=== PATIENT | female | born 1980 | race Caucasian/White ===

== ENCOUNTER 2019-01-31 13:25 | Emergency (ER) | payer OTHER ==
[~2019-01-31] VITALS: Ht 172.7 cm; Wt 108.4 kg
--- OUTSIDE RECORDS SUMMARY | ~2019-01-31 | XMS | Encounter Summary ---
Demographics + + + | Address | [address] | | | [place] [address] | + + + | Home Phone | | + + + | Preferred Language | Unknown | + + + | Marital Status | | + + + | Denominational Affiliation | 1001 | + + + | Race | Unknown | + + + | Ethnic Group | Unknown | + + + Author + + + | Author | [facility] | | | and [place] | + + + | Organization | [facility] | | | and [place] | + + + | Address | Unknown | + + + | Phone | Unavailable | + + + Support + + + + + | Name | Relationship | Address | Phone | + + + + + | Alexia Black | ECON | [address] | | | | | [place] [address] | | + + + + + | Kathi Segura | ECON | Unknown | | + + + + + Care Team Providers + +------+ + | Care Production Ski Repairer Name | Role | Phone | + +------+ + | Ricardo Nicholson MD | PCP | | + +------+ + Reason for Visit + + + | Reason | Comments | + + + | Abdominal Pain | | + + + | Constipation | | + + + | Bloated | | + + + | Back Pain | upper back | + + + | Neck Pain | b/l | + + + Encounter Details +--------+---------+ + + + | Date | Type | Department | Care Team | Description | +--------+---------+ + + + | 07/02/ | Office | [facility] | Ricardo Nicholson, | Left upper quadrant | | 2015 | Visit | [facility] | [address] | pain (Primary Dx); | | | | [address] | [place] | Constipation, | | | | [place], [place] | [address] | unspecified | | | | [address] | | constipation type; | | | | [phone] | | Bloated abdomen | +--------+---------+ + + + Social History + +-------+ +--------+ + | Tobacco Use | Types | Packs/Day | Years | Date | | | | | Used | | + +-------+ +--------+ + | Former Smoker | | | | Quit: 12/04/2010 | + +-------+ +--------+ + + +---+---+---+ | Smokeless Tobacco: | | | | | Former User | | | | + +---+---+---+ + + +---------+ + | Alcohol Use | Drinks/Week | oz/Week | Comments | + + +---------+ + | Yes | 1 Standard drinks | 0.8 | social | | | or equivalent | | | + + +---------+ + + + + | Sex Assigned at | Date Recorded | | | | + + + | Not on file | | + + + + + + + | Job Start Date | Occupation | Industry | + + + + | Not on file | Not on file | Not on file | + + + + + + + + | Travel History | Travel Start | Travel End | + + + + + + | No recent travel history available. | + + documented as of this encounter Last Filed Vital Signs + + + + + | Vital Sign | Reading | Time Taken | Comments | + + + + + | Blood Pressure | 92/70 | 07/03/2015 9:24 AM | | | | | PDT | | + + + + + | Pulse | 74 | 07/03/2015 9:24 AM | | | | | PDT | | + + + + + | Temperature | 36.6 C (97.8 F) | 07/03/2015 9:24 AM | | | | | PDT | | + + + + + | Respiratory Rate | 16 | 07/03/2015 9:24 AM | | | | | PDT | | + + + + + | Oxygen Saturation | 99% | 07/03/2015 9:24 AM | | | | | PDT | | + + + + + | Inhaled Oxygen | - | - | | | Concentration | | | | + + + + + | Weight | 111.6 kg (246 lb) | 07/03/2015 9:24 AM | | | | | PDT | | + + + + + | Height | - | - | | + + + + + | Body Mass Index | 37.4 | 12/18/2014 8:47 AM | | | | | PDT | | + + + + + documented in this encounter Progress Notes Ricardo Nicholson MD - 07/03/2015 9:34 AM PDTFormatting of this note might be different f rom the original. Subjective: Patient ID: Selena Black is a 34 y.o. female. Abdominal Pain This is a new problem. The current episode started 1 to 4 weeks ago. The problem occurs con stantly. The problem has been unchanged. The pain is at a severity of 5/10. The pain is mode rate. The quality of the pain is aching. Nothing aggravates the pain. The pain is relieved b y nothing. Past Medical History Diagnosis Date Sinusitis Pharyngitis Vaginitis Unspecified otitis media S/P endoscopy 05/07/12 normal Hyperplastic colon polyp 05/07/12 hyperplastic polyp,otherwise normal study Patient Active Problem List Diagnosis Date Noted POA Depression Unknown Abdominal pain, other specified site 03/30/2012 Unknown Preventative health care 03/04/2012 Unknown OTHandUNSPEC NONINFECTIOUS GASTROENTERITISandCOLITIS Unknown OTITIS MEDIA, ACUTE 10/30/2011 Unknown ABRASION 11/20/2010 Unknown Past Surgical History Procedure Laterality Date Tonsillectomy Ear surgery Bilateral as a child Colonoscopy 05/07/2012 one 5mm polyp in the proxinal decending colon/Resected abd retrieved/Internal Hemorrhroid s/The examination was otherwise normal/The examined portion of the ileum was normal. Upper gastrointestinal endoscopy 05/07/2012 Normal examined duodenum. This was biopsied/ Normal Stomach . Biopsy was performed. Ivette l Esophagus. This was biopsied. Duodenal biopsy Benign small bowel mucosa fragments-No Robert's glands included in these bipsies/Negariv e for pathologic inflamation-Negarive for architectural atypia-No parasites identified. Gastric biopsy Benign gastric mucosal fragments- Negative for pathologic inflammation-_Immunohisstochemi nicki stain negative for H pylory- Approated positive control reactions are noted-Negative for atypia Esophageal biopsy Benign squamous mucosa-Mild chronic inflammation-Negative for significant eosinophilic in filtration-Mild atypia-Favor reactive Ascending colon biopsy Benign colonic mucosa-Negative for pathologic inflammation-Normal apperring lymphoid foll icle-Negative for atypia Tissue from descending colon(polyp) Benign hyperplastic polyp Family History Problem Relation Age of Onset Heart disease Maternal Grandmother Diabetes Maternal Grandmother Liver disease Maternal Grandfather History Social History Marital Status: Significant Other Spouse Name: N/A Number of Children: N/A Years of Education: N/A Social History Main Topics Smoking status: Former Smoker Quit date: 12/04/2010 Smokeless tobacco: Former User Alcohol Use: 0.5 oz/week 1 drink(s) per week Comment: social Drug Use: No Sexual Activity: Yes Other Topics Concern None Social History Narrative Current Outpatient Prescriptions on File Prior to Visit Medication Sig Dispense Refill buPROPion (WELLBUTRIN SR) 150 mg 12 hr tablet take 1 tablet by mouth twice a day 180 ta blet 3 Cetirizine HCl (ZYRTEC ALLERGY PO) drospirenone-ethinyl estradiol (ANGELLA) 3-0.03 mg per tablet take 1 tablet by mouth once daily 84 tablet 1 Ibuprofen (ADVIL PO) TABS levothyroxine (SYNTHROID, LEVOTHROID) 75 MCG tablet take 1 tablet by mouth daily 30 tab let 0 Multiple Vitamins-Minerals (MULTIVITAMIN & MINERAL PO) Take by mouth. ondansetron (ZOFRAN ODT) 4 mg disintegrating tablet Take one tablet every 4-6 hours as needed for nausea. 6 tablet 0 Pseudoephedrine-Guaifenesin (MUCINEX D PO) Take by mouth as needed. No current facility-administered medications on file prior to visit. No Known Allergies Review of Systems Constitutional: Negative. HENT: Negative. Eyes: Negative. Respiratory: Negative. Cardiovascular: Negative. Gastrointestinal: Positive for abdominal pain. Genitourinary: Negative. Musculoskeletal: Negative. Skin: Negative. Neurological: Negative. Psychiatric/Behavioral: Negative. Objective: Physical Exam Constitutional: She is oriented to person, place, and time. She appears well-developed and well-nourished. No distress. HENT: Head: Normocephalic and atraumatic. Eyes: Conjunctivae are normal. Cardiovascular: Regular rhythm. Pulmonary/Chest: Effort normal. Musculoskeletal: She exhibits no edema. Neurological: She is alert and oriented to person, place, and time. Skin: Skin is warm and dry. Psychiatric: She has a normal mood and affect. Assessment: 1. Left upper quadrant pain XR Abdomen AP TSH 2. Constipation, unspecified constipation type XR Abdomen AP TSH 3. Bloated abdomen XR Abdomen AP TSH Plan: Orders Placed This Encounter Procedures XR Abdomen AP Standing Status: Future Number of Occurrences: 1 Standing Expiration Date: 07/02/2016 Order Specific Question: Reason for exam: Answer: constipation Order Specific Question: What is the preferred imaging location? Answer: [facility] TSH Standing Status: Future Number of Occurrences: 1 Standing Expiration Date: 07/02/2016 Current Outpatient Prescriptions Medication Sig Dispense Refill buPROPion (WELLBUTRIN SR) 150 mg 12 hr tablet take 1 tablet by mouth twice a day 180 ta blet 3 Cetirizine HCl (ZYRTEC ALLERGY PO) drospirenone-ethinyl estradiol (ANGELLA) 3-0.03 mg per tablet take 1 tablet by mouth once daily 84 tablet 1 Ibuprofen (ADVIL PO) TABS Multiple Vitamins-Minerals (MULTIVITAMIN & MINERAL PO) Take by mouth. omeprazole (PRILOSEC) 20 mg capsule Take 1 capsule by mouth every morning (before break fast). 60 capsule 0 ondansetron (ZOFRAN ODT) 4 mg disintegrating tablet Take one tablet every 4-6 hours as needed for nausea. 6 tablet 0 Pseudoephedrine-Guaifenesin (MUCINEX D PO) Take by mouth as needed. No current facility-administered medications for this visit. documented in this encounter Plan of Treatment Not on filedocumented as of this encounter Results TSH (07/03/2015 10:13 AM PDT) + + + + + + | Component | Value | Ref Range | Performed | Pathologist | | | | | At | Signature | + + + + + + | TSH | 1.80Comment: All TSH | 0.34 - 5.60 | [facility] | | | | samples are screened | uIU/mL | [facility] | | | | using a 2nd Generation | | MEDICAL | | | | test, and are reflexed | | CENTER - | | | | to a 3rd Generation test | | LABORATORY | | | | if indicated. | | | | + + + + + + + + | Specimen | + + | Blood | + + + + + + + | Performing | Address | City/State/Zipcode | Phone Number | | Organization | | | | + + + + + | [facility] | [address] | [place] | [phone] | | [facility] | | [address] | | | - LABORATORY | | | | + + + + + XR Abdomen AP (07/03/2015 10:05 AM PDT) + + | Specimen | + + | | + + + + + | Narrative | Performed At | + + + | SUPINE ABDOMEN: 07/03/2015 10:04 AM CLINICAL HISTORY: | [facility] | | constipation COMPARISON: 04/15/2012 FINDINGS: AP supine views | [facility] | | of the abdomen. Intestinal gas and stool pattern is within normal | MEDICAL CENTER | | limits. No signs of obstruction. No free air suggested. No abnormal | - IMAGING | | calcifications. Psoas shadows are well demarcated. No bony | | | abnormality. IMPRESSION - Radiographic appearance of the abdomen | | | within normal limits. Dictated and Signed by: Eriberto Coffey MD | | | Electronically signed: 07/03/2015 11:47 AM | | + + + + + | Procedure Note | + + | [place], Rad Results In - 07/03/2015 11:50 AM PDT SUPINE ABDOMEN: 07/03/2015 10:04 AM | | | | CLINICAL HISTORY: constipation | | | | COMPARISON: 04/15/2012 | | | | FINDINGS: AP supine views of the abdomen. Intestinal gas and stool pattern is | | within normal limits. No signs of obstruction. No free air suggested. No | | abnormal calcifications. Psoas shadows are well demarcated. No bony abnormality. | | | | IMPRESSION - Radiographic appearance of the abdomen within normal limits. | | | | Dictated and Signed by: Eriberto Coffey MD | | Electronically signed: 07/03/2015 11:47 AM | + + + + + + + | Performing | Address | City/State/Zipcode | Phone Number | | Organization | | | | + + + + + | [facility] | [address] | [place] | [phone] | | [facility] | | [address] | | | - IMAGING | | | | + + + + + documented in this encounter Visit Diagnoses + + | Diagnosis | + + | Left upper quadrant pain - Primary Abdominal pain, left upper quadrant | + + | Constipation, unspecified constipation type | + + | Bloated abdomen Flatulence, eructation, and gas pain | + + documented in this encounter"
--- OUTSIDE RECORDS SUMMARY | ~2019-01-31 | XMS | Encounter Summary ---
Demographics + + + | Address | [address] | | | [place] [address] | + + + | Home Phone | | + + + | Preferred Language | Unknown | + + + | Marital Status | | + + + | Sikh Affiliation | 1001 | + + + | Race | Unknown | + + + | Ethnic Group | Unknown | + + + Author + + + | Author | [facility] | | | and [place] | + + + | Organization | [facility] | | | and [place] | + + + | Address | Unknown | + + + | Phone | Unavailable | + + + Support + + + + + | Name | Relationship | Address | Phone | + + + + + | Alexia Black | ECON | [address] | | | | | [place] [address] | | + + + + + | Kathi Segura | ECON | Unknown | | + + + + + Care Team Providers + +------+ + | Care Team Guide Name | Role | Phone | + +------+ + | Ricardo Nicholson MD | PCP | | + +------+ + Reason for Visit + + + | Reason | Comments | + + + | Medication Refill | | + + + Encounter Details +--------+--------+ + + + | Date | Type | Department | Care Team | Description | +--------+--------+ + + + | 10/13/ | Refill | [facility] | Ricardo Nicholson, | Medication Refill | | 2016 | | [facility] [place] | [address] | | | | | [address] | [place] | | | | | [place] | [address] | | | | | [address] | | | | | | [phone] | | | +--------+--------+ + + + Social History + +-------+ [...] + + +---------+ + | Yes | 1-3 Cans of beer | 0.8 | social | + + +---------+ + + + [...] + + documented as of this encounter Plan of Treatment Not on filedocumented as of this encounter Visit Diagnoses Not on filedocumented in this encounter"
--- OUTSIDE RECORDS SUMMARY | ~2019-01-31 | XMS | Encounter Summary ---
Demographics + + + | Address | [address] | | | [place] [address] | + + + | Home Phone | | + + + | Preferred Language | Unknown | + + + | Marital Status | | + + + | Mandaeism Affiliation | 1001 | + + + | Race | Unknown | + + + | Ethnic Group | Unknown | + + + Author + + + | Author | [facility] | | | and [place] | + + + | Organization | [facility] | | | and [place] | + + + | Address | Unknown | + + + | Phone | Unavailable | + + + Support + + + + + | Name | Relationship | Address | Phone | + + + + + | Alexia Ascencio | ECON | [address] | | | | | [place] [address] | | + + + + + | Kathi Segura | ECON | Unknown | | + + + + + Care Team Providers + +------+ + | Care Dolphin Trainer Name | Role | Phone | + +------+ + | Hu Nicholson MD | PCP | | + +------+ + Reason for Visit + + + | Reason | Comments | + + + | Annual Exam | Annual physcial exam/ ER hospital follow up | + + + Encounter Details +--------+---------+ + + + | Date | Type | Department | Care Team | Description | +--------+---------+ + + + | 12/04/ | Office | [facility] | Hu Nicholson, | Routine general | | 2011 | Visit | [facility] | [address] | medical examination | | | | [address] | [place], [place] | at a health care | | | | [place], [place] | [address] | facility (Primary | | | | [phone] | | Dx); Abdominal | | | | [phone] | | pain, other | | | | | | specified site | +--------+---------+ + + + Social History + +-------+ +--------+ + | Tobacco Use | Types | Packs/Day | Years | Date | | | | | Used | | + +-------+ +--------+ + | Former Smoker | | | | Quit: 12/04/2010 | + +-------+ +--------+ + + + +---------+ + | Alcohol Use [...] + + + | Blood Pressure | 118/80 | 12/05/2011 10:17 AM | | | | | PDT | | + + + + + | Pulse | 86 | 12/05/2011 10:17 AM | | | | | PDT | | + + + + + | Temperature | 37 C (98.6 F) | 12/05/2011 10:17 AM | | | | | PDT | | + + + + + | Respiratory Rate | 18 | 12/05/2011 10:17 AM | | | | | PDT | | + + + + + | Oxygen Saturation | 98% | 12/05/2011 10:17 AM | | | | | PDT | | + + + + + | Inhaled Oxygen | - | - | | | Concentration | | | | + + + + + | Weight | 117.9 kg (260 lb) | 12/05/2011 10:17 AM | | | | | PDT | | + + + + + | Height | 172.7 cm (5' 8") | 12/05/2011 10:17 AM | | | | | PDT | | + + + + + | Body Mass Index | 39.53 | 12/05/2011 10:17 AM | | | | | PDT | | + + + + + documented in this encounter Progress Notes Hu Nicholson MD - 12/05/2011 11:06 AM PDT Addended by: HU NICHOLSON on: 12/05/19 12 11:06 Modules accepted: Orders u Nicholson MD - 12/05/2011 10:31 AM PDT Subjective: Patient ID: Lyle Ascencio is a 31 y.o. female. Abdominal Pain This is a new problem. The current episode started 1 to 4 weeks ago. The onset quality is s udden. The pain is located in the LUQ. The pain is at a severity of 4/10. Quality: pressure. Patient's medications, allergies, past medical, surgical, social and family histories were reviewed and updated as appropriate. Review of Systems Gastrointestinal: Positive for abdominal pain. All other systems reviewed and are negative. Objective: Physical Exam Constitutional: She appears well-developed. Assessment: abd pain Weight gain Plan: U/s aand labs Plan to get counseling. On weight. documented in this encounter Plan of Treatment Not on filedocumented as of this encounter Results US Abdomen Complete (12/15/2011 10:20 AM PDT) + + | Specimen | + + | | + + + + + | Narrative | Performed At | + + + | [facility] | [place] | | Department [address] | [facility] | | [ [address]] [ rep [address] [facility] | [facility] | | zip] Signed | - IMAGING | | | | | Patient Name: LYLE ASCENCIO Physician: | | | : 1980 Age: 31 Sex: F Unit #: [id number] | | | Exam Date: 12/15/11 Location: [facility] | | | Report #: [id number] Page: | | | %(RAD)RES..mtdd.print.filter("pg") of %(RAD) | | | RES..mtdd.print.filter("tpg") | | | | | | Accession Number: [id number] | | | ULTRASOUND ABDOMEN COMPLETE CLINICAL HISTORY: ABDOMINAL | | | PAIN. COMPARISON: None. TECHNIQUE: | | | Thompson scale and color Doppler ultrasound images of the abdomen were | | | obtained by a manager supplier. FINDINGS: The liver is | | | smooth in contour and homogeneous in echo texture, measuring 18.4 cm | | | in maximal dimension. The gallbladder is normal in appearance, | | | without evidence of wall thickening or pericholecystic fluid. The | | | sonographic Fernandez sign is negative. The common bile duct measures 3.6 | | | mm in diameter. The common hepatic duct was not visualized. | | | The pancreas was well-visualized and is homogeneously slightly | | | increased in echo texture, as can be seen with mild, normal fatty | | | infiltration. The aorta is normal and appearance, | | | measuring 2.0 cm proximally, 1.9 cm distally, and 1.9 cm in the mid | | | aorta and 1.6 cm distally. The spleen is mildly prominent, measuring | | | 13.5 cm in maximal dimension, and is otherwise unremarkable. | | | The right kidney is smooth in contour and normal in echo | | | texture, measuring 10.4 cm x 4.5 x 4.6 cm. There is no evidence of | | | stone or hydronephrosis. The left kidney is smooth in | | | contour and normal in echo texture, measuring 11.0 x 4.7 x 4.7 cm. | | | There is no evidence of stone or hydronephrosis. | | | Normal blood flow is seen in the inferior vena cava, portal vein, | | | hepatic veins and splenic veins. IMPRESSION: NO | | | ACUTE INTRAABDOMINAL ABNORMALITY. NO EVIDENCE OF ACUTE CHOLECYSTITIS. | | | Dictated Date/Time: 12/15/2011 10:20 Transcribed | | | Date/Time: 12/15/2011 10:56 Tile Conduit Layer: | | | <<Signature on File>> | | | Vinod | | | [place] MD12/15/11 8705 <Electronically signed by Vinod Wolff | | | Pancho VELARDE> Vinod Deleon MD 12/15/11 1020 | | | Tile Conduit Layer: [employer] Pacnzceitndgx67/22/12 1056 | | | Hu Nicholson MD | | + + + + + + + + | Performing | Address | City/State/Zipcode | Phone Number | | Organization | | | | + + + + + | [facility] | [address] | [place] | [phone] | | [facility] | | [address] | | | - IMAGING | | | | + + + + + TSH (12/15/2011 8:51 AM PDT) + + + + + + | Component | Value | Ref Range | Performed | Pathologist | | | | | At | Signature | + + + + + + | TSH | 3.58Comment: Testing | 0.34 - 5.60 | [facility] | | | | performed on the [facility] | uIU/mL | [facility] | | | | [place] [facility] | | MEDICAL | | | | Analyzer. | | CENTER - | | | | | | LABORATORY | | + + + + + + + + | Specimen | + + | Blood specimen | | (specimen) | + + + + + + + | Performing | Address | City/State/Zipcode | Phone Number | | Organization | | | | + + + + + | [facility] | [address] | [place] | [phone] | | [facility] | | [address] | | | - LABORATORY | | | | + + + + + | [facility] | [address] | [place] | | | [facility] | | [address] | | | - LABORATORY | | | | + + + + + Lipase (12/15/2011 8:44 AM PDT) + +-------+ + + + | Component | Value | Ref Range | Performed | Pathologist | | | | | At | Signature | + +-------+ + + + | Lipase | 32 | 0 - 60 U/L | [facility] | | | | | | [facility] | | | | | | MEDICAL | | | | | | CENTER - | | | | | | LABORATORY | | + +-------+ + + + + + | Specimen | + + | Blood specimen | | (specimen) | + + + + + + + | Performing | Address | City/State/Zipcode | Phone Number | | Organization | | | | + + + + + | [facility] | [address] | [place], [place] | [phone] | | [facility] | | [address] | | | - LABORATORY | | | | + + + + + | [facility] | [address] | [place], [place] | | | [facility] | | [address] | | | - LABORATORY | | | | + + + + + Lipid Profile (12/15/2011 8:44 AM PDT) + + + + + + | Component | Value | Ref Range | Performed | Pathologist | | | | | At | Signature | + + + + + + | Triglycerid | 191 (H) | 35 - 160 mg/dL | [facility] | | | es | | | [facility] | | | | | | MEDICAL | | | | | | CENTER - | | | | | | LABORATORY | | + + + + + + | Cholesterol | 165 | 140 - 200 mg/dL | [facility] | | | | | | [facility] | | | | | | MEDICAL | | | | | | CENTER - | | | | | | LABORATORY | | + + + + + + | HDL | 45 | 29 - 89 mg/dL | [facility] | | | | | | [facility] | | | | | | MEDICAL | | | | | | CENTER - | | | | | | LABORATORY | | + + + + + + | LDL, | 82 | <130 mg/dL | [facility] | | | Calculated | | | [facility] | | | | | | MEDICAL | | | | | | CENTER - | | | | | | LABORATORY | | + + + + + + | Chol/HDL | 3.7Comment: | | [facility] | | | Ratio | | | [facility] | | | | | | MEDICAL | | | | -------RISK CATEGORY: | | CENTER - | | | | CHOL/HDL * T.CHOL * LDL | | LABORATORY | | | | CHOL * HDL CHOL | | | | | | | | | | | | RATIODESIRABLE: (M) | | | | | | 4.0-6.7 <200 | | | | | | <130 >50 | | | | | | (F) | | | | | | 3.7-4.2BORDERLINE:(M) | | | | | | 6.7-7.4 200-240 | | | | | | 130-160 <45 | | | | | | (F) | | | | | | 4.2-5.5HIGH RISK: (M) | | | | | | >7.4 >240 | | | | | | >160 <35 | | | | | | (F) | | | | | | >5.5 | | | | | | | | | | | | | | | | + + + + + + + + | Specimen | + + | Blood specimen | | (specimen) | + + + + + + + | Performing | Address | City/State/Zipcode | Phone Number | | Organization | | | | + + + + + | [facility] | [address] | [place] | [phone] | | [facility] | | [address] | | | - LABORATORY | | | | + + + + + | [facility] | [address] | [place] | | | [facility] | | [address] | | | - LABORATORY | | | | + + + + + Comprehensive metabolic panel (12/15/2011 8:44 AM PDT) + + + + + + | Component | Value | Ref Range | Performed | Pathologist | | | | | At | Signature | + + + + + + | Glucose | 100 | 70 - 109 mg/dL | [facility] | | | | | | [facility] | | | | | | MEDICAL | | | | | | CENTER - | | | | | | LABORATORY | | + + + + + + | Calcium | 8.8 | 8.3 - 10.5 | [facility] | | | | | mg/dL | [facility] | | | | | | MEDICAL | | | | | | CENTER - | | | | | | LABORATORY | | + + + + + + | Alkaline | 84 | 40 - 110 IU/L | [facility] | | | Phosphatase | | | [facility] | | | | | | MEDICAL | | | | | | CENTER - | | | | | | LABORATORY | | + + + + + + | AST | 19 | 10 - 42 IU/L | [facility] | | | | | | [facility] | | | | | | MEDICAL | | | | | | CENTER - | | | | | | LABORATORY | | + + + + + + | ALT | 16 | 6 - 45 IU/L | [facility] | | | | | | [facility] | | | | | | MEDICAL | | | | | | CENTER - | | | | | | LABORATORY | | + + + + + + | Bilirubin | 0.5 | 0.2 - 1.0 mg/dL | [facility] | | | Total | | | [facility] | | | | | | MEDICAL | | | | | | CENTER - | | | | | | LABORATORY | | + + + + + + | Total | 7.0 | 6.0 - 7.8 gm/dL | [facility] | | | Protein | | | [facility] | | | | | | MEDICAL | | | | | | CENTER - | | | | | | LABORATORY | | + + + + + + | Albumin | 3.5 | 3.2 - 5.0 gm/dL | [facility] | | | | | | [facility] | | | | | | MEDICAL | | | | | | CENTER - | | | | | | LABORATORY | | + + + + + + | BUN | 11 | 7 - 18 mg/dL | [facility] | | | | | | [facility] | | | | | | MEDICAL | | | | | | CENTER - | | | | | | LABORATORY | | + + + + + + | Creatinine | 0.92 | 0.60 - 1.30 | [facility] | | | | | mg/dL | [facility] | | | | | | MEDICAL | | | | | | CENTER - | | | | | | LABORATORY | | + + + + + + | Estimated | >60Comment: For | >60 mL/min/A | [facility] | | | GFR | -Americans, | | [facility] | | | | please multiply the | | MEDICAL | | | | result by 1.210 | | CENTER - | | | | This is an estimated GFR | | LABORATORY | | | | and is based on a | | | | | | standard adult | | | | | | body mass (A=1.73m2) and | | | | | | serum creatinine | | | | + + + + + + | BUN/Creatin | 12.0 | 12 - 20 | [facility] | | | ine Ratio | | | [facility] | | | | | | MEDICAL | | | | | | CENTER - | | | | | | LABORATORY | | + + + + + + | Na | 133 (L) | 136 - 149 mEq/L | [facility] | | | | | | [facility] | | | | | | MEDICAL | | | | | | CENTER - | | | | | | LABORATORY | | + + + + + + | K | 3.4 (L) | 3.5 - 5.1 mEq/l | [facility] | | | | | | [facility] | | | | | | MEDICAL | | | | | | CENTER - | | | | | | LABORATORY | | + + + + + + | Cl | 103 | 98 - 109 mEq/l | [facility] | | | | | | [facility] | | | | | | MEDICAL | | | | | | CENTER - | | | | | | LABORATORY | | + + + + + + | CO2 | 21 (L) | 24 - 31 mEq/L | [facility] | | | | | | [facility] | | | | | | MEDICAL | | | | | | CENTER - | | | | | | LABORATORY | | + + + + + + | Anion Gap | 12.4 | 6.0 - 17.0 | [facility] | | | | | | [facility] | | | | | | MEDICAL | | | | | | CENTER - | | | | | | LABORATORY | | + + + + + + + + | Specimen | + + | Blood specimen | | (specimen) | + + + + + + + | Performing | Address | City/State/Zipcode | Phone Number | | Organization | | | | + + + + + | [facility] | [address] | [place] | [phone] | | [facility] | | [address] | | | - LABORATORY | | | | + + + + + | [facility] | [address] | [place], [place] | | | [facility] | | [address] | | | - LABORATORY | | | | + + + + + CBC w/ Differential (12/15/2011 8:44 AM PDT) + +---------+ + + + | Component | Value | Ref Range | Performed | Pathologist | | | | | At | Signature | + +---------+ + + + | WBC | 10.4 | 4.0 - 11.0 K/uL | [facility] | | | | | | [facility] | | | | | | MEDICAL | | | | | | CENTER - | | | | | | LABORATORY | | + +---------+ + + + | RBC | 4.52 | 3.70 - 5.20 | [facility] | | | | | M/uL | [facility] | | | | | | MEDICAL | | | | | | CENTER - | | | | | | LABORATORY | | + +---------+ + + + | Hemoglobin | 14.9 | 11.5 - 16.0 | [facility] | | | | | gm/dL | [facility] | | | | | | MEDICAL | | | | | | CENTER - | | | | | | LABORATORY | | + +---------+ + + + | Hematocrit | 42.6 | 34.0 - 47.0 % | [facility] | | | | | | [facility] | | | | | | MEDICAL | | | | | | CENTER - | | | | | | LABORATORY | | + +---------+ + + + | MCV | 94.4 | 83.0 - 101.0 fL | [facility] | | | | | | [facility] | | | | | | MEDICAL | | | | | | CENTER - | | | | | | LABORATORY | | + +---------+ + + + | MCH | 32.9 | 28.0 - 35.0 pg | [facility] | | | | | | [facility] | | | | | | MEDICAL | | | | | | CENTER - | | | | | | LABORATORY | | + +---------+ + + + | MCHC | 34.9 | 32.0 - 36.0 | [facility] | | | | | g/dL | [facility] | | | | | | MEDICAL | | | | | | CENTER - | | | | | | LABORATORY | | + +---------+ + + + | RDW-CV | 12.9 | <15.0 % | [facility] | | | | | | [facility] | | | | | | MEDICAL | | | | | | CENTER - | | | | | | LABORATORY | | + +---------+ + + + | Platelet | 273 | 140 - 440 K/uL | [facility] | | | Count | | | [facility] | | | | | | MEDICAL | | | | | | CENTER - | | | | | | LABORATORY | | + +---------+ + + + | % | 70.1 | 45 - 75 % | [facility] | | | Neutrophils | | | [facility] | | | | | | MEDICAL | | | | | | CENTER - | | | | | | LABORATORY | | + +---------+ + + + | % | 23.6 | 20 - 45 % | [facility] | | | Lymphocytes | | | [facility] | | | | | | MEDICAL | | | | | | CENTER - | | | | | | LABORATORY | | + +---------+ + + + | % Monocytes | 4.3 | 4 - 12 % | [facility] | | | | | | [facility] | | | | | | MEDICAL | | | | | | CENTER - | | | | | | LABORATORY | | + +---------+ + + + | % | 1.5 | 0 - 5 % | [facility] | | | Eosinophils | | | [facility] | | | | | | MEDICAL | | | | | | CENTER - | | | | | | LABORATORY | | + +---------+ + + + | % Basophils | 0.5 | 0 - 1 % | [facility] | | | | | | [facility] | | | | | | MEDICAL | | | | | | CENTER - | | | | | | LABORATORY | | + +---------+ + + + | Absolute | 7.3 (H) | 1.5 - 6.6 K/uL | [facility] | | | Neutrophils | | | [facility] | | | | | | MEDICAL | | | | | | CENTER - | | | | | | LABORATORY | | + +---------+ + + + | Absolute | 2.4 | 0.6 - 3.2 K/uL | [facility] | | | Lymphocytes | | | [facility] | | | | | | MEDICAL | | | | | | CENTER - | | | | | | LABORATORY | | + +---------+ + + + | Absolute | 0.4 | 0.0 - 1.0 K/uL | [facility] | | | Monocytes | | | [facility] | | | | | | MEDICAL | | | | | | CENTER - | | | | | | LABORATORY | | + +---------+ + + + | Absolute | 0.2 | 0.0 - 0.4 K/uL | [facility] | | | Eosinophils | | | [facility] | | | | | | MEDICAL | | | | | | CENTER - | | | | | | LABORATORY | | + +---------+ + + + | Absolute | 0.1 | 0.0 - 0.1 K/uL | [facility] | | | Basophils | | | [facility] | | | | | | MEDICAL | | | | | | CENTER - | | | | | | LABORATORY | | + +---------+ + + + + + | Specimen | + + | Blood specimen | | (specimen) | + + + + + + + | Performing | Address | City/State/Zipcode | Phone Number | | Organization | | | | + + + + + | [facility] | [address] | [place], [place] | [phone] | | [facility] | | [address] | | | - LABORATORY | | | | + + + + + | [facility] | [address] | [place], [place] | | | [facility] | | [address] | | | - LABORATORY | | | | + + + + + documented in this encounter Visit Diagnoses + + | Diagnosis | + + | Routine general medical examination at a health care facility - Primary | + + | Abdominal pain, other specified site | + + documented in this encounter
--- OUTSIDE RECORDS SUMMARY | ~2019-01-31 | XMS | Encounter Summary ---
Demographics + + + | Address | [address] | | | [place] [address] | + + + | Home Phone | | + + + | Preferred Language | Unknown | + + + | Marital Status | | + + + | Jew Affiliation | 1001 | + + + | Race | Unknown | + + + | Ethnic Group | Unknown | + + + Author + + + | Author | [facility] | | | and [place] | + + + | Organization | [facility] | | | and [place] | + + + | Address | Unknown | + + + | Phone | Unavailable | + + + Support + + + + + | Name | Relationship | Address | Phone | + + + + + | Alexia Ascencio | ECON | [address] | | | | | [place] [address] | | + + + + + | Kathi Segura | ECON | Unknown | | + + + + + Care Team Providers + +------+ + | Care Transaction Manager Name | Role | Phone | + +------+ + | Ricardo Nicholson MD | PCP | | + +------+ + Reason for Referral Evaluate & Treat (Routine) +--------+ + + + + + | Status | Reason | Specialty | Diagnoses / | Referred By | Referred To | | | | | Procedures | Contact | Contact | +--------+ + + + + + | Closed | Specialty | Podiatry | Diagnoses | Bharat, | | | | Services | | Foot pain | Ricardo Gamble, | | | | Required | | | MD [address] | | | | | | | [place], | | | | | | | [place] [address] | | | | | | | Phone: | | | | | | | [phone] | | | | | | | Fax: | | | | | | | [phone] | | +--------+ + + + + + Consultation (Routine) +--------+ + + + + + | Status | Reason | Specialty | Diagnoses / | Referred By | Referred To | | | | | Procedures | Contact | Contact | +--------+ + + + + + | Closed | Specialty | Gastroenterol | Diagnoses | Bharat, | [facility] | | | Services | ogy | Abdominal | Ricardo D, | Gastroenterol | | | Required | | pain | MD [address] | [address] | [address] | | | | | | [place], | [address] [place] | | | | | | [place] [address] | [place], [place] | | | | | | Phone: | [address] | | | | | | [phone] | Phone: | | | | | | Fax: | [phone] | | | | | | [phone] | Fax: | | | | | | | [phone] | +--------+ + + + + + Diagnostic/Screening (Routine) +--------+--------+ + + + + | Status | Reason | Specialty | Diagnoses / | Referred By | Referred To | | | | | Procedures | Contact | Contact | +--------+--------+ + + + + | Closed | | Radiology | Diagnoses | Bharat, | [facility] | | | | | Abdominal | Ricardo D, | Imaging [address] | | | | | pain | MD [address] | | | | | Procedures | [address] | [address] [place] | | | | | [place] | [place], | [place], [place] | | | | | Hepatobiliar | [place] [address] | [address] | | | | | y laina KUHN | Phone: | Phone: | | | | | | [phone] | | | | | | | Fax: | Fax: | | | | | | [phone] | [phone] | +--------+--------+ + + + + Reason for Visit + + + | Reason | Comments | + + + | Follow-up | 3 months follow up on abdominal pain not getting better | + + + Encounter Details +--------+---------+ + + + | Date | Type | Department | Care Team | Description | +--------+---------+ + + + | 03/26/ | Office | [facility] | Ricardo Nicholson, | Abdominal pain | | 2012 | Visit | [facility] [place] | [address] | (Primary Dx); Foot | | | | [address] | [place], [place] | pain; Abdominal | | | | [place], [place] | [address] | pain, other | | | | [address] | | specified site | | | | [phone] | | | +--------+---------+ + + + Social History [...] + + + | Blood Pressure | 110/80 | 03/26/2012 8:41 AM | | | | | PST | | + + + + + | Pulse | 78 | 03/26/2012 8:41 AM | | | | | PST | | + + + + + | Temperature | 36.7 C (98 F) | 03/26/2012 8:41 AM | | | | | PST | | + + + + + | Respiratory Rate | 16 | 03/26/2012 8:41 AM | | | | | PST | | + + + + + | Oxygen Saturation | 99% | 03/26/2012 8:41 AM | | | | | PST | | + + + + + | Inhaled Oxygen | - | - | | | Concentration | | | | + + + + + | Weight | 106.6 kg (235 lb) | 03/26/2012 8:41 AM | | | | | PST | | + + + + + | Height | 172.7 cm (5' 8") | 03/26/2012 8:41 AM | | | | | PST | | + + + + + | Body Mass Index | 35.73 | 03/26/2012 8:41 AM | | | | | PST | | + + + + + documented in this encounter Progress Notes Ricardo Nicholson MD - 03/30/2012 11:20 AM PSTFormatting of this note might be different f rom the original. Subjective: Patient ID: Lyle Ascencio is a 31 y.o. female. Abdominal Pain This is a recurrent problem. The current episode started more than 1 month ago. The onset q uality is gradual. The problem occurs 2 to 4 times per day. The problem has been gradually w orsening. The pain is located in the LLQ, LUQ, RLQ and RUQ. The pain is at a severity of 3/1 0. The pain is mild. The quality of the pain is colicky, aching and burning. The abdominal p ain does not radiate. Pertinent negatives include no anorexia, arthralgias, belching, consti pation, diarrhea, dysuria, fever, flatus, frequency, headaches, hematochezia, hematuria, belia bhavana, myalgias, nausea, vomiting or weight loss. Nothing aggravates the pain. The pain is rel ieved by nothing. She has tried proton pump inhibitors for the symptoms. There is no history of colon cancer, Crohn's disease or irritable bowel syndrome. Toe Pain The incident occurred more than 1 week ago. Incident location: no incident. There was no in jury mechanism. The pain is at a severity of 4/10. The pain is mild. The pain has been fluct uating since onset. Pertinent negatives include no inability to bear weight, loss of motion, loss of sensation, muscle weakness, numbness or tingling. Patient's medications, allergies, past medical, surgical, social and family histories were reviewed and updated as appropriate. Review of Systems Constitutional: Negative. Negative for fever and weight loss. HENT: Negative. Eyes: Negative. Respiratory: Negative. Cardiovascular: Negative. Gastrointestinal: Positive for abdominal pain. Negative for nausea, vomiting, diarrhea, con stipation, melena, hematochezia, anorexia and flatus. Genitourinary: Negative. Negative for dysuria, frequency and hematuria. Musculoskeletal: Negative. Negative for myalgias and arthralgias. Skin: Negative. Neurological: Negative. Negative for tingling, numbness and headaches. Hematological: Negative. Psychiatric/Behavioral: Negative. Objective: Physical Exam Constitutional: [...] a normal mood and affect. Assessment: 1. Abdominal pain NM Hepatobiliary w CCK, Ambulatory referral to Gastroenterology 2. Foot pain Ambulatory referral to Podiatry 3. Abdominal pain, other specified site Plan: Orders Placed This Encounter Procedures NM Hepatobiliary w CCK Standing Status: Future Number of Occurrences: Standing Expiration Date: 03/26/2013 Order Specific Question: Reason for exam: Answer: abd pain Ambulatory referral to Gastroenterology Referral Priority: Routine Referral Type: Consultation Referral Reason: Specialty Services Required Requested Specialty: Gastroenterology Number of Visits Requested: 1 Ambulatory referral to Podiatry Referral Priority: Routine Referral Type: Evaluate & Treat Referral Reason: Specialty Services Required Requested Specialty: Podiatry Number of Visits Requested: 1 Current Outpatient Prescriptions Medication Sig Dispense Refill omeprazole (PRILOSEC) 20 mg capsule Take 20 mg by mouth every morning (before breakfast ). renal multivitamin (DIALYVITE) TABS Take 1 tablet by mouth every evening. buPROPion (WELLBUTRIN SR) 150 mg 12 hr tablet 1 tablet by mouth daily for 3 days; incre ase to 1 tablet twice daily 60 tablet 3 Cetirizine HCl (ZYRTEC ALLERGY PO) Drospirenone-Ethinyl Estradiol (ANGELLA PO) Ibuprofen (ADVIL PO) TABS famotidine (PEPCID AC) 10 MG chewable tablet Take 1 tablet by mouth 2 times daily. 60 tablet 0 documented in this encounter Plan of Treatment + + +--------+ + + | Name | Type | Priori | Associated Diagnoses | Order Schedule | | | | ty | | | + + +--------+ + + | Ambulatory referral | Outpatient | Routin | Abdominal pain | Ordered: 03/26/2012 | | to Gastroenterology | Referral | e | | | + + +--------+ + + | Ambulatory referral | Outpatient | Routin | Foot pain | Ordered: 03/26/2012 | | to Podiatry | Referral | e | | | + + +--------+ + + documented as of this encounter Results NM Hepatobiliary w CCK (03/31/2012 10:49 AM PST) + + | Specimen | + + | | + + + + + | Narrative | Performed At | + + + | [facility] Diagnostic Imaging | [place] | | Department [facility] | [facility] | | [ rep [address]] [ rep [facility] | | st zip] Signed | - IMAGING | | | | | Patient Name: LYLE ASCENCIO Physician: | | | SAM : 1980 Age: 31 Sex: F Unit #: [id number] | | | Exam Date: 03/31/12 Location: [facility] | | | Report #: [id number] Page: | | | %(RAD)RES..mtdd.print.filter("pg") of %(RAD) | | | RES..mtdd.print.filter("tpg") | | | | | | Accession Number: [id number] | | | NUCLEAR HEPATOBILIARY SCAN, 03/31/2012 CLINICAL HISTORY: | | | ABDOMINAL PAIN COMPARISON: Abdominal ultrasound | | | 12/15/2011. TECHNIQUE: Immediately following the | | | uneventful intravenous administration of 8.4 mCi technetium-99m | | | Choletec, dynamic planar scintigraphy is performed through the upper | | | abdomen. Additional dynamic scintigraphy is performed following | | | intravenous administration of 2.1 mcg Cholecystokinin. Region of | | | interest analysis and a time-activity curve are utilized to calculate | | | a gallbladder ejection fraction. FINDINGS: There is | | | prompt, homogeneous uptake of radiotracer by the liver, without | | | evident focal hepatic abnormality. Activity passes into the | | | gallbladder and common duct within 15 minutes of Choletec injection. | | | There is passage of tracer through the duct and into bowel, without | | | evident ductal retention. The gallbladder ejection fraction is | | | abnormally low at 22% (normally greater than 35 %). Enterogastric | | | bile reflux is visible both before and after cholecystokinin | | | administration. IMPRESSION: 1. ABNORMALLY | | | DECREASED GALLBLADDER EJECTION FRACTION OF 22%, SUGGESTING BILIARY | | | DYSKINESIA. THERE IS NO EVIDENCE OF CYSTIC DUCT OR COMMON DUCT | | | OBSTRUCTION. 2. ENTEROGASTRIC BILE REFLUX. | | | Dictated Date/Time: 03/31/2012 10:49 Transcribed Date/Time: | | | 03/31/2012 11:08 Junior Systems Engineer: | | | <<Signature on File>> | | | Erasmo Welch | | | MD Willie03/31/12 1233 <Electronically signed by Erasmo Tapia MD> | | | Erasmo Tapia MD 03/31/12 1049 Junior Systems Engineer: | | | Kontagent [email or web address]/06/13 1108 Ricardo Nicholson MD | | | | | + + + + + + + + | Performing | Address | City/State/Zipcode | Phone Number | | Organization | | | | + + + + + | [facility] | [address] | [place] | [phone] | | [facility] | | [address] | | | - IMAGING | | | | + + + + + documented in this encounter Visit Diagnoses + + | Diagnosis | + + | Abdominal pain - Primary Abdominal pain, unspecified site | + + | Foot pain Pain in limb | + + | Abdominal pain, other specified site | + + documented in this encounter
--- OUTSIDE RECORDS SUMMARY | ~2019-01-31 | XMS | Encounter Summary ---
Demographics + + + | Address | [address] | | | [place] [address] | + + + | Home Phone | | + + + | Preferred Language | Unknown | + + + | Marital Status | | + + + | Taoism Affiliation | 1001 | + + + | Race | Unknown | + + + | Ethnic Group | Unknown | + + + Author + + + | Author | [facility] | | | and [place] | + + + | Organization | [facility] | | | and [place] | + + + | Address | Unknown | + + + | Phone | Unavailable | + + + Support + + + + + | Name | Relationship | Address | Phone | + + + + + | Alexia Black | ECON | [address] | | | | | [place] [address] | | + + + + + | Kathi Segura | ECON | Unknown | | + + + + + Care Team Providers + +------+ + | Care Stave Inspector Name | Role | Phone | + [...] Description | +--------+--------+ + + + | 01/19/ | Refill | [facility] | Ricardo Nicholson, | Medication Refill | | 2017 | | [facility] [place] | [address] | | | | | [address] | [place] | | | | | [place] | [address] | | | | | [address] | | | | | | [phone] | | | +--------+--------+ + + + [...]
--- OUTSIDE RECORDS SUMMARY | ~2019-01-31 | XMS | Encounter Summary ---
Demographics + + + | Address | [address] | | | [place] [address] | + + + | Home Phone | | + + + | Preferred Language | Unknown | + + + | Marital Status | | + + + | Church Affiliation | 1001 | + + + | Race | Unknown | + + + | Ethnic Group | Unknown | + + + Author + + + | Author | [facility] | | | and [place] | + + + | Organization | [facility] | [...] | | | | | [place] [address] | | + + + + + | Kathi Segura | ECON | Unknown | | + + + + + Care Team Providers + +------+ + | Care Tsa Screener Name | Role | Phone | + [...] Description | +--------+--------+ + + + | 01/27/ | Refill | [facility] | Ricardo Nicholson, | Medication Refill | | 2015 | | [facility] [place] | [address] | | | | | [address] | [place] | | | | | [place] | [address] | | | | | [address] | | | | | | [phone] | | | +--------+--------+ + + + [...]
--- OUTSIDE RECORDS SUMMARY | ~2019-01-31 | XMS | Encounter Summary ---
Demographics + + + | Address | [address] | | | [place] [address] | + + + | Home Phone | | + + + | Preferred Language | Unknown | + + + | Marital Status | | + + + | Hindu Affiliation | 1001 | + + + | Race | Unknown | + + + | Ethnic Group | Unknown | + + + Author + + + | Author | [facility] | | | and [place] | + + + | Organization | [facility] | | | and [place] | + + + | Address | Unknown | + + + | Phone | Unavailable | + + + Support + + + + + | Name | Relationship | Address | Phone | + + + + + | Alexia Black | ECON | [address] | | | | | [place] [address] | | + + + + + | Kathi Segura | ECON | Unknown | | + + + + + Care Team Providers + +------+ + | Care Senior Linux Unix Engineer Name | Role | Phone | + +------+ + | Ricardo Nicholson MD | PCP | | + +------+ + Reason for Visit + + + | Reason | Comments | + + + | Results | | + + + | Medication | | | Management | | + + + Encounter Details +--------+ + + + + | Date | Type | Department | Care Team | Description | +--------+ + + + + | 12/18/ | Telephone | [facility] | Ricardo Nicholson, | Results; Medication | | 2014 | | [facility] [place] | [address] | Management | | | | [address] | [place] | | | | | [place] | [address] | | | | | [address] | | | | | | [phone] | | | +--------+ + + + + Social History + +-------+ [...]
--- OUTSIDE RECORDS SUMMARY | ~2019-01-31 | XMS | Encounter Summary ---
Demographics + + + | Address | [address] | | | [place] [address] | + + + | Home Phone | | + + + | Preferred Language | Unknown | + + + | Marital Status | | + + + | Anabaptism Affiliation | 1001 | + + + | Race | Unknown | + + + | Ethnic Group | Unknown | + + + Author + + + | Author | [facility] | | | and [place] | + + + | Organization | [facility] | | | and [place] | + + + | Address | Unknown | + + + | Phone | Unavailable | + + + Support + + + + + | Name | Relationship | Address | Phone | + + + + + | Alexia Black | ECON | [address] | | | | | [place] [address] | | + + + + + | Kathi Segura | ECON | Unknown | | + + + + + Care Team Providers + +------+ + | Care Office Support Specialist Name | Role | Phone | + [...] Description | +--------+--------+ + + + | 07/17/ | Refill | [facility] | Ricardo Nicholson, | Medication Refill | | 2016 | | [facility] [place] | [address] | | | | | [address] | [place] | | | | | [place] | [address] | | | | | [address] | | | | | | [phone] | | | +--------+--------+ + + + [...]
--- OUTSIDE RECORDS SUMMARY | ~2019-01-31 | XMS | Encounter Summary ---
Demographics + + + | Address | [address] | | | [place] [address] | + + + | Home Phone | | + + + | Preferred Language | Unknown | + + + | Marital Status | | + + + | Sabianism Affiliation | 1001 | + + + | Race | Unknown | + + + | Ethnic Group | Unknown | + + + Author + + + | Author | [facility] | | | and [place] | + + + | Organization | [facility] | | | and [place] | + + + | Address | Unknown | + + + | Phone | Unavailable | + + + Support + + + + + | Name | Relationship | Address | Phone | + + + + + | Alexia Ascencio | ECON | [address] | | | | | [place] [address] | | + + + + + | Kathi Segura | ECON | Unknown | | + + + + + Care Team Providers + +------+ + | Care Hammer Runner Name | Role | Phone | + +------+ + | Ricardo Nicholson MD | PCP | | + +------+ + Encounter Details +--------+ + + + + | Date | Type | Department | Care Team | Description | +--------+ + + + + | 11/18/ | Hospital | [facility] | Babs Riley | | | 2011 - | Encounter | [facility] EM[facility] | MD Robert [address] | | | | | [place] [address] | [address] [place] | | | 11/19/ | | [place], [place] | [place] [address] | | | 2011 | | [address] | [phone] | | | | | [phone] | | | +--------+ + + + + Social History + +-------+ +--------+------+ | Tobacco Use | Types | Packs/Day | Years | Date | | | | | Used | | + +-------+ +--------+------+ | Never Assessed | | | | | + +-------+ +--------+------+ + + + | Sex Assigned at [...] + + documented as of this encounter Medications at Time of Discharge + +------+ +---------+ + + | Medication | Sig | Dispensed | Refills | Start | End Date | | | | | | Date | | + +------+ +---------+ + + | Cetirizine HCl | | | 0 | 10/30/19 | | | (ZYRTEC ALLERGY PO) | | | | 12 | | + +------+ +---------+ + + | Ibuprofen (ADVIL | TABS | | 0 | 11/06/19 | | | PO) | | | | 12 | | + +------+ +---------+ + + | | | | 0 | 10/30/19 | | | Drospirenone-Ethinyl | | | | 12 | 3 | | Estradiol (ANGELLA | | | | | | | PO) | | | | | | + +------+ +---------+ + + documented as of this encounter Plan of Treatment Not on filedocumented as of this encounter Procedures + +--------+ + + + | Procedure Name | Priori | Date/Time | Associated Diagnosis | Comments | | | ty | | | | + +--------+ + + + | XR CHEST AP PORTABLE | Routin | 11/20/2011 | | Results for this | | | e | 11:33 AM | | procedure are in the | | | | PDT | | results section. | + +--------+ + + + | D-DIMER | Routin | 11/20/2011 | | Results for this | | | e | 12:16 AM | | procedure are in the | | | | PDT | | results section. | + +--------+ + + + documented in this encounter Results XR Chest AP Portable (11/20/2011 11:33 AM PDT) + + | Specimen | + + | | + + + + + | Narrative | Performed At | + + + | [facility] | [place] | | Department [address] [place] [address] | [facility] | | [ rep [address]] [ rep [facility] | | st zip] Signed | - IMAGING | | | | | Patient Name: LYLE ASCENCIO Physician: | | | KHUSHI.Cb : 1980 Age: 31 Sex: F Unit #: [id number] | | | Exam Date: 11/20/11 Location: ER | | | Report #: [id number] Page: | | | %(RAD)RES..mtdd.print.filter("pg") of %(RAD) | | | RES..mtdd.print.filter("tpg") | | | | | | Accession Number: [id number] | | | PORTABLE CHEST X-RAY CLINICAL HISTORY: CHEST PAIN. | | | FINDINGS: Heart size and mediastinal contours are | | | within normal limits. There is no focal consolidation, pleural | | | effusion, or pneumothorax. There is mild degenerative disk disease. | | | The soft tissues and osseous structures are otherwise | | | unremarkable. IMPRESSION: NO ACUTE THORACIC | | | ABNORMALITY. Dictated Date/Time: 11/20/2011 11:33 | | | Transcribed Date/Time: 11/20/2011 11:38 Subacute Nurse: | | | <<Signature on File>> | | | Vinod | | | [place] MD11/20/112147 <Electronically signed by Vinod Wolff | | | Pancho VELARDE> Vinod Deleon MD 11/20/111132 | | | Subacute Nurse: Yumber [id number] | | | Riley Brice MD | | + + + + + + + + | Performing | Address | City/State/Zipcode | Phone Number | | Organization | | | | + + + + + | [facility] | [address] | [place] | [phone] | | [facility] | | [address] | | | - IMAGING | | | | + + + + + D-Dimer (11/20/2011 12:16 AM PDT) + + + + + + | Component | Value | Ref Range | Performed | Pathologist | | | | | At | Signature | + + + + + + | D-DIMER, | 0.23Comment: This | <0.50 ug/mlFEU | [facility] | | | QUANTITATIV | quantitative D-Dimer | | [facility] | | | E | assay has been evaluated | | MEDICAL | | | | for screening for | | CENTER - | | | | venous thrombotic | | LABORATORY | | | | disease, and may be | | | | | | useful in ruling out, | | | | | | but not ruling in | | | | | | disease. Values less | | | | | | than 0.50 ug/mL FEU | | | | | | (Fibrinogen Equivalent | | | | | | Units) have a negative | | | | | | predictive value of | | | | | | approximately 95% for | | | | | | ruling out large | | | | | | pulmonary emboli or | | | | | | proximal deep vein | | | | | | thrombosis. Distal DVT | | | | | | are not excluded. An | | | | | | elevated D-dimer can be | | | | | | present in patients | | | | | | with liver disease, | | | | | | , eclampsia, | | | | | | heart disease and some | | | | | | cancers among other | | | | | | conditions. The | | | | | | presence of rheumatoid | | | | | | factor at a level >50 | | | | | | IU/mL may falsely | | | | | | elevate the determined | | | | | | D-dimer levels. | | | | + + + + + + + + | Specimen | + + | | + + + + + + + | Performing | Address | City/State/Zipcode | Phone Number | | Organization | | | | + + + + + | [facility] | [address] | [place] | [phone] | | [facility] | | [address] | | | - LABORATORY | | | | + + + + + | [facility] | [address] | [place] | | | [facility] | | [address] | | | - LABORATORY | | | | + + + + + documented in this encounter Visit Diagnoses Not on filedocumented in this encounter
--- OUTSIDE RECORDS SUMMARY | ~2019-01-31 | XMS | Encounter Summary ---
Demographics + + + | Address | [address] | | | [place] [address] | + + + | Home Phone | | + + + | Preferred Language | Unknown | + + + | Marital Status | | + + + | Anabaptism Affiliation | 1001 | + + + | Race | Unknown | + + + | Ethnic Group | Unknown | + + + Author + + + | Author | [facility] | | | and [place] | + + + | Organization | [facility] | | | and [place] | + + + | Address | Unknown | + + + | Phone | Unavailable | + + + Support + + + + + | Name | Relationship | Address | Phone | + + + + + | Alexia Black | ECON | [address] | | | | | [place] [address] | | + + + + + | Kathi Col[place] | ECON | Unknown | | + + + + + Care Team Providers + +------+ + | Care Gas Pumper Name | Role | Phone | + +------+ + PCP | Unavailable | + +------+ + Encounter Details +--------+ + + + + | Date | Type | Department | Care Team | Description | +--------+ + + + + | 06/25/ | Hospital | [facility] | | | | 2000 | Encounter | MED CTR EMERGENCY | | | | | | CENTER [address] | | | | | | [place] | | | | | | [address] | | | | | | [phone] | | | +--------+ + + + [...]
--- OUTSIDE RECORDS SUMMARY | ~2019-01-31 | XMS | Encounter Summary ---
Demographics + + + | Address | [address] | | | [place] [address] | + + + | Home Phone | | + + + | Preferred Language | Unknown | + + + | Marital Status | | + + + | Jehovah'S Witness Affiliation | 1001 | + + + | Race | Unknown | + + + | Ethnic Group | Unknown | + + + Author + + + | Author | [facility] | | | and [place] | + + + | Organization | [facility] | | | and [place] | + + + | Address | Unknown | + + + | Phone | Unavailable | + + + Support + + + + + | Name | Relationship | Address | Phone | + + + + + | Alexia Black | ECON | [address] | | | | | [place] [address] | | + + + + + | Kathi Colton | ECON | Unknown | | + + + + + Care Team Providers + +------+ + | Care Embedded Linux Engineer Name | Role | Phone | + +------+ + | Ricardo Nicholson MD | PCP | | + +------+ + Encounter Details +--------+ + + + + | Date | Type | Department | Care Team | Description | +--------+ + + + + | 07/02/ | Hospital | [facility] | Bharat Ricardo Mavis, | Left upper quadrant | | 2016 | Encounter | [facility] | [address] | pain; Constipation, | | | | [address] [place] | [place], [place] | unspecified | | | | [place], [place] | [address] | constipation type; | | | | [address] | | Bloated abdomen | | | | [phone] | | | +--------+ + + + [...] encounter Medications at Time of Discharge + + + +---------+ + + | Medication | Sig | Dispensed | Refills | Start | End Date | | | | | | Date | | + + + +---------+ + + | Cetirizine HCl | | | 0 | 10/30/19 | | | (ZYRTEC ALLERGY PO) | | | | 12 | | + + + +---------+ + + | Ibuprofen (ADVIL | TABS | | 0 | 11/06/19 | | | PO) | | | | 12 | | + + + +---------+ + + | Multiple | Take by mouth. | | 0 | | | | Vitamins-Minerals | | | | | | | (MULTIVITAMIN & | | | | | | | MINERAL PO) | | | | | | + + + +---------+ + + | ondansetron | Take one tablet | 6 | 0 | 08/25/19 | | | (ZOFRAN ODT) 4 mg | every 4-6 hours as | tablet | | 14 | | | disintegrating | needed for nausea. | | | | | | tablet | | | | | | + + + +---------+ + + | | Take by mouth as | | 0 | | | | Pseudoephedrine-Guai | needed. | | | | | | fenesin (MUCINEX D | | | | | | | PO) | | | | | | + + + +---------+ + + | buPROPion | take 1 tablet by | 180 | 3 | 07/27/19 | | | (WELLBUTRIN SR) 150 | mouth twice a day | tablet | | 14 | 7 | | mg 12 hr tablet | | | | | | + + + +---------+ + + | | take 1 tablet by | 84 | 1 | 05/16/19 | | | drospirenone-ethinyl | mouth once daily | tablet | | 16 | 6 | | estradiol (ANGELLA) | | | | | | | 3-0.03 mg per tablet | | | | | | + + + +---------+ + + | omeprazole | Take 1 capsule by | 60 | 0 | 07/03/19 | | | (PRILOSEC) 20 mg | mouth every morning | capsule | | 16 | 6 | | capsule | (before breakfast). | | | | | + + + +---------+ + + documented as of this encounter Plan of Treatment Not on filedocumented as of this encounter Procedures + +--------+ + + + | Procedure Name | Priori | Date/Time | Associated Diagnosis | Comments | | | ty | | | | + +--------+ + + + | XR ABDOMEN AP | Routin | 07/03/2015 | Left upper | Results for this | | | e | 10:05 AM | quadrant pain | procedure are in the | | | | PDT | Constipation, | results section. | | | | | unspecified | | | | | | constipation type | | | | | | Bloated abdomen | | + +--------+ + + + documented in this encounter Results XR Abdomen AP (07/03/2015 10:05 AM PDT) + + | Specimen | + + | | + + + + + | Narrative | Performed At | + + + | SUPINE ABDOMEN: 07/03/2015 10:04 AM CLINICAL HISTORY: | [facility] | | constipation COMPARISON: 04/15/2012 FINDINGS: AP supine views | . [facility] | | of the abdomen. Intestinal gas [...] | Procedure Note | + + | Gianluca Galicia Results In - 07/03/2015 11:50 AM PDT [...] [address] | [place] | [phone] | | [facility] | | [address] | | | - IMAGING | | | | + + + + + documented in this encounter Visit Diagnoses + + | Diagnosis | + + | Left upper quadrant pain Abdominal pain, left upper quadrant | + + | Constipation, unspecified constipation type | + + | Bloated abdomen Flatulence, eructation, and gas pain | + + documented in this encounter"
--- OUTSIDE RECORDS SUMMARY | ~2019-01-31 | XMS | Encounter Summary ---
Demographics + + + | Address | [address] | | | [place] [address] | + + + | Home Phone | | + + + | Preferred Language | Unknown | + + + | Marital Status | | + + + | Baptism Affiliation | 1001 | + + + | Race | Unknown | + + + | Ethnic Group | Unknown | + + + Author + + + | Author | [facility] | | | and [place] | + + + | Organization | [facility] | [...] | | | | | [place] [address] | | + + + + + | Kathi Segura | ECON | Unknown | | + + + + + Care Team Providers + +------+ + | Care Data Compiler Name | Role | Phone | + [...] Description | +--------+--------+ + + + | 01/07/ | Refill | [facility] | Ricardo Nicholson, | Medication Refill | | 2012 | | [facility] [place] | [address] | | | | | [address] | [place] | | | | | [place] | [address] | | | | | [address] | | | | | | [phone] | | | +--------+--------+ + + + [...]
--- OUTSIDE RECORDS SUMMARY | ~2019-01-31 | XMS | Encounter Summary ---
Demographics + + + | Address | [address] | | | [place] [address] | + + + | Home Phone | | + + + | Preferred Language | Unknown | + + + | Marital Status | | + + + | Advent Affiliation | 1001 | + + + | Race | Unknown | + + + | Ethnic Group | Unknown | + + + Author + + + | Author | [facility] | | | and [place] | + + + | Organization | [facility] | | | and [place] | + + + | Address | Unknown | + + + | Phone | Unavailable | + + + Support + + + + + | Name | Relationship | Address | Phone | + + + + + | Alexia Black | ECON | [address] | | | | | [place] [address] | | + + + + + | Kathi Colton | ECON | Unknown | | + + + + + Care Team Providers + +------+ + | Care Service Operator Name | Role | Phone | + +------+ + | Ricardo Nicholson MD | PCP | | + +------+ + Encounter Details +--------+ + + + + | Date | Type | Department | Care Team | Description | +--------+ + + + + | 05/14/ | Hospital | [facility] | Vinod Nagy, | | | 2011 | Encounter | MED CTR XRAY [address] | | | | | [place] | [place], [place] | | | | | [place] [address] | [address] | | | | | [phone] | | | +--------+ + + + [...] + +--------+ + + + | XR FINGER RIGHT 2 + | | 05/15/2011 | | Results for this | | VW | | 10:15 AM | | procedure are in the | | | | PDT | | results section. | + +--------+ + + + documented in this encounter Results XR Finger Right 2 + Vw (05/15/2011 10:15 AM PDT) + + | Specimen | + + | | + + + + + | Narrative | Performed At | + + + | [facility] | [place] | | [address] | [facility] | | RIGHT INDEX FINGER: 05/15/2011 | FAISAL MARTEG | | CLINICAL HISTORY: TRAUMA. FINDINGS: AP and lateral | | | oblique views of the right index finger show no fracture or bony | | | destructiv e change. Joint relationships are normal. No | | | radiographic soft tissue changes are present. IMPRESSION: | | | NEGATIVE STUDY OF THE FINGER. Dictated Date/Time: 05/15/2011 | | | 12:09 Transcribed Date/Time: 05/15/2011 12:11 Pool Coordinator: | | | <Electronically Signed by Pepito Coffey MD> 05/15/11 | | | 1505 | | + + + + + | Procedure Note | + + | Grayson, Rad Conversion - 04/01/2013 4:[address] [facility] | | Diagnostic Imaging Department [address] [facility] [place] | | RIGHT INDEX FINGER: 05/15/2011 CLINICAL HISTORY: | | TRAUMA. FINDINGS: AP and lateral oblique views of the right index finger show no | | fracture or bony destructive change. Joint relationships are normal. No radiographic | | soft tissue changes are present. IMPRESSION: NEGATIVE STUDY OF THE FINGER. Dictated | | Date/Time: 05/15/2011 12:09Transcribed Date/Time: 05/15/2011 12:11Transcriptionist: | | <Electronically Signed by Pepito Coffey MD> 05/15/11 1505 | |CLINICAL HISTORY: TRAUMA. | | | |FINDINGS: AP and lateral oblique views of the right index finger show no fracture or bony destructiv | |e change. Joint relationships are normal. No radiographic soft tissue changes are present . | | | |IMPRESSION: NEGATIVE STUDY OF THE FINGER. | | | |Dictated Date/Time: 05/15/2011 12:09 | |Transcribed Date/Time: 05/15/2011 12:11 | |Pool Coordinator: | |<Electronically Signed by Pepito Coffey MD> 05/15/11 1505 | + + + +---------+ + + | Performing | Address | City/State/Zipcode | Phone Number | | Organization | | | | + +---------+ + + | [place] | | | | | [facility] | | | | + +---------+ + + documented in this encounter Visit Diagnoses Not on filedocumented in this encounter"
--- OUTSIDE RECORDS SUMMARY | ~2019-01-31 | XMS | Encounter Summary ---
Demographics + + + | Address | [address] | | | [place] [address] | + + + | Home Phone | | + + + | Preferred Language | Unknown | + + + | Marital Status | | + + + | Islam Affiliation | 1001 | + + + | Race | Unknown | + + + | Ethnic Group | Unknown | + + + Author + + + | Author | [facility] | | | and [place] | + + + | Organization | [facility] | | | and [place] | + + + | Address | Unknown | + + + | Phone | Unavailable | + + + Support + + + + + | Name | Relationship | Address | Phone | + + + + + | Alexia Black | ECON | [address] | | | | | [place] [address] | | + + + + + | Kathi Colton | ECON | Unknown | | + + + + + Care Team Providers + +------+ + | Care Color Checker Roving Or Yarn Name | Role | Phone | + +------+ + PCP | Unavailable | + +------+ + Encounter Details +--------+ + + + + | Date | Type | Department | Care Team | Description | +--------+ + + + + | 01/01/ | Hospital | [facility] | Lima Pranav Rosenberg, | | | 2006 | Encounter | MED CTR XRAY [address] | [address] | | | | | [place] | [place], [place] | | | | | [place] [address] | [address] | | | | | [phone] | | | +--------+ + + + [...]
--- OUTSIDE RECORDS SUMMARY | ~2019-01-31 | XMS | Encounter Summary ---
Demographics + + + | Address | [address] | | | [place] [address] | + + + | Home Phone | | + + + | Preferred Language | Unknown | + + + | Marital Status | | + + + | Pentecostalism Affiliation | 1001 | + + + | Race | Unknown | + + + | Ethnic Group | Unknown | + + + Author + + + | Author | [facility] | | | and [place] | + + + | Organization | [facility] | | | and [place] | + + + | Address | Unknown | + + + | Phone | Unavailable | + + + Support + + + + + | Name | Relationship | Address | Phone | + + + + + | Alexia Black | ECON | [address] | | | | | [place] [address] | | + + + + + | Kathi Segura | ECON | Unknown | | + + + + + Care Team Providers + +------+ + | Care Solid Waste Truck Driver Name | Role | Phone | + +------+ + | Ricardo Nicholson MD | PCP | | + +------+ + Encounter Details +--------+ + + + + | Date | Type | Department | Care Team | Description | +--------+ + + + + | 03/24/ | Abstract | [facility] | Ricardo Nicholson, | | | 2012 | | MEDICINE [place] | [address] | | | | | [address] | [place] | | | | | [place] | [address] | | | | | [address] | | | | | | [phone] | | | +--------+ + + + [...]
--- OUTSIDE RECORDS SUMMARY | ~2019-01-31 | XMS | Encounter Summary ---
Demographics + + + | Address | [address] | | | [place] [address] | + + + | Home Phone | | + + + | Preferred Language | Unknown | + + + | Marital Status | | + + + | Bahai Affiliation | 1001 | + + + | Race | Unknown | + + + | Ethnic Group | Unknown | + + + Author + + + | Author | [facility] | | | and [place] | + + + | Organization | [facility] | | | and [place] | + + + | Address | Unknown | + + + | Phone | Unavailable | + + + Support + + + + + | Name | Relationship | Address | Phone | + + + + + | Alexia Black | ECON | [address] | | | | | [place] [address] | | + + + + + | Kathi Segura | ECON | Unknown | | + + + + + Care Team Providers + +------+ + | Care Public Information Director Name | Role | Phone | + [...] + + | 07/02/ | Office | [facility] | Ricardo Nicholson, | Left upper quadrant | | 2015 | Visit | [facility] | [address] | pain (Primary Dx); | | | | [address] | [place] | Constipation, | | | | [place], [place] | [address] | unspecified | | | | [address] | | constipation type; | | | | [phone] | | Bloated abdomen | +--------+---------+ + [...] What is the preferred imaging location? Answer: [facility] TSH Standing Status: Future Number of [...] [address] | [place] | [phone] | | [facility] | | [address] | | | - LABORATORY | | [...] COMPARISON: 04/15/2012 FINDINGS: AP supine views | [facility] | | of the abdomen. Intestinal gas [...] [address] | [place] | [phone] | | [facility] | | [address] | | | - IMAGING | | [...]
--- OUTSIDE RECORDS SUMMARY | ~2019-01-31 | XMS | Encounter Summary ---
Demographics + + + | Address | [address] | | | [place] [address] | + + + | Home Phone | | + + + | Preferred Language | Unknown | + + + | Marital Status | | + + + | Mu-Ism Affiliation | 1001 | + + + | Race | Unknown | + + + | Ethnic Group | Unknown | + + + Author + + + | Author | [facility] | | | and [place] | + + + | Organization | [facility] | | | and [place] | + + + | Address | Unknown | + + + | Phone | Unavailable | + + + Support + + + + + | Name | Relationship | Address | Phone | + + + + + | Alexia Black | ECON | [address] | | | | | [place] [address] | | + + + + + | Kathi Segura | ECON | Unknown | | + + + + + Care Team Providers + +------+ + | Care Tube Skiver Name | Role | Phone | + +------+ + | Ricardo Nicholson MD | PCP | | + +------+ + Reason for Visit + + + | Reason | Comments | + + + | Results, Pathology | | + + + Encounter Details +--------+ + + + + | Date | Type | Department | Care Team | Description | +--------+ + + + + | 05/12/ | Telephone | [facility] | Clifford Macedo, | Results, Pathology | | 2012 | | GASTROENTEROLOGY | MD [address] | | | | | [address] | [address] [place], | | | | | [address] [place], [place] | [place] [address] | | | | | [address] | [phone] | | | | | [phone] | | | +--------+ + + + [...]
--- OUTSIDE RECORDS SUMMARY | ~2019-01-31 | XMS | Encounter Summary ---
Demographics + + + | Address | [address] | | | [place] [address] | + + + | Home Phone | | + + + | Preferred Language | Unknown | + + + | Marital Status | | + + + | Scientology Affiliation | 1001 | + + + | Race | Unknown | + + + | Ethnic Group | Unknown | + + + Author + + + | Author | [facility] | | | and [place] | + + + | Organization | and [facility] | | | and [place] | + + + | Address | Unknown | + + + | Phone | Unavailable | + + + Support + + + + + | Name | Relationship | Address | Phone | + + + + + | Alexia Black | ECON | [address] | | | | | [place] [address] | | + + + + + | Kathi Segura | ECON | Unknown | | + + + + + Care Team Providers + +------+ + | Care Mail Sorter And Delivery Name | Role | Phone | + +------+ + | Ricardo Nicholson MD | PCP | | + +------+ + Reason for Visit + + + | Reason | Comments | + + + | Depression | | + + + Encounter Details +--------+---------+ + + + | Date | Type | Department | Care Team | Description | +--------+---------+ + + + | 07/26/ | Office | [facility] | Ricardo Nicholson, | Routine general | | 2013 | Visit | [facility] | [address] | medical examination | | | | [address] | [place], [place] | at a health care | | | | [place], [place] | [address] | facility (Primary | | | | [phone] | | Dx); Depression | | | | [phone] | | | +--------+---------+ + + + [...] + + + | Blood Pressure | 116/74 | 07/26/2013 9:19 AM | | | | | PDT | | + + + + + | Pulse | 70 | 07/26/2013 9:19 AM | | | | | PDT | | + + + + + | Temperature | - | - | | + + + + + | Respiratory Rate | 14 | 07/26/2013 9:19 AM | | | | | PDT | | + + + + + | Oxygen Saturation | - | - | | + + + + + | Inhaled Oxygen | - | - | | | Concentration | | | | + + + + + | Weight | 108.9 kg (240 lb) | 07/26/2013 9:19 AM | | | | | PDT | | + + + + + | Height | - | - | | + + + + + | Body Mass Index | 36.49 | 02/26/2013 8:18 AM | | | | | PST | | + + + + + documented in this encounter Progress Notes Ricardo Nicholson MD - 07/26/2013 9:51 AM PDTFormatting of this note might be different f rom the original. Subjective: Patient ID: Selena Black is a 32 y.o. female. HPI Past Medical History Diagnosis Date Sinusitis Pharyngitis Vaginitis Unspecified otitis media S/P endoscopy 05/07/12 normal Hyperplastic colon polyp 05/07/12 hyperplastic polyp,otherwise normal study Patient Active Problem List Diagnosis Date Noted POA Depression Unknown Abdominal pain, other specified site 03/30/2012 Unknown Preventative health care 03/04/2012 Unknown OTHandUNSPEC NONINFECTIOUS GASTROENTERITISandCOLITIS Unknown OTITIS MEDIA, ACUTE 10/30/2011 Unknown ABRASION 11/20/2010 Unknown Past Surgical History Procedure Date Tonsillectomy Bilateral ear surgery as a child Colonoscopy 05/07/2012 one 5mm polyp in the proxinal decending colon/Resected abd retrieved/Internal Hemorrhroid s/The examination was otherwise normal/The examined portion of the ileum was normal. Upper gi endoscopy 05/07/2012 Normal examined duodenum. This was [...] eosinophilic in filtration-Mild atypia-Favor reactive Ascending colon bipsy Benign colonic mucosa-Negative for pathologic inflammation-Normal apperring [...] per week Comment: social Drug Use: No Sexually Active: Yes Other Topics Concern None Social History Narrative None Current Outpatient Prescriptions Medication Sig Dispense Refill buPROPion (WELLBUTRIN SR) 150 mg 12 hr tablet take 1 tablet by mouth twice a day 180 t ablet 0 Cetirizine HCl (ZYRTEC ALLERGY PO) drospirenone-ethinyl estradiol (ANGELLA) 3-0.03 mg per tablet Take 1 tablet by mouth Vazquez y. 90 tablet 3 Ibuprofen (ADVIL PO) TABS levothyroxine (SYNTHROID, LEVOTHROID) 75 MCG tablet take 1 tablet by mouth daily 90 ta blet 1 levothyroxine (SYNTHROID, LEVOTHROID) 75 MCG tablet Take 1 tablet by mouth Daily. 90 t ablet 3 Multiple Vitamins-Minerals (MULTIVITAMIN & MINERAL PO) Take by mouth. omeprazole (PRILOSEC) 20 mg capsule Take 20 mg by mouth every morning (before breakfast ). No Known Allergies Review of Systems Constitutional: Negative. HENT: Negative. Eyes: Negative. Respiratory: Negative. Cardiovascular: Negative. Gastrointestinal: Negative. Genitourinary: Negative. Musculoskeletal: Negative. Skin: Negative. Neurological: Negative. Hematological: Negative. Psychiatric/Behavioral: Negative. Objective: Physical Exam Constitutional: She is oriented to person, place, and time. She appears well-developed and well-nourished. No distress. HENT: Head: Normocephalic and atraumatic. Eyes: Conjunctivae normal are normal. Cardiovascular: Regular rhythm. Pulmonary/Chest: Effort normal. Musculoskeletal: She exhibits no edema. Neurological: She is alert and oriented to person, place, and time. Skin: Skin is warm and dry. Psychiatric: She has a normal mood and affect. Assessment: 1. Depression TSH 2. Routine general medical examination at a health care facility TSH, Comprehensive Metabo lic Panel, Lipid Panel, Vitamin D, 25-Hydroxy Plan: Requested Prescriptions Signed Prescriptions Disp Refills buPROPion (WELLBUTRIN SR) 150 mg 12 hr tablet 180 tablet 3 Sig: take 1 tablet by mouth twice a day New Prescriptions No medications on file Over 25 min spent in face to face time with this patient today. Over 50% of time counselin g and coordinating care for health enhancement. documented in this encounter Plan of Treatment Not on filedocumented as of this encounter Results Vitamin D, 25-Hydroxy (07/26/2013 10:21 AM PDT) + +--------+ + + + | Component | Value | Ref Range | Performed | Pathologist | | | | | At | Signature | + +--------+ + + + | Vitamin D, | 27 (L) | 30 - 100 ng/mL | [facility] | | | 25 Hydroxy | | | [facility] | | | | | | MEDICAL | | | | | | CENTER - | | | | | | LABORATORY | | + +--------+ + + + + + | Specimen | + + | Blood | + + + + + + + | Performing | Address | City/State/Zipcode | Phone Number | | Organization | | | | + + + + + | [facility] | [address] | [place] | [phone] | | [facility] | | [address] | | | - LABORATORY | | | | + + + + + | [facility] | [address] | [place] | | | [facility] | | [address] | | | - LABORATORY | | | | + + + + + Lipid Panel (07/26/2013 10:21 AM PDT) + +-------+ + + + | Component | Value | Ref Range | Performed | Pathologist | | | | | At | Signature | + +-------+ + + + | Triglycerid | 139 | 35 - 160 mg/dL | [facility] | | | es | | | [facility] | | | | | | MEDICAL | | | | | | CENTER - | | | | | | LABORATORY | | + +-------+ + + + | Cholesterol | 162 | 140 - 200 mg/dL | [facility] | | | | | | [facility] | | | | | | MEDICAL | | | | | | CENTER - | | | | | | LABORATORY | | + +-------+ + + + | HDL | 42 | 29 - 89 mg/dL | [facility] | | | | | | [facility] | | | | | | MEDICAL | | | | | | CENTER - | | | | | | LABORATORY | | + +-------+ + + + | Chol/HDL | 3.9 | | [facility] | | | Ratio | | | [facility] | | | | | | MEDICAL | | | | | | CENTER - | | | | | | LABORATORY | | + +-------+ + + + | LDL, | 92 | <=130 mg/dL | [facility] | | | Calculated | | | [facility] | | [...] + | [facility] | [address] | [place], [place] | [phone] | | [facility] | | [address] | | | - LABORATORY | | | | + + + + + | [facility] | [address] | [place], [place] | | | [facility] | | [address] | | | - LABORATORY | | | | + + + + + Comprehensive Metabolic Panel (07/26/2013 10:21 AM PDT) + + + + + + | Component | Value | Ref Range | Performed | Pathologist | | | | | At | Signature | + + + + + + | Na | 137 | 136 - 149 | [facility] | | | | | mmol/L | [facility] | | | | | | MEDICAL | | | | | | CENTER - | | | | | | LABORATORY | | + + + + + + | K | 3.7 | 3.5 - 5.1 | [facility] | | | | | mmol/L | [facility] | | | | | | MEDICAL | | | | | | CENTER - | | | | | | LABORATORY | | + + + + + + | Cl | 107 | 98 - 109 mmol/L | [facility] | | | | | | [facility] | | | | | | MEDICAL | | | | | | CENTER - | | | | | | LABORATORY | | + + + + + + | CO2 | 24 | 24 - 31 mmol/L | [facility] | | | | | | [facility] | | | | | | MEDICAL | | | | | | CENTER - | | | | | | LABORATORY | | + + + + + + | Anion Gap | 6 | 3 - 16 mmol/L | [facility] | | | | | | [facility] | | | | | | MEDICAL | | | | | | CENTER - | | | | | | LABORATORY | | + + + + + + | Glucose | 89 | 70 - 109 mg/dL | [facility] | | | | | | [facility] | | | | | | MEDICAL | | | | | | CENTER - | | | | | | LABORATORY | | + + + + + + | BUN | 10 | 7 - 18 mg/dL | [facility] | | | | | | [facility] | | | | | | MEDICAL | | | | | | CENTER - | | | | | | LABORATORY | | + + + + + + | Creatinine | 0.82 | 0.60 - 1.30 | [facility] | | | | | mg/dL | [facility] | | | | | | MEDICAL | | | | | | CENTER - | | | | | | LABORATORY | | + + + + + + | eGFR if not | >60Comment: GLOMERULAR | >=60 | [facility] | | | | FILTRATION | mL/min/1.73m2 | [facility] | | | [facility] | RATE,ESTIMATED | | MEDICAL | | | | mL/min/1.33c8Fmnz than | | CENTER - | | | | 60 Chronic kidney | | LABORATORY | | | | disease,if found over a | | | | | | 3-month period.Less than | | | | | | 15 Kidney failureFor | | | | | | | | | | | | Americans,multiply the | | | | | | calculated GFR by 1.21. | | | | | | | | | | + + + + + + | Calcium | 8.7 | 8.3 - 10.5 | [facility] | | | | | mg/dL | [facility] | | | | | | MEDICAL | | | | | | CENTER - | | | | | | LABORATORY | | + + + + + + | Albumin | 3.8 | 3.2 - 5.0 g/dL | [facility] | | | | | | [facility] | | | | | | MEDICAL | | | | | | CENTER - | | | | | | LABORATORY | | + + + + + + | Bilirubin | 0.8 | 0.1 - 1.5 mg/dL | [facility] | | | Total | | | [facility] | | | | | | MEDICAL | | | | | | CENTER - | | | | | | LABORATORY | | + + + + + + | Total | 6.8 | 6.0 - 7.8 g/dL | [facility] | | | Protein | | | [facility] | | | | | | MEDICAL | | | | | | CENTER - | | | | | | LABORATORY | | + + + + + + | AST | 17 | 10 - 42 U/L | [facility] | | | | | | [facility] | | | | | | MEDICAL | | | | | | CENTER - | | | | | | LABORATORY | | + + + + + + | ALT | 16 | 6 - 45 U/L | [facility] | | | | | | [facility] | | | | | | MEDICAL | | | | | | CENTER - | | | | | | LABORATORY | | + + + + + + | Alkaline | 89 | 40 - 110 U/L | [facility] | | | Phosphatase | | | [facility] | | | | | | MEDICAL | | | | | | CENTER - | | | | | | LABORATORY | | + + + + + + | Globulin | 3.0 | g/dL | [facility] | | | | | | [facility] | | | | | | MEDICAL | | | | | | CENTER - | | | | | | LABORATORY | | + + + + + + | Albumin/Cierra | 1.3 | | [facility] | | | bulin Ratio | | | [facility] | | | | | | MEDICAL | | | | | | CENTER - | | | | | | LABORATORY | | + + + + + + | BUN/Creatin | 12.2 | | [facility] | | | ine Ratio [...] + | [facility] | [address] | [place], [place] | [phone] | | [facility] | | [address] | | | - LABORATORY | | | | + + + + + | [facility] | [address] | [place], [place] | | | [facility] | | [address] | | | - LABORATORY | | | | + + + + + TSH (07/26/2013 10:21 AM PDT) + + + + + + | Component | Value | Ref Range | Performed | Pathologist | | | | | At | Signature | + + + + + + | TSH | 1.28Comment: All TSH | 0.34 - 5.60 | [facility] | | | | samples are screened | uIU/mL | [facility] | | | | using a 2nd [...] + | [facility] | [address] | [place] | [phone] | | [facility] | | [address] | | | - LABORATORY | | | | + + + + + | [facility] | [address] | [place] | | | [facility] | | [address] | | | - LABORATORY | | | | + + + + + documented in this encounter Visit Diagnoses + + | Diagnosis | + + | Routine general medical examination at a health care facility - Primary | + + | Depression Depressive disorder, not elsewhere classified | + + documented in this encounter"
--- OUTSIDE RECORDS SUMMARY | ~2019-01-31 | XMS | Encounter Summary ---
Demographics + + + | Address | [address] | | | [place] [address] | + + + | Home Phone | | + + + | Preferred Language | Unknown | + + + | Marital Status | | + + + | Buddhism Affiliation | 1001 | + + + | Race | Unknown | + + + | Ethnic Group | Unknown | + + + Author + + + | Author | [facility] | | | and [place] | + + + | Organization | [facility] | | | and [place] | + + + | Address | Unknown | + + + | Phone | Unavailable | + + + Support + + + + + | Name | Relationship | Address | Phone | + + + + + | Alexia Black | ECON | [address] | | | | | [place] [address] | | + + + + + | Kathi Segura | ECON | Unknown | | + + + + + Care Team Providers + +------+ + | Care Deputy Sheriff Name | Role | Phone | + [...] Description | +--------+--------+ + + + | 06/17/ | Refill | [facility] | Ricardo Nicholson, | Medication Refill | | 2013 | | [facility] [place] | [address] | | | | | [address] | [place] | | | | | [place] | [address] | | | | | [address] | | | | | | [phone] | | | +--------+--------+ + + + [...]
--- OUTSIDE RECORDS SUMMARY | ~2019-01-31 | XMS | Encounter Summary ---
Demographics + + + | Address | [address] | | | [place] [address] | + + + | Home Phone | | + + + | Preferred Language | Unknown | + + + | Marital Status | | + + + | Hinduism Affiliation | 1001 | + + + | Race | Unknown | + + + | Ethnic Group | Unknown | + + + Author + + + | Author | [facility] | | | and [place] | + + + | Organization | [facility] | | [...] | | | | | [place] [address] | | + + + + + | Kathi Segura | ECON | Unknown | | + + + + + Care Team Providers + +------+ + | Care Pneumatic System Conveyor Operator Name | Role | Phone | + +------+ + | Ricardo Nicholson MD | PCP | | + +------+ + Reason for Visit + + + | Reason | Comments | + + + | Depression | wellbutrin refill | + + + Encounter Details +--------+---------+ + + + | Date | Type | Department | Care Team | Description | +--------+---------+ + + + | 10/01/ | Office | [facility] | Ricardo Nicholson, | Depression (Primary | | 2013 | Visit | [facility] | [address] | Dx) | | | | [address] | [place] | | | | | [place] | [address] | | | | | [address] | | | | | | [phone] | | | +--------+---------+ + + + [...] + + + | Blood Pressure | 124/80 | 10/01/2012 1:41 PM | | | | | PDT | | + + + + + | Pulse | 75 | 10/01/2012 1:41 PM | | | | | PDT | | + + + + + | Temperature | 36.8 C (98.2 F) | 10/01/2012 1:41 PM | | | | | PDT | | + + + + + | Respiratory Rate | 16 | 10/01/2012 1:41 PM | | | | | PDT | | + + + + + | Oxygen Saturation | 98% | 10/01/2012 1:41 PM | | | | | PDT | | + + + + + | Inhaled Oxygen | - | - | | | Concentration | | | | + + + + + | Weight | 106.1 kg (234 lb) | 10/01/2012 1:41 PM | | | | | PDT | | + + + + + | Height | 172.7 cm (5' 8") | 10/01/2012 1:41 PM | | | | | PDT | | + + + + + | Body Mass Index | 35.58 | 10/01/2012 1:41 PM | | | | | PDT | | + + + + + documented in this encounter Progress Notes Ricardo Nicholson MD - 10/06/2012 2:03 PM PDTFormatting of this note might be different f rom the original. Subjective: Patient ID: Selena Black is a 32 y.o. female. HPI Patient Active Problem List Diagnosis ABRASION OTHandUNSPEC NONINFECTIOUS GASTROENTERITISandCOLITIS OTITIS MEDIA, ACUTE Preventative health care Abdominal pain, other specified site Reviewed above and will be modified. Patient's medications, allergies, past medical, surgical, social and family histories were reviewed and updated as appropriate. Review of Systems Constitutional: Negative. HENT: Negative. [...] normal mood and affect. Assessment: 1. Depression Plan: New Prescriptions DROSPIRENONE-ETHINYL ESTRADIOL (ANGELLA) 3-0.03 MG PER TABLET Take 1 tablet by mouth Vazquez y. Current Outpatient Prescriptions Medication Sig Dispense Refill buPROPion (WELLBUTRIN SR) 150 mg 12 hr tablet Take 1 tablet by mouth 2 times daily. 18 0 tablet 3 Cetirizine HCl (ZYRTEC ALLERGY PO) drospirenone-ethinyl estradiol (ANGELLA) 3-0.03 mg per tablet Take 1 tablet by mouth Vazquez y. 90 tablet 3 famotidine (PEPCID AC) 10 MG chewable tablet Take 1 tablet by mouth 2 times daily. 60 tablet 0 Ibuprofen (ADVIL PO) TABS levothyroxine (SYNTHROID, LEVOTHROID) 75 MCG tablet Take 1 tablet by mouth Daily. 90 t ablet 3 Multiple Vitamins-Minerals (MULTIVITAMIN & MINERAL PO) Take by mouth. omeprazole (PRILOSEC) 20 mg capsule Take 20 mg by mouth every morning (before breakfast ). documented in this encounter Plan of Treatment Not on filedocumented as of this encounter Visit Diagnoses + + | Diagnosis | + + | Depression - Primary Depressive disorder, not elsewhere classified | + + documented in this encounter
--- OUTSIDE RECORDS SUMMARY | ~2019-01-31 | XMS | Encounter Summary ---
Demographics + + + | Address | [address] | | | [place] [address] | + + + | Home Phone [...] | Organization | [facility] | | | and [place] | + + + | Address | Unknown | + + + | Phone | Unavailable | + + + Support + + + + + | Name | Relationship | Address | Phone | + + + + + | Alexia Black | ECON | [address] | | | | | [place] [address] | | + + + + + | Kathi Segura | ECON | Unknown | | + + + + + Care Team Providers + +------+ + | Care Inspector Rubber Stamp Die Name | Role | Phone | + [...] Description | +--------+--------+ + + + | 10/19/ | Refill | [facility] | Ricardo Nicholson, | Medication Refill | | 2013 | | [facility] [place] | [address] | | | | | [address] | [place] | | | | | [place] | [address] | | | | | [address] | | | | | | [phone] | | | +--------+--------+ + + + [...]
--- OUTSIDE RECORDS SUMMARY | ~2019-01-31 | XMS | Encounter Summary ---
Demographics + + + | Address | [address] | | | [place] [address] | + + + | Home Phone | | + + + | Preferred Language | Unknown | + + + | Marital Status | | + + + | Judaism Affiliation | 1001 | + + + | Race | Unknown | + + + | Ethnic Group | Unknown | + + + Author + + + | Author | [facility] | | | and [place] | + + + | Organization | [facility] | | | and [place] | + + + | Address | Unknown | + + + | Phone | Unavailable | + + + Support + + + + + | Name | Relationship | Address | Phone | + + + + + | Alexia Black | ECON | [address] | | | | | [place] [address] | | + + + + + | Kathi Segura | ECON | Unknown | | + + + + + Care Team Providers + +------+ + | Care Puttier Name | Role | Phone | + [...] Refill | | 2016 | | [facility] [place] | [address] | | | | | [address] | [place] | | | | | [place] | [address] | | | | | [address] | | | | | | [phone] | | | +--------+--------+ + + + [...]
--- OUTSIDE RECORDS SUMMARY | ~2019-01-31 | XMS | Encounter Summary ---
Demographics + + + | Address | [address] | | | [place] [address] | + + + | Home Phone | | + + + | Preferred Language | Unknown | + + + | Marital Status | | + + + | Advent Affiliation | 1001 | + + + | Race | Unknown | + + + | Ethnic Group | Unknown | + + + Author + + + | Author | [facility] | | | and [place] | + + + | Organization | [facility] | | | and [...] | | | | | [place] [address] | | + + + + + | Kathi Segura | ECON | Unknown | | + + + + + Care Team Providers + +------+ + | Care Pc Maintenance Technician Name | Role | Phone | + +------+ + | Ricardo Nicholson MD | PCP | | + +------+ + Reason for Visit + + + | Reason | Comments | + + + | Facial Pain | sinus pain and headache. RM 2 | + + + Encounter Details +--------+---------+ + + + | Date | Type | Department | Care Team | Description | +--------+---------+ + + + | 01/19/ | Office | [facility] | Vinod Nagy, | Acute sinusitis | | 2012 | Visit | CARE [address] | MD [address] | (Primary Dx) | | | | [place] | [place] | | | | | [address] | [address] | | | | | [phone] | | | +--------+---------+ + + + [...] + + + | Blood Pressure | 122/68 | 01/19/2013 3:52 PM | | | | | PST | | + + + + + | Pulse | 80 | 01/19/2013 3:52 PM | | | | | PST | | + + + + + | Temperature | 36.2 C (97.1 F) | 01/19/2013 3:52 PM | | | | | PST | | + + + + + | Respiratory Rate | 16 | 01/19/2013 3:52 PM | | | | | PST | | + + + + + | Oxygen Saturation | 98% | 01/19/2013 3:52 PM | | | | | PST | | + + + + + | Inhaled Oxygen | - | - | | | Concentration | | | | + + + + + | Weight | 113.4 kg (250 lb) | 01/19/2013 3:52 PM | | | | | PST | | + + + + + | Height | 172.7 cm (5' 8") | 01/19/2013 3:52 PM | | | | | PST | | + + + + + | Body Mass Index | 38.01 | 01/19/2013 3:52 PM | | | | | PST | | + + + + + documented in this encounter Patient Instructions Patient Instructions Vinod Nagy MD - 01/19/2013 4:10 PM PSTTake amoxicillin as pres cribed, rest, use bedside vaporizer and nasal saline rinses as needed. Return to clinic if symptoms persist, change or worsen over the next week. documented in this encounter Progress Notes Vinod Nagy MD - 01/19/2013 4:12 PM PSTFormatting of this note might be different fr om the original. Subjective: Chief Complaint: Facial Pain Selena is a 32 y.o. female who comes in complaining of possible sinus infection. Selena firs t developed nasal congestion with sinus pain and pressure and purulent nasal and postnasal d rainage about 5 days ago, with some occasional foul tastes and sore throat. Her lungs feel clear. She denies fevers. She quit smoking about 10 years ago and quit chewing tobacco abo ut 2 years ago. Patient's medications, allergies, past medical, surgical, social and family histories were reviewed and updated as appropriate. Objective: BP 122/68 | Pulse 80 | Temp 36.2 C (97.1 F) (Temporal) | Resp 16 | Ht 1.727 m (5' 8") | Wt 113.399 kg (250 lb) | BMI 38.01 kg/m2 | SpO2 98% | LMP 12/21/2012 General Appearance: Alert, cooperative, no distress, appears stated age Head: Normocephalic, without obvious abnormality, with mild sinus tenderness to percussion Eyes: PERRL, conjunctiva/corneas clear Ears: Normal TM's and external ear canals Nose: Nares normal, septum midline, mucosa normal with mild congestion Throat: Oropharynx normal Neck: Supple, symmetrical, no adenopathy Lungs: Clear to auscultation bilaterally, respirations unlabored Skin: Dry, normal color Assessment and Plans: Acute sinusitis, will treat with nasal saline rinses and amoxicillin. Return to clinic if symptoms persist, change or worsen over the next week. documented in this e ncounter Plan of Treatment Not on filedocumented as of this encounter Visit Diagnoses + + | Diagnosis | + + | Acute sinusitis - Primary Acute sinusitis, unspecified | + + documented in this encounter
--- OUTSIDE RECORDS SUMMARY | ~2019-01-31 | XMS | Encounter Summary ---
Demographics + + + | Address | [address] | | | [place] [address] | + + + | Home Phone | | + + + | Preferred Language | Unknown | + + + | Marital Status | | + + + | Quaker Affiliation | 1001 | + + + | Race | Unknown | + + + | Ethnic Group | Unknown | + + + Author + + + | Author | [facility] | | | and [place] | + + + | Organization | [facility] | | | and [...] | | | | | [place] [address] | | + + + + + | Kathi Segura | ECON | Unknown | | + + + + + Care Team Providers + +------+ + | Care Fish And Wildlife Technician Name | Role | Phone | + +------+ + | Ricardo Nicholson MD | PCP | | + +------+ + Reason for Visit + + + | Reason | Comments | + + + | Medication Problem | | + + + Encounter Details +--------+--------+ + + + | Date | Type | Department | Care Team | Description | +--------+--------+ + + + | 12/21/ | Refill | [facility] | Ricardo Nicholson, | Medication Problem | | 2011 | | [facility] [place] | [address] | | | | | [address] | [place] | | | | | [place] | [address] | | | | | [address] | | | | | | [phone] | | | +--------+--------+ + + + [...]
--- OUTSIDE RECORDS SUMMARY | ~2019-01-31 | XMS | Encounter Summary ---
Demographics + + + | Address | [address] | | | [place] [address] | + + + | Home Phone | | + + + | Preferred Language | Unknown | + + + | Marital Status | | + + + | Restorationist Affiliation | 1001 | + + + | Race | Unknown | + + + | Ethnic Group | Unknown | + + + Author + + + | Author | [facility] | | | and [place] | + + + | Organization | [facility] | | | and [place] | + + + | Address | Unknown | + + + | Phone | Unavailable | + + + Support + + + + + | Name | Relationship | Address | Phone | + + + + + | Alexia Black | ECON | [address] | | | | | [place] [address] | | + + + + + | Kathi Segura | ECON | Unknown | | + + + + + Care Team Providers + +------+ + | Care Linen Room Custodian Name | Role | Phone | + [...] Problem | | 2011 | | [facility] [place] | [address] | | | | | [address] | [place] | | | | | [place] | [address] | | | | | [address] | | | | | | [phone] | | | +--------+--------+ + + + [...]
--- OUTSIDE RECORDS SUMMARY | ~2019-01-31 | XMS | Encounter Summary ---
Demographics + + + | Address | [address] | | | [place] [address] | + + + | Home Phone | | + + + | Preferred Language | Unknown | + + + | Marital Status | | + + + | Hinduism Affiliation | 1001 | + + + | Race | Unknown | + + + | Ethnic Group | Unknown | + + + Author + + + | Author | [facility] | | | and [place] | + + + | Organization | [facility] | | [...] | | | | | [place] [address] | | + + + + + | Kathi Colton | ECON | Unknown | | + + + + + Care Team Providers + +------+ + | Care Heating Mechanic Name | Role | Phone | + +------+ + | Ricardo Nicholson MD | PCP | | + +------+ + Encounter Details +--------+ + + + + | Date | Type | Department | Care Team | Description | +--------+ + + + + | 12/14/ | Hospital | [facility] | Ricardo Nicholson, | Abdominal pain, | | 2011 | Encounter | MED CTR XRAY [address] | [address] | other specified | | | | [place] | [place], [place] | site; Routine | | | | [place] [address] | [address] | general medical | | | | [phone] | | examination at a | | | | | | health care facility | +--------+ + + + + Social [...] + +---------+ + + | buPROPion | 1 tablet by mouth | 60 | 3 | 12/05/19 | | | (WELLBUTRIN SR) 150 | daily for 3 days; | tablet | | 12 | 3 | | mg 12 hr tablet | increase to 1 tablet | | | | | | | twice daily | | | | | + + + +---------+ + + | | | | 0 | 10/30/19 | | | Drospirenone-Ethinyl | | | | 12 | 3 | | Estradiol (ANGELLA | | | | | | | PO) | | | | | | + + + +---------+ + + | omeprazole | Take 20 mg by mouth | | 0 | | | | (PRILOSEC) 20 mg | every morning | | | | 5 | | capsule | (before breakfast). | | | | | | | | | | | | + + + +---------+ + + | renal multivitamin | Take 1 tablet by | | 0 | | | | (DIALYVITE) TABS | mouth every evening. | | | | 3 | | | | | | | | + + + +---------+ + + documented as of this encounter Plan of Treatment Not on filedocumented as of this encounter Procedures + +--------+ + + + | Procedure Name | Priori | Date/Time | Associated Diagnosis | Comments | | | ty | | | | + +--------+ + + + | TSH | Routin | 12/15/2011 | | Results for this | | | e | 10:30 AM | | procedure are in the | | | | PDT | | results section. | + +--------+ + + + | US ABDOMEN COMPLETE | Routin | 12/15/2011 | Abdominal pain, | Results for this | | | e | 10:20 AM | other specified site | procedure are in the | | | | PDT | | results section. | + +--------+ + + + | LIPID PROFILE | Routin | 12/15/2011 | | Results for this | | | e | 9:28 AM | | procedure are in the | | | | PDT | | results section. | + +--------+ + + + | CBC WITH | Routin | 12/15/2011 | | Results for this | | DIFFERENTIAL | e | 9:28 AM | | procedure are in the | | | | PDT | | results section. | + +--------+ + + + | LIPASE | Routin | 12/15/2011 | | Results for this | | | e | 9:28 AM | | procedure are in the | | | | PDT | | results section. | + +--------+ + + + | COMPREHENSIVE | Routin | 12/15/2011 | | Results for this | | METABOLIC PANEL | e | 9:28 AM | | procedure are in the | | | | PDT | | results section. | + +--------+ + + + | TSH | Routin | 12/15/2011 | Routine general | Results for this | | | e | 8:51 AM | medical examination | procedure are in the | | | | PDT | at a health care | results section. | | | | | facility | | + +--------+ + + + | LIPID PROFILE | Routin | 12/15/2011 | Routine general | Results for this | | | e | 8:44 AM | medical examination | procedure are in the | | | | PDT | at a health care | results section. | | | | | facility | | + +--------+ + + + | CBC WITH | Routin | 12/15/2011 | Routine general | Results for this | | DIFFERENTIAL | e | 8:44 AM | medical examination | procedure are in the | | | | PDT | at a health care | results section. | | | | | facility | | + +--------+ + + + | LIPASE | Routin | 12/15/2011 | Abdominal pain, | Results for this | | | e | 8:44 AM | other specified site | procedure are in the | | | | PDT | | results section. | + +--------+ + + + | COMPREHENSIVE | Routin | 12/15/2011 | Routine general | Results for this | | METABOLIC PANEL | e | 8:44 AM | medical examination | procedure are in the | | | | PDT | at a health care | results section. | | | | | facility | | + +--------+ + + + documented in this encounter Results TSH (12/15/2011 10:30 AM PDT) + + + + + + | Component | Value | Ref Range | Performed | Pathologist | | | | | At | Signature | + + + + + + | TSH | 3.58Comment: Testing | 0.34 - 5.60 | [facility] | | | | performed on the [facility] | uIU/mL | [facility] | | | | [facility] | | MEDICAL | | | [...] + | [facility] | [address] | [place], [place] | [phone] | | [facility] | | [address] | | | - LABORATORY | | | | + + + + + | [facility] | [address] | [place], [place] | | | [facility] | | [address] | | | - LABORATORY | | | | + + + + + US Abdomen Complete (12/15/2011 10:20 AM PDT) + + | Specimen | + + | | + + + + + | Narrative | Performed At | + + + | [facility] | [place] | | Department [address] | [facility] | | [ rep [address]] [ rep [facility] | | st zip] Signed | - IMAGING | | | | | Patient Name: LYLE ASCENCIO Edgardo Physician: | | | : 1980 Age: 31 Sex: F Unit #: [id number] | | | Exam Date: 12/15/11 Location: [facility] | | | Report #: [id number] Page: | | | %(RAD)RES..mtdd.print.filter("pg") of %(RAD) | | | RES..mtdd.print.filter("tpg") | | | | | | Accession Number: [id number] | | | ULTRASOUND ABDOMEN COMPLETE CLINICAL HISTORY: ABDOMINAL | | | PAIN. COMPARISON: None. TECHNIQUE: | | | Thompson scale and color Doppler ultrasound images of the abdomen were | | | obtained by a poacher wringer operator. FINDINGS: The liver is | | | [...] Transcribed | | | Date/Time: 12/15/2011 10:56 Credit Risk Review Officer: | | | <<Signature on File>> | | | Vinod | | Carmencita Deleon MD12/15/11 <Electronically signed by Vinod Wolff | | Carmencita Deleon MD> Vinod Deleon MD 12/15/11 1020 | | | Credit Risk Review Officer: Rob Toscano12/15/11 1056 | | | Ricardo Nicholson MD | | + + + + + + + + | Performing | Address | City/State/Zipcode | Phone Number | | Organization | | | | + + + + + | [facility] | [address] | [place] | [phone] | | [facility] | | [address] | | | - IMAGING | | | | + + + + + CBC with Differential (12/15/2011 9:28 AM PDT) + +---------+ + + + | Component | Value | Ref Range | Performed | Pathologist | | | | | At | Signature | + +---------+ + + + | MANUAL | NO | | [facility] | | | DIFFERENTIA | | | [facility] | | | L ? | | | MEDICAL | | | [...] | | | Monocytes | | | [facility] | | [...] 0.1 | 0.0 - 0.1 K/uL | [facility] | | | Basophils | | | [facility] | | [...] [address] | [place] | [phone] | | [facility] | | [address] | | | - LABORATORY | | | | + + + + + | [facility] | [address] | [place] | | | [facility] | | [address] | | | - LABORATORY | | | | + + + + + Lipid Profile (12/15/2011 9:28 AM PDT) + + + + + + | Component | Value | Ref Range | Performed | Pathologist | | | | | At | Signature | + + + + + + | Triglycerid | 191 (H) | 35 - 160 mg/dL | [facility] | | | es | | | [facility] | | | | | | MEDICAL | | | | | | CENTER - | | | | | | LABORATORY | | + + + + + + | Cholesterol | 165 | 140 - 200 mg/dL | [facility] | | | | | | [facility] | | | | | | MEDICAL | | | | | | CENTER - | | | | | | LABORATORY | | + + + + + + | HDL | 45 | 29 - 89 mg/dL | [facility] | | | | | | [facility] | | | | | | MEDICAL | | | | | | CENTER - | | | | | | LABORATORY | | + + + + + + | LDL, | 82 | <130 mg/dL | [facility] | | | Calculated | | | [facility] | | | | | | MEDICAL | | | | | | CENTER - | | | | | | LABORATORY | | + + + + + + | Chol/HDL | 3.7Comment: | | [facility] | | | Ratio | | | [facility] | | | | | | MEDICAL | | | | ------- RISK CATEGORY: | | CENTER - | | | | CHOL/HDL * T.CHOL * LDL | | LABORATORY | | | | CHOL * HDL CHOL | | | | | | | | | | | | RATIO DESIRABLE: (M) | | | | | | 4.0-6.7 <200 | | | | | | <130 >50 | | | | | | (F) | | | | | | 3.7-4.2 BORDERLINE:(M) | | | | | | 6.7-7.4 200-240 | | | | | | 130-160 <45 | | | | | | (F) | | | | | | 4.2-5.5 HIGH RISK: (M) | | | | | | >7.4 >240 | | | | | | >160 <35 | | | | | | (F) | | | | | | >5.5 | | | | | | | | | | | | | | | | | | --------- | | | | + + + + + + + + | Specimen | + + | | + + + + + + + | Performing | Address | City/State/Zipcode | Phone Number | | Organization | | | | + + + + + | [facility] | [address] | [place], [place] | [phone] | | [facility] | | [address] | | | - LABORATORY | | | | + + + + + | [facility] | [address] | [place] | | | [facility] | | [address] | | | - LABORATORY | | | | + + + + + Comprehensive Metabolic Panel (12/15/2011 9:28 AM PDT) + + + + + + | Component | Value | Ref Range | Performed | Pathologist | | | | | At | Signature | + + + + + + | Glucose | 100 | 70 - 109 mg/dL | [facility] [...] 11 | 7 - 18 mg/dL | [facility] | | | | | | [facility] | | | | | | MEDICAL | | | | | | CENTER - | | | | | | LABORATORY | | + + + + + + | Creatinine | 0.92 | 0.60 - 1.30 | [facility] | | | | | mg/dL | [facility] | | | | | | MEDICAL | | | | | | CENTER - | | | | | | LABORATORY | | + + + + + + | Estimated | >60Comment: For | >60 mL/min/A | [facility] | | | GFR | -Americans, | | [facility] | | | | please multiply the | | MEDICAL | | | | result by 1.210 | | CENTER - | | | | This is an estimated | | LABORATORY | | | | GFR and is based on a | | | | | | standard adult | | | | | | body mass (A=1.73m2) and | | | | | | serum creatinine | | | | + + + + + + | BUN/Creatin | 12.0 | 12 - 20 | [facility] | | | ine Ratio | | | [facility] | | [...] + | [facility] | [address] | [place], [place] | [phone] | | [facility] | | [address] | | | - LABORATORY | | | | + + + + + | [facility] | [address] | [place], [place] | | | [facility] | | [address] | | | - LABORATORY | | | | + + + + + Lipase (12/15/2011 9:28 AM PDT) + +-------+ + + + [...] [address] | [place] | [phone] | | [facility] | | [address] | | | - LABORATORY | | | | + + + + + | [facility] | [address] | [place] | | | [facility] | | [address] | | | - LABORATORY | | [...] performed on the Damian | uIU/mL | [facility] | | | | [facility] | | MEDICAL | | | | Analyzer. | | CENTER - | | | | | | LABORATORY | | + + + + + + + + | Specimen | + + | Blood specimen | | (specimen) | + + + + + + + | Performing | Address | City/[facility] | Phone Number | | Organization | | | | + + + + + | [facility] | [address] | [place] | [phone] | | [facility] | | [address] | | | - LABORATORY | | | | + + + + + | [facility] | [address] | [place] | | | [facility] | | [address] | | | - LABORATORY | | [...] [facility] | | | | | | [facility] | | | | | | MEDICAL [...] + | [facility] | [address] | [place] | [phone] | | [facility] | | [address] | | | - LABORATORY | | | | + + + + + | [facility] | [address] | [place], [place] | | | [facility] | | [address] | | | - LABORATORY | | [...] | | es | | | [facility] | | [...] 45 | 29 - 89 mg/dL | [facility] | | | | | | [facility] | | | | | | MEDICAL | | | | | | CENTER - | | | | | | LABORATORY | | + + + + + + | LDL, | 82 | <130 mg/dL | [facility] | | | Calculated | | | [facility] | | | | | | MEDICAL | | | | | | CENTER - | | | | | | LABORATORY | | + + + + + + | Chol/HDL | 3.7Comment: | | [facility] | | | Ratio | | | [facility] | [...] + | [facility] | [address] | [place] | [phone] | | [facility] | | [address] | | | - LABORATORY | | | | + + + + + | [facility] | [address] | [place] | | | [facility] | | [address] | | | - LABORATORY | | | | + + + + + Comprehensive metabolic panel (12/15/2011 8:44 AM PDT) + + + + + + | Component | Value | Ref Range | Performed | Pathologist | | | | | At | Signature | + + + + + + | Glucose | 100 | 70 - 109 mg/dL | [facility] | | | | | | ST[facility] [...] 11 | 7 - 18 mg/dL | [facility] | | | | | | [facility] | | | | | | MEDICAL | | | | | | CENTER - | | | | | | LABORATORY | | + + + + + + | Creatinine | 0.92 | 0.60 - 1.30 | [facility] | | | | | mg/dL | [facility] | | | | | | MEDICAL | | | | | | CENTER - | | | | | | LABORATORY | | + + + + + + | Estimated | >60Comment: For | >60 mL/min/A | [facility] | | | GFR | -Americans, | | [facility] | | | | please multiply the [...] + | [facility] | [address] | [place] | [phone] | | [facility] | | [address] | | | - LABORATORY | | | | + + + + + | [facility] | [address] | [place] | | | [facility] | | [address] | | | - LABORATORY | | [...] | | | | | | [facility] | | | | | | MEDICAL | | | | | | CENTER - | | | | | | LABORATORY | | + +---------+ + + + | RBC | 4.52 | 3.70 - 5.20 | [facility] | | | | | M/uL | [facility] | | | | | | MEDICAL | | | | | | CENTER - | | | | | | LABORATORY | | + +---------+ + + + | Hemoglobin | 14.9 | 11.5 - 16.0 | [facility] | | | | | gm/dL | [facility] | | | | [...] | | | Monocytes | | | [facility] | | [...] | | | Basophils | | | [facility] | | [...] + | [facility] | [address] | [place] | [phone] | | [facility] | | [address] | | | - LABORATORY | | | | + + + + + | [facility] | [address] | [place], [place] | | | [facility] | | [address] | | | - LABORATORY | | | | + + + + + documented in this encounter Visit Diagnoses + + | Diagnosis | + + | Abdominal pain, other specified site | + + | Routine general medical examination at a health care facility | + + documented in this encounter
--- OUTSIDE RECORDS SUMMARY | ~2019-01-31 | XMS | Encounter Summary ---
Demographics + + + | Address | [address] | | | [place] [address] | + + + | Home Phone | | + + + | Preferred Language | Unknown | + + + | Marital Status | | + + + | Gnosticism Affiliation | 1001 | + + + | Race | Unknown | + + + | Ethnic Group | Unknown | + + + Author + + + | Author | [facility] | | | and [place] | + + + | Organization | [facility] | | | and [place] | + + + | Address | Unknown | + + + | Phone | Unavailable | + + + Support + + + + + | Name | Relationship | Address | Phone | + + + + + | Alexia Black | ECON | [address] | | | | | [place] [address] | | + + + + + | Kathi Colton | ECON | Unknown | | + + + + + Care Team Providers + +------+ + | Care Senior Industrial Engineer Name | Role | Phone | + +------+ + PCP | Unavailable | + +------+ + Encounter Details +--------+ + + + + | Date | Type | Department | Care Team | Description | +--------+ + + + + | 06/18/ | Hospital | [facility] | | | | 1999 | Encounter | MED CTR EM[facility] | | | | | | CENTER [address] | | | | | | [place] | | | | | | [address] | | | | | | [phone] | | | +--------+ + + + [...]
--- OUTSIDE RECORDS SUMMARY | ~2019-01-31 | XMS | Encounter Summary ---
Demographics + + + | Address | [address] | | | [place] [address] | + + + | Home Phone | | + + + | Preferred Language | Unknown | + + + | Marital Status | | + + + | Samaritan Affiliation | 1001 | + + + | Race | Unknown | + + + | Ethnic Group | Unknown | + + + Author + + + | Author | [facility] | | | and [place] | + + + | Organization | [facility] | | | and [place] | + + + | Address | Unknown | + + + | Phone | Unavailable | + + + Support + + + + + | Name | Relationship | Address | Phone | + + + + + | Alexia Black | ECON | [address] | | | | | [place] [address] | | + + + + + | Kathi Colton | ECON | Unknown | | + + + + + Care Team Providers + +------+ + | Care Sheet Metal Mechanic Name | Role | Phone | + +------+ + PCP | Unavailable | + +------+ + Encounter Details +--------+ + + + + | Date | Type | Department | Care Team | Description | +--------+ + + + + | 02/09/ | Hospital | [facility] | YakovVinod thomason, | | | 2006 | Encounter | MED CTR XRAY [address] | [address] | | | | | [place] | [place], [place] | | | | | [place] [address] | [address] | | | | | [phone] | | | +--------+ + + + [...]
--- OUTSIDE RECORDS SUMMARY | ~2019-01-31 | XMS | Encounter Summary ---
Demographics + + + | Address | [address] | | | [place] [address] | + + + | Home Phone | | + + + | Preferred Language | Unknown | + + + | Marital Status | | + + + | Jewish Affiliation | 1001 | + + + | Race | Unknown | + + + | Ethnic Group | Unknown | + + + Author + + + | Author | [facility] | | | and [place] | + + + | Organization | [facility] | | | and [...] | | | | | [place] [address] | | + + + + + | Kathi Segura | ECON | Unknown | | + + + + + Care Team Providers + +------+ + | Care Violin Tutor Name | Role | Phone | + [...] Description | +--------+--------+ + + + | 11/10/ | Refill | [facility] | Ricardo Nicholson, | Medication Refill | | 2017 | | [facility] | [address] | | | | | [address] | [place] | | | | | [place] | [address] | | | | | [address] | | | | | | [phone] | | | +--------+--------+ + + + [...]
--- OUTSIDE RECORDS SUMMARY | ~2019-01-31 | XMS | Encounter Summary ---
Demographics + + + | Address | [address] | | | [place] [address] | + + + | Home Phone | | + + + | Preferred Language | Unknown | + + + | Marital Status | | + + + | Jain Affiliation | 1001 | + + + | Race | Unknown | + + + | Ethnic Group | Unknown | + + + Author + + + | Author | [facility] | | | and [place] | + + + | Organization | [facility] | | | and [place] | + + + | Address | Unknown | + + + | Phone | Unavailable | + + + Support + + + + + | Name | Relationship | Address | Phone | + + + + + | Alexia Black | ECON | [address] | | | | | [place] [address] | | + + + + + | Kathi Segura | ECON | Unknown | | + + + + + Care Team Providers + +------+ + | Care Buzzsaw Operator Helper Name | Role | Phone | + +------+ + | Ricardo Nicholson MD | PCP | | + +------+ + Reason for Visit + + + | Reason | Comments | + + + | Follow-up | exam 4/ cough/sinus pain not improved | + + + Encounter Details +--------+---------+ + + + | Date | Type | Department | Care Team | Description | +--------+---------+ + + + | 04/04/ | Office | [facility] | Enedina Liao | Sinusitis (Primary | | 2014 | Visit | CARE [address] | DO [address] | Dx) | | | | [place], [place] | [place], [place] | | | | | [address] | [address] | | | | | [phone] | | | +--------+---------+ + + + [...] + + + | Blood Pressure | 112/74 | 04/04/2014 9:06 AM | | | | | PST | | + + + + + | Pulse | 73 | 04/04/2014 9:06 AM | | | | | PST | | + + + + + | Temperature | 37.1 C (98.7 F) | 04/04/2014 9:06 AM | | | | | PST | | + + + + + | Respiratory Rate | 12 | 04/04/2014 9:06 AM | | | | | PST | | + + + + + | Oxygen Saturation | 98% | 04/04/2014 9:06 AM | | | | | PST | | + + + + + | Inhaled Oxygen | - | - | | | Concentration | | | | + + + + + | Weight | 106.1 kg (234 lb) | 04/04/2014 9:06 AM | | | | | PST | | + + + + + | Height | 172.7 cm (5' 8") | 04/04/2014 9:06 AM | | | | | PST | | + + + + + | Body Mass Index | 35.58 | 04/04/2014 9:06 AM | | | | | PST | | + + + + + documented in this encounter Patient Instructions Patient Instructions Enedina Liao MD - 04/04/2014 9:22 AM PSTContinue taking A ugmentin as directed 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 He may repeat this tomorrow as well. Do not use repetitively or you'll get a rebound congestion Prescription for Flonase nasal spray sent to pharmacy Prescription for Tessalon Perles to be taken 3 times daily for cough Prescription for hydrocodone elixir for nighttime cough documented in this encounter Progress Notes Enedina Liao MD - 04/04/2014 11:24 AM PSTFormatting of this note might be diffe rent from the original. Subjective: Patient ID: Selena Black is a 33 y.o. female. HPI Comments: Patient is here for follow-up. Patient was seen approximately 3 days ago and was diagnosed with a sinus infection and was started on Augmentin. She states that she sti ll has severe sinus pain mostly in the right maxillary area. She states that her ear has al so begun to hurt. She does not think that she has been having fevers but she has had hot an d cold spells. She is also having a cough that is nagging and keeps her up at night She is not having any postnasal drainage because she feels her sinuses are completely stuffed up. She has had chronic problems with her sinuses. She denies having a headache or any neck pa in. She is not complaining of a sore throat. Patient's medications, allergies, past medical, surgical, social and family histories were reviewed and updated as appropriate. Review of Systems All other systems reviewed and are negative. Objective: Physical Exam Constitutional: She is oriented to person, place, and time. She appears well-developed and well-nourished. HENT: Head: Normocephalic and atraumatic. Patient's tympanic membranes are retracted bilaterally but there is no signs of infection. Patient has pain to percussion over the right maxillary sinus. Patient's posterior orophar ynx is clear Neck: Normal range of motion. Cardiovascular: Normal rate, regular rhythm and normal heart sounds. Pulmonary/Chest: Effort normal and breath sounds normal. She has no wheezes. Lymphadenopathy: She has no cervical adenopathy. Neurological: She is alert and oriented to person, place, and time. Skin: Skin is warm and dry. Psychiatric: She has a normal mood and affect. Nursing note and vitals reviewed. Assessment: Sinusitis Plan: Patient was seen and examined and still exhibits signs of sinusitis. She was advised to co ntinue with her Augmentin. I also advised her to picker tender some Scott-Synephrine and try 2 squi rts each naris to see if this opens her up. She was counseled not to use it repetitively. She was also given a prescription for Flonase nasal spray to be used twice daily for the nex t 7 days. I gave her prescription for Tessalon Perles for her cough. Patient is advised to stay well-hydrated. Patient will return if symptoms do not improve or worsen documented in this encounter Plan of Treatment Not on filedocumented as of this encounter Visit Diagnoses + + | Diagnosis | + + | Sinusitis - Primary Unspecified sinusitis (chronic) | + + documented in this encounter
--- OUTSIDE RECORDS SUMMARY | ~2019-01-31 | XMS | Encounter Summary ---
Demographics + + + | Address | [address] | | | [place] [address] | + + + | Home Phone | | + + + | Preferred Language | Unknown | + + + | Marital Status | | + + + | Protestant Affiliation | 1001 | + + + | Race | Unknown | + + + | Ethnic Group | Unknown | + + + Author + + + | Author | [facility] | | | and [place] | + + + | Organization | [facility] | | | and [...] | | | | | [place] [address] | | + + + + + | Kathi Segura | ECON | Unknown | | + + + + + Care Team Providers + +------+ + | Care Account Information Clerk Name | Role | Phone | + [...] Description | +--------+--------+ + + + | 11/11/ | Refill | [facility] | Ricardo Nicholson, | Medication Refill | | 2013 | | MEDICINE [place] | [address] | | | | | [address] | [place] | | | | | [place] | [address] | | | | | [address] | | | | | | [phone] | | | +--------+--------+ + + + [...]
--- OUTSIDE RECORDS SUMMARY | ~2019-01-31 | XMS | Encounter Summary ---
Demographics + + + | Address | [address] | | | [place] [address] | + + + | Home Phone | | + + + | Preferred Language | Unknown | + + + | Marital Status | | + + + | Moravian Affiliation | 1001 | + + + | Race | Unknown | + + + | Ethnic Group | Unknown | + + + Author + + + | Author | [facility] | | | and [place] | + + + | Organization | [facility] | | | and [place] | + + + | Address | Unknown | + + + | Phone | Unavailable | + + + Support + + + + + | Name | Relationship | Address | Phone | + + + + + | Alexia Black | ECON | [address] | | | | | [place] [address] | | + + + + + | Kathi Segura | ECON | Unknown | | + + + + + Care Team Providers + +------+ + | Care Cafeteria Server Name | Role | Phone | + [...] Description | +--------+--------+ + + + | 08/31/ | Refill | [facility] | Ricardo Nicholson, | Medication Refill | | 2019 | | MEDICINE [place] | [address] | | | | | [address] | [place] | | | | | [place] | [address] | | | | | [address] | | | | | | [phone] | | | +--------+--------+ + + + [...]
--- OUTSIDE RECORDS SUMMARY | ~2019-01-31 | XMS | Encounter Summary ---
Demographics + + + | Address | [address] | | | [place] [address] | + + + | Home Phone | | + + + | Preferred Language | Unknown | + + + | Marital Status | | + + + | Taoism Affiliation | 1001 | + + + | Race | Unknown | + + + | Ethnic Group | Unknown | + + + Author + + + | Author | [facility] | | | and [place] | + + + | Organization | [facility] | | | and [...] | | | | | [place] [address] | | + + + + + | Kathi Segura | ECON | Unknown | | + + + + + Care Team Providers + +------+ + | Care Shopping Inspector Name | Role | Phone | [...] Description | +--------+--------+ + + + | 10/07/ | Refill | [facility] | Ricardo Nicholson, | Medication Refill | | 2017 | | MEDICINE [place] | [address] | | | | | [address] | [place] | | | | | [place] | [address] | | | | | [address] | | | | | | [phone] | | | +--------+--------+ + + + [...]
--- OUTSIDE RECORDS SUMMARY | ~2019-01-31 | XMS | Encounter Summary ---
Demographics + + + | Address | [address] | | | [place] [address] | + + + | Home Phone | | + + + | Preferred Language | Unknown | + + + | Marital Status | | + + + | Yazdanism Affiliation | 1001 | + + + | Race | Unknown | + + + | Ethnic Group | Unknown | + + + Author + + + | Author | [facility] | | | and [place] | + + + | Organization | [facility] | | | and [place] | + + + | Address | Unknown | + + + | Phone | Unavailable | + + + Support + + + + + | Name | Relationship | Address | Phone | + + + + + | Alexia Black | ECON | [address] | | | | | [place] [address] | | + + + + + | Kathi Segura | ECON | Unknown | | + + + + + Care Team Providers + +------+ + | Care Scientific Laboratory Supervisor Name | Role | Phone | + +------+ + | Ricardo Nicholson MD | PCP | | + +------+ + Encounter Details +--------+ + + + + | Date | Type | Department | Care Team | Description | +--------+ + + + + | 01/07/ | Abstract | [facility] [place] [facility] | Ricardo Nicholson, | | | 2016 | | [facility] | [address] | | | | | [address] | [place] | | | | | [place] | [address] | | | | | [address] | | | | | | [phone] | | | +--------+ + + + [...] | + +--------+ + + + | EXTERNAL LAB: TSH | Routin | 01/02/2017 | | Results for this | | | e | | | procedure are in the | | | | | | results section. | + +--------+ + + + documented in this encounter Results External Lab: [facility]SH (01/02/2017) + +-------+ + + + | Component | Value | Ref Range | Performed | Pathologist | | | | | At | Signature | + +-------+ + + + | TSH, | 2.07 | | | | | External | | | | | + +-------+ + + + + + | Specimen | + + | Blood | + + documented in this encounter Visit Diagnoses Not on filedocumented in this encounter"
--- OUTSIDE RECORDS SUMMARY | ~2019-01-31 | XMS | Encounter Summary ---
Demographics + + + | Address | [address] | | | [place] [address] | + + + | Home Phone | | + + + | Preferred Language | Unknown | + + + | Marital Status | | + + + | Yarsani Affiliation | 1001 | + + + | Race | Unknown | + + + | Ethnic Group | Unknown | + + + Author + + + | Author | [facility] | | | and [place] | + + + | Organization | [facility] | | | and [place] | + + + | Address | Unknown | + + + | Phone | Unavailable | + + + Support + + + + + | Name | Relationship | Address | Phone | + + + + + | Alexia Black | ECON | [address] | | | | | [place] [address] | | + + + + + | Kathi Segura | ECON | Unknown | | + + + + + Care Team Providers + +------+ + | Care Casino Worker Name | Role | Phone | + [...] + + | 04/04/ | Office | [facility] | Enedina Liao | Sinusitis (Primary | | 2014 | Visit | CARE [address] | [address] | Dx) | | | | [place], [place] | [place], [place] | | | | | [address] | [address] | | | | | [phone] | | | +--------+---------+ + + + [...] 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 I also advised her to hand picker some Scott-Synephrine and try 2 squi rts [...]
--- OUTSIDE RECORDS SUMMARY | ~2019-01-31 | XMS | Encounter Summary ---
Demographics + + + | Address | [address] | | | [place] [address] | + + + | Home Phone | | + + + | Preferred Language | Unknown | + + + | Marital Status | | + + + | Congregational Affiliation | 1001 | + + + | Race | Unknown | + + + | Ethnic Group | Unknown | + + + Author + + + | Author | [facility] | | | and [place] | + + + | Organization | [facility] | | | and [...] | | | | | [place] [address] | | + + + + + | Kathi Segura | ECON | Unknown | | + + + + + Care Team Providers + +------+ + | Care Portrait Artist Name | Role | Phone | + [...] | +--------+ + + + + | 07/14/ | Telephone | [facility] | Ricardo Nicholson, | Medication Refill | | 2015 | | MEDICINE [place] | [address] | | | | | [address] | [place] | | | | | [place] | [address] | | | | | [address] | | | | | | [phone] | | | +--------+ + + + [...]
--- OUTSIDE RECORDS SUMMARY | ~2019-01-31 | XMS | Encounter Summary ---
Demographics + + + | Address | [address] | | | [place] [address] | + + + | Home Phone | | + + + | Preferred Language | Unknown | + + + | Marital Status | | + + + | Restoration Affiliation | 1001 | + + + | Race | Unknown | + + + | Ethnic Group | Unknown | + + + Author + + + | Author | [facility] | | | and [place] | + + + | Organization | [facility] | | | and [...] | | | | | [place] [address] | | + + + + + | Kathi Colton | ECON | Unknown | | + + + + + Care Team Providers + +------+ + | Care Business Office Assistant Name | Role | Phone | + +------+ + | Ricardo Nicholson MD | PCP | | + +------+ + Encounter Details +--------+ + + + + | Date | Type | Department | Care Team | Description | +--------+ + + + + | 12/14/ | Hospital | [facility] | Ricardo Nicholson, | Abdominal pain, | | 2011 | Encounter | MED CTR XRAY [address] | other specified | | | | [place] | [place], [place] | site; Routine | | | | [place] [address] | [address] | general medical | | | | [phone] | | examination at a | | [...] uIU/mL | [facility] | | | | [facility] | | MEDICAL | | | [...] + | [facility] | [address] | [place], [place] | [phone] | | [facility] | | [address] | | | - LABORATORY | | | | + + + + + | [facility] | [address] | [place], [place] | | | [facility] | | [address] | | | - LABORATORY | | | | + + + + + US Abdomen Complete (12/15/2011 10:20 AM PDT) + + | Specimen | + + | | + + + + + | Narrative | Performed At | + + + | [facility] | [place] | | Department [address] | [facility] | | [ rep [address]] [ rep [facility] | | st zip] Signed | - IMAGING | | | | | Patient Name: LYLE ASCENCIO Edgardo Physician: | | | : 1980 Age: 31 Sex: F Unit #: [id number] | | | Exam Date: 12/15/11 [place] [facility] [place] | | Report #: [id number] Page: | | | %(RAD)RES..mtdd.print.filter("pg") of %(RAD) | | | RES..mtdd.print.filter("tpg") | | | | | | Accession Number: [id number] | | | ULTRASOUND ABDOMEN COMPLETE CLINICAL HISTORY: ABDOMINAL | | | PAIN. COMPARISON: None. TECHNIQUE: | | | Thompson scale and color Doppler ultrasound images of the abdomen were | | | obtained by a elementary assistant teacher. FINDINGS: The liver is | | | [...] Transcribed | | | Date/Time: 12/15/2011 10:56 Roaster Supervisor: | | | <<Signature on File>> | | | Vinod | | Carmencita Deleon MD12/15/11 <Electronically signed by Vinod Wolff | | Carmencita Deleon MD> Vinod Deleon MD 12/15/11 1020 | | | Roaster Supervisor: Rob Toscano12/15/11 1056 | | | Ricardo Nicholson MD | | + + + + + + + + | Performing | Address | City/State/Zipcode | Phone Number | | Organization | | | | + + + + + | [facility] | [address] | [place] | [phone] | | [facility] | | [address] | | | - IMAGING | | [...] [address] | [place] | [phone] | | [facility] | | [address] | | | - LABORATORY | | | | + + + + + | [facility] | [address] | [place] | | | [facility] | | [address] | | | - LABORATORY | | [...] + | [facility] | [address] | [place], [place] | [phone] | | [facility] | | [address] | | | - LABORATORY | | | | + + + + + | [facility] | [address] | [place] | | | [facility] | | [address] | | | - LABORATORY | | [...] + | [facility] | [address] | [place], [place] | [phone] | | [facility] | | [address] | | | - LABORATORY | | | | + + + + + | [facility] | [address] | [place], [place] | | | [facility] | | [address] | | | - LABORATORY | | [...] [address] | [place] | [phone] | | [facility] | | [address] | | | - LABORATORY | | | | + + + + + | [facility] | [address] | [place] | | | [facility] | | [address] | | | - LABORATORY | | [...] performed on the Damian | uIU/mL | [facility] | | | | [facility] | | MEDICAL | | | | Analyzer. | | CENTER - | | | | | | LABORATORY | | + + + + + + + + | Specimen | + + | Blood specimen | | (specimen) | + + + + + + + | Performing | Address | City/[facility] | Phone Number | | Organization | | | | + + + + + | [facility] | [address] | [place] | [phone] | | [facility] | | [address] | | | - LABORATORY | | | | + + + + + | [facility] | [address] | [place] | | | [facility] | | [address] | | | - LABORATORY | | [...] [facility] | | | | | | [facility] | | | | | | MEDICAL [...] + | [facility] | [address] | [place] | [phone] | | [facility] | | [address] | | | - LABORATORY | | | | + + + + + | [facility] | [address] | [place], [place] | | | [facility] | | [address] | | | - LABORATORY | | [...] + | [facility] | [address] | [place] | [phone] | | [facility] | | [address] | | | - LABORATORY | | | | + + + + + | [facility] | [address] | [place] | | | [facility] | | [address] | | | - LABORATORY | | [...] + | [facility] | [address] | [place] | [phone] | | [facility] | | [address] | | | - LABORATORY | | | | + + + + + | [facility] | [address] | [place] | | | [facility] | | [address] | | | - LABORATORY | | [...] + | [facility] | [address] | [place] | [phone] | | [facility] | | [address] | | | - LABORATORY | | | | + + + + + | [facility] | [address] | [place], [place] | | | [facility] | | [address] | | | - LABORATORY | | | | + + + + + documented in this encounter Visit Diagnoses + + | Diagnosis | + + | Abdominal pain, other specified site | + + | Routine general medical examination at a health care facility | + + documented in this encounter
--- OUTSIDE RECORDS SUMMARY | ~2019-01-31 | XMS | Encounter Summary ---
Demographics + + + | Address | [address] | | | [place] [address] | + + + | Home Phone | | + + + | Preferred Language | Unknown | + + + | Marital Status | | + + + | Gnosticist Affiliation | 1001 | + + + | Race | Unknown | + + + | Ethnic Group | Unknown | + + + Author + + + | Author | [facility] | | | and [place] | + + + | Organization | [facility] | | | and [place] | + + + | Address | Unknown | + + + | Phone | Unavailable | + + + Support + + + + + | Name | Relationship | Address | Phone | + + + + + | Alexia Black | ECON | [address] | | | | | [place] [address] | | + + + + + | Kathi Segura | ECON | Unknown | | + + + + + Care Team Providers + +------+ + | Care Software Applications Architect Name | Role | Phone | + [...] Refill | | 2016 | | MEDICINE [place] | [address] | | | | | [address] | [place] | | | | | [place] | [address] | | | | | [address] | | | | | | [phone] | | | +--------+--------+ + + + [...]
--- OUTSIDE RECORDS SUMMARY | ~2019-01-31 | XMS | Encounter Summary ---
Demographics + + + | Address | [address] | | | [place] [address] | + + + | Home Phone | | + + + | Preferred Language | Unknown | + + + | Marital Status | | + + + | Christianity Affiliation | 1001 | + + + | Race | Unknown | + + + | Ethnic Group | Unknown | + + + Author + + + | Author | [facility] and [facility] | | | and [place] | + + + | Organization | [facility] | | | and [...] | | | | | [place] [address] | | + + + + + | Kathi Segura | ECON | Unknown | | + + + + + Care Team Providers + +------+ + | Care Customer Counter Associate Name | Role | Phone | + +------+ + | Ricardo Nicholson MD | PCP | | + +------+ + Reason for Visit +--------+ + | Reason | Comments | +--------+ + | Other | | +--------+ + Encounter Details +--------+ + + + + | Date | Type | Department | Care Team | Description | +--------+ + + + + | 04/09/ | Telephone | [facility] | Ricardo Nicholson, | Other | | 2012 | | [facility] | [address] | | | | | [address] | [place] | | | | | [place] | [address] | | | | | [address] | | | | | | [phone] | | | +--------+ + + + [...]
--- OUTSIDE RECORDS SUMMARY | ~2019-01-31 | XMS | Encounter Summary ---
Demographics + + + | Address | [address] | | | [place] [address] | + + + | Home Phone | | + + + | Preferred Language | Unknown | + + + | Marital Status | | + + + | Voodoo Affiliation | 1001 | + + + | Race | Unknown | + + + | Ethnic Group | Unknown | + + + Author + + + | Author | [facility] | | | and Fredisana | + + + | Organization | [facility] | | | and [...] | | | | | [place] [address] | | + + + + + | Kathi Segura | ECON | Unknown | | + + + + + Care Team Providers + +------+ + | Care Last Remodeler Repairer Name | Role | Phone | [...] | Specialty | Gastroenterol | Diagnoses | | [place], | | | Services | ogy | Abdominal | Nolan, | Clifford Jha MD | | | Required | | pain, | Rosemarie, | [address] | | | | | unspecified | [employer] [address] | [place] | | | | | site | [place], [place] | [address] [place] | | | | | Unspecified | [address] [place] | [place], [place] | | | | | constipation | [place], [place] | [address] Phone: | | | | | Procedures | [address] | [phone] | | | | | [place] U[place]ER | Phone: | Fax: | | | | | GI | [phone] | [phone] | | | | | ENDOSCOPY,DI | Fax: | | | | | | [place] | [phone] | | | | | | UPPER GI | | | | | | | ENDOSCOPY,BI | | | | | | | [place]PSY [place] | | | | | | | COLONOSCOPY, | | | | | | | DIAGNOSTIC | | | | | | | [place] | | | | | | | COLONOSCOPY, | | | | | | | BIOPSY | | | +--------+ + + + + + Reason for Visit + + + | Reason | Comments | + + + | Follow-up | Abdominal Pain | + + + Encounter Details +--------+---------+ + + + | Date | Type | Department | Care Team | Description | +--------+---------+ + + + | 04/28/ | Office | [facility] | [facility], | Abdominal pain, | | 2012 | Visit | GASTROENTEROLOGY | RUTHANN [place] [address] | unspecified site | | | | [address] | [place] [address] | (Primary Dx); | | | | [address] [place], [place] | [place] | Unspecified | | | | [address] | [address] | constipation | | | | [phone] | | | +--------+---------+ + + + [...] + + + | Blood Pressure | 124/76 | 04/28/2012 9:32 AM | | | | | PST | | + + + + + | Pulse | 68 | 04/28/2012 9:32 AM | | | | | PST | | + + + + + | Temperature | 36.6 C (97.8 F) | 04/28/2012 9:32 AM | | | | | PST | | + + + + + | Respiratory Rate | - | - | | + + + + + | Oxygen Saturation | - | - | | + + + + + | Inhaled Oxygen | - | - | | | Concentration | | | | + + + + + | Weight | 107 kg (236 lb) | 04/28/2012 9:32 AM | | | | | PST | | + + + + + | Height | 172.7 cm (5' 8") | 04/28/2012 9:32 AM | | | | | PST | | + + + + + | Body Mass Index | 35.88 | 04/28/2012 9:32 AM | | | | | PST | | + + + + + documented in this encounter Progress Notes Rosemarie Francisco, RUTHANN - 04/28/2012 9:54 AM PSTFormatting of this note might be alejandro nt from the original. Subjective: Patient ID: Selena Black is a 31 y.o. female. HPI Patient is here for follow up abdominal pain. Since last visit she's been seen by a cecilleo n who determined she did not need a cholecystectomy at this time. Patient had abdominal xray that showed stool along transverse and ascending colon. She was given Linzess. She took for over 1 week. It was causing abdominal discomfort and no substant ial BM. She then took 2 Dulcolax, which helped some. Dulcolax has been what she has needed in the p ast. She states that her stools have never been regular. She continues to have pain all over the abdominal. She does try drinking fluids throughout the day. She has also started a fiber supplement. Her thyroid is on the low side of normal. She has started thyroid medication. No Known Allergies Past Medical History Diagnosis Date Sinusitis Pharyngitis Vaginitis Unspecified otitis media Past Surgical History Procedure Date Tonsillectomy Bilateral ear surgery as a child Family History Problem Relation Age of Onset Heart disease Maternal Grandmother Diabetes Maternal Grandmother Liver disease Maternal Grandfather History Social History Marital Status: Significant Other Spouse Name: N/A Number of Children: N/A Years of Education: N/A Occupational History Not on file. Social History Main Topics Smoking status: Former Smoker Quit date: 12/04/2010 Smokeless tobacco: Former User Alcohol Use: 0.5 oz/week 1 drink(s) per week social Drug Use: No Sexually Active: Not on file Other Topics Concern Not on file Social History Narrative No narrative on file Review of Systems Constitutional: Negative for fever, chills and unexpected weight change. HENT: Negative for mouth sores. Respiratory: Negative for cough, shortness of breath and wheezing. Cardiovascular: Positive for chest pain. Negative for palpitations and leg swelling. Gastrointestinal: Positive for nausea, abdominal pain, diarrhea, constipation and abdominal distention. Negative for vomiting, anal bleeding and rectal pain. Skin: Negative for rash. Objective: Physical Exam Physical Exam General: well developed, well nourished, in no acute distress. Head: normocephalic and atraumatic Eyes: Sclera clear Mouth: MMM Lungs: Clear to auscultate bilaterally and throughout Heart: regular rate and rhythm Abdomen: Soft, non tender, nonded, bowel tones positive times 4 quadrants, negative Fernandez's sig n, negative rebound tenderness, no guardi distenng, no hepatosplenomegaly palpated. Rectal: To be done prior to procedure Msk: symmetrical with no deformity, with normal posture and gait, normal strength. Extremities: no clubbing, cyanosis, edema, or deformity noted Neurologic: no focal deficits, cranial nerves II-XII grossly intact Skin: intact without lesions or rashes. Psych: alert and cooperative; normal mood and affect; normal attention span and concentration. Hospital Outpatient Visit on 04/15/2012 Component Date Value Range Status H PYLORI AB 04/15/2012 NEGATIVE NEGATIVE Final LIPASE 04/15/2012 31 0 - 60 U/L Final Assessment: Abdominal pain Constipation Plan: Patient to have EGD and colonoscopy for further evaluation. The procedural techniques, risk s, indications, and alternatives were discussed. Among the risks, are perforation, bleeding , infection, allergic/adverse reactions to medications, and cardiovascular complications. E ach of these could result in hospitalization, additional procedures (including surgery), or other life threatening complications. Patient verbalized understanding. Risk factors to col o-rectal cancer discussed with patient including smoking, obesity, excessive red meat ingest ion, advancing age and first degree family relative with history of colo-rectal cancer discu ssed with patient. Patient to call with any questions or concerns prior to procedure. Will follow up with results. Patient is to call with any question or concerns. Any fevers, chills, chest pain, SOB or other serious symptoms patient is to call the office or go to ER . Cc: Ricardo Nicholson Reviewed most recent labs, imaging, and procedures. documented in t his encounter Plan of Treatment + + +--------+ + + | Name | Type | Priori | Associated Diagnoses | Order Schedule | | | | ty | | | + + +--------+ + + | Ambulatory referral | Outpatient | Routin | Abdominal pain, | Expected: | | to Gastroenterology | Referral | e | unspecified site | 05/07/2012, Expires: | | | | | Unspecified | 04/28/2013 | | | | | constipation | | + + +--------+ + + documented as of this encounter Visit Diagnoses + + | Diagnosis | + + | Abdominal pain, unspecified site - Primary | + + | Unspecified constipation | + + documented in this encounter
--- OUTSIDE RECORDS SUMMARY | ~2019-01-31 | XMS | Encounter Summary ---
Demographics + + + | Address | [address] | | | [place] [address] | + + + | Home Phone | | + + + | Preferred Language | Unknown | + + + | Marital Status | | + + + | Scientologist Affiliation | 1001 | + + + | Race | Unknown | + + + | Ethnic Group | Unknown | + + + Author + + + | Author | [facility] | | | and Fredisana | + + + | Organization | [facility] | | | and [...] | | | | | [place] [address] | | + + + + + | Kathi Segura | ECON | Unknown | | + + + + + Care Team Providers + +------+ + | Care Printer'S Devil Name | Role | Phone | + +------+ + | Ricardo Nicholson MD | PCP | | + +------+ + Reason for Visit +---------+ + | Reason | Comments | +---------+ + | Results | | +---------+ + Encounter Details +--------+---------+ + + + | Date | Type | Department | Care Team | Description | +--------+---------+ + + + | 07/07/ | Office | [facility] | Ricardo Nicholson, | Exposure to herpes | | 2018 | Visit | [facility] | [address] | simplex virus (HSV) | | | | [address] | [place], [place] | (Primary Dx) | | | | [place], [place] | [address] | | | | | [address] | | | | | | [phone] | | | +--------+---------+ + + + [...] + + + | Blood Pressure | 106/72 | 07/07/2017 11:01 AM | | | | | PDT | | + + + + + | Pulse | 90 | 07/07/2017 11:01 AM | | | | | PDT | | + + + + + | Temperature | 36.1 C (96.9 F) | 07/07/2017 11:01 AM | | | | | PDT | | + + + + + | Respiratory Rate | 16 | 07/07/2017 11:01 AM | | | | | PDT | | + + + + + | Oxygen Saturation | 98% | 07/07/2017 11:01 AM | | | | | PDT | | + + + + + | Inhaled Oxygen | - | - | | | Concentration | | | | + + + + + | Weight | 111.1 kg (244 lb | 07/07/2017 11:01 AM | | | | 14.9 oz) | PDT | | + + + + + | Height | - | - | | + + + + + | Body Mass Index | 37.24 | 08/06/2016 2:26 PM | | | | | PDT | | + + + + + documented in this encounter Progress Notes Ricardo Nicholson MD - 07/07/2017 10:45 AM PDTFormatting of this note might be different f rom the original. Subjective: Patient ID: Selena Black is a 36 y.o. female. Chief Complaint Patient presents with Results Results This is a new problem. The problem occurs constantly. The problem has been unchanged. Nothi ng aggravates the symptoms. She has tried nothing for the symptoms. Vaginal Injury The patient's primary symptoms include genital lesions. The patient's pertinent negatives i nclude no genital itching. This is a recurrent problem. The problem occurs rarely. The probl em has been rapidly improving. The pain is mild. Past Medical History: Diagnosis Date Asthma Feb 24 2016 Environmental allergies Feb 2011 GERD (gastroesophageal reflux disease) Heart murmur Hyperplastic colon polyp 05/07/12 hyperplastic polyp,otherwise normal study Pharyngitis S/P endoscopy 05/07/12 normal Sinusitis Unspecified otitis media Vaginitis Family History Problem Relation Age of Onset Heart disease Mother Diabetes Mother Heart disease Maternal Grandmother Diabetes Maternal Grandmother Liver disease Maternal Grandfather Diabetes Maternal Aunt Heart disease Maternal Aunt Social History Social History Marital status: Spouse name: N/A Number of children: N/A Years of education: N/A Social History Main Topics Smoking status: Former Smoker Quit date: 12/04/2010 Smokeless tobacco: Former User Alcohol use 0.5 oz/week 1 - 3 Cans of beer per week Comment: social Drug use: No Sexual activity: Yes Partners: Female control/ protection: None Other Topics Concern None Social History Narrative None Review of Systems Constitutional: Negative. HENT: Negative. Eyes: Negative. Respiratory: Negative. Cardiovascular: Negative. Gastrointestinal: Negative. Genitourinary: Negative. Musculoskeletal: Negative. Skin: Negative. Neurological: Negative. Endo/Heme/Allergies: Negative. Psychiatric/Behavioral: Negative. . Objective: BP 106/72 | Pulse 90 | Temp 36.1 C (96.9 F) (Temporal) | Resp 16 | Wt 111.1 kg (244 lb 14.9 oz) | SpO2 98% | ? No | BMI 37.24 kg/m Physical Exam Constitutional: She is well-developed, well-nourished, and in no distress. HENT: Head: Normocephalic and atraumatic. Eyes: Right eye exhibits no discharge. Left eye exhibits no discharge. Neck: No tracheal deviation present. Cardiovascular: Regular rhythm. Pulmonary/Chest: Effort normal. No respiratory distress. Abdominal: She exhibits no distension. Musculoskeletal: She exhibits no edema. Neurological: She is alert. Skin: Skin is dry. She is not diaphoretic. Psychiatric: Affect normal. Assessment/Plan: 1. Exposure to herpes simplex virus (HSV) Herpes Simplex Virus 1 and 2 Ab, IgM Requested Prescriptions Signed Prescriptions Disp Refills omeprazole (PRILOSEC) 20 mg capsule 90 capsule 3 Sig: Take 1 capsule by mouth every morning (before breakfast). phentermine 30 MG capsule 30 capsule 0 Sig: Take 1 capsule by mouth every morning. 25 minute visit > 50% counseling regarding the listed conditions, options for treatment, a nd possible risks. documented in this encounter Plan of Treatment Not on filedocumented as of this encounter Results Herpes Simplex Virus 1 and 2 Ab, IgM (07/07/2017 11:42 AM PDT) + + + + + + | Component | Value | Ref Range | Performed | Pathologist | | | | | At | Signature | + + + + + + | HSV 1 and 2 | 1.29 (H)Comment: | 0.00 - 0.90 | REFERENCE | | | Ab, IgM | | Ratio | LAB [facility] | | | | | | [facility] | | | | Negative | | | | | | <0.91 | | | | | | | | | | | | Equivocal 0.91 | | | | | | - 1.09 | | | | | | | | | | | | Positive | | | | | | >1.09 | | | | + + + + + + + + | Specimen | + + | Blood | + + + + + | Narrative | Performed At | + + + | Performed at: [facility] [address], | REFERENCE LAB | | [place], [place] [id number] Taffy Puller: Jonathan Chu MD, Phone: | [facility] | | [phone] | | + + + + + + + + | Performing | Address | City/State/Zipcode | Phone Number | | Organization | | | | + + + + + | REFERENCE LAB | [address] | [place] [address] | [phone] | | [facility] | [address] | | | + + + + + documented in this encounter Visit Diagnoses + + | Diagnosis | + + | Exposure to herpes simplex virus (HSV) - Primary | + + documented in this encounter"
--- OUTSIDE RECORDS SUMMARY | ~2019-01-31 | XMS | Encounter Summary ---
Demographics + + + | Address | [address] | | | [place] [address] | + + + | Home Phone | | + + + | Preferred Language | Unknown | + + + | Marital Status | | + + + | Advent Affiliation | 1001 | + + + | Race | Unknown | + + + | Ethnic Group | Unknown | + + + Author + + + | Author | [facility] | | | and Fredisana | + + + | Organization | [facility] | | | and [...] | | | | | [place] [address] | | + + + + + | Kathi Segura | ECON | Unknown | | + + + + + Care Team Providers + +------+ + | Care Visual Basic .Net Developer Name | Role | Phone | + +------+ + | Ricardo Nicholson MD | PCP | | + +------+ + Encounter Details +--------+ + + + + | Date | Type | Department | Care Team | Description | +--------+ + + + + | 11/18/ | Hospital | [facility] | Babs Riley | | | 2011 - | Encounter | MED CTR EMERGENCY | MD Robert [address] | | | | | [place] [address] | [address] [place] [address] | | | 11/19/ | | [place], [place] | [place] [address] | | | 2011 | | [address] | [phone] | | | | | [phone] | | | +--------+ + + + [...] Performed At | + + + | [facility] | [facility] | | Department [address] [place] [address] | [facility] | | [ rep [address]] [ rep [facility] | | st zip] Signed | - IMAGING | | | | | Patient Name: LYLE ASECNCIO Physician: | | | KHUSHI.Cb : 1980 Age: 31 Sex: F Unit #: [id number] | | | Exam Date: 11/20/11 Location: ER | | | Report #: [id number] Page: | | | %(RAD)RES..mtdd.print.filter("pg") of %(RAD) | | | RES..mtdd.print.filter("tpg") | | | | | | Accession Number: [id number] | | | PORTABLE CHEST X-RAY CLINICAL [...] | | | Transcribed Date/Time: 11/20/2011 11:38 Corporate Licensed Broker: | | | <<Signature on File>> | | | Vinod | | | [place] MD11/20/112147 <Electronically signed by Vinod Wolff | | | Pancho VELARDE> Vinod Deleon MD 11/20/111132 | | | Corporate Licensed Broker: Lexara [id number] | | | Riley Brice MD | | + + + + + + + + | Performing | Address | City/State/Zipcode | Phone Number | | Organization | | | | + + + + + | [facility] | [address] | [place] | [phone] | | [facility] | | [address] | | | - IMAGING | | [...] [address] | [place] | [phone] | | [facility] | | [address] | | | - LABORATORY | | | | + + + + + | [facility] | [address] | [place] | | | [facility] | | [address] | | | - LABORATORY | | | | + + + + + documented in this encounter Visit Diagnoses Not on filedocumented in this encounter
--- OUTSIDE RECORDS SUMMARY | ~2019-01-31 | XMS | Encounter Summary ---
Demographics + + + | Address | [address] | | | [place] [address] | + + + | Home Phone | | + + + | Preferred Language | Unknown | + + + | Marital Status | | + + + | Jain Affiliation | 1001 | + + + | Race | Unknown | + + + | Ethnic Group | Unknown | + + + Author + + + | Author | [facility] | | | and [place] | + + + | Organization | [facility] | | | and [place] | + + + | Address | Unknown | + + + | Phone | Unavailable | + + + Support + + + + + | Name | Relationship | Address | Phone | + + + + + | Alexia Black | ECON | [address] | | | | | [place] [address] | | + + + + + | Kathi Segura | ECON | Unknown | | + + + + + Care Team Providers + +------+ + | Care Bilingual Research Interviewer Name | Role | Phone | + +------+ + | Ricardo Nicholson MD | PCP | | + +------+ + Reason for Visit +--------+ + | Reason | Comments | +--------+ + | Nausea | RM 1 Possibly dehydrated, vomitting, nausea | +--------+ + Encounter Details +--------+---------+ + + + | Date | Type | Department | Care Team | Description | +--------+---------+ + + + | 08/24/ | Office | [facility] | Vinod Nagy, | Gastroenteritis | | 2014 | Visit | CARE [address] | MD [address] | (Primary Dx) | | | | [place] | [place] | | | | | [address] | [address] | | | | | [phone] | | | +--------+---------+ + + + [...] + + + | Blood Pressure | 124/70 | 08/24/2013 11:24 AM | | | | | PDT | | + + + + + | Pulse | 60 | 08/24/2013 11:24 AM | | | | | PDT | | + + + + + | Temperature | 36.2 C (97.2 F) | 08/24/2013 11:24 AM | | | | | PDT | | + + + + + | Respiratory Rate | 20 | 08/24/2013 11:24 AM | | | | | PDT | | + + + + + | Oxygen Saturation | 98% | 08/24/2013 11:24 AM | | | | | PDT | | + + + + + | Inhaled Oxygen | - | - | | | Concentration | | | | + + + + + | Weight | 108.9 kg (240 lb) | 08/24/2013 11:24 AM | | | | | PDT | | + + + + + | Height | - | - | | + + + + + | Body Mass Index | 36.49 | 02/26/2013 8:18 AM | | | | | PST | | + + + + + documented in this encounter Patient Instructions Patient Instructions Vinod Nagy MD - 08/24/2013 11:49 AM PDTRest, take frequent sips of fluids, eat light snacks, and take Zofran as needed for nausea and vomiting. Return her e or go to the ER should symptoms persist, change, or worsen. documented in this encounter Progress Notes Vinod Nagy MD - 08/24/2013 11:53 AM PDTFormatting of this note might be different fr om the original. Subjective: Chief Complaint: Ceci Walters is a 32 y.o. female who comes in complaining of having some fatigue with nausea and v omiting since 9:00 this morning. She had 2 episodes of vomiting, the second episode being a bout 10:00 this morning. She thinks it may be related to being dehydrated from working out in the sun all day in the yard yesterday. She states she has had decreased urinary output a s well. She denies any fevers, diarrhea, abdominal pain, or other urinary symptoms. She is not sexually active with any males and states he would be impossible for her to be . She denies any history of prior abdominal surgery. No other complaints. Patient's medications, allergies, past medical, surgical, social and family histories were reviewed and updated as appropriate. Objective: BP 124/70 | Pulse 60 | Temp 36.2 C (97.2 F) | Resp 20 | Wt 108.863 kg (240 lb) | SpO2 9 8% | LMP 08/23/2013 General Appearance: Alert, cooperative, no distress, appears stated age Eyes normal conjunctiva, without pallor or scleral icterus Oropharynx normal, with moist mucous membranes Neck without lymphadenopathy Lungs clear throughout to auscultation Heart with regular rate and rhythm without murmur Abdomen soft, nontender throughout, without masses, no CVA tenderness to percussion, no hep atosplenomegaly Skin normal Assessment and Plans: Nausea vomiting from either some dehydration or gastroenteritis. Will treat with Zofran 4 mg every 4-6 hours as needed, frequent sips of fluids, lites next, and follow symptomaticall y. Return over the next couple days if symptoms are not resolving. Return sooner at any ti me should symptoms change or worsen. documented in this e ncounter Plan of Treatment Not on filedocumented as of this encounter Visit Diagnoses + + | Diagnosis | + + | Gastroenteritis - Primary Other and unspecified noninfectious gastroenteritis and | | colitis | + + documented in this encounter"
--- OUTSIDE RECORDS SUMMARY | ~2019-01-31 | XMS | Encounter Summary ---
Demographics + + + | Address | [address] | | | [place] [address] | + + + | Home Phone | | + + + | Preferred Language | Unknown | + + + | Marital Status | | + + + | Shinto Affiliation | 1001 | + + + | Race | Unknown | + + + | Ethnic Group | Unknown | + + + Author + + + | Author | [facility] | | | and [place]isana | + + + | Organization | [facility] | | | and [...] | | | | | [place] [address] | | + + + + + | Kathi Segura | ECON | Unknown | | + + + + + Care Team Providers + +------+ + | Care Solar Photovoltaic Designer Name | Role | Phone | + [...] | | | | | unspecified | FINANCIAL PROJECT MANAGER [address] | [place] | | | | | site | [place] | [address] [place] | | | | | Unspecified | [address] [place] | [place], [place] | | | | | constipation | [place], [place] | [address] Phone: | | | | | Procedures | [address] | [phone] | | | | | [place] UPPER | Phone: | Fax: | | | | | GI | [phone] | [phone] | | | | | ENDOSCOPY,DI | Fax: | | | | | | AGNOS[place] | [phone] | | | | | | UPPER GI | | | | | | | ENDOSCOPY,BI | | | | | | | [place] | | | | | | | COLONOSCOPY, | | | | | | | DIAGNOSTIC | | | | | | | [place] | | | | | | | [...] + + | 04/28/ | Office | [facility] | [facility], | Abdominal pain, | | 2012 | Visit | GASTROENTEROLOGY | RUTHANN [place] [address] | unspecified site | | | | [address] | [place] [place] [address] | (Primary Dx); | | | | [address] [place], [place] | [place] | Unspecified | | | | [address] | [address] | constipation | | | | [phone] | | | +--------+---------+ + + + [...]
--- OUTSIDE RECORDS SUMMARY | ~2019-01-31 | XMS | Encounter Summary ---
Demographics + + + | Address | [address] | | | [place] [address] | + + + | Home Phone | | + + + | Preferred Language | Unknown | + + + | Marital Status | | + + + | Presybeterian Affiliation | 1001 | + + + | Race | Unknown | + + + | Ethnic Group | Unknown | + + + Author + + + | Author | [facility] | | | and [place] | + + + | Organization | [facility] | | [...] | | | | | [place] [address] | | + + + + + | Kathi Segura | ECON | Unknown | | + + + + + Care Team Providers + +------+ + | Care Metal Sprayer Name | Role | Phone | + [...] Refill | | 2013 | | [facility] | [address] | | | | | [address] | [place] | | | | | [place] | [address] | | | | | [address] | | | | | | [phone] | | | +--------+--------+ + + + [...]
--- OUTSIDE RECORDS SUMMARY | ~2019-01-31 | XMS | Encounter Summary ---
Demographics + + + | Address | [address] | | | [place] [address] | + + + | Home Phone | | + + + | Preferred Language | Unknown | + + + | Marital Status | | + + + | Cheondoism Affiliation | 1001 | + + + | Race | Unknown | + + + | Ethnic Group | Unknown | + + + Author + + + | Author | [facility] | | | and [place] | + + + | Organization | [facility] | | [...] | | | | | [place] [address] | | + + + + + | Kathi Segura | ECON | Unknown | | + + + + + Care Team Providers + +------+ + | Care Grain Unloader Name | Role | Phone | + +------+ + | Ricardo Nicholson MD | PCP | | + +------+ + Encounter Details +--------+ + + + + | Date | Type | Department | Care Team | Description | +--------+ + + + + | 04/22/ | Abstract | [facility] [place] | [facility], | | | 2012 | | GASTROENTEROLOGY | [place] [address] | | | | | [address] | [place] | | | | | [address] [place], [place] | [place], [place] | | | | | [address] | [address] | | | | | [phone] | | | +--------+ + + + [...]
--- OUTSIDE RECORDS SUMMARY | ~2019-01-31 | XMS | Encounter Summary ---
Demographics + + + | Address | [address] | | | [place] [address] | + + + | Home Phone | | + + + | Preferred Language | Unknown | + + + | Marital Status | | + + + | Scientology Affiliation | 1001 | + + + | Race | Unknown | + + + | Ethnic Group | Unknown | + + + Author + + + | Author | [facility] | | | and [place] | + + + | Organization | [facility] [...] | | | | | [place] [address] | | + + + + + | Kathi Segura | ECON | Unknown | | + + + + + Care Team Providers + +------+ + | Care Movie Actor Name | Role | Phone | + +------+ + | Ricardo Nicholson MD | PCP | | + +------+ + Reason for Visit + + + | Reason | Comments | + + + | Facial Injury | x 3 days | + + + Encounter Details +--------+---------+ + + + | Date | Type | Department | Care Team | Description | +--------+---------+ + + + | 06/21/ | Office | [facility] | Deo Cordero, | Contusion of face | | 2012 | Visit | [facility] [place] | DO [address] | (Primary Dx); | | | | [address] | [place] | Conjunctival | | | | [place] | [address] | hemorrhage | | | | [address] | | | | | | [phone] | | | +--------+---------+ + + + [...] + + + | Blood Pressure | 114/66 | 06/21/2012 9:09 AM | | | | | PDT | | + + + + + | Pulse | 84 | 06/21/2012 9:09 AM | | | | | PDT | | + + + + + | Temperature | 36.6 C (97.9 F) | 06/21/2012 9:09 AM | | | | | PDT | | + + + + + | Respiratory Rate | 16 | 06/21/2012 9:09 AM | | | | | PDT | | + + + + + | Oxygen Saturation | 99% | 06/21/2012 9:09 AM | | | | | PDT | | + + + + + | Inhaled Oxygen | - | - | | | Concentration | | | | + + + + + | Weight | 105.7 kg (233 lb) | 06/21/2012 9:09 AM | | | | | PDT | | + + + + + | Height | 172.7 cm (5' 8") | 06/21/2012 9:09 AM | | | | | PDT | | + + + + + | Body Mass Index | 35.43 | 06/21/2012 9:09 AM | | | | | PDT | | + + + + + documented in this encounter Progress Notes Deo Cordero DO - 06/21/2012 9:19 AM PDTFormatting of this note might be different fro m the original. Subjective: Patient ID: Selena Black is a 31 y.o. female. HPI Patient's medications, allergies, past medical, surgical, social and family histories were reviewed and updated as appropriate. Pt took a softball thrown at her that hit her in the L side of her face. Pt presented to [facility] that day. CT face negative for fracture. Pt has facial swelling and b/l black eye. No vi safia changes. Pt has been icing her face. Swelling has reduced. Pt with headache on and o ff. Pain in head is 3-6/10. Pain level in face is moderate . Pt is hydrocodone 5/325 q 4 hours. Pt has been taking Ibuprofen as needed. Positive for facial swelling and bruising . Positive for jaw pain on the left. Patient cannot go back to work until she is off the h ydrocodone. 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 Review of Systems Constitutional: Negative. Eyes: Positive for redness. Negative for pain and visual disturbance. Respiratory: Negative. Cardiovascular: Negative. Gastrointestinal: Negative. Musculoskeletal: Positive for arthralgias. Negative for myalgias. Skin: Positive for color change. Objective: Physical Exam Nursing note and vitals reviewed. Constitutional: She is oriented to person, place, and time. She appears well-developed and well-nourished. No distress. HENT: Right Ear: External ear normal. Mouth/Throat: Oropharynx is clear and moist. Facial contusion with bilateral black eyes left-sided facial swelling and tenderness a cross her cheek and left side of her jaw. Eyes: Right eye exhibits no discharge. Left eye exhibits no discharge. Conjunctival hemorrhage on the left Cardiovascular: Normal rate, regular rhythm and intact distal pulses. Exam reveals no gall op and no friction rub. No murmur heard. Pulmonary/Chest: Breath sounds normal. No respiratory distress. She has no wheezes. She has no rales. She exhibits no mass, no tenderness, no bony tenderness, no edema, no deformity a nd no swelling. Right breast exhibits no inverted nipple, no mass, no nipple discharge, no s kin change and no tenderness. Left breast exhibits no inverted nipple, no mass, no nipple di scharge, no skin change and no tenderness. Breasts are symmetrical. Abdominal: Soft. Bowel sounds are normal. She exhibits no distension and no mass. There is no tenderness. There is no rebound and no guarding. Musculoskeletal: She exhibits edema and tenderness. Neurological: She is alert and oriented to person, place, and time. Skin: Skin is warm and dry. She is not diaphoretic. There is erythema. Psychiatric: She has a normal mood and affect. Her behavior is normal. Judgment normal. Assessment: 1. Contusion of face 2. Conjunctival hemorrhage Plan: Selena was seen today for facial injury. Diagnoses and associated orders for this visit: Contusion of face Patient with significant contusion to the face after taking a baseball to her face. Sai wall is given a refill on pain medication. She will gradually wean off of this over the next 4 -5 days. Patient may return to work when she is off the Vicodin. She'll start naproxen 500 mg twice daily now. She may continue to use naproxen during work hours. She is given a no te for work. She never returned to full duty on Thursday. Bruising and swelling will gradual ly decrease. If she starts developing any new pains, vision changes, nerve dysfunction she' ll need to come back sooner. No fractures and facial CT. Other Orders - HYDROcodone-acetaminophen (VICODIN) 5-500 mg per tablet; Take 1 tablet by mouth every 6 h ours as needed for Pain. - naproxen (NAPROSYN) 500 mg tablet; Take 1 tablet by mouth 2 times daily (with breakfast & dinner) for 30 days. Conjunctival hemorrhage This will gradually improve. No vision changes. documented in this en counter Plan of Treatment Not on filedocumented as of this encounter Visit Diagnoses + + | Diagnosis | + + | Contusion of face - Primary Contusion of face, scalp, and neck except eye(s) | + + | Conjunctival hemorrhage | + + documented in this encounter
--- OUTSIDE RECORDS SUMMARY | ~2019-01-31 | XMS | Encounter Summary ---
Demographics + + + | Address | [address] [facility] [facility] | | | [place] [address] | + + + | Home Phone [...] + | Organization | [facility] | | | and [place] | + + + | Address | Unknown | + + + | Phone | Unavailable | + + + Support + + + + + | Name | Relationship | Address | Phone | + + + + + | Alexia Black | ECON | [address] | | | | | [place] [address] | | + + + + + | Kathi Segura | ECON | Unknown | | + + + + + Care Team Providers + +------+ + | Care Transporter Driver Name | Role | Phone | [...] Description | +--------+--------+ + + + | 12/17/ | Refill | [facility] | Ricardo Nicholson, | Medication Refill | | 2017 | | MEDIC[facility] [place] | [address] | | | | | [address] | [place] | | | | | [place] | [address] | | | | | [address] | | | | | | [phone] | | | +--------+--------+ + + + [...]
--- OUTSIDE RECORDS SUMMARY | ~2019-01-31 | XMS | Encounter Summary ---
Demographics + + + | Address | [address] [facility] | | | [place] [address] | + + + | Home Phone | | + + + | Preferred Language | Unknown | + + + | Marital Status | | + + + | Restorationism Affiliation | 1001 | + + + | Race | Unknown | + + + | Ethnic Group | Unknown | + + + Author + + + | Author | [facility] | | | and [place] | + + + | Organization | [facility] | | | and [...] | | | | | [place] [address] | | + + + + + | Kathi Colton | ECON | Unknown | | + + + + + Care Team Providers + +------+ + | Care Network Cable Installer Name | Role | Phone | + +------+ + PCP | Unavailable | + +------+ + Encounter Details +--------+ + + + + | Date | Type | Department | Care Team | Description | +--------+ + + + + | 04/01/ | Hospital | [facility] | [place] | | | 2006 | Encounter | MED CTR XRAY [address] | MD [place] [address] | | | | [place] | [address] [place] | | | | | [place] [address] | [place] [address] | | | | | [phone] | [phone] | | | | | | | | +--------+ + + + [...]
--- OUTSIDE RECORDS SUMMARY | ~2019-01-31 | XMS | Encounter Summary ---
Demographics + + + | Address | [address] [facility] [facility] | | | [place] [address] | + + + | Home Phone | | + + + | Preferred Language | Unknown | + + + | Marital Status | | + + + | Mormonism Affiliation | 1001 | + + + | Race | Unknown | + + + | Ethnic Group | Unknown | + + + Author + + + | Author | [facility] | | | and [place] | + + + | Organization | [facility] | | | and [place] | + + + | Address | Unknown | + + + | Phone | Unavailable | + + + Support + + + + + | Name | Relationship | Address | Phone | + + + + + | Alexia Black | ECON | [address] | | | | | [place] [address] | | + + + + + | Kathi Colton | ECON | Unknown | | + + + + + Care Team Providers + +------+ + | Care Truck Railroad And Bus Motor Mechanic Name | Role | Phone | + +------+ + | Ricardo Nicholson MD | PCP | | + +------+ + Encounter Details +--------+ + + + + | Date | Type | Department | Care Team | Description | +--------+ + + + + | 07/09/ | Abstract | [facility] [place] [facility] | Ricardo Nicholson, | Herpes labialis | | 2018 | | MEDIC[facility] [place] | [address] | without complication | | | | [address] | [place] | | | | | [place], [place] | [address] | | | | | [address] | | | | | | [phone] | | | +--------+ + + + [...] +--------+ + + + | EXTERNAL LAB: [facility] | Routin | 12/18/2016 | | Results for this | | SMEAR | e | | | procedure are in the | | | | | | results section. | + +--------+ + + + documented in this encounter Results External Lab: PAP Smear (12/18/2016) + + + + + + | Component | Value | Ref Range | Performed | Pathologist | | | | | At | Signature | + + + + + + | Pap Smear, | No evidence of | | | | | External | intraepithelial lesion | | | | | | or malignancy | | | | + + + + + + documented in this encounter Visit Diagnoses + + | Diagnosis | + + | Herpes labialis without complication | + + documented in this encounter"
--- OUTSIDE RECORDS SUMMARY | ~2019-01-31 | XMS | Encounter Summary ---
Demographics + + + | Address | [address] [facility] [facility] | | | [place] [address] | + + + | Home Phone | | + + + | Preferred Language | Unknown | + + + | Marital Status | | + + + | Hoahaoism Affiliation | 1001 | + + + | Race | Unknown | + + + | Ethnic Group | Unknown | + + + Author + + + | Author | [facility] | | | and [place] | + + + | Organization | [facility] | | | and [place] | + + + | Address | Unknown | + + + | Phone | Unavailable | + + + Support + + + + + | Name | Relationship | Address | Phone | + + + + + | Alexia Black | ECON | [address] | | | | | [place] [address] | | + + + + + | Kathi Colton | ECON | Unknown | | + + + + + Care Team Providers + +------+ + | Care Steam Fitter Helper Name | Role | Phone | + +------+ + PCP | Unavailable | + +------+ + Encounter Details +--------+ + + + + | Date | Type | Department | Care Team | Description | +--------+ + + + + | 06/25/ | Hospital | [facility] | | | | 2000 | Encounter | MED CTR EMERGENCY | | | | | | CENTER [address] | | | | | | [place] | | | | | | [address] | | | | | | [phone] | | | +--------+ + + + [...]
--- OUTSIDE RECORDS SUMMARY | ~2019-01-31 | XMS | Encounter Summary ---
Demographics + + + | Address | [address] | | | [place] [address] | + + + | Home Phone | | + + + | Preferred Language | Unknown | + + + | Marital Status | | + + + | Buddhist Affiliation | 1001 | + + + | Race | Unknown | + + + | Ethnic Group | Unknown | + + + Author + + + | Author | [facility] | | | and [place] | + + + | Organization | [facility] | | | and [...] | | | | | [place] [address] | | + + + + + | Kathi Segura | ECON | Unknown | | + + + + + Care Team Providers + +------+ + | Care Athletic Agent Name | Role | Phone | + [...] Description | +--------+--------+ + + + | 01/26/ | Refill | [facility] | Ricardo Nicholson, | Medication Refill | | 2016 | | MEDICINE [place] | [address] | | | | | [address] | [place] | | | | | [place] | [address] | | | | | [address] | | | | | | [phone] | | | +--------+--------+ + + + [...]
--- OUTSIDE RECORDS SUMMARY | ~2019-01-31 | XMS | Encounter Summary ---
Demographics + + + | Address | [address] [facility] | | | [place] [address] | + + + | Home Phone | | + + + | Preferred Language | Unknown | + + + | Marital Status | | + + + | Yazidism Affiliation | 1001 | + + + | Race | Unknown | + + + | Ethnic Group | Unknown | + + + Author + + + | Author | [facility] | | | and [place] | + + + | Organization | [facility] | | | and [place] | + + + | Address | Unknown | + + + | Phone | Unavailable | + + + Support + + + + + | Name | Relationship | Address | Phone | + + + + + | Alexia Black | ECON | [address] | | | | | [place] [address] | | + + + + + | Kathi Colton | ECON | Unknown | | + + + + + Care Team Providers + +------+ + | Care Hair Weaver Name | Role | Phone | + +------+ + PCP | Unavailable | + +------+ + Encounter Details +--------+ + + + + | Date | Type | Department | Care Team | Description | +--------+ + + + + | 11/21/ | Hospital | [facility] | | | | 1995 | Encounter | MED CTR EMERGENCY | | | | | | CENTER [address] | | | | | | [place] | | | | | | [address] | | | | | | [phone] | | | +--------+ + + + [...]
--- OUTSIDE RECORDS SUMMARY | ~2019-01-31 | XMS | Encounter Summary ---
Demographics + + + | Address | [address] [facility] [facility] | | | [place] [address] | + + + | Home Phone | | + + + | Preferred Language | Unknown | + + + | Marital Status | | + + + | Episcopal Affiliation | 1001 | + + + | Race | Unknown | + + + | Ethnic Group | Unknown | + + + Author + + + | Author | [facility] | | | and [place] | + + + | Organization | [facility] | | | and [...] | | | | | [place] [address] | | + + + + + | Kathi Segura | ECON | Unknown | | + + + + + Care Team Providers + +------+ + | Care Manager Civil Name | Role | Phone | + +------+ + | Ricardo Nicholson MD | PCP | | + +------+ + Reason for Visit + + + | Reason | Comments | + + + | Abnormal Tests | | + + + Encounter Details +--------+ + + + + | Date | Type | Department | Care Team | Description | +--------+ + + + + | 07/14/ | Telephone | [facility] | Ricardo Nicholson, | Abnormal Tests | | 2018 | | MEDIC[facility] [place] | [address] | | | | | [address] | [place] | | | | | [place] | [address] | | | | | [address] | | | | | | [phone] | | | +--------+ + + + [...]
--- OUTSIDE RECORDS SUMMARY | ~2019-01-31 | XMS | Encounter Summary ---
Demographics + + + | Address | [address] [facility] [facility] [facility] | | | [place] [address] | + + + | Home Phone | | + + + | Preferred Language | Unknown | + + + | Marital Status | | + + + | Jain Affiliation | 1001 | + + + | Race | Unknown | + + + | Ethnic Group | Unknown | + + + Author + + + | Author | [facility] | | | and [place] | + + + | Organization | [facility] | | | and [place] | + + + | Address | Unknown | + + + | Phone | Unavailable | + + + Support + + + + + | Name | Relationship | Address | Phone | + + + + + | Alexia Black | ECON | [address] | | | | | [place] [address] | | + + + + + | Kathi Colton | ECON | Unknown | | + + + + + Care Team Providers + +------+ + | Care Health Aide Name | Role | Phone | + +------+ + PCP | Unavailable | + +------+ + Encounter Details +--------+ + + + + | Date | Type | Department | Care Team | Description | +--------+ + + + + | 12/16/ | Hospital | [facility] | | | | 1998 | Encounter | MED CTR EMERGENCY | | | | | | CENTER [address] | | | | | | [place] | | | | | | [address] | | | | | | [phone] | | | +--------+ + + + [...]
--- OUTSIDE RECORDS SUMMARY | ~2019-01-31 | XMS | Encounter Summary ---
Demographics + + + | Address | [address] | | | [place] [address] | + + + | Home Phone | | + + + | Preferred Language | Unknown | + + + | Marital Status | | + + + | Caodaism Affiliation | 1001 | + + + | Race | Unknown | + + + | Ethnic Group | Unknown | + + + Author + + + | Author | [facility] | | | and [place] | + + + | Organization | [facility] | | | and [...] | | | | | [place] [address] | | + + + + + | Kathi Segura | ECON | Unknown | | + + + + + Care Team Providers + +------+ + | Care Acid Plant Helper Name | Role | Phone | + +------+ + | Ricardo Nicholson MD | PCP | | + +------+ + Reason for Visit +--------+ + | Reason | Comments | +--------+ + | Cough | Rm#2, cold symptoms x 5 days | +--------+ + Encounter Details +--------+---------+ + + + | Date | Type | Department | Care Team | Description | +--------+---------+ + + + | 01/08/ | Office | [facility] | Pranav Lima, | Bronchitis (Primary | | 2013 | Visit | CARE [address] | [address] | Dx); Sinusitis | | | | [place] | [place] | | | | | [address] | [address] | | | | | [phone] | | | +--------+---------+ + + + [...] + + + | Blood Pressure | 126/82 | 01/08/2014 8:08 AM | | | | | PST | | + + + + + | Pulse | 93 | 01/08/2014 8:08 AM | | | | | PST | | + + + + + | Temperature | 36.5 C (97.7 F) | 01/08/2014 8:08 AM | | | | | PST | | + + + + + | Respiratory Rate | 18 | 01/08/2014 8:08 AM | | | | | PST | | + + + + + | Oxygen Saturation | 97% | 01/08/2014 8:08 AM | | | | | PST | | + + + + + | Inhaled Oxygen | - | - | | | Concentration | | | | + + + + + | Weight | 107 kg (235 lb 14.4 | 01/08/2014 8:08 AM | | | | oz) | PST | | + + + + + | Height | 172.7 cm (5' 8") | 01/08/2014 8:08 AM | | | | | PST | | + + + + + | Body Mass Index | 35.87 | 01/08/2014 8:08 AM | | | | | PST | | + + + + + documented in this encounter Patient Instructions Patient Instructions Pranav Lima MD - 01/08/2014 8:18 AM PSTGet plenty of rest and w ater. Take the Zithromax as directed. Use the cough syrup as directed.Don't do anything yo u need to be alert to do for 6 hours after taking a narcotic, such as driving, running [employer], swimming, etc. Recheck as needed. documented in this encounter Progress Notes Pranav Lima MD - 01/08/2014 8:19 AM PSTFormatting of this note might be different fr om the original. Subjective: Patient ID: Selena Black is a 33 y.o. female. HPI Patient's medications, allergies, past medical, surgical, social and family histories were reviewed and updated as appropriate. This young woman came to the clinic because of about 5 days of congestion and cough. She h as pressure pain in her sinuses also and is blowing green mucus out of her nose. She is cou ghing some sputum up also. She's had no earache or sore throat or nausea. She has no other complaint. I reviewed her past history and meds. Review of Systems Constitutional: Negative. HENT: Positive for congestion and sinus pressure. Respiratory: Positive for cough. Cardiovascular: Negative. Gastrointestinal: Negative. Objective: Physical Exam Vitals reviewed. Constitutional: She is oriented to person, place, and time. She appears well-developed and well-nourished. No distress. HENT: Head: Normocephalic. Right Ear: Tympanic membrane, external ear and ear canal normal. Left Ear: Tympanic membrane, external ear and ear canal normal. Nose: Right sinus exhibits maxillary sinus tenderness (Mild tenderness with pressure over t he maxillary sinuses). Right sinus exhibits no frontal sinus tenderness. Left sinus exhibits maxillary sinus tenderness. Left sinus exhibits no frontal sinus tenderness. Mouth/Throat: Uvula is midline, oropharynx is clear and moist and mucous membranes are norm al. Very congested nose Eyes: Conjunctivae normal are normal. Pupils are equal, round, and reactive to light. Neck: Normal range of motion. Neck supple. Cardiovascular: Normal rate, regular rhythm and normal heart sounds. Pulmonary/Chest: Effort normal and breath sounds normal. Occasional congested cough Musculoskeletal: Normal range of motion. Lymphadenopathy: Cervical adenopathy: Mild. Neurological: She is alert and oriented to person, place, and time. Assessment: 1. Bronchitis 2. Sinusitis Plan: Please see the AVS for the plan unless outlined elsewhere. Will give her prescriptions for Zithromax Z-Tariq and Hycodan cough syrup with instructions i n use he need. Recheck as needed. She had no questions. I give her a note also verifying she was seen here today. documented in this e ncounter Plan of Treatment Not on filedocumented as of this encounter Visit Diagnoses + + | Diagnosis | + + | Bronchitis - Primary Bronchitis, not specified as acute or chronic | + + | Sinusitis Unspecified sinusitis (chronic) | + + documented in this encounter
--- OUTSIDE RECORDS SUMMARY | ~2019-01-31 | XMS | Encounter Summary ---
Demographics + + + | Address | [address] | | | [place] [address] | + + + | Home Phone | | + + + | Preferred Language | Unknown | + + + | Marital Status | | + + + | Amish Affiliation | 1001 | + + + | Race | Unknown | + + + | Ethnic Group | Unknown | + + + Author + + + | Author | [facility] | | | and [place] | + + + | Organization | [facility] | | | and [place] | + + + | Address | Unknown | + + + | Phone | Unavailable | + + + Support + + + + + | Name | Relationship | Address | Phone | + + + + + | Alexia Black | ECON | [address] | | | | | [place] [address] | | + + + + + | Kathi Segura | ECON | Unknown | | + + + + + Care Team Providers + +------+ + | Care Laster Hand Name | Role | Phone | + [...] Description | +--------+--------+ + + + | 06/20/ | Refill | [facility] | Ricardo Nicholson, | Medication Refill | | 2019 | | MEDICINE [place] | [address] | | | | | [address] | [place] | | | | | [place] | [address] | | | | | [address] | | | | | | [phone] | | | +--------+--------+ + + + [...]
--- OUTSIDE RECORDS SUMMARY | ~2019-01-31 | XMS | Encounter Summary ---
Demographics + + + | Address | [address] | | | [place] [address] | + + + | Home Phone [...] | Organization | [facility] | | | and [...] | | | | | [place] [address] | | + + + + + | Kathi Segura | ECON | Unknown | | + + + + + Care Team Providers + +------+ + | Care Pnp Name | Role | Phone | + [...] Refill | | 2017 | | [facility] [place] | [address] | | | | | [address] | [place] | | | | | [place] | [address] | | | | | [address] | | | | | | [phone] | | | +--------+--------+ + + + [...]
--- OUTSIDE RECORDS SUMMARY | ~2019-01-31 | XMS | Encounter Summary ---
Demographics + + + | Address | [address] | | | [place] [address] | + + + | Home Phone [...] | Organization | [facility] | [...] | | | | | [place] [address] | | + + + + + | Kathi Segura | ECON | Unknown | | + + + + + Care Team Providers + +------+ + | Care Checker And Packer Name | Role | Phone | + +------+ + | Ricardo Nicholson MD | PCP | | + +------+ + Reason for Visit + + + | Reason | Comments | + + + | Pap Test | | + + + Encounter Details +--------+ + + + + | Date | Type | Department | Care Team | Description | +--------+ + + + + | 08/29/ | Telephone | [facility] | Ricardo Nicholson, | Pap Test | | 2015 | | MEDICINE [place] | [address] | | | | | [address] | [place] | | | | | [place] | [address] | | | | | [address] | | | | | | [phone] | | | +--------+ + + + [...]
--- OUTSIDE RECORDS SUMMARY | ~2019-01-31 | XMS | Encounter Summary ---
Demographics + + + | Address | [address] | | | [place] [address] | + + + | Home Phone | | + + + | Preferred Language | Unknown | + + + | Marital Status | | + + + | Advent Affiliation | 1001 | + + + | Race | Unknown | + + + | Ethnic Group | Unknown | + + + Author + + + | Author | [facility] | | | and [place] | + + + | Organization | [facility] | | [...] | | | | | [place] [address] | | + + + + + | Kathi Segura | ECON | Unknown | | + + + + + Care Team Providers + +------+ + | Care E Commerce Specialist Name | Role | Phone | + +------+ + | Ricardo Nicholson MD | PCP | | + +------+ + Reason for Visit + + + | Reason | Comments | + + + | Annual Exam | | + + + | Allergies | | + + + | Neck Pain | tension | + + + | Other | electrolyte imbalance | + + + Encounter Details +--------+---------+ + + + | Date | Type | Department | Care Team | Description | +--------+---------+ + + + | 08/06/ | Office | [facility] | Ricardo Nicholson, | Routine general | | 2017 | [facility] | [facility] [address] | medical examination | | | | [address] | [place] | at a health care | | | | [place] | [address] | facility (Primary | | | | [address] | | Dx) | | | | [phone] | | | +--------+---------+ + + + [...] + + + | Blood Pressure | - | - | | + + + + + | Pulse | 64 | 08/06/2016 2:26 PM | | | | | PDT | | + + + + + | Temperature | 36.3 C (97.4 F) | 08/06/2016 2:26 PM | | | | | PDT | | + + + + + | Respiratory Rate | 18 | 08/06/2016 2:26 PM | | | | | PDT | | + + + + + | Oxygen Saturation | 98% | 08/06/2016 2:26 PM | | | | | PDT | | + + + + + | Inhaled Oxygen | - | - | | | Concentration | | | | + + + + + | Weight | 113.4 kg (250 lb) | 08/06/2016 2:26 PM | | | | | PDT | | + + + + + | Height | 172.7 cm (5' 8") | 08/06/2016 2:26 PM | | | | | PDT | | + + + + + | Body Mass Index | 38.01 | 08/06/2016 2:26 PM | | | | | PDT | | + + + + + documented in this encounter Progress Notes Ricardo Nicholson MD - 08/06/2016 2:30 PM PDTFormatting of this note might be different f rom the original. Subjective: Patient ID: Selena Black is a 35 y.o. female. Neck Pain This is a new problem. The problem occurs intermittently. The problem has been waxing and w aning. The pain is at a severity of 4/10. The pain is moderate. The treatment provided mild relief. Other Associated symptoms include neck pain. Past Medical History: Diagnosis Date Asthma Feb 24 2016 Environmental allergies Feb 2011 GERD (gastroesophageal reflux disease) Heart murmur Hyperplastic colon polyp 05/07/12 hyperplastic polyp,otherwise normal study Pharyngitis S/P endoscopy 05/07/12 normal Sinusitis Unspecified otitis media Vaginitis Patient Active Problem List Diagnosis Date Noted POA Depression Unknown Abdominal pain, other specified site 03/30/2012 Unknown Preventative health care 03/04/2012 Unknown OTHandUNSPEC NONINFECTIOUS GASTROENTERITISandCOLITIS Unknown OTITIS MEDIA, ACUTE 10/30/2011 Unknown ABRASION 11/20/2010 Unknown Past Surgical History: Procedure Laterality Date Ascending Colon Biopsy Benign colonic mucosa-Negative for pathologic inflammation-Normal apperring lymphoid folli serge-Negative for atypia COLONOSCOPY 05/07/2012 one 5mm polyp in the proxinal decending colon/Resected abd retrieved/Internal Hemorrhroids /The examination was otherwise normal/The examined portion of the ileum was normal. Duodenal Biopsy Benign small bowel mucosa fragments-No Robert's glands included in these bipsies/Negarive for pathologic inflamation-Negarive for architectural atypia-No parasites identified. EAR SURGERY Bilateral as a child Esophageal Biopsy Benign squamous mucosa-Mild chronic inflammation-Negative for significant eosinophilic inf iltration-Mild atypia-Favor reactive Gastric Biopsy Benign gastric mucosal fragments- Negative for pathologic inflammation-_Immunohisstochemic al stain negative for H pylory- Approated positive control reactions are noted-Negative for atypia Tissue from descending colon(polyp) Benign hyperplastic polyp TONSILLECTOMY UPPER GASTROINTESTINAL ENDOSCOPY 05/07/2012 Normal examined duodenum. This was biopsied/ Normal Stomach . Biopsy was performed. Normal Esophagus. This was biopsied. Family History Problem Relation Age of Onset Heart disease Maternal Grandmother Diabetes Maternal Grandmother Liver disease Maternal Grandfather Social History Social History Marital status: Spouse [...] Social History Narrative None Current Outpatient Prescriptions on File Prior to Visit Medication Sig Dispense Refill Cetirizine HCl (ZYRTEC ALLERGY PO) drospirenone-ethinyl estradiol (ANGELLA) 3-0.03 mg per tablet take 1 tablet by mouth once daily 84 tablet 0 Ibuprofen (ADVIL PO) TABS Multiple Vitamins-Minerals (MULTIVITAMIN & MINERAL PO) Take by mouth. omeprazole (PRILOSEC) 20 mg capsule Take 1 capsule by mouth every morning (before break fast). 90 capsule 0 ondansetron (ZOFRAN ODT) 4 mg disintegrating tablet Take one tablet every 4-6 hours as needed for nausea. 6 tablet 0 Pseudoephedrine-Guaifenesin (MUCINEX D PO) Take by mouth as needed. No current facility-administered medications on file prior to visit. No Known Allergies Review of Systems Constitutional: Negative. HENT: Negative. Eyes: Negative. Respiratory: Negative. Cardiovascular: Negative. Gastrointestinal: Negative. Genitourinary: Negative. Musculoskeletal: Positive for neck pain. Skin: Negative. Neurological: Negative. Psychiatric/Behavioral: Negative. Objective: Physical Exam Constitutional: She is oriented to person, place, and time. She appears well-developed and well-nourished. HENT: Head: Normocephalic and atraumatic. Eyes: Pupils are equal, round, and reactive to light. Cardiovascular: Normal rate and regular rhythm. Pulmonary/Chest: Effort normal and breath sounds normal. Abdominal: She exhibits no distension. Neurological: She is alert and oriented to person, place, and time. Skin: Skin is warm. Psychiatric: She has a normal mood and affect. Assessment: 1. Routine general medical examination at a health care facility CBC with Differential Comprehensive Metabolic Panel Lipid Panel TSH Urinalysis with Microscopic with Culture if Indicated Plan: Orders Placed This Encounter Procedures CBC with Differential Standing Status: Future Standing Expiration Date: 08/06/2017 Comprehensive Metabolic Panel Standing Status: Future Standing Expiration Date: 08/06/2017 Order Specific Question: Fasting? Answer: Yes [1] Lipid Panel Standing Status: Future Standing Expiration Date: 08/06/2017 Order Specific Question: Fasting? Answer: Yes [1] TSH Standing Status: Future Standing Expiration Date: 08/06/2017 Urinalysis with Microscopic with Culture if Indicated Standing Status: Future Standing Expiration Date: 08/06/2017 Order Specific Question: Indication Answer: Other Order Specific Question: Comments Answer: annual exam New Prescriptions CYCLOBENZAPRINE (FLEXERIL) 10 MG TABLET 1/2 to one daily prn neck pain documented in this encounter Plan of Treatment Not on filedocumented as of this encounter Procedures + +--------+ + + + | Procedure Name | Priori | Date/Time | Associated Diagnosis | Comments | | | ty | | | | + +--------+ + + + | LABS - EXTERNAL SCAN | | 01/02/2017 | | Results for this | | | | 12:00 AM | | procedure are in the | | | | PST | | results section. | + +--------+ + + + | LABS - EXTERNAL SCAN | | 01/02/2017 | | Results for this | | | | 12:00 AM | | procedure are in the | | | | PST | | results section. | + +--------+ + + + documented in this encounter Results LABS - EXTERNAL SCAN (01/02/2017 12:00 AM PST) + + + | Narrative | Performed At | + + + | Ordered by an | | | unspecified provider. | | + + + LABS - EXTERNAL SCAN (01/02/2017 12:00 AM PST) + + + | Narrative | Performed At | + + + | Ordered by an | | | unspecified provider. | | + + + documented in this encounter Visit Diagnoses + + | Diagnosis | + + | Routine general medical examination at a health care facility - Primary | + + documented in this encounter
--- OUTSIDE RECORDS SUMMARY | ~2019-01-31 | XMS | Encounter Summary ---
Demographics + + + | Address | [address] | | | [place] [address] | + + + | Home Phone | | + + + | Preferred Language | Unknown | + + + | Marital Status | | + + + | Jewish Affiliation | 1001 | + + + | Race | Unknown | + + + | Ethnic Group | Unknown | + + + Author + + + | Author | [facility] | | | and [place] | + + + | Organization | [facility] | | | and [...] | | | | | [place] [address] | | + + + + + | Kathi Segura | ECON | Unknown | | + + + + + Care Team Providers + +------+ + | Care Greenhouse Specialist Name | Role | Phone | + +------+ + | Ricardo Nicholson MD | PCP | | + +------+ + Encounter Details +--------+ + + + + | Date | Type | Department | Care Team | Description | +--------+ + + + + | 04/22/ | Abstract | [facility] [place] | [facility], | | | 2012 | | GASTROENTEROLOGY | [place] [address] | | | | | [address] | [place] | | | | | [address] [place], [place] | [place], [place] | | | | | [address] | [address] | | | | | [phone] | | | +--------+ + + + [...]
--- OUTSIDE RECORDS SUMMARY | ~2019-01-31 | XMS | Encounter Summary ---
Demographics + + + | Address | [address] | | | [place] [address] | + + + | Home Phone [...] Organization | [facility] | | | and [place] | + + + | Address | Unknown | + + + | Phone | Unavailable | + + + Support + + + + + | Name | Relationship | Address | Phone | + + + + + | Alexia Black | ECON | [address] | | | | | [place] [address] | | + + + + + | Kathi Segura | ECON | Unknown | | + + + + + Care Team Providers + +------+ + | Care Lead Atg Developer Name | Role | Phone | [...] Description | +--------+--------+ + + + | 07/13/ | Refill | [facility] | Ricardo Nicholson, | Medication Refill | | 2017 | | MEDICINE [place] | [address] | | | | | [address] | [place] | | | | | [place] | [address] | | | | | [address] | | | | | | [phone] | | | +--------+--------+ + + + [...]
--- OUTSIDE RECORDS SUMMARY | ~2019-01-31 | XMS | Encounter Summary ---
Demographics + + + | Address | [address] | | | [place] [address] | + + + | Home Phone | | + + + | Preferred Language | Unknown | + + + | Marital Status | | + + + | Muslim Affiliation | 1001 | + + + | Race | Unknown | + + + | Ethnic Group | Unknown | + + + Author + + + | Author | [facility] | | | and [place] | + + + | Organization | [facility] | [...] | | | | | [place] [address] | | + + + + + | Kathi Segura | ECON | Unknown | | + + + + + Care Team Providers + +------+ + | Care Central Supply Manager Name | Role | Phone | [...] | +--------+ + + + + | 04/05/ | Telephone | [facility] | Ricardo Nicholson, | Other | | 2012 | | [facility] | [address] | | | | | [address] | [place] | | | | | [place] | [address] | | | | | [address] | | | | | | [phone] | | | +--------+ + + + [...]
--- OUTSIDE RECORDS SUMMARY | ~2019-01-31 | XMS | Encounter Summary ---
Demographics + + + | Address | [address] | | | [place] [address] | + + + | Home Phone | | + + + | Preferred Language | Unknown | + + + | Marital Status | | + + + | Sabianism Affiliation | 1001 | + + + | Race | Unknown | + + + | Ethnic Group | Unknown | + + + Author + + + | Author | [facility] | | | and [place] | + + + | Organization | [facility] | | | and [place] | + + + | Address | Unknown | + + + | Phone | Unavailable | + + + Support + + + + + | Name | Relationship | Address | Phone | + + + + + | Alexia Black | ECON | [address] | | | | | [place] [address] | | + + + + + | Kathi Colton | ECON | Unknown | | + + + + + Care Team Providers + +------+ + | Care Door Liner Helper Name | Role | Phone | + +------+ + PCP | Unavailable | + +------+ + Encounter Details +--------+ + + + + | Date | Type | Department | Care Team | Description | +--------+ + + + + | 03/31/ | Hospital | [facility] | | | | 1997 | Encounter | MED CTR EMERGENCY | | | | | | CENTER [address] | | | | | | [place] | | | | | | [address] | | | | | | [phone] | | | +--------+ + + + [...]
--- OUTSIDE RECORDS SUMMARY | ~2019-01-31 | XMS | Encounter Summary ---
Demographics + + + | Address | [address] | | | [place] [address] | + + + | Home Phone | | + + + | Preferred Language | Unknown | + + + | Marital Status | | + + + | Roman Catholic Affiliation | 1001 | + + + | Race | Unknown | + + + | Ethnic Group | Unknown | + + + Author + + + | Author | [facility] | | | and [place] | + + + | Organization | [facility] | | | and [...] | | | | | [place] [address] | | + + + + + | Kathi Segura | ECON | Unknown | | + + + + + Care Team Providers + +------+ + | Care Practice Managers Name | Role | Phone | + [...] + + | 01/19/ | Office | [facility] | Vinod Nagy, | Acute sinusitis | | 2012 | Visit | CARE [address] | MD [address] | (Primary Dx) | | | | [place] | [place] | | | | | [address] | [address] | | | | | [phone] | | | +--------+---------+ + + + [...]
--- OUTSIDE RECORDS SUMMARY | ~2019-01-31 | XMS | Encounter Summary ---
Demographics + + + | Address | [address] | | | [place] [address] | + + + | Home Phone | | + + + | Preferred Language | Unknown | + + + | Marital Status | | + + + | Yarsanism Affiliation | 1001 | + + + | Race | Unknown | + + + | Ethnic Group | Unknown | + + + Author + + + | Author | [facility] | | | and [place] | + + + | Organization | [facility] | | | [...] | | | | | [place] [address] | | + + + + + | Kathi Segura | ECON | Unknown | | + + + + + Care Team Providers + +------+ + | Care Furniture Shampooer Name | Role | Phone | + +------+ + | Ricardo Nicholson MD | PCP | | + +------+ + Encounter Details +--------+ + + + + | Date | Type | Department | Care Team | Description | +--------+ + + + + | 01/07/ | Abstract | [facility] [place] [facility] | Ricardo Nicholson, | | | 2016 | | [facility] | [address] | | | | | [address] | [place] | | | | | [place] | [address] | | | | | [address] | | | | | | [phone] | | | +--------+ + + + [...]
--- OUTSIDE RECORDS SUMMARY | ~2019-01-31 | XMS | Encounter Summary ---
Demographics + + + | Address | [address] | | | [place] [address] | + + + | Home Phone | | + + + | Preferred Language | Unknown | + + + | Marital Status | | + + + | Buddhism Affiliation | 1001 | + + + | Race | Unknown | + + + | Ethnic Group | Unknown | + + + Author + + + | Author | [facility] | | | and [place] | + + + | Organization | [facility] | | [...] | | | | | [place] [address] | | + + + + + | Kathi Segura | ECON | Unknown | | + + + + + Care Team Providers + +------+ + | Care Dermatologist And Dermatopathologist Name | Role | Phone | + [...] Description | +--------+--------+ + + + | 08/26/ | Refill | [facility] | Ricardo Nicholson, | Medication Refill | | 2014 | | MEDIC[facility] [place] | [address] | | | | | [address] | [place] | | | | | [place] | [address] | | | | | [address] | | | | | | [phone] | | | +--------+--------+ + + + [...]
--- OUTSIDE RECORDS SUMMARY | ~2019-01-31 | XMS | Encounter Summary ---
Demographics + + + | Address | [address] | | | [place] [address] | + + + | Home Phone | | + + + | Preferred Language | Unknown | + + + | Marital Status | | + + + | Mandaen Affiliation | 1001 | + + + | Race | Unknown | + + + | Ethnic Group | Unknown | + + + Author + + + | Author | [facility] | | | and [place] | + + + | Organization | [facility] | | | and [place] | + + + | Address | Unknown | + + + | Phone | Unavailable | + + + Support + + + + + | Name | Relationship | Address | Phone | + + + + + | Alexia Black | ECON | [address] | | | | | [place] [address] | | + + + + + | Kathi Segura | ECON | Unknown | | + + + + + Care Team Providers + +------+ + | Care Nurse Case Management Name | Role | Phone | + +------+ + | Ricardo Nicholson MD | PCP | | + +------+ + Reason for Visit + + + | Reason | Comments | + + + | Migraine | | + + + Encounter Details +--------+ + + + + | Date | Type | Department | Care Team | Description | +--------+ + + + + | 01/19/ | Telephone | [facility] | Ricardo Nicholson, | Migraine | | 2012 | | MEDICINE [facility] | [address] | | | | | [address] | [place] | | | | | [place] | [address] | | | | | [address] | | | | | | [phone] | | | +--------+ + + + [...]
--- OUTSIDE RECORDS SUMMARY | ~2019-01-31 | XMS | Encounter Summary ---
Demographics + + + | Address | [address] | | | [place] [address] | + + + | Home Phone | | + + + | Preferred Language | Unknown | + + + | Marital Status | | + + + | Church Affiliation | 1001 | + + + | Race | Unknown | + + + | Ethnic Group | Unknown | + + + Author + + + | Author | [facility] | | | and [place] | + + + | Organization | [facility] | | | and [place] | + + + | Address | Unknown | + + + | Phone | Unavailable | + + + Support + + + + + | Name | Relationship | Address | Phone | + + + + + | Alexia Black | ECON | [address] | | | | | [place] [address] | | + + + + + | Kathi Segura | ECON | Unknown | | + + + + + Care Team Providers + +------+ + | Care Cancer Program Consultant Name | Role | Phone | + +------+ + | Ricardo Nicholson MD | PCP | | + +------+ + Reason for Referral Diagnostic/Screening (Routine) +--------+--------+ + + + + [...] pain | MD [address] | | | | | Procedures | [address] | [address] [place] | | | | | [place] | [place], | [place], [place] | | | | | Hepatobiliar | [place] [address] | [address] | | | | | y w CCK | Phone: | Phone: | | | | | | [phone] | | | | | | | Fax: | Fax: | | | | | | [phone] | | +--------+--------+ + + + + Encounter Details +--------+ + + + + | Date | Type | Department | Care Team | Description | +--------+ + + + + | 03/31/ | Hospital | [facility] | Ricardo Nicholson, | Abdominal pain | | 2013 - | Encounter | MED CTR XRAY [address] | [address] | | | | | [place] | [place] | | | | | [place] [address] | [address] | | | 2012 | | [phone] | | | +--------+ + + + [...] + + + +---------+ + + | famotidine (PEPCID | Take 1 tablet by | 60 | 0 | 03/26/19 | | | AC) 10 MG chewable | mouth 2 times daily. | tablet | | 13 | 4 | | tablet | | | | [...] | + +--------+ + + + | [place] HEPATOBILIARY W | Routin | 03/31/2012 | Abdominal pain | Results for this | | CCK | e | 10:49 AM | | procedure are in the | | | | PST | | results section. | + +--------+ + + + documented in this encounter Results [place] Hepatobiliary w CCK (03/31/2012 10:49 AM PST) + + | Specimen | + + | | + + + + + | Narrative | Performed At | + + + | [facility] | [place] | | Department [address] [facility] [place] | [place] | | [ rep [address]] [ rep ct [facility] | | st zip] Signed | - IMAGING | | | | | Patient Name: LYLE BLACK Physician: | | | SAM : 1980 Age: 31 Sex: F Unit #: [id number] | | | Exam Date: 03/31/12 [place] [facility] [place] | | Report #: [id number] Page: | | | %(RAD)RES..mtdd.print.filter("pg") of %(RAD) | | | RES..mtdd.print.filter("tpg") | | | | | | Accession Number: [id number] | | | NUCLEAR HEPATOBILIARY SCAN, 03/31/2012 [...] Transcribed Date/Time: | | | 03/31/2012 11:08 Rug Renovator: | | | <<Signature on File>> | | | Erasmo Welch | | | MD Willie03/31/12 1233 <Electronically signed by Erasmo Tapia MD> | | | Erasmo Tapia MD 03/31/12 1049 Rug Renovator: | | | Lily [employer] [id number]/[id number]/13 1108 Ricardo Nicholson MD | | | | | + + + + + + + + | Performing | Address | City/State/Zipcode | Phone Number | | Organization | | | | + + + + + | [facility] [facility] | [address] | [place] | [phone] | | [facility] | | [address] | | | - IMAGING | | | | + + + + + documented in this encounter Visit Diagnoses + + | Diagnosis | + + | Abdominal pain Abdominal pain, unspecified site | + + documented in this encounter
--- OUTSIDE RECORDS SUMMARY | ~2019-01-31 | XMS | Encounter Summary ---
Demographics + + + | Address | [address] | | | [place] [address] | + + + | Home Phone | | + + + | Preferred Language | Unknown | + + + | Marital Status | | + + + | Religion Affiliation | 1001 | + + + | Race | Unknown | + + + | Ethnic Group | Unknown | + + + Author + + + | Author | [facility] | | | and [place] | + + + | Organization | [facility] [...] [address] | | | | | [place] [address] | | + + + + + | Kathi Colton | ECON | Unknown | | + + + + + Care Team Providers + +------+ + | Care Pro Shop Attendant Name | Role | Phone | + +------+ + PCP | Unavailable | + +------+ + Encounter Details +--------+ + + + + | Date | Type | Department | Care Team | Description | +--------+ + + + + | 11/21/ | Hospital | [facility] | | | | 1995 | Encounter | MED CTR EMERGENCY | | | | | | CENTER [address] | | | | | | [place] | | | | | | [address] | | | | | | [phone] | | | +--------+ + + + [...]
--- OUTSIDE RECORDS SUMMARY | ~2019-01-31 | XMS | Encounter Summary ---
Demographics + + + | Address | [address] | | | [place] [address] | + + + | Home Phone | | + + + | Preferred Language | Unknown | + + + | Marital Status | | + + + | Tenriism Affiliation | 1001 | + + + | Race | Unknown | + + + | Ethnic Group | Unknown | + + + Author + + + | Author | [facility] | | | and [place] | + + + | Organization | [facility] | | | and [place] | + + + | Address | Unknown | + + + | Phone | Unavailable | + + + Support + + + + + | Name | Relationship | Address | Phone | + + + + + | Alexia Black | ECON | [address] | | | | | [place] [address] | | + + + + + | Kathi Colton | ECON | Unknown | | + + + + + Care Team Providers + +------+ + | Care Quantitative Analyst Name | Role | Phone | + +------+ + PCP | Unavailable | + +------+ + Encounter Details +--------+ + + + + | Date | Type | Department | Care Team | Description | +--------+ + + + + | 05/09/ | Hospital | [facility] | | | | 2001 | Encounter | [facility] EMER[facility]Y | | | | | | CENTER [address] | | | | | | [place] | | | | | | [address] | | | | | | [phone] | | | +--------+ + + + [...]
--- OUTSIDE RECORDS SUMMARY | ~2019-01-31 | XMS | Encounter Summary ---
Demographics + + + | Address | [address] | | | [place] [address] | + + + | Home Phone [...] + | Organization | [facility] | | | and [...] | | | | | [place] [address] | | + + + + + | Kathi Colton | ECON | Unknown | | + + + + + Care Team Providers + +------+ + | Care Head Cashier Name | Role | Phone | + +------+ + | Ricardo Nicholson MD | PCP | | + +------+ + Encounter Details +--------+ + + + + | Date | Type | Department | Care Team | Description | +--------+ + + + + | 05/07/ | Hospital | [facility] | [place]o, Clifford Jha, | | | 2012 | Encounter | MED CTR MP INTRA OP | MD [address] | | | | | [address] | [address] [place], | | | | | [place], [place] | [place] [address] | | | | | [address] | [phone] | | | | | [phone] | | | +--------+ + + + [...] + + + +---------+ + + | levothyroxine | Take 1 tablet by | 90 | 1 | 04/15/19 | | | (SYNTHROID, | mouth Daily. | tablet | | 13 | 3 | | LEVOTHROID) 75 MCG | | | | | | | tablet | | | | | | + + + +---------+ + + | linaclotide | Take 1 capsule by | 30 | 11 | 04/15/19 | | | (LINZESS) 145 mcg | mouth every morning | capsule | | 13 | 3 | | capsule | (before breakfast). | [...]
--- OUTSIDE RECORDS SUMMARY | ~2019-01-31 | XMS | Encounter Summary ---
Demographics + + + | Address | [address] | | | [place] [address] | + + + | Home Phone | | + + + | Preferred Language | Unknown | + + + | Marital Status | | + + + | Rastafarian Affiliation | 1001 | + + + | Race | Unknown | + + + | Ethnic Group | Unknown | + + + Author + + + | Author | [facility] | | | and [place] | + + + | Organization | [facility] | | | and [place] | + + + | Address | Unknown | + + + | Phone | Unavailable | + + + Support + + + + + | Name | Relationship | Address | Phone | + + + + + | Alexia Black | ECON | [address] | | | | | [place] [address] | | + + + + + | Kathi Colton | ECON | Unknown | | + + + + + Care Team Providers + +------+ + | Care Structures Assembler Name | Role | Phone | + +------+ + PCP | Unavailable | + +------+ + Encounter Details +--------+ + + + + | Date | Type | Department | Care Team | Description | +--------+ + + + + | 12/16/ | Hospital | [facility] | | | | 1998 | Encounter | MED CTR EMERGENCY | | | | | | CENTER [address] | | | | | | [place] | | | | | | [address] | | | | | | [phone] | | | +--------+ + + + [...]
--- OUTSIDE RECORDS SUMMARY | ~2019-01-31 | XMS | Encounter Summary ---
Demographics + + + | Address | [address] | | | [place] [address] | + + + | Home Phone [...] | Organization | [facility] | [...] | | | | | [place] [address] | | + + + + + | Kathi Colton | ECON | Unknown | | + + + + + Care Team Providers + +------+ + | Care Telesales Agent Name | Role | Phone | + +------+ + | Ricardo Nicholson MD | PCP | | + +------+ + Encounter Details +--------+ + + + + | Date | Type | Department | Care Team | Description | +--------+ + + + + | 07/26/ | Hospital | [facility] | Ricardo Nicholson, | Depression; Routine | | 2014 | Encounter | MED CTR LABORATORY | MD [address] | general medical | | | | [address] [place] | [place], [place] | examination at a | | | | [place], [place] | [address] | health care facility | | | | [address] | | | | | | [phone] | | | +--------+ + + + [...] Cetirizine HCl | | | 0 | 09/06/20 | | | (ZYRTEC ALLERGY PO) | [...] + +---------+ + + | | Take 1 tablet by | 90 | 3 | 10/02/19 | | | drospirenone-ethinyl | mouth Daily. | tablet | | 13 | 4 | | estradiol (ANGELLA) | | | | | | | 3-0.03 mg per tablet | | | | | | + + + +---------+ + + | levothyroxine | take 1 tablet by | 90 | 1 | 01/08/20 | | | (SYNTHROID, | mouth daily | tablet | | 13 | 4 | | LEVOTHROID) 75 MCG | | [...] + +--------+ + + + | LIPID PANEL | Routin | 07/26/2013 | Routine general | Results for this | | | e | 10:21 AM | medical examination | procedure are in the | | | | PDT | at a health care | results section. | | | | | facility | | + +--------+ + + + | VITAMIN D, | Routin | 07/26/2013 | Routine general | Results for this | | DEFICIENCY SCREEN | e | 10:21 AM | medical examination | procedure are in the | | (25-HYDROXY) | | PDT | at a health care | results section. | | | | | facility | | + +--------+ + + + | TSH | Routin | 07/26/2013 | Depression | Results for this | | | e | 10:21 AM | Routine general | procedure are in the | | | | PDT | medical examination | results section. | | | | | at a [facility] | | | | | | facility | | + +--------+ + + + | COMPREHENSIVE | Routin | 07/26/2013 | Routine general | Results for this | | METABOLIC PANEL | e | 10:21 AM | medical examination | procedure are in the | | | | PDT | at [facility] | results section. | | | | | facility | | + +--------+ + + + documented in this encounter Results Vitamin D, 25-Hydroxy (07/26/2013 10:21 AM PDT) + +--------+ + + + | Component | Value | Ref Range | Performed | Pathologist | | | | | At | Signature | + +--------+ + + + | Vitamin D, | 27 (L) | 30 - 100 ng/mL | [facility] | | | 25 Hydroxy | | | [facility] | | [...] + | [facility] | [address] | [place] | [phone] | | [facility] | | [address] | | | - LABORATORY | | | | + + + + + | [facility] | [address] | [place] | | | [facility] | | [address] | | | - LABORATORY | | | | + + + + + Lipid Panel (07/26/2013 10:21 AM PDT) + +-------+ + + + | Component | Value | Ref Range | Performed | Pathologist | | | | | At | Signature | + +-------+ + + + | Triglycerid | 139 | 35 - 160 mg/dL | [facility] | | | es | | | [facility] | | | | | | MEDICAL | | | | | | CENTER - | | | | | | LABORATORY | | + +-------+ + + + | Cholesterol | 162 | 140 - 200 mg/dL | [facility] | | | | | | [facility] | | | | | | MEDICAL | | | | | | CENTER - | | | | | | LABORATORY | | + +-------+ + + + | HDL | 42 | 29 - 89 mg/dL | [facility] | | | | | | [facility] | | | | | | MEDICAL | | | | | | CENTER - | | | | | | LABORATORY | | + +-------+ + + + | Chol/HDL | 3.9 | | [facility] | | | Ratio | | | . [facility] | | | | | | MEDICAL | | | | | | CENTER - | | | | | | LABORATORY | | + +-------+ + + + | LDL, | 92 | <=130 mg/dL | [facility] | | | Calculated | | | . [facility] | | | [...] + | [facility] | [address] | [place], [place] | [phone] | | [facility] | | [address] | | | - LABORATORY | | | | + + + + + | [facility] | [address] | [place], [place] | | | [facility] | | [address] | | | - LABORATORY | | [...] | | | | | mg/dL | [facility] | | | | | | MEDICAL | | | | | | CENTER - | | | | | | LABORATORY | | + + + + + + | eGFR if not | >60Comment: GLOMERULAR | >=60 | [facility] | | | | FILTRATION | mL/min/1.73m2 | [facility] | | | HUNG[place]IAN | RATE,ESTIMATED | | MEDICAL | | | | mL/min/1.71b7Jqyx than | | CENTER - | | [...] + | [facility] | [address] | [place] | [phone] | | [facility] | | [address] | | | - LABORATORY | | | | + + + + + | [facility] | [address] | [place] | | | [facility] | | [address] | | | - LABORATORY | | [...] | samples are screened | uIU/mL | [facility] | | | | using a 2nd [...] [address] | [place] | [phone] | | [facility] | | [address] | | | - LABORATORY | | | | + + + + + | [facility] | [address] | [place] | | | [facility] | | [address] | | | - LABORATORY | | | | + + + + + documented in this encounter Visit Diagnoses + + | Diagnosis | + + | Depression Depressive disorder, not elsewhere classified | + + | Routine general medical examination at a health care facility | + + documented in this encounter"
--- OUTSIDE RECORDS SUMMARY | ~2019-01-31 | XMS | Encounter Summary ---
Demographics + + + | Address | [address] | | | [place] [address] | + + + | Home Phone | | + + + | Preferred Language | Unknown | + + + | Marital Status | | + + + | Taoist Affiliation | 1001 | + + + | Race | Unknown | + + + | Ethnic Group | Unknown | + + + Author + + + | Author | [facility] | | | and [place] | + + + | Organization | [facility] | [...] | | | | | [place] [address] | | + + + + + | Kathi Colton | ECON | Unknown | | + + + + + Care Team Providers + +------+ + | Care Comber Tender Name | Role | Phone | + +------+ + | Ricardo Nicholson MD | PCP | | + +------+ + Encounter Details +--------+ + + + + | Date | Type | Department | Care Team | Description | +--------+ + + + + | 07/07/ | Hospital | [facility] | Ricardo Nicholson, | Abdominal pain, | | 2018 | Encounter | MED CTR XRAY [address] | [address] | unspecified | | | | [place] | [place], [place] | abdominal location | | | | [place] [address] | [address] | | | | | [phone] | | | | | | | Rad, [facility] | | +--------+ + + + + [...] + + + +---------+ + + | cyclobenzaprine | 1/2 to one daily prn | 30 | 2 | 11/20/19 | | | (FLEXERIL) 10 mg | neck pain | tablet | | 17 | | | tablet | | | | | | + + + +---------+ + + | Ibuprofen (ADVIL | TABS | | 0 | 11/06/19 | | | PO) | | | | 12 | | + + + +---------+ + + | Melatonin 10 MG | Take 1 tablet by | | 0 | | | | TABS | mouth Daily. | | | | | + + [...] + + + +---------+ + + | SUDOGEST 60 MG | Take 1 tablet by | | 2 | 07/01/19 | | | tablet | mouth Daily. | | | 17 | | + + + +---------+ + + | Doxylamine | Take by mouth. | | 0 | | | | Succinate, Sleep, | Unsure of dosage | | | | 9 | | (SLEEP AID PO) | | | | | | + + + +---------+ + + | | take 1 tablet by | 84 | 2 | 10/14/19 | | | drospirenone-ethinyl | mouth once daily | tablet | | 17 | 8 | | estradiol (ANGELLA) | | | | | | | 3-0.03 mg per tablet | | | | | | + + + +---------+ + + | omeprazole | Take 1 capsule by | 90 | 3 | 07/08/19 | | | (PRILOSEC) 20 mg | mouth every morning | capsule | | 18 | 9 | | capsule | (before breakfast). | | | | | + + + +---------+ + + | phentermine 30 MG | Take 1 capsule by | 30 | 0 | 07/08/19 | | | capsule | mouth every morning. | capsule | | 18 | 8 | + + + +---------+ + + documented as of this encounter Plan of Treatment Not on filedocumented as of this encounter Procedures + +--------+ + + + | Procedure Name | Priori | Date/Time | Associated Diagnosis | Comments | | | ty | | | | + +--------+ + + + | ZEYAD LARSEN AND LI | Routin | 07/07/2017 | Abdominal pain, | Results for this | | | e | 9:43 AM | unspecified | procedure are in the | | | | PDT | abdominal location | results section. | + +--------+ + + + documented in this encounter Results FL UGI and SHAANB (07/07/2017 9:43 AM PDT) + + | Specimen | + + | | + + + + + | Narrative | Performed At | + + + | DOUBLE CONTRAST UPPER GI 07/07/2017 9:41 AM CLINICAL HISTORY: abd | [facility] | | pain COMPARISON: RADIOGRAPHS JUNE 2015 TECHNIQUE: In the | | | upright position, the patient ingested effervescent crystals with a | | | small amount of water. Fluoroscopic evaluation of the thoracic | | | esophagus was performed during swallows of thick barium. The | | | patient was placed horizontal, and additional fluoroscopic evaluation | | | of the stomach and duodenum performed. Multiple spot images were | | | saved. The patient tolerated the procedure well, and there were no | | | complications. FINDINGS: The esophagus is normal in caliber and | | | contour. No abnormal impression or mucosal abnormality is evident. | | | No hiatus hernia is observed during the exam. Small volume | | | gastroesophageal reflux is observed with changes in patient position | | | and Valsalva maneuver. The stomach has a normal contour and rugal | | | pattern. The duodenum is normal in orientation and appearance. | | | IMPRESSION - 1. SMALL VOLUME GASTROESOPHAGEAL REFLUX WITHOUT | | | VISUALIZED HIATUS HERNIA OR ESOPHAGEAL ABNORMALITY. 2. NORMAL | | | APPEARANCE OF THE STOMACH AND DUODENUM. Dictated and Signed by: | | | Erasmo Tapia MD Electronically signed: 07/07/2017 9:59 AM | | + + + + + | Procedure Note | + + | Gianluca Galicia Results In - 07/07/2017 10:03 AM PDT DOUBLE CONTRAST UPPER GI 07/07/2017 9:41 | | AMCLINICAL HISTORY: abd painCOMPARISON: RADIOGRAPHS JUNE 2015TECHNIQUE: In the upright | | position, the patient ingested effervescent crystalswith a small amount of water. | | Fluoroscopic evaluation of the thoracic esophaguswas performed during swallows of thick | | barium. The patient was placedhorizontal, and additional fluoroscopic evaluation of the | | stomach and duodenumperformed. Multiple spot images were saved. The patient tolerated | | theprocedure well, and there were no complications.FINDINGS: The esophagus is normal in | | caliber and contour. No abnormalimpression or mucosal abnormality is evident. No | | hiatus hernia is observedduring the exam. Small volume gastroesophageal reflux is | | observed with changesin patient position and Valsalva maneuver. The stomach has a | | normal contour andrugal pattern. The duodenum is normal in orientation and | | appearance.IMPRESSION -1. SMALL VOLUME GASTROESOPHAGEAL REFLUX WITHOUT VISUALIZED | | HIATUS HERNIA ORESOPHAGEAL ABNORMALITY.2. NORMAL APPEARANCE OF THE STOMACH AND | | DUODENUM.Dictated and Signed by: Erasmo Taipa MD Electronically signed: 07/07/2017 9:59 | | AM | |during the exam. Small volume gastroesophageal reflux is observed with changes | |in patient position and Valsalva maneuver. The stomach has a normal contour and | |rugal pattern. The duodenum is normal in orientation and appearance. | | | |IMPRESSION - | |1. SMALL VOLUME GASTROESOPHAGEAL REFLUX WITHOUT VISUALIZED HIATUS HERNIA OR | |ESOPHAGEAL ABNORMALITY. | | | |2. NORMAL APPEARANCE OF THE STOMACH AND DUODENUM. | | | |Dictated and Signed by: Erasmo Tapia MD | | Electronically signed: 07/07/2017 9:59 AM | + + + +---------+ + + | Performing | Address | City/State/Zipcode | Phone Number | | Organization | | | | + +---------+ + + | [facility] | | | | + +---------+ + + documented in this encounter Visit Diagnoses + + | Diagnosis | + + | Abdominal pain, unspecified abdominal location | + + documented in this encounter Administered Medications + +--------+ +---------+------+------+ | Medication Order | MAR | Action | Dose | Rate | Site | | | Action | Date | | | | + +--------+ +---------+------+------+ | barium (E-Z-HD) 98% contrast | Given | 07/08/19 | 125 mLs | | | | suspension 125 mL 125 mL, Oral, | | 18 9:42 | | | | | ONCE PRN, Other, Starting Tue | | AM PDT | | | | | 07/07/17 at 0942, For 1 dose, | | | | | | | Shake well., | | | | | | + +--------+ +---------+------+------+ +---+---+ | | | +---+---+ documented in this encounter"
--- OUTSIDE RECORDS SUMMARY | ~2019-01-31 | XMS | Encounter Summary ---
Demographics + + + | Address | [address] | | | [place] [address] | + + + | Home Phone | | + + + | Preferred Language | Unknown | + + + | Marital Status | | + + + | Uatsdin Affiliation | 1001 | + + + | Race | Unknown | + + + | Ethnic Group | Unknown | + + + Author + + + | Author | [facility] | | | and [place] | + + + | Organization | [facility] | | | and [place] | + + + | Address | Unknown | + + + | Phone | Unavailable | + + + Support + + + + + | Name | Relationship | Address | Phone | + + + + + | Alexia Black | ECON | [address] | | | | | [place] [address] | | + + + + + | Kathi Segura | ECON | Unknown | | + + + + + Care Team Providers + +------+ + | Care Appliance Installer Name | Role | Phone | [...] + + | 07/26/ | Office | [facility] | Ricardo Nicholson, | Routine general | | 2013 | [facility] [address] | medical examination | | | | [address] | [place], [place] | at a health care | | | | [place], [place] | [address] | facility (Primary | | | | [address] | | Dx); Depression | | | | [phone] | | | +--------+---------+ + + + [...] [address] | [place] | [phone] | | [facility] | | [address] | | | - LABORATORY | | | | + + + + + | [facility] | [address] | [place] | | | [facility] | | [address] | | | - LABORATORY | | [...] + | [facility] | [address] | [place], [place] | [phone] | | [facility] | | [address] | | | - LABORATORY | | | | + + + + + | [facility] | [address] | [place], [place] | | | [facility] | | [address] | | | - LABORATORY | | [...] | | | | | mg/dL | [facility] | | | | | | MEDICAL | | | | | | CENTER - | | | | | | LABORATORY | | + + + + + + | eGFR if not | >60Comment: GLOMERULAR | >=60 | [facility] | | | | FILTRATION | mL/min/1.73m2 | [facility] | | | [place] | RATE,ESTIMATED | | MEDICAL | | | | mL/min/1.98f3Basa than | | CENTER - | | [...] | | | | | mg/dL | [facility] | | | | | | MEDICAL [...] + | [facility] | [address] | [place], [place] | [phone] | | [facility] | | [address] | | | - LABORATORY | | | | + + + + + | [facility] | [address] | [place], [place] | | | [facility] | | [address] | | | - LABORATORY | | [...] [address] | [place] | [phone] | | [facility] | | [address] | | | - LABORATORY | | | | + + + + + | [facility] | [address] | [place] | | | [facility] | | [address] | | | - LABORATORY | | | | + + + + + documented in this encounter Visit Diagnoses + + | Diagnosis | + + | Routine general medical examination at a health care facility - Primary | + + | Depression Depressive disorder, not elsewhere classified | + + documented in this encounter"
--- OUTSIDE RECORDS SUMMARY | ~2019-01-31 | XMS | Encounter Summary ---
Demographics + + + | Address | [address] | | | [place] [address] | + + + | Home Phone | | + + + | Preferred Language | Unknown | + + + | Marital Status | | + + + | Jainism Affiliation | 1001 | + + + | Race | Unknown | + + + | Ethnic Group | Unknown | + + + Author + + + | Author | [facility] | | | and [place] | + + + | Organization | [facility] [...] | | | | | [place] [address] | | + + + + + | Kathi Segura | ECON | Unknown | | + + + + + Care Team Providers + +------+ + | Care Manager Loss Prevention Name | Role | Phone | + [...] Description | +--------+--------+ + + + | 11/19/ | Refill | [facility] | Ricardo Nicholson, | Medication Refill | | 2016 | | [facility] [place] | [address] | | | | | [address] | [place] | | | | | [place] | [address] | | | | | [address] | | | | | | [phone] | | | +--------+--------+ + + + [...]
--- OUTSIDE RECORDS SUMMARY | ~2019-01-31 | XMS | Encounter Summary ---
Demographics + + + | Address | [address] | | | [place] [address] | + + + | Home Phone | | + + + | Preferred Language | Unknown | + + + | Marital Status | | + + + | Mandaen Affiliation | 1001 | + + + | Race | Unknown | + + + | Ethnic Group | Unknown | + + + Author + + + | Author | [facility] | | | and [place] | + + + | Organization | [facility] | | | and [place] | + + + | Address | Unknown | + + + | Phone | Unavailable | + + + Support + + + + + | Name | Relationship | Address | Phone | + + + + + | Alexia Black | ECON | [address] | | | | | [place] [address] | | + + + + + | Kathi Segura | ECON | Unknown | | + + + + + Care Team Providers + +------+ + | Care Tow Operator Name | Role | Phone | [...] Description | +--------+--------+ + + + | 05/15/ | Refill | [facility] | Ricardo Nicholson, | Medication Refill | | 2015 | | [facility] [place] | [address] | | | | | [address] | [place] | | | | | [place] | [address] | | | | | [address] | | | | | | [phone] | | | +--------+--------+ + + + [...]
--- OUTSIDE RECORDS SUMMARY | ~2019-01-31 | XMS | Encounter Summary ---
Demographics + + + | Address | [address] | | | [place] [address] | + + + | Home Phone | | + + + | Preferred Language | Unknown | + + + | Marital Status | | + + + | Oriental Orthodox Affiliation | 1001 | + + + | Race | Unknown | + + + | Ethnic Group | Unknown | + + + Author + + + | Author | [facility] | | | and [place] | + + + | Organization | and [facility] | | | and [place] | + + + | Address | Unknown | + + + | Phone | Unavailable | + + + Support + + + + + | Name | Relationship | Address | Phone | + + + + + | Alexia Black | ECON | [address] | | | | | [place] [address] | | + + + + + | Kathi Segura | ECON | Unknown | | + + + + + Care Team Providers + +------+ + | Care Risk Lead Name | Role | Phone | + +------+ + | Ricardo Nicholson MD | PCP | | + +------+ + Reason for Visit + + + | Reason | Comments | + + + | Abdominal Pain | epigastric pain | + + + Consultation (Routine) +--------+ + [...] | | [address] | [address] | | | | | | [place], | [address] | | | | | | [place] [address] | [place], [place] | | | | | | Phone: | [phone] | | | | | | [phone] | Phone: | | | | | | Fax: | [phone] | | | | | | [phone] | Fax: | | | | | | | [phone] | +--------+ + + + + + Encounter Details +--------+---------+ + + + | Date | Type | Department | Care Team | Description | +--------+---------+ + + + | 04/05/ | Office | [facility] [place] | [place], | Abdominal pain, RUQ | | 2012 | Visit | GASTROENTEROLOGY | [place] [address] | (Primary Dx); | | | | [address] | [place] [address] | Abnormal biliary | | | | [address] [place], [place] | [place], [place] | HIDA scan | | | | [id number] | [id number] | | | | | [phone] | | | +--------+---------+ + + + [...] + + + | Blood Pressure | 130/88 | 04/05/2012 8:59 AM | | | | | PST | | + + + + + | Pulse | 76 | 04/05/2012 8:59 AM | | | | | PST | | + + + + + | Temperature | 36.6 C (97.8 F) | 04/05/2012 8:59 AM | | | | | PST | | + + + + + | Respiratory Rate | 16 | 04/05/2012 8:59 AM | | | | | PST | | + + + + + | Oxygen Saturation | - | - | | + + + + + | Inhaled Oxygen | - | - | | | Concentration | | | | + + + + + | Weight | 108.9 kg (240 lb) | 04/05/2012 8:59 AM | | | | | PST | | + + + + + | Height | 172.7 cm (5' 8") | 04/05/2012 8:59 AM | | | | | PST | | + + + + + | Body Mass Index | 36.49 | 04/05/2012 8:59 AM | | | | | PST | | + + + + + documented in this encounter Progress Notes Rosemarie Francisco ARNP - 04/05/2012 9:08 AM PSTFormatting of this note might be differe nt from the original. Subjective: Patient ID: Selena Black is a 31 y.o. female. HPI Patient referred by Ricardo Nicholson for evaluation and treatment of abdominal pain. Patient notes that about 5-6 months ago, she woke up and felt increased chest pain, SOB, an d sweats. She went to ER. She was given a GI cocktail, which helped some. She was given omep razole, which only helps some. She continues to have tightness and pain In epigastric area and radiates sideways. Pain is intermittent, but comes daily. Pain is sharp and can be on either side. Pain does not radia te anywhere. Nothing does not seem to change pain. Can occur on full or empty stomach. Chayo s dark or bloody stools. Her bowels never seem to be "normal". She can be constipated for a few days, then will have diarrhea that will last about 1 day. She can have 1-3 days of "normal" BM, then constipatio n starts again. Nausea occurs when she takes her medication on an empty stomach. She has lost about 27 lbs over the last 3 months, intentionally. No Known Allergies Past Medical History Diagnosis [...] narrative on file Review of Systems Constitutional: Positive for unexpected weight change. Negative for fever and chills. HENT: Negative for hearing loss, congestion, rhinorrhea, postnasal drip and tinnitus. Eyes: Positive for pain, redness and itching. Respiratory: Negative for cough, shortness of breath and wheezing. Cardiovascular: Positive for chest pain. Negative for palpitations and leg swelling. Gastrointestinal: Positive for nausea, abdominal pain, diarrhea and constipation. Negative for vomiting, blood in stool, abdominal distention, anal bleeding and rectal pain. Genitourinary: Negative for dysuria, urgency, frequency, hematuria and difficulty urinating . Musculoskeletal: Negative for back pain, joint swelling and arthralgias. Skin: Negative for rash. Neurological: Positive for headaches. Negative for dizziness, seizures, syncope, weakness a nd numbness. Hematological: Negative for adenopathy. Psychiatric/Behavioral: Negative for dysphoric mood. The patient is not nervous/anxious. Objective: Physical Exam Physical Exam General: well developed, well nourished, in no acute distress. Head: normocephalic and atraumatic Eyes: Sclera clear Mouth: MMM Lungs: Clear to asucultate bilaterally and throughout Heart: regular rate and rhythm Abdomen: Soft, tender, nondistended, bowel tones positive times 4 quadrants, positive Fernandez's s ign, negative rebound tenderness, no gaurding, no hepatosplenomegaly palpated. Msk: symmetrical with no deformity, with normal posture and gait, normal strength. Extremities: no clubbing, cyanosis, edema, or deformity noted Neurologic: no focal deficits, cranial nerves II-XII grossly intact Skin: intact without lesions or rashes. Psych: alert and cooperative; normal mood and affect; normal attention span and concentration. No visits with results within 1 Month(s) from this visit. Latest known visit with results is: Hospital Outpatient Visit on 12/15/2011 Component Date Value Range Status TSH 12/15/2011 3.58 0.34 - 5.60 uIU/mL Final Testing performed on the [employer] Access Analyzer. WBC 12/15/2011 10.4 4.0 - 11.0 K/uL Final RBC 12/15/2011 4.52 3.70 - 5.20 M/uL Final HGB 12/15/2011 14.9 11.5 - 16.0 gm/dL Final HCT 12/15/2011 42.6 34.0 - 47.0 % Final MCV 12/15/2011 94.4 83.0 - 101.0 fL Final MCH 12/15/2011 32.9 28.0 - 35.0 pg Final MCHC 12/15/2011 34.9 32.0 - 36.0 g/dL Final RDW 12/15/2011 12.9 <15.0 % Final PLT 12/15/2011 273 140 - 440 K/uL Final % Neutrophils 12/15/2011 70.1 45 - 75 % Final % Lymphocytes 12/15/2011 23.6 20 - 45 % Final % Monocytes 12/15/2011 4.3 4 - 12 % Final % Eosinophils 12/15/2011 1.5 0 - 5 % Final % Basophils 12/15/2011 0.5 0 - 1 % Final Absolute Neutrophils 12/15/2011 7.3* 1.5 - 6.6 K/uL Final Absolute Lymphocytes 12/15/2011 2.4 0.6 - 3.2 K/uL Final Absolute Monocytes 12/15/2011 0.4 0.0 - 1.0 K/uL Final Absolute Eosinophils 12/15/2011 0.2 0.0 - 0.4 K/uL Final Absolute Basophils 12/15/2011 0.1 0.0 - 0.1 K/uL Final GLUCOSE 12/15/2011 100 70 - 109 mg/dL Final CALCIUM 12/15/2011 8.8 8.3 - 10.5 mg/dL Final ALK 12/15/2011 84 40 - 110 IU/L Final AST 12/15/2011 19 10 - 42 IU/L Final ALT 12/15/2011 16 6 - 45 IU/L Final BILIRUBIN TOTAL 12/15/2011 0.5 0.2 - 1.0 mg/dL Final TOTAL PROTEIN 12/15/2011 7.0 6.0 - 7.8 gm/dL Final ALBUMIN 12/15/2011 3.5 3.2 - 5.0 gm/dL Final BUN 12/15/2011 11 7 - 18 mg/dL Final CREA 12/15/2011 0.92 0.60 - 1.30 mg/dL Final Estimated GFR 12/15/2011 > 60 >60 mL/min/A Final Comment: For -Americans, please multiply the result by 1.210 This is an estimated GFR and is based on a standard adult body mass (A=1.73m2) and serum creatinine BUN/Creatinine Ratio 12/15/2011 12.0 12 - 20 Final NA 12/15/2011 133* 136 - 149 mEq/L Final K 12/15/2011 3.4* 3.5 - 5.1 mEq/l Final CL 12/15/2011 103 98 - 109 mEq/l Final CO2 12/15/2011 21* 24 - 31 mEq/L Final ANION GAP 12/15/2011 12.4 6.0 - 17.0 Final TRIGLYCERIDES 12/15/2011 191* 35 - 160 mg/dL Final CHOLESTEROL 12/15/2011 165 140 - 200 mg/dL Final HDL 12/15/2011 45 29 - 89 mg/dL Final LDL CALC 12/15/2011 82 <130 mg/dL Final Chol/HDL Ratio 12/15/2011 3.7 Final Comment: RISK CATEGORY: CHOL/HDL * T.CHOL * LDL CHOL * HDL CHOL RATIO DESIRABLE: (M) 4.0-6.7 <200 <130 >50 (F) 3.7-4.2 BORDERLINE:(M) 6.7-7.4 200-240 130-160 <45 (F) 4.2-5.5 HIGH RISK: (M) >7.4 >240 >160 <35 (F) >5.5 LIPASE 12/15/2011 32 0 - 60 U/L Final Assessment: Abdominal pain Abnormal hepatobiliary scan Plan: Due to patient's abnormal hepatobiliary scan as well as positive Fernandez sign patient likely to have gall bladder disease. Spoke with Sylwia and Dr. Nicholson's office. Discussed referra l being placed for her to have a consultation with surgeon regarding possible cholecystectom y. Patient would like to wait for any GI procedures until she has completed her issues related to her gallbladder. She is to call when she is ready to be scheduled for procedures. Patient is to call with any question or concerns. Any fevers, chills, chest pain, SOB or o ther serious symptoms patient is to call the office or go to ER Cc: Ricardo Nicholson Reviewed most recent labs, imaging, and procedures. documented in t his encounter Plan of Treatment Not on filedocumented as of this encounter Visit Diagnoses + + | Diagnosis | + + | Abdominal pain, RUQ - Primary Abdominal pain, right upper quadrant | + + | Abnormal biliary HIDA scan Nonspecific abnormal results of liver function study | + + documented in this encounter
--- OUTSIDE RECORDS SUMMARY | ~2019-01-31 | XMS | Encounter Summary ---
Demographics + + + | Address | [address] | | | [place] [address] | + + + | Home Phone | | + + + | Preferred Language | Unknown | + + + | Marital Status | | + + + | Confucianism Affiliation | 1001 | + + + | Race | Unknown | + + + | Ethnic Group | Unknown | + + + Author + + + | Author | [facility] | | | and [place] | + + + | Organization | [facility] | | | and [...] | | | | | [place] [address] | | + + + + + | Kathi Segura | ECON | Unknown | | + + + + + Care Team Providers + +------+ + | Care Costumed Character Entertainer Name | Role | Phone | + +------+ + | Ricardo Nicholson MD | PCP | | + +------+ + Reason for Visit + + + | Reason | Comments | + + + | Weight Management | gaining weight for the last 6 months | + + + | Abdominal Pain | gurgling | + + + | Bloated | | + + + | Constipation | | + + + | Diarrhea | | + + + Encounter Details +--------+---------+ + + + | Date | Type | Department | Care Team | Description | +--------+---------+ + + + | 06/02/ | Office | [facility] | Ricardo Nicholson, | Weight gain (Primary | | 2018 | Visit | [facility] | [address] | Dx); Abdominal | | | | [address] | [place], [place] | pain, unspecified | | | | [place], [place] | [address] | abdominal location | | | | [id number] | | | | | | [phone] | | | +--------+---------+ + + + [...] + + + | Blood Pressure | 107/82 | 06/02/2017 9:34 AM | | | | | PDT | | + + + + + | Pulse | 77 | 06/02/2017 9:34 AM | | | | | PDT | | + + + + + | Temperature | 36.5 C (97.7 F) | 06/02/2017 9:34 AM | | | | | PDT | | + + + + + | Respiratory Rate | - | - | | + + + + + | Oxygen Saturation | 98% | 06/02/2017 9:34 AM | | | | | PDT | | + + + + + | Inhaled Oxygen | - | - | | | Concentration | | | | + + + + + | Weight | 115.1 kg (253 lb 12 | 06/02/2017 9:34 AM | | | | oz) | PDT | | + + + + + | Height | - | - | | + + + + + | Body Mass Index | 38.58 | 08/06/2016 2:26 PM | | | | | PDT | | + + + + + documented in this encounter Progress Ricardo Henry MD - 06/02/2017 9:30 AM PDTFormatting of this note might be different f rom the original. Subjective: Patient ID: Selena Black is a 36 y.o. female. HPI Pt with difficult time losing weight. 25min discussion of the various weight loss measures and strTEGIES. Pt also notes gurgling and sense of movement in abd post meals,. Past Medical History: Diagnosis Date Asthma Feb [...] Endo/Heme/Allergies: Negative. Psychiatric/Behavioral: Negative. . Objective: BP 107/82 | Pulse 77 | Temp 36.5 C (97.7 F) (Temporal) | Wt 115.1 kg (253 lb 12 oz) | SpO2 98% | ? No | BMI 38.58 kg/m Physical Exam Constitutional: She is well-developed, [...] not diaphoretic. Psychiatric: Affect normal. Assessment/Plan: 1. Weight gain TSH Cortisol, free T4, Free 2. Abdominal pain, unspecified abdominal location FL UGI and KUB Requested Prescriptions Signed Prescriptions Disp Refills phentermine 30 MG capsule 30 capsule 0 Sig: Take 1 capsule by mouth every morning. New Prescriptions PHENTERMINE 30 MG CAPSULE Take 1 capsule by mouth every morning. 25 minute visit > 50% counseling regarding the listed conditions, options for treatment, a nd possible risks. documented in this encounter Plan of Treatment Not on filedocumented as of this encounter Results FL UGI and KUB (07/07/2017 9:43 AM PDT) + + | [...] + | [place], Rad Results In - 07/07/2017 10:03 AM PDT [...] | | DUODENUM.Dictated and Signed by: Erasmo Tapia MD Electronically signed: 07/07/2017 9:59 | | [...] | | | + +---------+ + + T4, Free (06/02/2017 10:36 AM PDT) + +-------+ + + + | Component | Value | Ref Range | Performed | Pathologist | | | | | At | Signature | + +-------+ + + + | FT4 | 0.8 | 0.6 - 1.1 ng/dL | [facility] | | | | | [...] [address] | [place] | [phone] | | [facility] | | [address] | | | - LABORATORY | | | | + + + + + Cortisol, free (06/02/2017 10:36 AM PDT) + + + + + + | Component | Value | Ref Range | Performed | Pathologist | | | | | At | Signature | + + + + + + | Cortisol, | 0.307Comment: Results of | ug/dL | [facility] | | | Free | this test are for | | LAB [facility] | | | Dialysis, | investigational purposes | | - [facility] | | | LCMS | only.The performance | | | | | | characteristics of this | | | | | | assay have | | | | | | beendetermined by | | | | | | [facility]. The result | | | | | | should not be used as | | | | | | adiagnostic procedure | | | | | | without confirmation of | | | | | | the diagnosisby another | | | | | | medically established | | | | | | diagnostic product | | | | | | orprocedure.Reference | | | | | | Range:8 AM 0.10 - | | | | | | 1.204 PM 0.042 - 0.872 | | | | + + + + + + + + | Specimen | + + | Blood | + + + + + | Narrative | Performed At | + + + | Performed at: 01 - [facility] [address], | REFERENCE LAB | | [place], [place] [id number] Laboratory Engineer: Joselito Marinelli MD, | [facility] | | Phone: [phone] | | + + + + + + + + | Performing | Address | City/State/Zipcode | Phone Number | | Organization | | | | + + + + + | REFERENCE LAB | [address] | [place] [address] | [phone] | | [facility] | [address] | | | + + + + + TSH (06/02/2017 10:36 AM PDT) + + + + + + | Component | Value | Ref Range | Performed | Pathologist | | | | | At | Signature | + + + + + + | TSH | 2.37Comment: This is a | 0.45 - 5.33 | [facility] | | | | third generation TSH | uIU/mL | [facility] | | | | test. | | MEDICAL | | | | [...] + | [address] | [address] | [place] | [phone] | | [facility] | | [address] | | | - LABORATORY | | | | + + + + + documented in this encounter Visit Diagnoses + + | Diagnosis | + + | Weight gain - Primary Abnormal weight gain | + + | Abdominal pain, unspecified abdominal location | + + documented in this encounter"
--- OUTSIDE RECORDS SUMMARY | ~2019-01-31 | XMS | Encounter Summary ---
Demographics + + + | Address | [address] | | | [place] [address] | + + + | Home Phone [...] | Organization | [facility] | | | and [...] | | | | | [place] [address] | | + + + + + | Kathi Segura | ECON | Unknown | | + + + + + Care Team Providers + +------+ + | Care Natural Resources Technician Name | Role | Phone | [...] + + | 08/29/ | Telephone | [facility] | Ricardo Nicholson, | Pap Test | | 2015 | | [facility] | [address] | | | | | [address] | [place] | | | | | [place] | [address] | | | | | [address] | | | | | | [phone] | | | +--------+ + + + [...]
--- OUTSIDE RECORDS SUMMARY | ~2019-01-31 | XMS | Encounter Summary ---
Demographics + + + | Address | [address] | | | [place] [address] | + + + | Home Phone | | + + + | Preferred Language | Unknown | + + + | Marital Status | | + + + | Mormon Affiliation | 1001 | + + + | Race | Unknown | + + + | Ethnic Group | Unknown | + + + Author + + + | Author | [facility] | | | and [place] | + + + | Organization | [facility] | | | and [place] | + + + | Address | Unknown | + + + | Phone | Unavailable | + + + Support + + + + + | Name | Relationship | Address | Phone | + + + + + | Alexia Black | ECON | [address] | | | | | [place] [address] | | + + + + + | Kathi Segura | ECON | Unknown | | + + + + + Care Team Providers + +------+ + | Care Car Cleaner Name | Role | Phone | + +------+ + | Ricardo Nicholson MD | PCP | | + +------+ + Reason for Visit + + + | Reason | Comments | + + + | Annual Exam | | + + + | Gynecology Problem | | + + + Encounter Details +--------+---------+ + + + | Date | Type | Department | Care Team | Description | +--------+---------+ + + + | 12/18/ | Office | [facility] | Ricardo Nicholson, | Routine general | | 2015 | Visit | [facility] | [address] | medical examination | | | | [address] | [place], [place] | at a health care | | | | [place], [place] | [address] | facility (Primary | | | | [phone] | | Dx); Vaginal | | | | [phone] | | bleeding | +--------+---------+ + + + Social History [...] + + + | Blood Pressure | 104/66 | 12/18/2014 8:47 AM | | | | | PDT | | + + + + + | Pulse | 66 | 12/18/2014 8:47 AM | | | | | PDT | | + + + + + | Temperature | 36.9 C (98.4 F) | 12/18/2014 8:47 AM | | | | | PDT | | + + + + + | Respiratory Rate | 12 | 12/18/2014 8:47 AM | | | | | PDT | | + + + + + | Oxygen Saturation | 98% | 12/18/2014 8:47 AM | | | | | PDT | | + + + + + | Inhaled Oxygen | - | - | | | Concentration | | | | + + + + + | Weight | 111.6 kg (246 lb) | 12/18/2014 8:47 AM | | | | | PDT | | + + + + + | Height | 172.7 cm (5' 8") | 12/18/2014 8:47 AM | | | | | PDT | | + + + + + | Body Mass Index | 37.4 | 12/18/2014 8:47 AM | | | | | PDT | | + + + + + documented in this encounter Progress Notes Ricardo Nicholson MD - 12/18/2014 9:14 AM PDTFormatting of this note might be different f rom the original. Subjective: Patient ID: Selena Black is a 34 y.o. female. Vaginal Bleeding The patient's primary symptoms include vaginal bleeding and vaginal discharge. The patient' s pertinent negatives include no genital itching, genital lesions, genital odor, genital alyx h, missed menses or pelvic pain. This is a recurrent problem. The current episode started mo re than 1 month ago. The problem has been waxing and waning. The patient is experiencing no pain. She is not . Pertinent negatives include no abdominal pain, anorexia, back franchesca n, chills, constipation, diarrhea, discolored urine, dysuria, fever, flank pain, frequency, headaches, hematuria, joint pain, joint swelling, nausea, painful intercourse, rash, sore th roat, urgency or vomiting. The vaginal discharge was normal. She has been passing clots. She has not been passing tissue. Nothing aggravates the symptoms. The treatment provided no rel ief. Past Medical History Diagnosis Date Sinusitis Pharyngitis [...] blet 3 Cetirizine HCl (ZYRTEC ALLERGY PO) Ibuprofen (ADVIL PO) TABS levothyroxine (SYNTHROID, LEVOTHROID) [...] Known Allergies Review of Systems Constitutional: Negative. Negative for fever and chills. HENT: Negative. Negative for sore throat. Eyes: Negative. Respiratory: Negative. Cardiovascular: Negative. Gastrointestinal: Negative. Negative for nausea, vomiting, abdominal pain, diarrhea, const ipation and anorexia. Genitourinary: Positive for vaginal bleeding and vaginal discharge. Negative for dysuria, u rgency, frequency, hematuria, flank pain, pelvic pain and missed menses. Musculoskeletal: Negative. Negative for back pain and joint pain. Skin: Negative. Negative for rash. Neurological: Negative. Negative for headaches. Psychiatric/Behavioral: Negative. Objective: Physical Exam Constitutional: She [...] medical examination at a health care facility Lipid Panel Comprehensive Metabolic Panel CBC with Differential TSH Urinalysis with Microscopic with Culture if Indicated CBC with Differential Comprehensive Metabolic Panel Lipid Panel TSH T4, Free 2. Vaginal bleeding Plan: Requested Prescriptions Signed Prescriptions Disp Refills drospirenone-ethinyl estradiol (ANGELLA) 3-0.03 mg per tablet 112 tablet 2 Sig: take 1 tablet by mouth once daily New Prescriptions No medications on file documented in this encounter Plan of Treatment + +------+--------+ + + | Name | Type | Priori | Associated Diagnoses | Order Schedule | | | | ty | | | + +------+--------+ + + | Urinalysis with | Lab | Routin | Routine general | 1 Occurrences | | Microscopic with | | e | medical examination | starting 12/18/2014 | | Culture if Indicated | | | at a health care | until 12/19/2015 | | | | | facility | | + +------+--------+ + + documented as of this encounter Results T4, Free (12/18/2014 9:22 AM PDT) + +-------+ + + + [...] + | [facility] | [address] | [place] | [phone] | | [facility] | | [address] | | | - LABORATORY | | | | + + + + + TSH (12/18/2014 9:22 AM PDT) + + + + + + | Component | Value | Ref Range | Performed | Pathologist | | | | | At | Signature | + + + + + + | TSH | 3.42Comment: All TSH | 0.34 - 5.60 | [...] [address] | [place] | [phone] | | [facility] | | [address] | | | - LABORATORY | | | | + + + + + CBC with Differential (12/18/2014 9:22 AM PDT) + + + + + + | Component | Value | Ref Range | Performed | Pathologist | | | | | At | Signature | + + + + + + | WBC | 8.5 | 4.0 - 11.0 K/uL | [facility] | | | | | | [facility] | | | | | | MEDICAL | | | | | | CENTER - | | | | | | LABORATORY | | + + + + + + | RBC | 4.35 | 3.70 - 5.20 | [facility] | | | | | M/uL | [facility] | | | | | | MEDICAL | | | | | | CENTER - | | | | | | LABORATORY | | + + + + + + | Hemoglobin | 12.2 | 11.5 - 16.0 | [facility] | | | | | g/dL | [facility] | | | | | | MEDICAL | | | | | | CENTER - | | | | | | LABORATORY | | + + + + + + | Hematocrit | 37.7 | 34.0 - 47.0 % | [facility] | | | | | | [facility] | | | | | | MEDICAL | | | | | | CENTER - | | | | | | LABORATORY | | + + + + + + | MCV | 86.5 | 83.0 - 101.0 fL | [facility] | | | | | | [facility] | | | | | | MEDICAL | | | | | | CENTER - | | | | | | LABORATORY | | + + + + + + | MCH | 28.1 | 28.0 - 35.0 pg | [facility] | | | | | | [facility] | | | | | | MEDICAL | | | | | | CENTER - | | | | | | LABORATORY | | + + + + + + | MCHC | 32.5 | 32.0 - 36.0 | [facility] | | | | | g/dL | [facility] | | | | | | MEDICAL | | | | | | CENTER - | | | | | | LABORATORY | | + + + + + + | RDW-CV | 15.6 (H) | <15.0 % | [facility] | | | | | | [facility] | | | | | | MEDICAL | | | | | | CENTER - | | | | | | LABORATORY | | + + + + + + | Platelet | 333 | 140 - 440 K/uL | [facility] | | | Count | | | [facility] | | | | | | MEDICAL | | | | | | CENTER - | | | | | | LABORATORY | | + + + + + + | MPV | 8.2 | fL | [facility] | | | | | | [facility] | | | | | | MEDICAL | | | | | | CENTER - | | | | | | LABORATORY | | + + + + + + | % | 55.2 | 45.0 - 82.0 % | [facility] | | | Neutrophils | | | [facility] | | | | | | MEDICAL | | | | | | CENTER - | | | | | | LABORATORY | | + + + + + + | % | 35.9 | 20.0 - 45.0 % | [facility] | | | Lymphocytes | | | [facility] | | | | | | MEDICAL | | | | | | CENTER - | | | | | | LABORATORY | | + + + + + + | % Monocytes | 6.0 | 4.0 - 12.0 % | [facility] | | | | | | [facility] | | | | | | MEDICAL | | | | | | CENTER - | | | | | | LABORATORY | | + + + + + + | % | 2.5 | 0.0 - 5.0 % | [facility] | | | Eosinophils | | | [facility] | | | | | | MEDICAL | | | | | | CENTER - | | | | | | LABORATORY | | + + + + + + | % Basophils | 0.4 | 0.0 - 1.0 % | [facility] | | | | | | [facility] | | | | | | MEDICAL | | | | | | CENTER - | | | | | | LABORATORY | | + + + + + + | Absolute | 4.70 | 1.80 - 8.50 | [facility] | | | Neutrophils | | K/uL | [facility] | | | | | | MEDICAL | | | | | | CENTER - | | | | | | LABORATORY | | + + + + + + | Absolute | 3.00 | 0.60 - 3.20 | [facility] | | | Lymphocytes | | K/uL | [facility] | | | | | | MEDICAL | | | | | | CENTER - | | | | | | LABORATORY | | + + + + + + | Absolute | 0.50 | 0.00 - 1.00 | [facility] | | | Monocytes | | K/uL | [facility] | | | | | | MEDICAL | | | | | | CENTER - | | | | | | LABORATORY | | + + + + + + | Absolute | 0.20 | 0.00 - 0.40 | [facility] | | | Eosinophils | | K/uL | [facility] | | | | | | MEDICAL | | | | | | CENTER - | | | | | | LABORATORY | | + + + + + + | Absolute | 0.00 | 0.00 - 0.10 | [facility] | | | Basophils | | K/uL | [facility] | | | | | [...] [address] | [place] | [phone] | | [facility] | | [address] | | | - LABORATORY | | | | + + + + + Comprehensive Metabolic Panel (12/18/2014 9:22 AM PDT) + + + + + + | Component | Value | Ref Range | Performed | Pathologist | | | | | At | Signature | + + + + + + | Na | 142 | 136 - 149 | [facility] | | | | | mmol/L | [facility] | | | | | | MEDICAL | | | | | | CENTER - | | | | | | LABORATORY | | + + + + + + | K | 3.8 | 3.5 - 5.1 | [facility] | | | | | mmol/L | [facility] | | | | [...] + + + + | CO2 | 23 (L) | 24 - 31 mmol/L | [facility] | | | | | | [facility] | | | | | | MEDICAL | | | | | | CENTER - | | | | | | LABORATORY | | + + + + + + | Anion Gap | 12 | 3 - 16 mmol/L | [facility] | | | | | | [facility] | | | | | | MEDICAL | | | | | | CENTER - | | | | | | LABORATORY | | + + + + + + | Glucose | 91 | 70 - 109 mg/dL | [facility] | | | | | | [facility] | | | | | | MEDICAL | | | | | | CENTER - | | | | | | LABORATORY | | + + + + + + | BUN | 9 | 7 - 18 mg/dL | [facility] | | | | | | [facility] | | | | | | MEDICAL | | | | | | CENTER - | | | | | | LABORATORY | | + + + + + + | Creatinine | 0.86 | 0.60 - 1.30 | [facility] | | | | | mg/dL | [facility] | | | | | | MEDICAL | | | | | | CENTER - | | | | | | LABORATORY | | + + + + + + | eGFR if not | >60Comment: GLOMERULAR | >=60 | [facility] | | | | FILTRATION | mL/min/1.73m2 | [facility] | | | [place] | RATE,ESTIMATED | | MEDICAL | | | | mL/min/1.33w2Rodz than | | CENTER - | | [...] + + + + | Calcium | 9.1 | 8.3 - 10.5 | [facility] | | | | | mg/dL | [facility] | | | | | | MEDICAL | | | | | | CENTER - | | | | | | LABORATORY | | + + + + + + | Albumin | 3.9 | 3.2 - 5.0 g/dL | [facility] | | | | | | [facility] | | | | | | MEDICAL | | | | | | CENTER - | | | | | | LABORATORY | | + + + + + + | Bilirubin | 0.4 | 0.1 - 1.5 mg/dL | [facility] [...] AST | 19 | 10 - 42 U/L | [facility] [...] + + + + | Alkaline | 91 | 40 - 110 U/L | [facility] | | | Phosphatase | | | [facility] | | | | | | MEDICAL | | | | | | CENTER - | | | | | | LABORATORY | | + + + + + + | Globulin | 2.9 | g/dL | [facility] | | | | | | [facility] | | | | | | MEDICAL | | | | | | CENTER - | | | | | | LABORATORY | | + + + + + + | Albumin/Ceirra | 1.3 | | [facility] | | | bulin Ratio | | | [facility] | | | | | | MEDICAL | | | | | | CENTER - | | | | | | LABORATORY | | + + + + + + | BUN/Creatin | 10.5 | | [facility] | | | ine [...] + + | [facility] | [address] | [place] | [phone] | | [facility] | | [address] | | | - LABORATORY | | | | + + + + + Lipid Panel (12/18/2014 9:22 AM PDT) + + + + + + | Component | Value | Ref Range | Performed | Pathologist | | | | | At | Signature | + + + + + + | Triglycerid | 86 | 35 - 160 mg/dL | [facility] | | | es | | | [facility] | | | | | | MEDICAL | | | | | | CENTER - | | | | | | LABORATORY | | + + + + + + | Cholesterol | 156 | 140 - 200 mg/dL | [facility] | | | | | | [facility] | | | | | | MEDICAL | | | | | | CENTER - | | | | | | LABORATORY | | + + + + + + | HDL | 40Comment: New HDL | 28 - 83 mg/dL | [facility] | | | | Reference Range as of | | [facility] | | | | November 02, 2014 | | MEDICAL | | | | Values may be 10-20% | | CENTER - | | | | lower with new, | | LABORATORY | | | | standardized method. | | | | + + + + + + | Chol/HDL | 3.9 | | [facility] | | | Ratio | | | [facility] | | | | | | MEDICAL | | | | | | CENTER - | | | | | | LABORATORY | | + + + + + + | LDL, | 99 | <=130 mg/dL | [facility] | | [...] [address] | [place] | [phone] | | [facility] | | [address] | | | - LABORATORY | | | | + + + + + documented in this encounter Visit Diagnoses + + | Diagnosis | + + | Routine general medical examination at a health care facility - Primary | + + | Vaginal bleeding Other specified noninflammatory disorder of vagina | + + documented in this encounter
--- OUTSIDE RECORDS SUMMARY | ~2019-01-31 | XMS | Encounter Summary ---
Demographics + + + | Address | [address] | | | [place] [address] | + + + | Home Phone | | + + + | Preferred Language | Unknown | + + + | Marital Status | | + + + | Faith Affiliation | 1001 | + + + | Race | Unknown | + + + | Ethnic Group | Unknown | + + + Author + + + | Author | [facility] | | | and [place] | + + + | Organization | [facility] | [...] | | | | | [place] [address] | | + + + + + | Kathi Segura | ECON | Unknown | | + + + + + Care Team Providers + +------+ + | Care Special Duty Nurse Name | Role | Phone | + +------+ + | Ricardo Nicholson MD | PCP | | + +------+ + Reason for Visit + + + | Reason | Comments | + + + | Facial Pain | sinus? RM 4 | + + + Encounter Details +--------+---------+ + + + | Date | Type | Department | Care Team | Description | +--------+---------+ + + + | 02/26/ | Office | [facility] | Prnaav Lima, | Sinusitis (Primary | | 2013 | Visit | CARE [address] | MD [address] | Dx) | | | | [place] | [place] | | | | | [address] | [address] | | | | | [phone] | | | +--------+---------+ + + + [...] + | Blood Pressure | 110/80 | 02/26/2013 8:18 AM | | | | | PST | | + + + + + | Pulse | 74 | 02/26/2013 8:18 AM | | | | | PST | | + + + + + | Temperature | 36.7 C (98 F) | 02/26/2013 8:18 AM | | | | | PST | | + + + + + | Respiratory Rate | 18 | 02/26/2013 8:18 AM | | | | | PST | | + + + + + | Oxygen Saturation | 97% | 02/26/2013 8:18 AM | | | | | PST | | + + + + + | Inhaled Oxygen | - | - | | | Concentration | | | | + + + + + | Weight | 112.9 kg (249 lb) | 02/26/2013 8:18 AM | | | | | PST | | + + + + + | Height | 172.7 cm (5' 8") | 02/26/2013 8:18 AM | | | | | PST | | + + + + + | Body Mass Index | 37.86 | 02/26/2013 8:18 AM | | | | | PST | | + + + + + documented in this encounter Patient Instructions Patient Instructions Pranav Lima MD - 02/26/2013 8:40 AM PSTGet plenty of rest and w ater. Take the Ceftin as directed. Recheck if worsening but otherwise as needed.Electronic ally signed by Nyla Solis CMA at 02/26/2013 8:46 AM PST documented in this encounter Progress Notes Pranav Lima MD - 02/26/2013 8:40 AM PSTFormatting of this note might be different fr om the original. Subjective: Patient ID: Selena Black is a 32 y.o. female. HPI Patient's medications, allergies, past medical, surgical, social and family histories were reviewed and updated as appropriate. This patient came in because of persisting sinus pressure and drainage since Thanks[place]. She had a course of amoxicillin and it didn't really help. There is pressure pain in both sinuses with yellow mucoid drainage also. She did not report fever. She also have a cough with some sputum production.She's had no vomiting or diarrhea. 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 I do see she has allergies and has been on Zyrtec however. I revi ewed her past history and meds. Review of Systems Constitutional: Negative. HENT: Positive for congestion and sinus pressure. Respiratory: Positive for cough. Cardiovascular: Negative. Gastrointestinal: Negative. Musculoskeletal: Negative. Objective: Physical Exam Vitals reviewed. Constitutional: She is oriented to person, place, and time. She appears well-developed and well-nourished. No distress. HENT: Head: Normocephalic. Nose: Right sinus exhibits maxillary sinus tenderness and frontal sinus tenderness. Left si nus exhibits maxillary sinus tenderness and frontal sinus tenderness. Mouth/Throat: Oropharynx is clear and moist. Mild to moderate nasal congestion Eyes: Conjunctivae normal are normal. Pupils are equal, round, and reactive to light. Neck: Normal range of motion. Cardiovascular: Normal rate, regular rhythm and normal heart sounds. Pulmonary/Chest: Effort normal and breath sounds normal. Musculoskeletal: Normal range of motion. Neurological: She is alert and oriented to person, place, and time. Skin: Skin is warm and dry. Assessment: 1. Sinusitis Plan: Please see the AVS for the plan unless outlined elsewhere. I discussed the situation with the patient. I think another course of a different antibiot ic would be the best option at this point. If the problem persists in spite of that she may need to see ENT. I will order 10 days of Ceftin. documented in this e ncounter Plan of Treatment Not on filedocumented as of this encounter Visit Diagnoses + + | Diagnosis | + + | Sinusitis - Primary Unspecified sinusitis (chronic) | + + documented in this encounter
--- OUTSIDE RECORDS SUMMARY | ~2019-01-31 | XMS | Encounter Summary ---
Demographics + + + | Address | [address] | | | [place] [address] | + + + | Home Phone | | + + + | Preferred Language | Unknown | + + + | Marital Status | | + + + | Sikhism Affiliation | 1001 | + + + | Race | Unknown | + + + | Ethnic Group | Unknown | + + + Author + + + | Author | [facility] | | | and [place] | + + + | Organization | [facility] | | | and [place] | + + + | Address | Unknown | + + + | Phone | Unavailable | + + + Support + + + + + | Name | Relationship | Address | Phone | + + + + + | Alexia Black | ECON | [address] | | | | | [place] [address] | | + + + + + | Kathi Segura | ECON | Unknown | | + + + + + Care Team Providers + +------+ + | Care Mill And Coal Transport Operator Name | Role | Phone | [...] Description | +--------+--------+ + + + | 01/16/ | Refill | [facility] | Ricardo Nicholson, | Medication Refill | | 2019 | | [facility] [place] | [address] | | | | | [address] | [place] | | | | | [place] | [address] | | | | | [address] | | | | | | [phone] | | | +--------+--------+ + + + [...]
--- OUTSIDE RECORDS SUMMARY | ~2019-01-31 | XMS | Encounter Summary ---
Demographics + + + | Address | [address] | | | [place] [address] | + + + | Home Phone | | + + + | Preferred Language | Unknown | + + + | Marital Status | | + + + | Advent Affiliation | 1001 | + + + | Race | Unknown | + + + | Ethnic Group | Unknown | + + + Author + + + | Author | [facility] | | | and [place] | + + + | Organization | [facility] | [...] | | | | | [place] [address] | | + + + + + | Kathi Colton | ECON | Unknown | | + + + + + Care Team Providers + +------+ + | Care Bean Sprout Laborer Name | Role | Phone | + +------+ + PCP | Unavailable | + +------+ + Encounter Details +--------+ + + + + | Date | Type | Department | Care Team | Description | +--------+ + + + + | 02/09/ | Hospital | [facility] | YakovVinod thomason, | | | 2006 | Encounter | MED CTR XRAY [address] | [address] | | | | | [place] | [place], [place] | | | | | [place] [address] | [address] | | | | | [phone] | | | +--------+ + + + [...]
--- OUTSIDE RECORDS SUMMARY | ~2019-01-31 | XMS | Encounter Summary ---
Demographics + + + | Address | [address] | | | [place] [address] | + + + | Home Phone | | + + + | Preferred Language | Unknown | + + + | Marital Status | | + + + | Evangelical Affiliation | 1001 | + + + | Race | Unknown | + + + | Ethnic Group | Unknown | + + + Author + + + | Author | [facility] | | | and [place] | + + + | Organization | [facility] | | | and [place] | + + + | Address | Unknown | + + + | Phone | Unavailable | + + + Support + + + + + | Name | Relationship | Address | Phone | + + + + + | Alexia Black | ECON | [address] | | | | | [place] [address] | | + + + + + | Kathi Segura | ECON | Unknown | | + + + + + Care Team Providers + +------+ + | Care Dexigraph Operator Name | Role | Phone | [...] pain | MD [address] | | | | | Procedures | [address] | [address] [place] | | | | | [place] | [place], | [place], [place] | | | | | Hepatobiliar | [place] [address] | [address] | | | | | y w CCK | Phone: | Phone: | | | | | | [phone] | | | | | | | Fax: | Fax: | | | | | | [phone] | | +--------+--------+ + + + + Encounter Details +--------+ + + + + | Date | Type | Department | Care Team | Description | +--------+ + + + + | 03/31/ | Hospital | [facility] | Ricardo Nicholson, | Abdominal pain | | 2013 - | Encounter | MED CTR XRAY [address] | [address] | | | | | [place] | [place] | | | | | [place] [address] | [address] | | | 2012 | | [phone] | | | +--------+ + + + [...] Performed At | + + + | Located Within [facility] | [place] | | Department [address] [place] | [facility] | | [ rep ct [address]] [ rep ct [facility] | | st zip] Signed | - IMAGING | | | | | Patient Name: LYLE BLACK Physician: | | | SAM : 1980 Age: 31 Sex: F Unit #: [id number] | | | Exam Date: 03/31/12 Location: [facility] | | | Report #: [id number] Page: | | | %(RAD)RES..mtdd.print.filter("pg") of %(RAD) | | | RES..mtdd.print.filter("tpg") | | | | | | Accession Number: [id number] | | | NUCLEAR HEPATOBILIARY SCAN, 03/31/2012 [...] Transcribed Date/Time: | | | 03/31/2012 11:08 Operations Officer Trust Department: | | | <<Signature on File>> | | | Erasmo Welch | | | MD Willie03/31/12 1233 <Electronically signed by Erasmo Tapia MD> | | | Erasmo Tapia MD 03/31/12 1049 Operations Officer Trust Department: | | | Chosen.fm [id number]/[id number] 1108 Ricardo Nicholson MD | | | | | + + + + + + + + | Performing | Address | City/State/Zipcode | Phone Number | | Organization | | | | + + + + + | [facility] | [address] | [place] | [phone] | | [facility] | | [address] | | | - IMAGING | | | | + + + + + documented in this encounter Visit Diagnoses + + | Diagnosis | + + | Abdominal pain Abdominal pain, unspecified site | + + documented in this encounter
--- OUTSIDE RECORDS SUMMARY | ~2019-01-31 | XMS | Encounter Summary ---
Demographics + + + | Address | [address] | | | [place] [address] | + + + | Home Phone | | + + + | Preferred Language | Unknown | + + + | Marital Status | | + + + | Sabianist Affiliation | 1001 | + + + | Race | Unknown | + + + | Ethnic Group | Unknown | + + + Author + + + | Author | [facility] | | | and [place] | + + + | Organization | [facility] | | | and [...] | | | | | [place] [address] | | + + + + + | Kathi Segura | ECON | Unknown | | + + + + + Care Team Providers + +------+ + | Care Water Purifier Operator Name | Role | Phone | [...] Description | +--------+--------+ + + + | 07/30/ | Refill | [facility] | Ricardo Nicholson, | Medication Refill | | 2019 | | MEDICINE [place] | [address] | | | | | [address] | [place] | | | | | [place] | [address] | | | | | [address] | | | | | | [phone] | | | +--------+--------+ + + + [...]
--- OUTSIDE RECORDS SUMMARY | ~2019-01-31 | XMS | Encounter Summary ---
Demographics + + + | Address | [address] | | | [place] [address] | + + + | Home Phone | | + + + | Preferred Language | Unknown | + + + | Marital Status | | + + + | Temple Affiliation | 1001 | + + + | Race | Unknown | + + + | Ethnic Group | Unknown | + + + Author + + + | Author | [facility] | | | and [place] | + + + | Organization | [facility] | | | and [place] | + + + | Address | Unknown | + + + | Phone | Unavailable | + + + Support + + + + + | Name | Relationship | Address | Phone | + + + + + | Alexia Black | ECON | [address] | | | | | [place] [address] | | + + + + + | Kathi Segura | ECON | Unknown | | + + + + + Care Team Providers + +------+ + | Care Fill Manager Name | Role | Phone | [...] Description | +--------+--------+ + + + | 09/17/ | Refill | [facility] | Ricardo Nicholson, | Medication Refill | | 2012 | | [facility]IC[facility] [place] | [address] | | | | | [address] | [place] | | | | | [place] | [address] | | | | | [address] | | | | | | [phone] | | | +--------+--------+ + + + [...]
--- OUTSIDE RECORDS SUMMARY | ~2019-01-31 | XMS | Encounter Summary ---
Demographics + + + | Address | [address] | | | [place] [address] | + + + | Home Phone [...] | Organization | [facility] | | | and [place] | + + + | Address | Unknown | + + + | Phone | Unavailable | + + + Support + + + + + | Name | Relationship | Address | Phone | + + + + + | Alexia Black | ECON | [address] | | | | | [place] [address] | | + + + + + | Kathi Colton | ECON | Unknown | | + + + + + Care Team Providers + +------+ + | Care Cost And Sales Record Supervisor Name | Role | Phone | [...] | 2016 | Encounter | [facility] | MD [address] | pain; Constipation, | | | | [address] [place] | [place], [place] | unspecified | | | | [place], [place] | [address] | constipation type; | | | | [address] | | Bloated abdomen | | | | [phone] | | | +--------+ + + + [...] + + | TSH | Routin | 07/03/2015 | Left upper | Results for this | | | e | 10:13 AM | quadrant pain | procedure are in the | | | | PDT | Constipation, | results section. | | | | | unspecified | | | | | | constipation type | | | | | | Bloated abdomen | | + +--------+ + + + documented in this encounter Results TSH (07/03/2015 10:13 AM [...] [address] | [place] | [phone] | | [facility] | | [address] | | | - LABORATORY | | [...]
--- OUTSIDE RECORDS SUMMARY | ~2019-01-31 | XMS | Encounter Summary ---
Demographics + + + | Address | [address] | | | [place] [address] | + + + | Home Phone | | + + + | Preferred Language | Unknown | + + + | Marital Status | | + + + | Mandaen Affiliation | 1001 | + + + | Race | Unknown | + + + | Ethnic Group | Unknown | + + + Author + + + | Author | [facility] | | | and [place] | + + + | Organization | [facility] | | | and [...] | | | | | [place] [address] | | + + + + + | Kathi Segura | ECON | Unknown | | + + + + + Care Team Providers + +------+ + | Care Detail Sergeant Name | Role | Phone | + [...] Description | +--------+--------+ + + + | 05/03/ | Refill | [facility] [place] [facility] | Enedina Liao | Medication Refill | | 2014 | | CARE [address] | DO Eugene Guo | | | | | [place] | [place], [place] | | | | | [address] | [address] | | | | | [phone] | | | +--------+--------+ + + + [...]
--- OUTSIDE RECORDS SUMMARY | ~2019-01-31 | XMS | Encounter Summary ---
Demographics + + + | Address | [address] | | | [place] [address] | + + + | Home Phone | | + + + | Preferred Language | Unknown | + + + | Marital Status | | + + + | Episcopalian Affiliation | 1001 | + + + | Race | Unknown | + + + | Ethnic Group | Unknown | + + + Author + + + | Author | [facility] | | | and [place] | + + + | Organization | [facility] | | | and [...] | | | | | [place] [address] | | + + + + + | Kathi Segura | ECON | Unknown | | + + + + + Care Team Providers + +------+ + | Care Closing Agent Name | Role | Phone | + +------+ + | Ricardo Nicholson MD | PCP | | + +------+ + Reason for Visit + + + | Reason | Comments | + + + | New Patient | biliary dyskinesia | + + + Encounter Details +--------+---------+ + + + | Date | Type | Department | Care Team | Description | +--------+---------+ + + + | 04/12/ | Office | [facility] | Blake Zhang, | Abdominal pain | | 2013 | Visit | SURGERY [address] | [address], | (Primary Dx); | | | | [place], [place] | [address] [place], | [facility] | | | | [address] | [place] [address] | | | | | [phone] | [phone] | | | | | | | | +--------+---------+ + + + [...] + + + | Blood Pressure | 128/70 | 04/12/2012 3:27 PM | | | | | PST | | + + + + + | Pulse | 81 | 04/12/2012 3:27 PM | | | | | PST | | + + + + + | Temperature | 36.7 C (98 F) | 04/12/2012 3:27 PM | | | | | PST | | + + + + + | Respiratory Rate | 15 | 04/12/2012 3:27 PM | | | | | PST | | + + + + + | Oxygen Saturation | 98% | 04/12/2012 3:27 PM | | | | | PST | | + + + + + | Inhaled Oxygen | - | - | | | Concentration | | | | + + + + + | Weight | 106.1 kg (234 lb) | 04/12/2012 3:27 PM | | | | | PST | | + + + + + | Height | 172.7 cm (5' 8") | 04/12/2012 3:27 PM | | | | | PST | | + + + + + | Body Mass Index | 35.58 | 04/12/2012 3:27 PM | | | | | PST | | + + + + + documented in this encounter Progress Blake Brito MD - 04/12/2012 3:29 PM PSTFormatting of this note might be different fr om the original. Subjective: She is a patient of Ricardo Nicholson MD here today for evaluation of biliary dyskinesia. HPI This patient was sent to see me as a 31 year of age female with diffuse abdominal discomfor t, newer onset constipation, over the past 5-6 months. In the last 3 months the patient has had intentional weight loss of 27 pounds. She denies tea-colored urine. She denies postpr andial right upper quadrant pain. She denies fatty food intolerance. She denies Gi reflux, indigestion, heartburn, bloating, nausea or vomiting. Her constipation has been a new prob yogi over the last 5-6 months. Today she complains of pain in her left lower quadrant right lower quadrant right upper quadrant and left upper quadrant. Ultrasound shows no evidence o f stones, no pericholecystic fluid, no thickened wall the gallbladder, no evidence of acute cholecystitis. Because sometimes this pain is in the right upper quadrant along with the ot her areas a HIDA scan was done. Prompt uptake of radiotracer is seen in the gallbladder and common duct within 15 minutes. The gallbladder ejection fraction was 22% which is mildly a bnormal. The patient got nausea with cholecystokinin injection but no significant pain. Ha prasad comes in to see me for consideration of surgical treatment options. Past Medical History She has a past medical history of Sinusitis; Pharyngitis; Vaginitis; and Unspecified otitis media. Past Surgical History She has past surgical history that includes Tonsillectomy and bilateral ear surgery. Family History: Her family history includes Diabetes in her maternal grandmother; Heart disease in her mate rnal grandmother; and Liver disease in her maternal grandfather. Social History: She reports that she quit smoking about 16 months ago. She has quit using smokeless tobacco . She reports that she drinks about .5 ounces of alcohol per week. She reports that she does not use illicit drugs. No Known Allergies Medications: Outpatient Encounter Prescriptions as of 04/12/2012 Medication Sig Dispense Refill Multiple Vitamins-Minerals (MULTIVITAMIN & MINERAL PO) Take by mouth. famotidine (PEPCID AC) 10 MG chewable tablet Take 1 tablet by mouth 2 times daily. 60 tablet 0 buPROPion (WELLBUTRIN SR) 150 mg 12 hr tablet 1 tablet by mouth daily for 3 days; incre ase to 1 tablet twice daily 60 tablet 3 Cetirizine HCl (ZYRTEC ALLERGY PO) Drospirenone-Ethinyl Estradiol (ANGELLA PO) Ibuprofen (ADVIL PO) TABS omeprazole (PRILOSEC) 20 mg capsule Take 20 mg by mouth every morning (before breakfast ). DISCONTD: renal multivitamin (DIALYVITE) TABS Take 1 tablet by mouth every evening. Review of Systems Constitutional: Negative. HENT: Negative. Respiratory: Positive for chest tightness and shortness of breath. Gastrointestinal: Positive for nausea, vomiting, abdominal pain, diarrhea and constipation. Genitourinary: Negative. Neurological: Negative. Hematological: Negative. Psychiatric/Behavioral: Negative. Objective: Physical ExamBP 128/70 | Pulse 81 | Temp(Src) 36.7 C (98 F) (Oral) | Resp 15 | Ht 1.727 m (5' 8") | Wt 106.142 kg (234 lb) | BMI 35.58 kg/m2 | SpO2 98% | LMP 03/09/2012 Well-developed obese female in no apparent distress HEENT her PERRLA and EOMI no scleral icterus Heart regular rate and rhythm no murmurs or gallops Lungs clear consultation anteriorly and posteriorly Abdomen is soft nondistended tender in the left lower quadrant and in all 4 quadrants. No Fernandez sign. No right upper quadrant tenderness. Present bowel sounds are noted. No hepat omegaly and no masses. Extremities without edema Assessment: This would be a very atypical presentation of gallbladder dysfunction. 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 The patient's ejectio n fraction on HIDA scan is less than 10% I can usually quote them a 60% chance that removal of the gallbladder will lead to cessation of the symptoms. If the EF is 10-20% that goes down to a 50% chance. Patients with an EF over 20% had less than 40% chance that removal of the gallbladder will lead to improvement of his symptoms. This is a patient who I normally would send to gastroenterology for consultation regarding possible IBS. Her pain distribut ion definitely does not fit Gallbladder types of symptomatology. Plan: Referred to gastroenterology for evaluation and potential treatment of IBS constipation pre dominant. The patient understands that if her symptoms change or do not resolve with medica l treatment that I would be happy to see her back again. Thank you very much for allowing roxanna prasad to take part in the care of your patient. documented in this e ncounter Plan of Treatment Not on filedocumented as of this encounter Visit Diagnoses + + | Diagnosis | + + | Abdominal pain - Primary Abdominal pain, unspecified site | + + | Constipation Unspecified constipation | + + documented in this encounter
--- OUTSIDE RECORDS SUMMARY | ~2019-01-31 | XMS | Encounter Summary ---
Demographics + + + | Address | [address] | | | [place] [address] | + + + | Home Phone [...] Organization | [facility] | | | and [place] | + + + | Address | Unknown | + + + | Phone | Unavailable | + + + Support + + + + + | Name | Relationship | Address | Phone | + + + + + | Alexia Black | ECON | [address] | | | | | [place] [address] | | + + + + + | Kathi Colton | ECON | Unknown | | + + + + + Care Team Providers + +------+ + | Care Plate Former Name | Role | Phone | + +------+ + PCP | Unavailable | + +------+ + Encounter Details +--------+ + + + + | Date | Type | Department | Care Team | Description | +--------+ + + + + | 06/14/ | Hospital | [facility] | Ricardo Nicholson [place], | | | 2009 | Encounter | [facility] | MD [address] | | | | | [address] [place] | [place], [place] | | | | | [place] | [address] | | | | | [address] | | | | | | [phone] | | | +--------+ + + + [...]
--- OUTSIDE RECORDS SUMMARY | ~2019-01-31 | XMS | Encounter Summary ---
Demographics + + + | Address | [address] | | | [place] [address] | + + + | Home Phone | | + + + | Preferred Language | Unknown | + + + | Marital Status | | + + + | Adventist Affiliation | 1001 | + + + | Race | Unknown | + + + | Ethnic Group | Unknown | + + + Author + + + | Author | [facility] | | | and [place] | + + + | Organization | [facility] | | | and [...] | | | | | [place] [address] | | + + + + + | Kathi Segura | ECON | Unknown | | + + + + + Care Team Providers + +------+ + | Care Director Global Development Name | Role | Phone | + [...] + | 08/24/ | Office | [facility] | Vinod Nagy, | Gastroenteritis | | 2014 | Visit | CARE [address] | MD [address] | (Primary Dx) | | | | [place] | [place] | | | | | [address] | [address] | | | | | [phone] | | | +--------+---------+ + + + [...]
--- OUTSIDE RECORDS SUMMARY | ~2019-01-31 | XMS | Encounter Summary ---
Demographics + + + | Address | [address] | | | [place] [address] | + + + | Home Phone [...] | Organization | [facility] | [...] | | | | | [place] [address] | | + + + + + | Kathi Colton | ECON | Unknown | | + + + + + Care Team Providers + +------+ + | Care Precision Structural Metal Fitter Name | Role | Phone | + +------+ + PCP | Unavailable | + +------+ + Encounter Details +--------+ + + + + | Date | Type | Department | Care Team | Description | +--------+ + + + + | 06/14/ | Hospital | [facility] | Ricardo Nicholson [place], | | | 2009 | Encounter | [facility] [address] | [address] | | | | | [place] | [place], [place] | | | | | [place] [address] | [address] | | | | | [phone] | | | +--------+ + + + [...]
--- OUTSIDE RECORDS SUMMARY | ~2019-01-31 | XMS | Encounter Summary ---
Demographics + + + | Address | [address] | | | [place] [address] | + + + | Home Phone [...] Organization | [facility] | | | [...] | | | | | [place] [address] | | + + + + + | Kathi Segura | ECON | Unknown | | + + + + + Care Team Providers + +------+ + | Care Restaurant Server Name | Role | Phone | [...] Refill | [facility] | Ricrado Nicholson, | Medication Refill | | 2019 | | MEDIC[facility] [place] | [address] | | | | | [address] | [place] | | | | | [place] | [address] | | | | | [address] | | | | | | [phone] | | | +--------+--------+ + + + [...]
--- OUTSIDE RECORDS SUMMARY | ~2019-01-31 | XMS | Encounter Summary ---
Demographics + + + | Address | [address] | | | [place] [address] | + + + | Home Phone | | + + + | Preferred Language | Unknown | + + + | Marital Status | | + + + | Episcopalian Affiliation | 1001 | + + + | Race | Unknown | + + + | Ethnic Group | Unknown | + + + Author + + + | Author | [facility] | | | and Fredisana | + + + | Organization | [facility] [...] | | | | | [place] [address] | | + + + + + | Kathi Segura | ECON | Unknown | | + + + + + Care Team Providers + +------+ + | Care Freight Sorter Name | Role | Phone | + +------+ + | Ricardo Nicholson MD | PCP | | + +------+ + Encounter Details +--------+ + + + + | Date | Type | Department | Care Team | Description | +--------+ + + + + | 01/07/ | Abstract | [facility] | Ricardo Nicholson, | | | 2016 | | [facility] | [address] | | | | | [address] | [place] | | | | | [place] | [address] | | | | | [address] | | | | | | [phone] | | | +--------+ + + + [...] +--------+ + + + | EXTERNAL LAB: NASIM | Routin | 01/02/2017 | | Results for this | | | e | | | procedure are in the | | | | | | results section. | + +--------+ + + + | EXTERNAL LAB: | Routin | 01/02/2017 | | Results for this | | GLUCOSE | e | | | procedure are in the | | | | | | results section. | + +--------+ + + + | EXTERNAL LAB: ALT | Routin | 01/02/2017 | | Results for this | | | e | | | procedure are in the | | | | | | results section. | + +--------+ + + + | EXTERNAL LAB: AST | Routin | 01/02/2017 | | Results for this | | | e | | | procedure are in the | | | | | | results section. | + +--------+ + + + | EXTERNAL LAB: | Routin | 01/02/2017 | | Results for this | | ALKALINE PHOSPHATASE | e | | | procedure are in the | | | | | | results section. | + +--------+ + + + | EXTERNAL LAB: | Routin | 01/02/2017 | | Results for this | | BILIRUBIN, TOTAL | e | | | procedure are in the | | | | | | results section. | + +--------+ + + + | EXTERNAL LAB: | Routin | 01/02/2017 | | Results for this | | ALBUMIN | e | | | procedure are in the | | | | | | results section. | + +--------+ + + + | EXTERNAL LAB: | Routin | 01/02/2017 | | Results for this | | PROTEIN, TOTAL | e | | | procedure are in the | | | | | | results section. | + +--------+ + + + | EXTERNAL LAB: | Routin | 01/02/2017 | | Results for this | | CALCIUM | e | | | procedure are in the | | | | | | results section. | + +--------+ + + + | EXTERNAL LAB: CARBON | Routin | 01/02/2017 | | Results for this | | DIOXIDE | e | | | procedure are in the | | | | | | results section. | + +--------+ + + + | EXTERNAL LAB: | Routin | 01/02/2017 | | Results for this | | CHLORIDE | e | | | procedure are in the | | | | | | results section. | + +--------+ + + + | EXTERNAL LAB: | Routin | 01/02/2017 | | Results for this | | POTASSIUM | e | | | procedure are in the | | | | | | results section. | + +--------+ + + + | EXTERNAL LAB: SODIUM | Routin | 01/02/2017 | | Results for this | | | e | | | procedure are in the | | | | | | results section. | + +--------+ + + + | EXTERNAL LAB: | Routin | 01/02/2017 | | Results for this | | URINALYSIS | e | | | procedure are in the | | | | | | results section. | + +--------+ + + + | EXTERNAL LAB: CBC | Routin | 01/02/2017 | | Results for this | | | e | | | procedure are in the | | | | | | results section. | + +--------+ + + + | EXTERNAL LAB: | Routin | 01/02/2017 | | Results for this | | TRIGLYCERIDES | e | | | procedure are in the | | | | | | results section. | + +--------+ + + + | EXTERNAL LAB: | Routin | 01/02/2017 | | Results for this | | CHOLESTEROL, HDL | e | | | procedure are in the | | | | | | results section. | + +--------+ + + + | EXTERNAL LAB: | Routin | 01/02/2017 | | Results for this | | CHOLESTEROL, TOTAL | e | | | procedure are in the | | | | | | results section. | + +--------+ + + + | EXTERNAL LAB: | Routin | 01/02/2017 | | Results for this | | CHOLESTEROL, LDL | e | | | procedure are in the | | | | | | results section. | + +--------+ + + + | EXTERNAL LAB: EGFR | Routin | 01/02/2017 | | Results for this | | | e | | | procedure are in the | | | | | | results section. | + +--------+ + + + | EXTERNAL LAB: | Routin | 01/02/2017 | | Results for this | | CREATININE | e | | | procedure are in the | | | | | | results section. | + +--------+ + + + | LIPID PANEL | Routin | 01/02/2017 | | Results for this | | | e | | | procedure are in the | | | | | | results section. | + +--------+ + + + | URINALYSIS, REFLEX | Routin | 01/02/2017 | | Results for this | | MICROSCOPIC AND/OR | e | | | procedure are in the | | CULTURE | | | | results section. | + +--------+ + + + | CBC WITH | Routin | 01/02/2017 | | Results for this | | DIFFERENTIAL | e | | | procedure are in the | | | | | | results section. | + +--------+ + + + | COMPREHENSIVE | Routin | 01/02/2017 | | Results for this | | METABOLIC PANEL | e | | | procedure are in the | | | | | | results section. | + +--------+ + + + documented in this encounter Results Urinalysis, Reflex Microscopic and/or Culture (01/02/2017) + + + + + + | Component | Value | Ref Range | Performed | Pathologist | | | | | At | Signature | + + + + + + | COLLECTION | Clean Catch | | | | | METHOD 1 | | | | | + + + + + + | Color | Straw | | | | + + + + + + | Clarity | Clear | | | | + + + + + + | Bilirubin, | Negative | Negative | | | | Urine | | | | | + + + + + + | Nitrite, | Negative | Negative | | | | Urine | | | | | + + + + + + | Urobilinoge | < 0.2 mg/dL | < 0.2 mg/dL, | | | | n, Urine | | 1.0 mg/dL, 4.0 | | | | | | mg/dL, Normal, | | | | | | 1.0 E.U./dL, | | | | | | 0.2 E.U./dL, | | | | | | 0.2 mg/dL, | | | | | | Negative, 1 | | | | | | mg/dL, <2.0 | | | | | | mg/dL | | | + + + + + + | EPITHELIAL | 0-2 | 0-2, 10-15 /LPF | | | | CASTS UA | | | | | + + + + + + | WBC | 0 | 0 - 4 | | | + + + + + + | SQUAMOUS | 0-2 | 0 - 2 /LPF | | | | EPITHELIAL | | | | | | UA | | | | | + + + + + + | CRYSTAL UA | Negative | | | | + + + + + + | BACTERIA UA | 1+ (A) | Negative /HPF | | | + + + + + + + + | Specimen | + + | Urine | + + External Lab: Urinalysis (01/02/2017) + + + + + + | Component | Value | Ref Range | Performed | Pathologist | | | | | At | Signature | + + + + + + | UA Blood, | Negative | | | | | External | | | | | + + + + + + | UA Glucose, | Normal | | | | | External | | | | | + + + + + + | UA Ketones, | Negative | | | | | External | | | | | + + + + + + | UA Ph, | 5 | 5 - 9 | | | | External | | | | | + + + + + + | UA | Negative | | | | | Proteins, | | | | | | External | | | | | + + + + + + | UA RBC, | 0 | 0 - 4 | | | | External | | | | | + + + + + + | UA Specific | 1.004 (A) | 1.005 - 1.03 | | | | Union, | | | | | | External | | | | | + + + + + + | UA | Negative | | | | | Leukocyte | | | | | | Esterase, | | | | | | External | | | | | + + + + + + CBC with Differential (01/02/2017) + +-------+ + + + | Component | Value | Ref Range | Performed | Pathologist | | | | | At | Signature | + +-------+ + + + | MCH | 31.0 | 27.0 - 33.0 pg | | | + +-------+ + + + | MCHC | 34.0 | 30.0 - 36.0 % | | | + +-------+ + + + | % Basophils | 0.8 | 0.0 - 2.0 % | | | + +-------+ + + + + + | Specimen | + + | Blood | + + External Lab: CBC (01/02/2017) + +-------+ + + + | Component | Value | Ref Range | Performed | Pathologist | | | | | At | Signature | + +-------+ + + + | WBC, | 9.7 | 4.5 - 11 | | | | External | | | | | + +-------+ + + + | HGB, | 13.6 | 12 - 16 | | | | External | | | | | + +-------+ + + + | HCT, | 39.9 | 35 - 45 | | | | External | | | | | + +-------+ + + + | PLT, | 299 | 140 - 440 | | | | External | | | | | + +-------+ + + + | Neutrophils | 65.5 | 39 - 80 | | | | %, | | | | | | External | | | | | + +-------+ + + + | Lymphocytes | 27.7 | 24 - 44 | | | | %, | | | | | | External | | | | | + +-------+ + + + | Monocytes | 4.3 | 0 - 12 | | | | %, External | | | | | + +-------+ + + + | Eosinophils | 1.7 | 0 - 6 | | | | %, | | | | | | External | | | | | + +-------+ + + + | RBC, | 4.4 | 3.8 - 5.1 | | | | External | | | | | + +-------+ + + + | MCV, | 91 | 81 - 99 | | | | External | | | | | + +-------+ + + + | RDW, | 13.3 | 10.5 - 15 | | | | External | | | | | + +-------+ + + + Comprehensive Metabolic Panel (01/02/2017) + +-------+ + + + | Component | Value | Ref Range | Performed | Pathologist | | | | | At | Signature | + +-------+ + + + | Anion Gap | 20 | 7 - 21 mmol/L | | | + +-------+ + + + | Bun/Creatin | 16 | 6 - 28.6 | | | | ine | | | | | + +-------+ + + + | Globulin | 2.7 | 1.8 - 3.5 | | | + +-------+ + + + | Albumin/Cierra | 1.5 | 1.1 - 2.4 | | | | bulin Ratio | | | | | + +-------+ + + + + + | Specimen | + + | Blood | + + External Lab: BUN (01/02/2017) + +-------+ + + + | Component | Value | Ref Range | Performed | Pathologist | | | | | At | Signature | + +-------+ + + + | BUN, | 13 | 6 - 23 | | | | External | | | | | + +-------+ + + + External Lab: Glucose (01/02/2017) + +-------+ + + + | Component | Value | Ref Range | Performed | Pathologist | | | | | At | Signature | + +-------+ + + + | Glucose, | 88 | 70 - 100 | | | | External | | | | | + +-------+ + + + External Lab: ALT (01/02/2017) + +-------+ + + + | Component | Value | Ref Range | Performed | Pathologist | | | | | At | Signature | + +-------+ + + + | ALT, | 13 | 7 - 52 | | | | External | | | | | + +-------+ + + + External Lab: AST (01/02/2017) + +-------+ + + + | Component | Value | Ref Range | Performed | Pathologist | | | | | At | Signature | + +-------+ + + + | AST, | 14 | 13 - 39 | | | | External | | | | | + +-------+ + + + External Lab: Alkaline Phosphatase (01/02/2017) + +-------+ + + + | Component | Value | Ref Range | Performed | Pathologist | | | | | At | Signature | + +-------+ + + + | ALP, | 77 | 31 - 130 | | | | External | | | | | + +-------+ + + + External Lab: Bilirubin, Total (01/02/2017) + +-------+ + + + | Component | Value | Ref Range | Performed | Pathologist | | | | | At | Signature | + +-------+ + + + | Bilirubin, | 0.4 | 0 - 1.2 | | | | Total, | | | | | | External | | | | | + +-------+ + + + External Lab: Albumin (01/02/2017) + +-------+ + + + | Component | Value | Ref Range | Performed | Pathologist | | | | | At | Signature | + +-------+ + + + | Albumin, | 4 | 3.5 - 5 | | | | External | | | | | + +-------+ + + + External Lab: Protein, Total (01/02/2017) + +-------+ + + + | Component | Value | Ref Range | Performed | Pathologist | | | | | At | Signature | + +-------+ + + + | Protein, | 6.7 | 6 - 8 | | | | Total, | | | | | | External | | | | | + +-------+ + + + External Lab: Calcium (01/02/2017) + +-------+ + + + | Component | Value | Ref Range | Performed | Pathologist | | | | | At | Signature | + +-------+ + + + | Calcium, | 9.4 | 8.4 - 10.2 | | | | External | | | | | + +-------+ + + + External Lab: Carbon Dioxide (01/02/2017) + +-------+ + + + | Component | Value | Ref Range | Performed | Pathologist | | | | | At | Signature | + +-------+ + + + | Carbon | 19 | 19 - 31 | | | | Dioxide, | | | | | | External | | | | | + +-------+ + + + External Lab: Chloride (01/02/2017) + +-------+ + + + | Component | Value | Ref Range | Performed | Pathologist | | | | | At | Signature | + +-------+ + + + | Chloride, | 103 | 95 - 112 | | | | External | | | | | + +-------+ + + + External Lab: Potassium (01/02/2017) + +-------+ + + + | Component | Value | Ref Range | Performed | Pathologist | | | | | At | Signature | + +-------+ + + + | Potassium, | 4.0 | 3.6 - 5.1 | | | | External | | | | | + +-------+ + + + External Lab: Sodium (01/02/2017) + +-------+ + + + | Component | Value | Ref Range | Performed | Pathologist | | | | | At | Signature | + +-------+ + + + | Sodium, | 138 | 132 - 143 | | | | External | | | | | + +-------+ + + + External Lab: eGFR (01/02/2017) + +-------+ + + + | Component | Value | Ref Range | Performed | Pathologist | | | | | At | Signature | + +-------+ + + + | eGFR, | 80 | 60 | | | | External | | | | | + +-------+ + + + + + | Specimen | + + | Blood | + + External Lab: Creatinine (01/02/2017) + +-------+ + + + | Component | Value | Ref Range | Performed | Pathologist | | | | | At | Signature | + +-------+ + + + | Creatinine, | 0.81 | 0.6 - 1.35 | | | | External | | | | | + +-------+ + + + + + | Specimen | + + | Blood | + + Lipid Panel (01/02/2017) + +-------+ + + + | Component | Value | Ref Range | Performed | Pathologist | | | | | At | Signature | + +-------+ + + + | VLDL | 30 | 4 - 40 | | | | Cholesterol | | | | | | Alvarado | | | | | + +-------+ + + + | Chol/HDL | 3.7 | 4.4 | | | | Ratio | | | | | + +-------+ + + + | Non HDL | 115 | 130 | | | | Chol. | | | | | | (LDL+VLDL) | | | | | + +-------+ + + + + + | Specimen | + + | Blood | + + External Lab: Triglycerides (01/02/2017) + +-------+ + + + | Component | Value | Ref Range | Performed | Pathologist | | | | | At | Signature | + +-------+ + + + | Triglycerid | 150 | 30 - 150 | | | | es, | | | | | | External | | | | | + +-------+ + + + + + | Specimen | + + | Blood | + + External Lab: Cholesterol, HDL (01/02/2017) + +-------+ + + + | Component | Value | Ref Range | Performed | Pathologist | | | | | At | Signature | + +-------+ + + + | HDL | 43 | 40 mg/dl | | | | Cholesterol | | | | | | , External | | | | | + +-------+ + + + + + | Specimen | + + | Blood | + + External Lab: Cholesterol, Total (01/02/2017) + +-------+ + + + | Component | Value | Ref Range | Performed | Pathologist | | | | | At | Signature | + +-------+ + + + | Cholesterol | 158 | 200 mg/dl | | | | , Total, | | | | | | External | | | | | + +-------+ + + + + + | Specimen | + + | Blood | + + External Lab: Cholesterol, LDL (01/02/2017) + +-------+ + + + | Component | Value | Ref Range | Performed | Pathologist | | | | | At | Signature | + +-------+ + + + | LDL | 85 | 100 | | | | Cholesterol | | | | | | , Direct, | | | | | | External | | | | | + +-------+ + + + + + | Specimen | + + | Blood | + + documented in this encounter Visit Diagnoses Not on filedocumented in this encounter"
--- OUTSIDE RECORDS SUMMARY | ~2019-01-31 | XMS | Encounter Summary ---
Demographics + + + | Address | [address] | | | [place] [address] | + + + | Home Phone | | + + + | Preferred Language | Unknown | + + + | Marital Status | | + + + | Anabaptist Affiliation | 1001 | + + + | Race | Unknown | + + + | Ethnic Group | Unknown | + + + Author + + + | Author | [facility] | | | and Freidsana | + + + | Organization | [facility] | | | and [...] | | | | | [place] [address] | | + + + + + | Kathi Colton | ECON | Unknown | | + + + + + Care Team Providers + +------+ + | Care Weight Reducing Technician Name | Role | Phone | + +------+ + | Ricardo Nicholson MD | PCP | | + +------+ + Encounter Details +--------+ + + + + | Date | Type | Department | Care Team | Description | +--------+ + + + + | 04/15/ | Hospital | [facility] | Ricardo Nicholson, | Abdominal pain | | 2012 - | Encounter | MED CTR XRAY [address] | [address] | | | | | [place] | [place] | | | 04/17/ | | [place] [address] | [address] | | | 2012 | | [phone] | | | +--------+ + + + [...] +--------+ + + + | XR ABDOMEN SUPINE | Routin | 04/16/2012 | Abdominal pain | Results for this | | AND UPRIGHT | e | 10:00 AM | | procedure are in the | | | | PST | | results section. | + +--------+ + + + | H. PYLORI ANTIBODY | Routin | 04/15/2012 | | Results for this | | SCREEN | e | 5:04 PM | | procedure are in the | | | | PST | | results section. | + +--------+ + + + | H. PYLORI ANTIBODY | Routin | 04/15/2012 | Abdominal pain | Results for this | | SCREEN | e | 5:04 PM | | procedure are in the | | | | PST | | results section. | + +--------+ + + + | LIPASE | Routin | 04/15/2012 | | Results for this | | | e | 5:04 PM | | procedure are in the | | | | PST | | results section. | + +--------+ + + + | LIPASE | Routin | 04/15/2012 | Abdominal pain | Results for this | | | e | 5:04 PM | | procedure are in the | | | | PST | | results section. | + +--------+ + + + documented in this encounter Results XR Abdomen Supine and Upright (04/16/2012 10:00 AM PST) + + | Specimen | + + | | + + + + + | Narrative | Performed At | + + + | [facility] | [facility] | | Department [address] [facility] [place] | [facility] | | [ rep ct [address]] [ rep ct [facility] | | [facility]] Signed | - IMAGING | | | | | Patient Name: LYLE ASCENCIO Physician: | | | : 1980 Age: 31 Sex: F Unit #: [id number] | | | Exam Date: 04/15/12 Location: [facility] | | | Report #: [id number] Page: | | | %(RAD)RES..mtdd.print.filter("pg") of %(RAD) | | | RES..mtdd.print.filter("tpg") | | | | | | Accession Number: [id number] | | | ABDOMEN X-RAY CLINICAL HISTORY: ABDOMINAL PAIN. | | | COMPARISON: Abdominal ultrasound dated 12/15/2011, pelvic | | | ultrasound dated 08/16/2009. FINDINGS: Three AP views | | | of the abdomen and pelvis were obtained. There is a nonobstructive | | | bowel gas pattern. No free air is seen. Extensive stool is | | | present throughout the colon, particularly in the ascending and | | | transverse segments. There is mild levoscoliosis of the | | | thoracolumbar spine with apex at T12-L1. Pelvic phleboliths are | | | noted. IMPRESSION: 1. NONOBSTRUCTIVE BOWEL GAS | | | PATTERN. 2. CONSTIPATION. Dictated | | | Date/Time: 04/16/2012 10:00 Transcribed Date/Time: 04/16/2012 | | | 10:02 Auditing Specialist: GIANA <<Signature | | | on File>> | | | Jozef | | | MD Federico04/18/12 1035 <Electronically signed by Jozef Caballero MD> | | | Jozef Caballero MD 04/16/12 1000 Auditing Specialist: Weborlandox | | | [id number]/22/13 1002 Ricardo Nicholson MD | | | | | + + + + + + + + | Performing | Address | City/State/Zipcode | Phone Number | | Organization | | | | + + + + + | [facility] | [address] | [place] | [phone] | | [facility] | | [address] | | | - IMAGING | | | | + + + + + H. pylori Antibody Screen (04/15/2012 5:04 PM PST) + + + + + + | Component | Value | Ref Range | Performed | Pathologist | | | | | At | Signature | + + + + + + | Helicobacte | NEGATIVEComment: | NEGATIVE | [facility] | | | r pylori Ab | @INTERNAL CONTROL OK?: | | [facility] | | | | RED CONTROL LINE | | MEDICAL | | | | APPEARS? YES | | CENTER - | | | | | | LABORATORY | | + + + + + + + + | Specimen | + + | | + + + + + + + | Performing | Address | City/State/Zipcode | Phone Number | | Organization | | | | + + + + + | [facility] | [address] | [place] | [phone] | | [facility] | | [address] | | | - LABORATORY | | | | + + + + + | [facility] | [address] | [place] | | | [facility] | | [address] | | | - LABORATORY | | | | + + + + + Lipase (04/15/2012 5:04 PM PST) + +-------+ + + + | Component | Value | Ref Range | Performed | Pathologist | | | | | At | Signature | + +-------+ + + + | Lipase | 31 | 0 - 60 U/L | [facility] [address] | [place] | [phone] | | [facility] | | [address] | | | - LABORATORY | | | | + + + + + | [facility] | [address] | [place] | | | [facility] | | [address] | | | - LABORATORY | | | | + + + + + Lipase (04/15/2012 5:04 PM PST) + +-------+ + + + | Component | Value | Ref Range | Performed | Pathologist | | | | | At | Signature | + +-------+ + + + | Lipase | 31 | 0 - 60 U/L | [facility] | | | | | | STElinor [...] + | [facility] | [address] | [place] | [phone] | | [facility] | | [address] | | | - LABORATORY | | | | + + + + + | [facility] | [address] | [place] | | | [facility] | | [address] | | | - LABORATORY | | | | + + + + + H. pylori Antibody Screen (04/15/2012 5:04 PM PST) + + + + + + | Component | Value | Ref Range | Performed | Pathologist | | | | | At | Signature | + + + + + + | Helicobacte | NEGATIVE | NEGATIVE | [facility] | | | r pylori Ab | | | [facility] | | [...] [address] | [place] | [phone] | | [facility] | | [address] | | | - LABORATORY | | | | + + + + + | [facility] | [address] | [place] | | | [facility] | | [address] | | | - LABORATORY | | | | + + + + + documented in this encounter Visit Diagnoses + + | Diagnosis | + + | Abdominal pain Abdominal pain, unspecified site | + + documented in this encounter
--- OUTSIDE RECORDS SUMMARY | ~2019-01-31 | XMS | Encounter Summary ---
Demographics + + + | Address | [address] | | | [place] [address] | + + + | Home Phone | | + + + | Preferred Language | Unknown | + + + | Marital Status | | + + + | Jew Affiliation | 1001 | + + + | Race | Unknown | + + + | Ethnic Group | Unknown | + + + Author + + + | Author | [facility] | | | and Fredisana | + + + | Organization | [facility] | | | and [...] | | | | | [place] [address] | | + + + + + | Kathi Segura | ECON | Unknown | | + + + + + Care Team Providers + +------+ + | Care Snuff Box Finisher Name | Role | Phone | + [...] Description | +--------+--------+ + + + | 06/21/ | Refill | [facility] | Ricardo Nicholson, | Medication Refill | | 2019 | | [facility] | [address] | | | | | [address] | [place] | | | | | [place] | [address] | | | | | [address] | | | | | | [phone] | | | +--------+--------+ + + + [...]
--- OUTSIDE RECORDS SUMMARY | ~2019-01-31 | XMS | Encounter Summary ---
Demographics + + + | Address | [address] | | | [place] [address] | + + + | Home Phone | | + + + | Preferred Language | Unknown | + + + | Marital Status | | + + + | Latter-Day Affiliation | 1001 | + + + | Race | Unknown | + + + | Ethnic Group | Unknown | + + + Author + + + | Author | [facility] | | | and Fredisana | + + + | Organization | [facility] | | | [...] | | | | | [place] [address] | | + + + + + | Kathi Colton | ECON | Unknown | | + + + + + Care Team Providers + +------+ + | Care Supervisor Yard Name | Role | Phone | + +------+ + PCP | Unavailable | + +------+ + Encounter Details +--------+ + + + + | Date | Type | Department | Care Team | Description | +--------+ + + + + | 04/01/ | Hospital | [facility] | [place] | | | 2006 | Encounter | MED CTR XRAY [address] | [place] [address] | | | | | [place] | [address] [place] | | | | | [place] [address] | [place] [address] | | | | | [phone] | [phone] | | | | | | | [...]
--- OUTSIDE RECORDS SUMMARY | ~2019-01-31 | XMS | Encounter Summary ---
Demographics + + + | Address | [address] | | | [place] [address] | + + + | Home Phone [...] Organization | [facility] | | | and [...] | | | | | [place] [address] | | + + + + + | Kathi Segura | ECON | Unknown | | + + + + + Care Team Providers + +------+ + | Care Oyster Preparer Name | Role | Phone | + [...] Eugene Guo | | | | | [place] | [place], [place] | | | | | [address] | [address] | | | | | [phone] | | | +--------+--------+ + + + [...]
--- OUTSIDE RECORDS SUMMARY | ~2019-01-31 | XMS | Encounter Summary ---
Demographics + + + | Address | [address] | | | [place] [address] | + + + | Home Phone | | + + + | Preferred Language | Unknown | + + + | Marital Status | | + + + | Mormonism Affiliation | 1001 | + + + | Race | Unknown | + + + | Ethnic Group | Unknown | + + + Author + + + | Author | [facility] | | | and [place] | + + + | Organization | [facility] | | | and [place] | + + + | Address | Unknown | + + + | Phone | Unavailable | + + + Support + + + + + | Name | Relationship | Address | Phone | + + + + + | Alexia Black | ECON | [address] | | | | | [place] [address] | | + + + + + | Kathi Segura | ECON | Unknown | | + + + + + Care Team Providers + +------+ + | Care Skiver Machine Name | Role | Phone | + [...] + + | 02/26/ | Office | [facility] | Pranav Lima, | Sinusitis (Primary | | 2013 | Visit | CARE [address] | MD [address] | Dx) | | | | [place] | [place] | | | | | [address] | [address] | | | | | [phone] | | | +--------+---------+ + + + [...] or diarrhea. She denies a history of head well puller richard recurring sinusitis. I do see she [...]
--- OUTSIDE RECORDS SUMMARY | ~2019-01-31 | XMS | Encounter Summary ---
Demographics + + + | Address | [address] | | | [place] [address] | + + + | Home Phone | | + + + | Preferred Language | Unknown | + + + | Marital Status | | + + + | Holiness Affiliation | 1001 | + + + | Race | Unknown | + + + | Ethnic Group | Unknown | + + + Author + + + | Author | [facility] | | | and [place] | + + + | Organization | [facility] | | | and [place] | + + + | Address | Unknown | + + + | Phone | Unavailable | + + + Support + + + + + | Name | Relationship | Address | Phone | + + + + + | Alexia Black | ECON | [address] | | | | | [place] [address] | | + + + + + | Kathi Segura | ECON | Unknown | | + + + + + Care Team Providers + +------+ + | Care Building Equipment Inspector Name | Role | Phone | [...] Refill | | 2015 | | [facility] [place] | [address] | | | | | [address] | [place] | | | | | [place] | [address] | | | | | [address] | | | | | | [phone] | | | +--------+--------+ + + + [...]
--- OUTSIDE RECORDS SUMMARY | ~2019-01-31 | XMS | Encounter Summary ---
Demographics + + + | Address | [address] | | | [place] [address] | + + + | Home Phone | | + + + | Preferred Language | Unknown | + + + | Marital Status | | + + + | Samaritan Affiliation | 1001 | + + + | Race | Unknown | + + + | Ethnic Group | Unknown | + + + Author + + + | Author | [facility] | | | and [place] | + + + | Organization | [facility] | | [...] | | | | | [place] [address] | | + + + + + | Kathi Segura | ECON | Unknown | | + + + + + Care Team Providers + +------+ + | Care Commercial Credit Officer Name | Role | Phone | + +------+ + | Ricardo Nicholson MD | PCP | | + +------+ + Reason for Visit + + + | Reason | Comments | + + + | Appointment | | + + + Encounter Details +--------+ + + + + | Date | Type | Department | Care Team | Description | +--------+ + + + + | 08/28/ | Telephone | [facility] | Ricardo Nicholson, | Appointment | | 2014 | | [facility] | [address] | | | | | [address] | [place] | | | | | [place] | [address] | | | | | [address] | | | | | | [phone] | | | +--------+ + + + [...]
--- OUTSIDE RECORDS SUMMARY | ~2019-01-31 | XMS | Encounter Summary ---
Demographics + + + | Address | [address] | | | [place] [address] | + + + | Home Phone [...] Organization | [facility] | | | and [...] | | | | | [place] [address] | | + + + + + | Kathi Colton | ECON | Unknown | | + + + + + Care Team Providers + +------+ + | Care Anatomy Teacher Name | Role | Phone | + +------+ + | Ricardo Nicholson MD | PCP | | + +------+ + Encounter Details +--------+ + + + + | Date | Type | Department | Care Team | Description | +--------+ + + + + | 07/07/ | Hospital | [facility] | Ricardo Nicholson, | Abdominal pain, | | 2018 | Encounter | MED CTR XRAY [address] | [address] | unspecified | | | | [place] | [place], [place] | abdominal location | | | | [place] [address] | [address] | | | | | [phone] | | | | | | | [...]
--- OUTSIDE RECORDS SUMMARY | ~2019-01-31 | XMS | Encounter Summary ---
Demographics + + + | Address | [address] | | | [place] [address] | + + + | Home Phone | | + + + | Preferred Language | Unknown | + + + | Marital Status | | + + + | Lutheran Affiliation | 1001 | + + + | Race | Unknown | + + + | Ethnic Group | Unknown | + + + Author + + + | Author | [facility] | | | and [place] | + + + | Organization | [facility] | | | and [place] | + + + | Address | Unknown | + + + | Phone | Unavailable | + + + Support + + + + + | Name | Relationship | Address | Phone | + + + + + | Alexia Black | ECON | [address] | | | | | [place] [address] | | + + + + + | Kathi Segura | ECON | Unknown | | + + + + + Care Team Providers + +------+ + | Care Instructional Technology Facilitator Name | Role | Phone | + [...] Refill | | 2017 | | MEDICINE [place] | [address] | | | | | [address] | [place] | | | | | [place] | [address] | | | | | [address] | | | | | | [phone] | | | +--------+--------+ + + + [...]
--- OUTSIDE RECORDS SUMMARY | ~2019-01-31 | XMS | Encounter Summary ---
Demographics + + + | Address | [address] | | | [place] [address] | + + + | Home Phone [...] | Organization | [facility] | | | and [place] | + + + | Address | Unknown | + + + | Phone | Unavailable | + + + Support + + + + + | Name | Relationship | Address | Phone | + + + + + | Alexia Black | ECON | [address] | | | | | [place] [address] | | + + + + + | Kathi Segura | ECON | Unknown | | + + + + + Care Team Providers + +------+ + | Care Power Switchboard Operator Name | Role | Phone | [...] + + | 06/21/ | Office | [facility] | Deo Cordero, | Contusion of face | | 2012 | Visit | [facility] [place] | DO [address] | (Primary Dx); | | | | [address] | [place] | Conjunctival | | | | [place] | [address] | hemorrhage | | | | [address] | | | | | | [phone] | | | +--------+---------+ + + + [...] ydrocodone. 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 Review of Systems Constitutional: Negative. Eyes: Positive [...]
--- OUTSIDE RECORDS SUMMARY | ~2019-01-31 | XMS | Encounter Summary ---
Demographics + + + | Address | [address] | | | [place] [address] | + + + | Home Phone | | + + + | Preferred Language | Unknown | + + + | Marital Status | | + + + | Zoroastrianism Affiliation | 1001 | + + + | Race | Unknown | + + + | Ethnic Group | Unknown | + + + Author + + + | Author | [facility] | | | and [place] | + + + | Organization | [facility] [...] | | | | | [place] [address] | | + + + + + | Kathi Segura | ECON | Unknown | | + + + + + Care Team Providers + +------+ + | Care Exchange Consultant Name | Role | Phone | [...] Refill | | 2015 | | MEDICINE [place] | [address] | | | | | [address] | [place] | | | | | [place] | [address] | | | | | [address] | | | | | | [phone] | | | +--------+--------+ + + + [...]
--- OUTSIDE RECORDS SUMMARY | ~2019-01-31 | XMS | Encounter Summary ---
Demographics + + + | Address | [address] | | | [place] [address] | + + + | Home Phone [...] Organization | [facility] | | | and [place] | + + + | Address | Unknown | + + + | Phone | Unavailable | + + + Support + + + + + | Name | Relationship | Address | Phone | + + + + + | Alexia Black | ECON | [address] | | | | | [place] [address] | | + + + + + | Kathi Segura | ECON | Unknown | | + + + + + Care Team Providers + +------+ + | Care Operations Welder Name | Role | Phone | + +------+ + | Ricardo Nicholson MD | PCP | | + +------+ + Reason for Visit + + + | Reason | Comments | + + + | Follow-up | Medication follow-up | + + + | Sinusitis | facial pressure | + + + Encounter Details +--------+---------+ + + + | Date | Type | Department | Care Team | Description | +--------+---------+ + + + | 09/13/ | Office | [facility] | Ricardo Nicholson, | Sinusitis, | | 2019 | Visit | MEDICINE [place] | [address] | unspecified | | | | [address] | [place] | chronicity, | | | | [place] | [address] | unspecified location | | | | [address] | | (Primary Dx); | | | | [phone] | | Insomnia, | | | | | | unspecified type | +--------+---------+ + + + Social History [...] + + + | Blood Pressure | 114/82 | 09/13/2018 11:26 AM | | | | | PDT | | + + + + + | Pulse | 65 | 09/13/2018 11:26 AM | | | | | PDT | | + + + + + | Temperature | 36.7 C (98.1 F) | 09/13/2018 11:26 AM | | | | | PDT | | + + + + + | Respiratory Rate | - | - | | + + + + + | Oxygen Saturation | 99% | 09/13/2018 11:26 AM | | | | | PDT | | + + + + + | Inhaled Oxygen | - | - | | | Concentration | | | | + + + + + | Weight | 104.4 kg (230 lb 2.6 | 09/13/2018 11:26 AM | | | | oz) | PDT | | + + + + + | Height | - | - | | + + + + + | Body Mass Index | 35 | 08/06/2016 2:26 PM | | | | | PDT | | + + + + + documented in this encounter Progress Notes Ricardo Nicholson MD - 09/13/2018 10:45 AM PDTFormatting of this note might be different f rom the original. Subjective: Patient ID: Selena Black is a 38 y.o. female. Chief Complaint Patient presents with Follow-up Medication follow-up Sinusitis facial pressure Sinusitis This is a recurrent problem. The current episode started 1 to 4 weeks ago. The problem is u nchanged. There has been no fever. Her pain is at a severity of 3/10. The pain is mild. Asso ciated symptoms include congestion and sinus pressure. Pertinent negatives include no coughi ng, diaphoresis, ear pain, headaches, hoarse voice or shortness of breath. Past treatments i nclude saline sprays. The treatment provided no relief. Mental Health Problem The primary symptoms do not include dysphoric mood, delusions, hallucinations, bizarre beha vior, disorganized speech, negative symptoms or somatic symptoms. Primary symptoms comment: insomnia. sleep latency is ok. has trouble waking up after falling asleep. . This is a ch ronic problem. The degree of incapacity that she is experiencing as a consequence of her illness is modera te. Additional symptoms of the illness do not include headaches. Past Medical History: Diagnosis Date Asthma Feb [...] Aunt Heart disease Maternal Aunt Social History Socioeconomic History Marital status: Spouse name: Not on file Number of children: Not on file Years of education: Not on file Highest education level: Not on file Tobacco Use Smoking status: Former Smoker Last attempt to quit: 12/04/2010 Years since quittin.7 Smokeless tobacco: Former User Substance and Sexual Activity Alcohol use: Yes Alcohol/week: 0.5 oz Types: 1 - 3 Cans of beer per week Comment: social Drug use: No Sexual activity: Yes Partners: Female control/protection: None Review of Systems Constitutional: Negative. Negative for diaphoresis. HENT: Positive for congestion and sinus pressure. Negative for ear pain and hoarse voice. Eyes: Negative. Respiratory: Negative. Negative for cough and shortness of breath. Cardiovascular: Negative. Gastrointestinal: Negative. Genitourinary: Negative. Musculoskeletal: Negative. Skin: Negative. Neurological: Negative. Negative for headaches. Endo/Heme/Allergies: Negative. Psychiatric/Behavioral: Negative. Negative for dysphoric mood and hallucinations. . Objective: BP 114/82 | Pulse 65 | Temp 36.7 C (98.1 F) (Temporal) | Wt 104.4 kg (230 lb 2.6 oz) | SpO2 99% | BMI 35.00 kg/m Physical Exam Constitutional: She is well-developed, [...] not diaphoretic. Psychiatric: Affect normal. Assessment/Plan: 1. Sinusitis, unspecified chronicity, unspecified location 2. Insomnia, unspecified type Requested Prescriptions Signed Prescriptions Disp Refills azithromycin (ZITHROMAX) 500 MG tablet 5 tablet 0 Sig: Take 1 tablet by mouth Daily for 5 days. methylPREDNISolone (MEDROL DOSEPAK) 4 mg tablet 21 tablet 0 Sig: follow package directions omeprazole (PRILOSEC) 20 mg capsule 90 capsule 1 Sig: TAKE ONE CAPSULE BY MOUTH EVERY MORNING BEFORE BREAKFAST. drospirenone-ethinyl estradiol (OCELLA) 3-0.03 mg per tablet 84 tablet 3 Sig: TAKE ONE TABLET BY MOUTH ONE TIME DAILY traZODone (DESYREL) 50 mg tablet 60 tablet 1 Sig: Take 0.25-2 tablets by mouth nightly as needed for Insomnia (take 1/2 to 1 hr before .). New Prescriptions AZITHROMYCIN (ZITHROMAX) 500 MG TABLET Take 1 tablet by mouth Daily for 5 days. METHYLPREDNISOLONE (MEDROL DOSEPAK) 4 MG TABLET follow package directions TRAZODONE (DESYREL) 50 MG TABLET Take 0.25-2 tablets by mouth nightly as needed for Ins omnia (take 1/2 to 1 hr before.). documented in this encounter Plan of Treatment Not on filedocumented as of this encounter Visit Diagnoses + + | Diagnosis | + + | Sinusitis, unspecified chronicity, unspecified location - Primary | + + | Insomnia, unspecified type | + + documented in this encounter"
--- OUTSIDE RECORDS SUMMARY | ~2019-01-31 | XMS | Encounter Summary ---
Demographics + + + | Address | [address] | | | [place] [address] | + + + | Home Phone [...] and Services [facility] | | | and [place] | + + + | Organization | [facility] | [...] | | | | | [place] [address] | | + + + + + | Kathi Segura | ECON | Unknown | | + + + + + Care Team Providers + +------+ + | Care Choker Setter Name | Role | Phone | + [...] + | 04/05/ | Telephone | [facility] | Ricardo Nicholson, | Other | | 2012 | | [facility] | [address] | | | | | [address] | [place] | | | | | [place] | [address] | | | | | [address] | | | | | | [phone] | | | +--------+ + + + [...]
--- OUTSIDE RECORDS SUMMARY | ~2019-01-31 | XMS | Encounter Summary ---
Demographics + + + | Address | [address] | | | [place] [address] | + + + | Home Phone | | + + + | Preferred Language | Unknown | + + + | Marital Status | | + + + | Amish Affiliation | 1001 | + + + | Race | Unknown | + + + | Ethnic Group | Unknown | + + + Author + + + | Author | [facility] | | | and [place] | + + + | Organization | [facility] | [...] | | | | | [place] [address] | | + + + + + | Kathi Colton | ECON | Unknown | | + + + + + Care Team Providers + +------+ + | Care Fine Arts Model Name | Role | Phone | + +------+ + | Ricardo Nicholson MD | PCP | | + +------+ + Encounter Details +--------+ + + + + | Date | Type | Department | Care Team | Description | +--------+ + + + + | 08/16/ | Hospital | [facility] | Ricardo Nicholson, | | | 2009 | Encounter | MED CTR XRAY [address] | [address] | | | | | [place] | [place], [place] | | | | | [place] [address] | [address] | | | | | [phone] | | | +--------+ + + + [...]
--- OUTSIDE RECORDS SUMMARY | ~2019-01-31 | XMS | Encounter Summary ---
Demographics + + + | Address | [address] | | | [place] [address] | + + + | Home Phone [...] + | Organization | [facility] | | | and [...] | | | | | [place] [address] | | + + + + + | Kathi Segura | ECON | Unknown | | + + + + + Care Team Providers + +------+ + | Care Nitrocellulose Operator Name | Role | Phone | [...] Refill | | 2016 | | MEDICINE [place] | [address] | | | | | [address] | [place] | | | | | [place] | [address] | | | | | [address] | | | | | | [phone] | | | +--------+--------+ + + + [...]
--- OUTSIDE RECORDS SUMMARY | ~2019-01-31 | XMS | Encounter Summary ---
Demographics + + + | Address | [address] | | | [place] [address] | + + + | Home Phone [...] | Organization | [facility] | | | and [place] | + + + | Address | Unknown | + + + | Phone | Unavailable | + + + Support + + + + + | Name | Relationship | Address | Phone | + + + + + | Alexia Black | ECON | [address] | | | | | [place] [address] | | + + + + + | Kathi Colton | ECON | Unknown | | + + + + + Care Team Providers + +------+ + | Care Asset Protection Specialist Name | Role | Phone | + +------+ + | Ricardo Nicholson MD | PCP | | + +------+ + Encounter Details +--------+ + + + + | Date | Type | Department | Care Team | Description | +--------+ + + + + | 07/26/ | Hospital | [facility] | Riacrdo Nicholson, | Depression; Routine | | 2014 | Encounter | MED CTR LABORATORY | MD [address] | general medical | | | | [address] [place] | [place], [place] | examination at a | | | | [place], [place] | [address] | health care facility | | | | [address] | | | | | | [phone] | | | +--------+ + + + [...] | | | | at a [facility] | | | | | | facility | | + +--------+ + + + | COMPREHENSIVE | Routin | 07/26/2013 | Routine general | Results for this | | METABOLIC PANEL | e | 10:21 AM | medical examination | procedure are in the | | | | PDT | at [facility] | results section. | | | | [...] + | [facility] | [address] | [place] | [phone] | | [facility] | | [address] | | | - LABORATORY | | | | + + + + + | [facility] | [address] | [place] | | | [facility] | | [address] | | | - LABORATORY | | [...] + | [facility] | [address] | [place], [place] | [phone] | | [facility] | | [address] | | | - LABORATORY | | | | + + + + + | [facility] | [address] | [place], [place] | | | [facility] | | [address] | | | - LABORATORY | | [...] | | | FILTRATION | mL/min/1.73m2 | [facility] | | | [place] | RATE,ESTIMATED | | MEDICAL | | | | mL/min/1.21m0Uuvy than | | CENTER - | | [...] | | | | | mg/dL | [facility] | | | | | [...] + | [facility] | [address] | [place] | [phone] | | [facility] | | [address] | | | - LABORATORY | | | | + + + + + | [facility] | [address] | [place] | | | [facility] | | [address] | | | - LABORATORY | | [...] | samples are screened | uIU/mL | [facility] | | | | using a [...] [address] | [place] | [phone] | | [facility] | | [address] | | | - LABORATORY | | | | + + + + + | [facility] | [address] | [place] | | | [facility] | | [address] | | | - LABORATORY | | | | + + + + + documented in this encounter Visit Diagnoses + + | Diagnosis | + + | Depression Depressive disorder, not elsewhere classified | + + | Routine general medical examination at a health care facility | + + documented in this encounter"
--- OUTSIDE RECORDS SUMMARY | ~2019-01-31 | XMS | Encounter Summary ---
Demographics + + + | Address | [address] | | | [place] [address] | + + + | Home Phone [...] | Organization | [facility] | [...] | | | | | [place] [address] | | + + + + + | Kathi Segura | ECON | Unknown | | + + + + + Care Team Providers + +------+ + | Care School Cafeteria Head Cook Name | Role | Phone | + +------+ + | Ricardo Nicholson MD | PCP | | + +------+ + Encounter Details +--------+ + + + + | Date | Type | Department | Care Team | Description | +--------+ + + + + | 01/07/ | Abstract | [facility] [place] [facility] | Ricardo Nicholson, | | | 2016 | | [facility] | [address] | | | | | [address] | [place] | | | | | [place] | [address] | | | | | [address] | | | | | | [phone] | | | +--------+ + + + [...] 1.005 - 1.03 | | | | [place], | | | | | | External [...]
--- OUTSIDE RECORDS SUMMARY | ~2019-01-31 | XMS | Clinical Summary ---
Demographics + + + | Address | [address] | | | [place] [address] | + + + | Home Phone | | + + + | Preferred Language | Unknown | + + + | Marital Status | | + + + | Adventism Affiliation | 1001 | + + + | Race | Unknown | + + + | Ethnic Group | Unknown | + + + Author + + + | Author | [facility] | | | and [place] | + + + | Organization | [facility] | | | and [...] | | | | | [place] [address] | | + + + + + | Kathi Colton | ECON | Unknown | | + + + + + Care Team Providers + +------+ + | Care Non Garment Sewing Machine Operator Name | Role | Phone | + +------+ + | Ricardo Nicholson MD | PCP | | + +------+ + Allergies No Known Allergies Medications + + + +---------+------+------+-------+ | Medication | Sig | Dispensed | Refills | Star | End | Statu | | | | | | t | Date | s | | | | | | Date | | | + + + +---------+------+------+-------+ | Ibuprofen (ADVIL | TABS | | 0 | 09/1 | | Activ | | PO) | | | | 3/20 | | e | | | | | | 12 | | | + + + +---------+------+------+-------+ | Cetirizine HCl | | | 0 | 09/0 | | Activ | | (ZYRTEC ALLERGY PO) | | | | 6/20 | | e | | | | | | 12 | | | + + + +---------+------+------+-------+ | Multiple | Take by mouth. | | 0 | | | Activ | | Vitamins-Minerals | | | | | | e | | (MULTIVITAMIN & | | | | | | | | MINERAL PO) | | | | | | | + + + +---------+------+------+-------+ | ondansetron | Take one tablet | 6 | 0 | 07/0 | | Activ | | (ZOFRAN ODT) 4 mg | every 4-6 hours as | tablet | | 2/20 | | e | | disintegrating | needed for nausea. | | | 14 | | | | tablet | | | | | | | + + + +---------+------+------+-------+ | | Take by mouth as | | 0 | | | Activ | | Pseudoephedrine-Guai | needed. | | | | | e | | fenesin (MUCINEX D | | | | | | | | PO) | | | | | | | + + + +---------+------+------+-------+ | SUDOGEST 60 MG | Take 1 tablet by | | 2 | 05/0 | | Activ | | tablet | mouth Daily. | | | 8/20 | | e | | | | | | 17 | | | + + + +---------+------+------+-------+ | cyclobenzaprine | 1/2 to one daily prn | 30 | 2 | 09/2 | | Activ | | (FLEXERIL) 10 mg | neck pain | tablet | | /20 | | e | | tablet | | | | 17 | | | + + + +---------+------+------+-------+ | Melatonin 10 MG | Take 1 tablet by | | 0 | | | Activ | | TABS | mouth Daily. | | | | | e | + + + +---------+------+------+-------+ | omeprazole | TAKE ONE CAPSULE BY | 90 | 1 | 07/2 | | Activ | | (PRILOSEC) 20 mg | MOUTH EVERY MORNING | capsule | | 2/20 | | e | | capsule | BEFORE BREAKFAST. | | | 19 | | | + + + +---------+------+------+-------+ | | TAKE ONE TABLET BY | 84 | 3 | 07/2 | | Activ | | drospirenone-ethinyl | MOUTH ONE TIME DAILY | tablet | | 2/20 | | e | | estradiol (OCELLA) | | | | 19 | | | | 3-0.03 mg per tablet | | | | | | | + + + +---------+------+------+-------+ | traZODone | Take 0.25-2 tablets | 60 | 1 | 11/2 | | Activ | | (DESYREL) 50 mg | by mouth nightly as | tablet | | 5/20 | | e | | tablet | needed for Insomnia | | | 19 | | | | | (take 1/2 to 1 hr | | | | | | | | before.). | | | | | | + + + +---------+------+------+-------+ | traZODone | Take 0.25-2 tablets | 60 | 1 | 07/2 | 11/2 | Disco | | (DESYREL) 50 mg | by mouth nightly as | tablet | | 2/20 | 4/20 | ntinu | | tablet | needed for Insomnia | | | 19 | 19 | ed | | | (take 1/2 to 1 hr | | | | | (Reor | | | before.). | | | | | ab) | + + + +---------+------+------+-------+ Active Problems + + + | Problem | Noted Date | + + + | Herpes labialis without complication | 07/09/2017 | + + + | Abdominal pain, other specified site | 03/30/2012 | + + + | Preventative health care | 03/04/2012 | + + + + + | Overview: CRSC:None found | | | | Mammo: None found | | | | Pap: None found | | | + + + + + | OTITIS MEDIA, ACUTE | 10/30/2011 | + + + | ABRASION | 11/20/2010 | + + + | OTHandUNSPEC NONINFECTIOUS GASTROENTERITISandCOLITIS | | + + + | Depression | | + + + Encounters +--------+--------+ + + + | Date | Type | Specialty | Care Team | Description | +--------+--------+ + + + | 01/16/ | Refill | Family Medicine | Ricardo Nicholson, | Medication Refill | | 2019 | | | MD | | +--------+--------+ + + + from Last 3 Months Immunizations + + + + | Name | Administration Dates | Next Due | + + + + | TDAP, (ADOL/ADULT) | 11/20/2010 | | + + + + Family History + + +------+ + | Medical History | Relation | Name | Comments | + + +------+ + | Diabetes | Maternal | | | | | Aunt | | | + + +------+ + | Heart disease | Maternal | | | | | Aunt | | | + + +------+ + | Liver disease | Maternal | | | | | Grandfath | | | | | er | | | + + +------+ + | Diabetes | Maternal | | | | | Grandmoth | | | | | er | | | + + +------+ + | Heart disease | Maternal | | | | | Grandmoth | | | | | er | | | + + +------+ + | Diabetes | Mother | | | + + +------+ + | Heart disease | Mother | | | + + +------+ + + +---------+ + + | Relation | Name | Status | Comments | + +---------+ + + | Father | Unknown | Alive | | + +---------+ + + | Maternal Aunt | | | | + +---------+ + + | Maternal Grandfather | | | | + +---------+ + + | Maternal Grandmother | | | | + +---------+ + + | Mother | | Alive | | + +---------+ + + Social History + +-------+ +--------+ [...] recent travel history available. | + + Last Filed Vital Signs + + + [...] | | + + + + + Plan of Treatment + + + + + | Health Maintenance | Due Date | Last Done | Comments | + + + + + | Vaccine: Influenza | | | | | (#1) | 9 | | | + + + + + | Vaccine: | | 11/20/2010 | | | Dtap/Tdap/Td (2 - | 1 | | | | Td) | | | | + + + + + | Cervical Cancer | | 12/18/2016 | | | Screening (Pap) | 2 | | | + + + + + Results Not on filefrom Last 3 Months Insurance + +--------+ +--------+ +---------+------+ | Payer | Benefi | Subscriber | Effect | Phone | Address | Type | | | t Plan | ID | liz | | | | | | / | | Dates | | | | | | Group | | | | | | + +--------+ +--------+ +---------+------+ | [facility] | PHP | [id number] | 02/23/19 | [phone] | | PPO | | PLAN | PEBB | | 10-Pre | 5 | | | | | STATEW | | sent | | | | | | BENY | | | | | | + +--------+ +--------+ +---------+------+ | [facility] | PHP | [id number] | 02/23/19 | [phone] | | PPO | | PLAN | PEBB | | 18-Pre | 5 | | | | | STATEW | | sent | | | | | | BENY | | | | | | + +--------+ +--------+ +---------+------+ + +--------+ +--------+ + + | Guarantor Name | Accoun | Relation to | Date | Phone | Billing Address | | | t Type | Patient | of | | | | | | | | | | + +--------+ +--------+ + + | Selena Black | Person | Self | [birth year] | [address] | | | al/Fam | | 1981 | [phone] | [place] | | | rima | | | 6 (Home) | [phone] | + +--------+ +--------+ + + Advance Directives + + + + + | Type | Date Recorded | Patient | Explanation | | | | Electrical Assembler | | + + + + + | Power of | | | | | Machine Precision Engraver | | | | + + + + + | Advance | 12/18/2014 | | | | Directive | 9:13 AM | | | + + + + +
--- OUTSIDE RECORDS SUMMARY | ~2019-01-31 | XMS | Encounter Summary ---
Demographics + + + | Address | [address] | | | [place] [address] | + + + | Home Phone | | + + + | Preferred Language | Unknown | + + + | Marital Status | | + + + | Druze Affiliation | 1001 | + + + | Race | Unknown | + + + | Ethnic Group | Unknown | + + + Author + + + | Author | [facility] | | | and [place] | + + + | Organization | [facility] [...] | | | | | [place] [address] | | + + + + + | Kathi Segura | ECON | Unknown | | + + + + + Care Team Providers + +------+ + | Care Planishing Press Operator Name | Role | Phone | [...] + | 04/09/ | Telephone | [facility] | Ricardo Nicholson, | Other | | 2012 | | [facility] | [address] | | | | | [address] | [place] | | | | | [place] | [address] | | | | | [address] | | | | | | [phone] | | | +--------+ + + + [...]
--- OUTSIDE RECORDS SUMMARY | ~2019-01-31 | XMS | Encounter Summary ---
Demographics + + + | Address | [address] | | | [place] [address] | + + + | Home Phone [...] + | Organization | [facility] | | | and [place] | + + + | Address | Unknown | + + + | Phone | Unavailable | + + + Support + + + + + | Name | Relationship | Address | Phone | + + + + + | Alexia Black | ECON | [address] | | | | | [place] [address] | | + + + + + | Kathi Segura | ECON | Unknown | | + + + + + Care Team Providers + +------+ + | Care Coater Helper Name | Role | Phone | [...] + + | 07/14/ | Telephone | [facility] | Ricardo Nicholson, | Medication Refill | | 2015 | | MEDICINE [place] | [address] | | | | | [address] | [place] | | | | | [place] | [address] | | | | | [address] | | | | | | [phone] | | | +--------+ + + + [...]
--- OUTSIDE RECORDS SUMMARY | ~2019-01-31 | XMS | Encounter Summary ---
Demographics + + + | Address | [address] | | | [place] [address] | + + + | Home Phone [...] | Organization | [facility] | [...] | | | | | [place] [address] | | + + + + + | Kathi Segura | ECON | Unknown | | + + + + + Care Team Providers + +------+ + | Care Retail Pharmacy Technician Name | Role | Phone | [...] + + | 01/19/ | Telephone | [facility] | Ricardo Nicholson, | Migraine | | 2012 | | MEDICINE [place] | [address] | | | | | [address] | [place] | | | | | [place] | [address] | | | | | [address] | | | | | | [phone] | | | +--------+ + + + [...]
--- OUTSIDE RECORDS SUMMARY | ~2019-01-31 | XMS | Encounter Summary ---
Demographics + + + | Address | [address] | | | [place] [address] | + + + | Home Phone [...] Organization | [facility] | [...] | | | | | [place] [address] | | + + + + + | Kathi Colton | ECON | Unknown | | + + + + + Care Team Providers + +------+ + | Care Caustic Plant Worker Name | Role | Phone | + +------+ + | Ricardo Nicholson MD | PCP | | + +------+ + Encounter Details +--------+ + + + + | Date | Type | Department | Care Team | Description | +--------+ + + + + | 12/18/ | Hospital | [facility] | Ricardo Nicholson, | Routine general | | 2015 | Encounter | MED CTR LABORATORY | MD [address] | medical examination | | | | [address] [place] | [place], [place] | at health care | | | | [place], [place] | [address] | facility | | | | [address] | | | | | | [phone] | | | +--------+ + + + [...] | | take 1 tablet by | 112 | 2 | 12/19/19 | | | drospirenone-ethinyl | mouth once daily | tablet | | 15 | 6 | | estradiol (ANGELLA) | | | | | | | 3-0.03 mg per tablet | | | | | | + + + +---------+ + + | levothyroxine | take 1 tablet by | 30 | 0 | 07/15/19 | | | (SYNTHROID, | mouth daily | tablet | | 15 | 6 | | LEVOTHROID) 75 MCG | | [...] + | LIPID PANEL | Routin | 12/18/2014 | Routine general | Results for this | | | e | 9:22 AM | medical examination | procedure are in the | | | | PDT | at a health [facility] | results section. | | | | | facility | | + +--------+ + + + | CBC WITH | Routin | 12/18/2014 | Routine general | Results for this | | DIFFERENTIAL | e | 9:22 AM | medical examination | procedure are in the | | | | PDT | at a health care | results section. | | | | | facility | | + +--------+ + + + | TSH | Routin | 12/18/2014 | Routine general | Results for this | | | e | 9:22 AM | medical examination | procedure are in the | | | | PDT | at a health care | results section. | | | | | facility | | + +--------+ + + + | T4, FREE | Routin | 12/18/2014 | Routine general | Results for this | | | e | 9:22 AM | medical examination | procedure are in the | | | | PDT | at a health care | results section. | | | | | facility | | + +--------+ + + + | COMPREHENSIVE | Routin | 12/18/2014 | Routine general | Results for this | | METABOLIC PANEL | e | 9:22 AM | medical examination | procedure are in the | | | | PDT | at a health care | results section. | | | | | facility | | + +--------+ + + + documented in this encounter Results T4, Free (12/18/2014 9:22 [...] + | [facility] | [address] | [place] | [phone] | | [facility] | | [address] | | | - LABORATORY | | [...] [address] | [place] | [phone] | | [facility] | | [address] | | | - LABORATORY | | [...] [address] | [place] | [phone] | | [facility] | | [address] | | | - LABORATORY | | [...] not | >60Comment: GLOMERULAR | >=60 | [facility] | | | | FILTRATION | mL/min/1.73m2 | [facility] | | | CYMRO | RATE,ESTIMATED | | MEDICAL | | | | mL/min/1.49k8Uchk than | | CENTER - | | [...] [address] | [place] | [phone] | | [facility] | | [address] | | | - LABORATORY | | [...] HDL | 28 - 83 mg/dL | [facility] | | | | Reference Range as [...] [address] | [place] | [phone] | | [facility] | | [address] | | | - LABORATORY | | | | + + + + + documented in this encounter Visit Diagnoses + + | Diagnosis | + + | Routine general medical examination at a health care facility | + + documented in this encounter"
--- OUTSIDE RECORDS SUMMARY | ~2019-01-31 | XMS | Encounter Summary ---
Demographics + + + | Address | [address] | | | [place] [address] | + + + | Home Phone | | + + + | Preferred Language | Unknown | + + + | Marital Status | | + + + | Nondenominational Affiliation | 1001 | + + + | Race | Unknown | + + + | Ethnic Group | Unknown | + + + Author + + + | Author | [facility] | | | and [place] | + + + | Organization | [facility] | | [...] | | | | | [place] [address] | | + + + + + | Kathi Colton | ECON | Unknown | | + + + + + Care Team Providers + +------+ + | Care Optical Laboratory Manager Name | Role | Phone | + +------+ + | Ricardo Nicholson MD | PCP | | + +------+ + Encounter Details +--------+ + + + + | Date | Type | Department | Care Team | Description | +--------+ + + + + | 07/02/ | Hospital | [facility] | Bharat Ricardo Mavis, | Left upper quadrant | | 2016 | Encounter | MED CTR [facility] | [address] | pain; Constipation, | | | | [address] [place] | [place], [place] | unspecified | | | | [place], [place] | [address] | constipation type; | | | | [address] | | Bloated abdomen | | | | [phone] | | | +--------+ + + + [...] + + | [facility] | [address] | [place] | [phone] | | [facility] | | [address] | | | - IMAGING | | [...]
--- OUTSIDE RECORDS SUMMARY | ~2019-01-31 | XMS | Encounter Summary ---
Demographics + + + | Address | [address] | | | [place] [address] | + + + | Home Phone | | + + + | Preferred Language | Unknown | + + + | Marital Status | | + + + | Faith Affiliation | 1001 | + + + | Race | Unknown | + + + | Ethnic Group | Unknown | + + + Author + + + | Author | [facility] | | | and [place] | + + + | Organization | [facility] | | | and [...] | | | | | [place] [address] | | + + + + + | Kathi Segura | ECON | Unknown | | + + + + + Care Team Providers + +------+ + | Care Manager Employment Name | Role | Phone | + [...] Refill | | 2019 | | [facility] [place] | [address] | | | | | [address] | [place] | | | | | [place] | [address] | | | | | [address] | | | | | | [phone] | | | +--------+--------+ + + + [...]
--- OUTSIDE RECORDS SUMMARY | ~2019-01-31 | XMS | Encounter Summary ---
Demographics + + + | Address | [address] | | | [place] [address] | + + + | Home Phone [...] Organization | [facility] | | | and [place] | + + + | Address | Unknown | + + + | Phone | Unavailable | + + + Support + + + + + | Name | Relationship | Address | Phone | + + + + + | Alexia Black | ECON | [address] | | | | | [place] [address] | | + + + + + | Kathi Colton | ECON | Unknown | | + + + + + Care Team Providers + +------+ + | Care Cement Tile Maker Name | Role | Phone | + +------+ + PCP | Unavailable | + +------+ + Encounter Details +--------+ + + + + | Date | Type | Department | Care Team | Description | +--------+ + + + + | 02/21/ | Hospital | [facility] | | | | 1999 | Encounter | MED CTR EMERGENCY | | | | | | CENTER [address] | | | | | | [place] | | | | | | [address] | | | | | | [phone] | | | +--------+ + + + [...]
--- OUTSIDE RECORDS SUMMARY | ~2019-01-31 | XMS | Encounter Summary ---
Demographics + + + | Address | [address] | | | [place] [address] | + + + | Home Phone | | + + + | Preferred Language | Unknown | + + + | Marital Status | | + + + | Catholic Affiliation | 1001 | + + + | Race | Unknown | + + + | Ethnic Group | Unknown | + + + Author + + + | Author | [facility] | | | and [place] | + + + | Organization | [facility] [...] | | | | | [place] [address] | | + + + + + | Kathi Segura | ECON | Unknown | | + + + + + Care Team Providers + +------+ + | Care Banbury Machine Operator Name | Role | Phone [...] Description | +--------+--------+ + + + | 08/20/ | Refill | [facility] | Ricardo Nicholson, | Medication Refill | | 2016 | | [facility] [place] | [address] | | | | | [address] | [place] | | | | | [place] | [address] | | | | | [address] | | | | | | [phone] | | | +--------+--------+ + + + [...]
--- OUTSIDE RECORDS SUMMARY | ~2019-01-31 | XMS | Encounter Summary ---
Demographics + + + | Address | [address] | | | [place] [address] | + + + | Home Phone [...] | Organization | [facility] | [...] | | | | | [place] [address] | | + + + + + | Kathi Colton | ECON | Unknown | | + + + + + Care Team Providers + +------+ + | Care Change Agent Name | Role | Phone | + +------+ + | Ricardo Nicholson MD | PCP | | + +------+ + Encounter Details +--------+ + + + + | Date | Type | Department | Care Team | Description | +--------+ + + + + | 05/07/ | Hospital | [facility] | Macedo, Clifford Jha, | | | 2012 | Encounter | MED CTR MP INTRA OP | MD [address] | | | | | [address] | [address] [place], | | | | | [place], [place] | [place] [address] | | | | | [address] | [phone] | | | | | [phone] | | | +--------+ + + + [...]
--- OUTSIDE RECORDS SUMMARY | ~2019-01-31 | XMS | Encounter Summary ---
Demographics + + + | Address | [address] | | | [place] [address] | + + + | Home Phone [...] | Organization | [facility] | | | and [...] | | | | | [place] [address] | | + + + + + | Kathi Colton | ECON | Unknown | | + + + + + Care Team Providers + +------+ + | Care Clinical Account Specialist Name | Role | Phone | + +------+ + PCP | Unavailable | + +------+ + Encounter Details +--------+ + + + + | Date | Type | Department | Care Team | Description | +--------+ + + + + | 03/31/ | Hospital | [facility] | | | | 1997 | Encounter | MED CTR EMERGENCY | | | | | | CENTER [address] | | | | | | [place] | | | | | | [address] | | | | | | [phone] | | | +--------+ + + + [...]
--- OUTSIDE RECORDS SUMMARY | ~2019-01-31 | XMS | Encounter Summary ---
Demographics + + + | Address | [address] | | | [place] [address] | + + + | Home Phone [...] | Organization | [facility] | | | and [place] | + + + | Address | Unknown | + + + | Phone | Unavailable | + + + Support + + + + + | Name | Relationship | Address | Phone | + + + + + | Alexia Black | ECON | [address] | | | | | [place] [address] | | + + + + + | Kathi Segura | ECON | Unknown | | + + + + + Care Team Providers + +------+ + | Care Waiter/Waitress Cabin Class Name | Role | Phone | + [...] | +--------+ + + + + | 10/10/ | Patient | [facility] [place] [facility] | Ricardo Nicholson, | Preventive | | 2017 | Outreach | [facility] | [address] | Screening, Cervical | | | | [address] | [place], [place] | Cancer Screening | | | | [place], [place] | [address] | | | | | [address] | | | | | | [phone] | | | +--------+ + + + [...]
--- OUTSIDE RECORDS SUMMARY | ~2019-01-31 | XMS | Encounter Summary ---
Demographics + + + | Address | [address] | | | [place] [address] | + + + | Home Phone | | + + + | Preferred Language | Unknown | + + + | Marital Status | | + + + | Jainism Affiliation | 1001 | + + + | Race | Unknown | + + + | Ethnic Group | Unknown | + + + Author + + + | Author | [facility] | | | and [place] | + + + | Organization | [facility] | | | and [place] | + + + | Address | Unknown | + + + | Phone | Unavailable | + + + Support + + + + + | Name | Relationship | Address | Phone | + + + + + | Alexia Black | ECON | [address] | | | | | [place] [address] | | + + + + + | Kathi Segura | ECON | Unknown | | + + + + + Care Team Providers + +------+ + | Care Loss Prevention/Safety District Manager Name | Role | Phone | [...] Description | +--------+--------+ + + + | 12/24/ | Refill | [facility] | Ricardo Nicholson, | Medication Refill | | 2012 | | [facility] [place] | [address] | | | | | [address] | [place] | | | | | [place] | [address] | | | | | [address] | | | | | | [phone] | | | +--------+--------+ + + + [...]
--- OUTSIDE RECORDS SUMMARY | ~2019-01-31 | XMS | Encounter Summary ---
Demographics + + + | Address | [address] | | | [place] [address] | + + + | Home Phone | | + + + | Preferred Language | Unknown | + + + | Marital Status | | + + + | Tenriism Affiliation | 1001 | + + + | Race | Unknown | + + + | Ethnic Group | Unknown | + + + Author + + + | Author | [facility] | | | and [place] | + + + | Organization | [facility] | | | and [...] | | | | | [place] [address] | | + + + + + | Kathi Segura | ECON | Unknown | | + + + + + Care Team Providers + +------+ + | Care Mainspring Fabrication Supervisor Name | Role | Phone | [...] + + | 10/01/ | Office | [facility] | Ricardo Nicholson, | Depression (Primary | | 2013 | Visit | [facility] [place] | [address] | Dx) | | | | [address] | [place] | | | | | [place] | [address] | | | | | [address] | | | | | | [phone] | | | +--------+---------+ + + + [...]
--- OUTSIDE RECORDS SUMMARY | ~2019-01-31 | XMS | Encounter Summary ---
Demographics + + + | Address | [address] | | | [place] [address] | + + + | Home Phone [...] | Organization | [facility] | | | and [...] | | | | | [place] [address] | | + + + + + | Kahti Segura | ECON | Unknown | | + + + + + Care Team Providers + +------+ + | Care Wafer Fabricator Name | Role | Phone | + +------+ + | Ricardo Nicholson MD | PCP | | + +------+ + Encounter Details +--------+ + + + + | Date | Type | Department | Care Team | Description | +--------+ + + + + | 11/05/ | Abstract | [facility] | DATA MIGRATION [facility]ANIEL | | | 2011 | | Conversion Location | SR | | | | | [phone] | | | +--------+ + + + [...] + + + | Blood Pressure | 127/87 | 10/30/2011 12:00 AM | | | | | PDT | | + + + + + | Pulse | - | - | | + [...] + + + + | Weight | 116.6 kg (257 lb 1.6 | 10/30/2011 12:00 AM | | | | oz) | PDT | | + + + + + | Height | 172.7 cm (5' 8") | 06/08/2009 12:00 AM | | | | | PDT | | + + + + + | Body Mass Index | 39.09 | 06/08/2009 12:00 AM | | | | | PDT | | + + + + + documented in this encounter Plan of Treatment Not on filedocumented as of this encounter Visit Diagnoses Not on filedocumented in this encounter
--- OUTSIDE RECORDS SUMMARY | ~2019-01-31 | XMS | Encounter Summary ---
Demographics + + + | Address | [address] | | | [place] [address] | + + + | Home Phone | | + + + | Preferred Language | Unknown | + + + | Marital Status | | + + + | Moravian Affiliation | 1001 | + + + | Race | Unknown | + + + | Ethnic Group | Unknown | + + + Author + + + | Author | [facility] | | | and [place] | + + + | Organization | [facility] | | | and [...] | | | | | [place] [address] | | + + + + + | Kathi Segura | ECON | Unknown | | + + + + + Care Team Providers + +------+ + | Care Heel Lift Gouger Name | Role | Phone | + [...] Description | +--------+--------+ + + + | 06/08/ | Refill | [facility] | Ricardo Nicholson, | Medication Refill | | 2012 | | [facility] [place] | [address] | | | | | [address] | [place] | | | | | [place] | [address] | | | | | [address] | | | | | | [phone] | | | +--------+--------+ + + + [...]
--- OUTSIDE RECORDS SUMMARY | ~2019-01-31 | XMS | Encounter Summary ---
Demographics + + + | Address | [address] | | | [place] [address] | + + + | Home Phone | | + + + | Preferred Language | Unknown | + + + | Marital Status | | + + + | Restoration Affiliation | 1001 | + + + | Race | Unknown | + + + | Ethnic Group | Unknown | + + + Author + + + | Author | [facility] | | | and [place] | + + + | Organization | [facility] | | | and [place] | + + + | Address | Unknown | + + + | Phone | Unavailable | + + + Support + + + + + | Name | Relationship | Address | Phone | + + + + + | Alexia Black | ECON | [address] | | | | | [place] [address] | | + + + + + | Kathi Colton | ECON | Unknown | | + + + + + Care Team Providers + +------+ + | Care Vamp Creaser Name | Role | Phone | + +------+ + PCP | Unavailable | + +------+ + Encounter Details +--------+ + + + + | Date | Type | Department | Care Team | Description | +--------+ + + + + | 02/21/ | Hospital | [facility] | | | | 1999 | Encounter | [facility] | | | | | | CENTER [address] | | | | | | [place] | | | | | | [address] | | | | | | [phone] | | | +--------+ + + + [...]
--- OUTSIDE RECORDS SUMMARY | ~2019-01-31 | XMS | Encounter Summary ---
Demographics + + + | Address | [address] | | | [place] [address] | + + + | Home Phone | | + + + | Preferred Language | Unknown | + + + | Marital Status | | + + + | Worship Affiliation | 1001 | + + + | Race | Unknown | + + + | Ethnic Group | Unknown | + + + Author + + + | Author | [facility] | | | and [place] | + + + | Organization | [facility] | [...] | | | | | [place] [address] | | + + + + + | Kathi Segura | ECON | Unknown | | + + + + + Care Team Providers + +------+ + | Care Bookkeeping Machine Mechanic Name | Role | Phone | [...] | | 2017 | | MEDIC[facility] [place] | [address] | | | | | [address] | [place] | | | | | [place] | [address] | | | | | [address] | | | | | | [phone] | | | +--------+--------+ + + + [...]
--- OUTSIDE RECORDS SUMMARY | ~2019-01-31 | XMS | Encounter Summary ---
Demographics + + + | Address | [address] | | | [place] [address] | + + + | Home Phone [...] | Organization | [facility] | | | and [place] | + + + | Address | Unknown | + + + | Phone | Unavailable | + + + Support + + + + + | Name | Relationship | Address | Phone | + + + + + | Alexia Black | ECON | [address] | | | | | [place] [address] | | + + + + + | Kathi Colton | ECON | Unknown | | + + + + + Care Team Providers + +------+ + | Care Ios Software Engineer Name | Role | Phone | + +------+ + | Ricardo Nicholson MD | PCP | | + +------+ + Reason for Visit +--------+ + | Reason | Comments | +--------+ + | Cough | room 3/sinus pressure,pressure in jaw | +--------+ + Encounter Details +--------+---------+ + + + | Date | Type | Department | Care Team | Description | +--------+---------+ + + + | 04/01/ | Office | [facility] | Girish Simpson MD | Sinusitis (Primary | | 2014 | Visit | CARE [address] | [address] | Dx) | | | | [place] | [place] | | | | | [address] | [address] | | | | | [phone] | | | +--------+---------+ + + + [...] + + + | Blood Pressure | 137/84 | 04/01/2014 8:16 AM | | | | | PST | | + + + + + | Pulse | 70 | 04/01/2014 8:16 AM | | | | | PST | | + + + + + | Temperature | 36.7 C (98.1 F) | 04/01/2014 8:16 AM | | | | | PST | | + + + + + | Respiratory Rate | 16 | 04/01/2014 8:16 AM | | | | | PST | | + + + + + | Oxygen Saturation | 96% | 04/01/2014 8:16 AM | | | | | PST | | + + + + + | Inhaled Oxygen | - | - | | | Concentration | | | | + + + + + | Weight | 106.4 kg (234 lb 9.6 | 04/01/2014 8:16 AM | | | | oz) | PST | | + + + + + | Height | - | - | | + + + + + | Body Mass Index | 35.67 | 01/08/2014 8:08 AM | | | | | PST | | + + + + + documented in this encounter Patient Instructions Patient Instructions Girish Simpson MD - 04/01/2014 8:39 AM PSTFormatting of this note mi tjt be different from the original. Acute Sinusitis Acute sinusitis is inflammation (irritation and swelling) of the sinuses. It is usually due to a viral infection of the sinuses, although bacteria may be involved in prolonged cases. This may follow a cold or other upper respiratory illness. Your doctor can help you find rel ief. Read on to learn more. What is acute sinusitis? Sinuses are air-filled spaces in the skull behind the face. They are kept moist and clean b y a lining of mucosa. Things such as pollen, smoke, and chemical fumes can irritate the muco sa. It can then become inflamed (swell up). As a response to irritation, the mucosa makes mo re mucus and other fluids. Tiny hairlike cilia cover the mucosa. Cilia help transport mucus toward the opening of the sinus. Too much mucus may cause the cilia to stop working. This bl ocks the sinus opening. A buildup of fluid in the sinuses then leads to symptoms such as franchesca n and pressure. It can also encourage growth of bacteria in the sinuses. Common symptoms of acute sinusitis You may have: Facial pain Headache Fever Postnasal drip Nasal congestion Redness of facial skin over sinus Diagnosis of acute sinusitis The doctor will ask about your symptoms and medical history. An evaluation will be done. A culture (sample of mucus) is sometimes taken to check for bacteria. If you have multiple alvin ts of sinusitis, imaging (X-rays or CAT scans) may be done to check for an anatomic cause of the infection. Treatment of acute sinusitis Treatment is designed to unblock the sinus opening and help the cilia work again. Antihista mine and decongestant medications may be prescribed. These can reduce inflammation and decre ase fluid production. If a bacterial infection is present, it can be treated with antibiotic medication. This medication should be taken until it is gone, even if you feel better. Ojeda natalie, most sinusitis is caused by viruses, antibiotics will not help a viral infection. 9743-4457 [employer] [facility]. [address] [place] [address], [place] [address]. All righ ts reserved. This information is not intended as a substitute for professional medical care. Always follow your healthcare professional's instructions. Understanding Your Sinuses Your sinuses are air-filled spaces between the bones in your head. They have small openings that connect to the nasal cavity. The sinuses make mucus that drains into the nose. This he lps keep the nose moist and free of dust and germs. Parts of the nasal cavnity The septum is the wall of cartilage and bone in the center of the nasal cavity. The middle meatus is the intersection between the sinuses. Turbinates are ridges on the sides of the nasal cavity. Cilia keep sinuses clear Air circulates freely though healthy sinuses. Tiny, hairlike structures called cilia line t he sinuses. Cilia move the thin, watery mucus through the sinuses and into the nose. Sinuses are healthy when they drain freely. Sinus drainage can be blocked if the sinus lining is sw ollen or if mucus is too thick. Cilia that are damaged or don t work correctly can also le ad to problems with drainage. 4877-3835 [employer] [facility]. [address] [place] [address]. All righ ts reserved. This information is not intended as a substitute for professional medical care. Always follow your healthcare professional's instructions. Understanding Sinus Problems You don t often think about your sinuses until there s a problem. One day you realize y ou can t smell dinner cooking. Or you find you often have problems breathing through your nose. Symptoms of sinus problems Sinus problems can cause uncomfortable symptoms. Your nose may run constantly. You might quinn ve trouble sleeping at night. You may even lose your sense of smell. Other symptoms can incl ude: Nasal congestion Fullness in ears Green, yellow, or bloody drainage from the nose Trouble tasting food Frequent headaches Facial pain Cough When sinuses are blocked If something blocks the passages in the nose or sinuses, mucus can t drain. Mucus-filled sinuses often become infected. Colds cause the lining of the nose and sinuses to swell and make extra mucus. A buildup of mucus can lead to a more serious infection. Allergies irritate turbinates and other tissues. This causes swelling, which can cause a blockage. Over time, this irritation can also lead to polyps. Polyps (sacs of swollen tissue) may form in both the sinuses and nose. Polyps can grow l arge enough to clog nasal passages and block drainage. A deviated (crooked) septum may block nasal passages. This is often the result of an inj ury. [facility] [employer]. [address] [place] [address]. All righ ts reserved. This information is not intended as a substitute for professional medical care. Always follow your healthcare professional's instructions. Self-Care for Sinusitis Sinusitis can often be managed with self-care. Self-care can keep sinuses moist and make yo u feel more comfortable. Remember to follow your doctor's instructions closely, which can ma ke a big difference in getting your sinus problem under control. Drink fluids Drinking extra fluids a glass every hour or two helps thin your mucus, allowing it to drain from your sinuses more easily. A humidifier helps in much the same way. Fluids can also offset the drying effects of certain drugs. Use saltwater rinses Rinses help keep your sinuses and nose moist. Mix a teaspoon of salt in 8 ounces of fresh, warm water. Use a bulb syringe to gently squirt the water into your nose a few times a day. You can also buy ready-made saline nasal sprays. Medications Your doctor may prescribe medications to help treat your sinusitis. If you have an infectio n, antibiotics can help clear it up. If you are prescribed antibiotics, take all pills on sc hedule until they are gone, even if you feel better. Decongestants help relieve swelling. Us e decongestant sprays for short periods only under the direction of your doctor. If you have allergies, your doctor may prescribe medications to help relieve them. Apply hot or cold packs Applying heat to the area surrounding your sinuses may make you feel more comfortable. Use a hot water bottle or a hand towel dipped in hot water. Some people also find ice packs effe ctive for relieving pain. [employer] [facility]. [address] [place] [address]. All righ ts reserved. This information is not intended as a substitute for professional medical care. Always follow your healthcare professional's instructions. Preventing Sinusitis Colds, flu, and allergies can lead more easily to sinusitis. Do your best to prevent sinusi tis by preventing these underlying problems. Do what you can to avoid getting colds and othe r infections. Avoid any allergens (substances that cause allergies), and keep your sinuses a s moist as possible. Tips for air travel When traveling on an airplane, use saline nasal spray to keep your sinuses moist. Drink ple nty of fluids. You may also want to take a decongestant before boarding. Prevent colds Do what you can to avoid exposure to colds and flu. Whenever possible, take more time to re st when you feel something coming on. Wash your hands frequently, especially during cold and flu season. As much as possible, stay away from infected people. Follow these standbys for beating the bugs : eat balanced meals, exercise regularly , and get plenty of sleep. Avoid allergens First, find out what substances you re allergic to. Then, take steps to minimize exposure to allergens or irritants in the air such as dust, pollution, and pollen. Wear a mask when you clean, or consider hiring a cattle alley worker to help minimize your expo sure to dust. Sit in the nonsmoking sections of restaurants. Avoid the outdoors during peak pollution hours such as miller hour. Keep an air conditioner on during allergy season and clean its filter regularly. Maximize moisture Keeping your sinuses moist makes your mucus thinner, allowing your sinuses to drain better. This, in turn, helps prevent infection. Ask your doctor about these suggestions: Use a humidifier, regularly cleaning out any mold or mildew in the reservoir. Drink several glasses of water a day. Avoid drying substances such as alcohol and coffee. Avoid smoke, which dries out sinus linings. Use saltwater rinses. 9468-7684 [facility]. [address] [place] [address]. All righ ts reserved. This information is not intended as a substitute for professional medical care. Always follow your healthcare professional's instructions. documented in this encounter Progress Notes Girish Simpson MD - 04/01/2014 8:29 AM PST Subjective: Patient ID: Selena Black is a 33 y.o. female. Past several days of increasing facial p ressure and congestion. Pressure is more in the left maxillary area. Past history sinusiti s and perennial allergic rhinitis. Cough is nonproductive. No myalgia or fever. HPI Patient's medications, allergies, past medical, surgical, social and family histories were reviewed and updated as appropriate. Review of Systems negative otherwise Objective: Physical Exam Constitutional: She appears well-developed and well-nourished. No distress. HENT: Right Ear: Tympanic membrane normal. Left Ear: Tympanic membrane normal. Nose: Mucosal edema and rhinorrhea present. Right sinus exhibits maxillary sinus tenderness . Right sinus exhibits no frontal sinus tenderness. Left sinus exhibits maxillary sinus tend erness. Left sinus exhibits no frontal sinus tenderness. Mouth/Throat: Posterior oropharyngeal erythema (mild postnasal drainage) present. Cardiovascular: Normal rate and normal heart sounds. Pulmonary/Chest: Effort normal and breath sounds normal. Lymphadenopathy: She has no cervical adenopathy. Assessment: Acute sinusitis Plan: Augmentin 875 mg twice a day 10 days. Has a [place] pot and regular use of antihistamines . documented in this enc ounter Plan of Treatment Not on filedocumented as of this encounter Visit Diagnoses + + | Diagnosis | + + | Sinusitis - Primary Unspecified sinusitis (chronic) | + + documented in this encounter"
--- OUTSIDE RECORDS SUMMARY | ~2019-01-31 | XMS | Encounter Summary ---
Demographics + + + | Address | [address] | | | [place] [address] | + + + | Home Phone | | + + + | Preferred Language | Unknown | + + + | Marital Status | | + + + | Latter Day Affiliation | 1001 | + + + | Race | Unknown | + + + | Ethnic Group | Unknown | + + + Author + + + | Author | [facility] | | | and [place] | + + + | Organization | [facility] | | | and [place] | + + + | Address | Unknown | + + + | Phone | Unavailable | + + + Support + + + + + | Name | Relationship | Address | Phone | + + + + + | Alexia Black | ECON | [address] | | | | | [place] [address] | | + + + + + | Kathi Segura | ECON | Unknown | | + + + + + Care Team Providers + +------+ + | Care Academic Counselor Name | Role | Phone | + [...] + + | 04/12/ | Office | [facility] | Blake Zhang, | Abdominal pain | | 2013 | Visit | SURGERY [address] | [address], | (Primary Dx); | | | | [place], [place] | [address], | [facility] | | | | [address] | [place] [address] | | | | | [phone] | [phone] | | | | | | | [...]
--- OUTSIDE RECORDS SUMMARY | ~2019-01-31 | XMS | Encounter Summary ---
Demographics + + + | Address | [address] | | | [place] [address] | + + + | Home Phone | | + + + | Preferred Language | Unknown | + + + | Marital Status | | + + + | Orthodoxy Affiliation | 1001 | + + + | Race | Unknown | + + + | Ethnic Group | Unknown | + + + Author + + + | Author | [facility] | | | and [place] | + + + | Organization | [facility] | | [...] | | | | | [place] [address] | | + + + + + | Kathi Segura | ECON | Unknown | | + + + + + Care Team Providers + +------+ + | Care President And Chief Executive Officer Name | Role | Phone | [...] | | | | | | [place] [address] | | | | | | | Phone: | | | | | | | [phone] | | | | | | | Fax: | | | | | | | [phone] | | +--------+ + + + + [...] | | | | | | [place] [address] | [place], [place] | | | | | | Phone: | [address] | | | | | | [phone] | Phone: | | | | | | Fax: | [phone] | | | | | | [phone] | Fax: | | | | | | | [phone] | +--------+ + + + + + [...] pain | MD [address] [employer] | | | | | Procedures | [address] | [address] [place] | | | | | [place] | [place], | [place], [place] | | | | | Hepatobiliar | [place] [address] | [address] | | | | | y laina KUHN | Phone: | Phone: | | | | | | [phone] | | | | | | | Fax: | Fax: | | | | | | [phone] | [phone] | +--------+--------+ + + + + Reason [...] | | 2012 | Visit | [facility] [place] | [address] | (Primary Dx); Foot | | | | [address] | [place], [place] | pain; Abdominal | | | | [place], [place] | [address] | pain, other | | | | [address] | | specified site | | | | [phone] | | | +--------+---------+ + + + [...] Performed At | + + + | [facility] | [place] | | Department [facility] | [facility] | | [ rep ct [address]] [ rep [facility] | | st zip] Signed | - IMAGING | | | | | Patient Name: LYLE ASCENCIO Physician: | | | SAM : 1980 Age: 31 Sex: F Unit #: [id number] | | | Exam Date: 03/31/12 [place] [facility] [place] | | | Report #: [id number] Page: | | | %(RAD)RES..mtdd.print.filter("pg") of %(RAD) | | | RES..mtdd.print.filter("tpg") | | | | | | Accession Number: [id number] | | | NUCLEAR HEPATOBILIARY SCAN, 03/31/2012 [...] Transcribed Date/Time: | | | 03/31/2012 11:08 Post Office Markup Clerk: | | | <<Signature on File>> | | | Erasmo Welch | | | MD Willie03/31/12 1233 <Electronically signed by Erasmo Tapia MD> | | | Erasmo Tapia MD 03/31/12 1049 Post Office Markup Clerk: | | | [email or web address] Ricardo Nicholson MD | | | | | + + + + + + + + | Performing | Address | City/State/Zipcode | Phone Number | | Organization | | | | + + + + + | [facility] [facility] | [address] | [place] | [phone] | | [facility] | | [address] | | | - IMAGING | | [...]
--- OUTSIDE RECORDS SUMMARY | ~2019-01-31 | XMS | Encounter Summary ---
Demographics + + + | Address | [address] | | | [place] [address] | + + + | Home Phone | | + + + | Preferred Language | Unknown | + + + | Marital Status | | + + + | Alevism Affiliation | 1001 | + + + | Race | Unknown | + + + | Ethnic Group | Unknown | + + + Author + + + | Author | [facility] | | | and [place] | + + + | Organization | [facility] | [...] | | | | | [place] [address] | | + + + + + | Kathi Segura | ECON | Unknown | | + + + + + Care Team Providers + +------+ + | Care Shoeblack Name | Role | Phone | + [...] + | 08/26/ | Refill | [facility] | Ricardo Nicholson, | Medication Refill | | 2014 | | MEDICINE [place] | [address] | | | | | [address] | [place] | | | | | [place] | [address] | | | | | [address] | | | | | | [phone] | | | +--------+--------+ + + + [...]
--- OUTSIDE RECORDS SUMMARY | ~2019-01-31 | XMS | Encounter Summary ---
Demographics + + + | Address | [address] | | | [place] [address] | + + + | Home Phone [...] Organization | [facility] | | [...] | | | | | [place] [address] | | + + + + + | Kathi Segura | ECON | Unknown | | + + + + + Care Team Providers + +------+ + | Care Staffing Mgr Name | Role | Phone | + [...] + + | 08/28/ | Telephone | [facility] | Ricardo Nicholson, | Appointment | | 2014 | | [facility] | [address] | | | | | [address] | [place] | | | | | [place] | [address] | | | | | [address] | | | | | | [phone] | | | +--------+ + + + [...]
--- OUTSIDE RECORDS SUMMARY | ~2019-01-31 | XMS | Encounter Summary ---
Demographics + + + | Address | [address] | | | [place] [address] | + + + | Home Phone [...] | Organization | [facility] | | | and [...] | | | | | [place] [address] | | + + + + + | Kathi Segura | ECON | Unknown | | + + + + + Care Team Providers + +------+ + | Care Fire Prevention Captain Name | Role | Phone | + +------+ + | Ricardo Nicholson MD | PCP | | + +------+ + Reason for Visit + + + | Reason | Comments | + + + | Follow-up | Follow up on abdominal pain and gallbledder questions | + + + Encounter Details +--------+---------+ + + + | Date | Type | Department | Care Team | Description | +--------+---------+ + + + | 04/15/ | Office | [facility] | Ricardo Nicholson, | Abdominal pain | | 2012 | Visit | [facility] | [address] | (Primary Dx) | | | | [address] | [place] | | | | | [place] | [address] | | | | | [address] | | | | | | [phone] | | | +--------+---------+ + + + [...] + + + | Blood Pressure | 106/70 | 04/15/2012 3:54 PM | | | | | PST | | + + + + + | Pulse | 78 | 04/15/2012 3:54 PM | | | | | PST | | + + + + + | Temperature | 36.8 C (98.2 F) | 04/15/2012 3:54 PM | | | | | PST | | + + + + + | Respiratory Rate | 18 | 04/15/2012 3:54 PM | | | | | PST | | + + + + + | Oxygen Saturation | 98% | 04/15/2012 3:54 PM | | | | | PST | | + + + + + | Inhaled Oxygen | - | - | | | Concentration | | | | + + + + + | Weight | 106.6 kg (235 lb) | 04/15/2012 3:54 PM | | | | | PST | | + + + + + | Height | 172.7 cm (5' 8") | 04/15/2012 3:54 PM | | | | | PST | | + + + + + | Body Mass Index | 35.73 | 04/15/2012 3:54 PM | | | | | PST | | + + + + + documented in this encounter Progress Notes Ricardo Nicholson MD - 04/16/2012 1:28 PM PSTFormatting of this note might be different f rom the original. Subjective: Patient ID: Lyle Black is a 31 y.o. female. Abdominal Pain This is a recurrent problem. The current episode started more than 1 month ago. The onset q uality is undetermined. The problem occurs 2 to 4 times per day. The problem has been unchan ged. The pain is located in the LUQ and generalized abdominal region. The pain is at a sever ity of 4/10. The pain is moderate. The quality of the pain is sharp. The abdominal pain does not radiate. Nothing aggravates the pain. The pain is relieved by nothing. She has tried ac etaminophen, antacids and proton pump inhibitors for the symptoms. The treatment provided no relief. Prior diagnostic workup includes GI consult and surgery. Patient's medications, allergies, past medical, surgical, social [...] mood and affect. Assessment: 1. Abdominal pain XR Abdomen Supine and Upright, H. pylori Antibody Screen, Lipase Plan: Current Outpatient Prescriptions Medication Sig Dispense Refill Multiple Vitamins-Minerals (MULTIVITAMIN & MINERAL PO) Take by mouth. famotidine (PEPCID AC) 10 MG chewable tablet Take 1 tablet by mouth 2 times daily. 60 tablet 0 omeprazole (PRILOSEC) 20 mg capsule Take 20 mg by mouth every morning (before breakfast ). buPROPion (WELLBUTRIN SR) 150 mg 12 hr tablet 1 tablet by mouth daily for 3 days; incre ase to 1 tablet twice daily 60 tablet 3 Cetirizine HCl (ZYRTEC ALLERGY PO) Drospirenone-Ethinyl Estradiol (ANGELLA PO) Ibuprofen (ADVIL PO) TABS levothyroxine (SYNTHROID, LEVOTHROID) 75 MCG tablet Take 1 tablet by mouth Daily. 90 t ablet 1 linaclotide (LINZESS) 145 mcg capsule Take 1 capsule by mouth every morning (before jordy akfast). 30 capsule 11 After extended discussion with the patient that visit. She may not have gallbladder proble ms with acalculus cholecystitis. Her pain location is not consistent with gallbladder disea se although it is known to masquerade around the abdomen. There is not a specific worsening with larger greasy meals. Therefore I do agree that going forward with the GI workup is in dicated. She does indicate constipation as well so certainly abdominal x-ray would be a good idea an d started some empiric therapy with linzess. documented in this encounter Plan of Treatment Not on filedocumented as of this encounter Results XR Abdomen Supine and Upright (04/16/2012 10:00 AM PST) + + | Specimen | + + | | + + + + + | Narrative | Performed At | + + + | [facility] | [place] | | Department [address], [place] | [place] | | [ rep [address]] [ rep ct [facility] | | zip] Signed | - IMAGING | | | | | Patient Name: LYLE BLACK Physician: | | | BILLY. : 1980 Age: 31 Sex: F Unit #: [id number] | | | Exam Date: 04/15/12 Location: [facility] [place] | | | Report #: [id number] Page: | | | %(RAD)RES..mtdd.print.filter("pg") of %(RAD) | | | RES..mtdd.print.filter("tpg") | | | | | | Accession Number: [id number] | | | ABDOMEN X-RAY CLINICAL HISTORY: [...] Transcribed Date/Time: 04/16/2012 | | | 10:02 Sales Representative [employer] Service: <<Signature | | | on File>> | | | Jozef | | | MD Federico04/18/12 1035 <Electronically signed by Jozef Caballero MD> | | | Jozef Caballero MD 04/16/12 1000 Sales Representative Gas Service: Rob | | | [id number]/22/13 1002 Ricardo Nicholson MD | | | | | + + + + + + + + | Performing | Address | City/State/[facility] | Phone Number | | Organization | | | | + + + + + | [facility] | [address] | [place] | [phone] | | [facility] | | [address] | | | - IMAGING | | [...] + | [facility] | [address] | [place], [place] | [phone] | | [facility] | | [address] | | | - LABORATORY | | | | + + + + + | [facility] | [address] | [place], [place] | | | [facility] | | [address] | | | - LABORATORY | | [...] + | [facility] | [address] | [place], [place] | [phone] | | [facility] | | [address] | | | - LABORATORY | | | | + + + + + | [facility] | [address] | [place], [place] | | | [facility] | | [address] | | | - LABORATORY | | | | + + + + + documented in this encounter Visit Diagnoses + + | Diagnosis | + + | Abdominal pain - Primary Abdominal pain, unspecified site | + + documented in this encounter
--- OUTSIDE RECORDS SUMMARY | ~2019-01-31 | XMS | Encounter Summary ---
Demographics + + + | Address | [address] | | | [place] [address] | + + + | Home Phone | | + + + | Preferred Language | Unknown | + + + | Marital Status | | + + + | Yazidi Affiliation | 1001 | + + + | Race | Unknown | + + + | Ethnic Group | Unknown | + + + Author + + + | Author | [facility] | | | and [place] | + + + | Organization | [facility] | [...] | | | | | [place] [address] | | + + + + + | Kathi Colton | ECON | Unknown | | + + + + + Care Team Providers + +------+ + | Care Undercollar Baster Name | Role | Phone | + +------+ + PCP | Unavailable | + +------+ + Encounter Details +--------+ + + + + | Date | Type | Department | Care Team | Description | +--------+ + + + + | 03/16/ | Hospital | [facility] | [place] | | | 2009 | Encounter | MED CTR LABORATORY | MD Hayley [address] | | | | | [address] [place] | [address] [place] | | | | | [place], [place] | [place] [address] | | | | | [address] | [phone] | | | | | [phone] | | | +--------+ + + + [...]
--- OUTSIDE RECORDS SUMMARY | ~2019-01-31 | XMS | Encounter Summary ---
Demographics + + + | Address | [address] | | | [place] [address] | + + + | Home Phone | | + + + | Preferred Language | Unknown | + + + | Marital Status | | + + + | Baptism Affiliation | 1001 | + + + | Race | Unknown | + + + | Ethnic Group | Unknown | + + + Author + + + | Author | [facility] | | | and [place] | + + + | Organization | [facility] | | | and [place] | + + + | Address | Unknown | + + + | Phone | Unavailable | + + + Support + + + + + | Name | Relationship | Address | Phone | + + + + + | Alexia Black | ECON | [address] | | | | | [place] [address] | | + + + + + | Kathi Segura | ECON | Unknown | | + + + + + Care Team Providers + +------+ + | Care Surveyor Hydrographic Name | Role | Phone | + [...] | 06/02/ | Office | [facility] | Ricardo Nicholson, | Weight gain (Primary | | 2018 | Visit | [facility] | [address] | Dx); Abdominal | | | | [address] | [place], [place] | pain, unspecified | | | | [place], [place] | [address] | abdominal location | | | | [address] | | | | | | [phone] | | | +--------+---------+ + + + [...] [address] | [place] | [phone] | | [facility] | | [address] | | | - LABORATORY | | [...] + | Performed at: 01 - [facility] [address], | REFERENCE LAB | | [place], [place] [id number] Health Systems Analyst: Joselito Marinelli MD, | [facility] | | Phone: [phone] | | + + + + + + + + | Performing | Address | City/State/Zipcode | Phone Number | | Organization | | | | + + + + + | REFERENCE LAB | [address] | [place] [address] | [phone] | | [facility] | [address] [...] [address] | [place] | [phone] | | [facility] | | [address] | | | - LABORATORY | | | | + + + + + documented in this encounter Visit Diagnoses + + | Diagnosis | + + | Weight gain - Primary Abnormal weight gain | + + | Abdominal pain, unspecified abdominal location | + + documented in this encounter"
--- OUTSIDE RECORDS SUMMARY | ~2019-01-31 | XMS | Encounter Summary ---
Demographics + + + | Address | [address] | | | [place] [address] | + + + | Home Phone [...] | [facility] | | | and [...] | | | | | [place] [address] | | + + + + + | Kathi Segura | ECON | Unknown | | + + + + + Care Team Providers + +------+ + | Care Resource Development Director Name | Role | Phone | [...] + | 10/19/ | Refill | [facility] | Ricardo Nicholson, | Medication Refill | | 2013 | | MEDICINE [place] | [address] | | | | | [address] | [place] | | | | | [place] | [address] | | | | | [address] | | | | | | [phone] | | | +--------+--------+ + + + [...]
--- OUTSIDE RECORDS SUMMARY | ~2019-01-31 | XMS | Encounter Summary ---
Demographics + + + | Address | [address] | | | [place] [address] | + + + | Home Phone [...] | Organization | [facility] | | [...] | | | | | [place] [address] | | + + + + + | Kathi Segura | ECON | Unknown | | + + + + + Care Team Providers + +------+ + | Care Clinic Office Assistant Name | Role | Phone [...] Refill | | 2016 | | MEDIC[facility] [place] | [address] | | | | | [address] | [place] | | | | | [place] | [address] | | | | | [address] | | | | | | [phone] | | | +--------+--------+ + + + [...]
--- OUTSIDE RECORDS SUMMARY | ~2019-01-31 | XMS | Encounter Summary ---
Demographics + + + | Address | [address] | | | [place] [address] | + + + | Home Phone | | + + + | Preferred Language | Unknown | + + + | Marital Status | | + + + | Religion Affiliation | 1001 | + + + | Race | Unknown | + + + | Ethnic Group | Unknown | + + + Author + + + | Author | [facility] | | | and [place] | + + + | Organization | [facility] | | | and [place] | + + + | Address | Unknown | + + + | Phone | Unavailable | + + + Support + + + + + | Name | Relationship | Address | Phone | + + + + + | Alexia Black | ECON | [address] | | | | | [place] [address] | | + + + + + | Kathi Segura | ECON | Unknown | | + + + + + Care Team Providers + +------+ + | Care Teacher Early Childhood Development Name | Role | Phone | [...] | | 2017 | Outreach | [facility] | [address] | Screening, Cervical | | | | [address] | [place], [place] | Cancer Screening | | | | [place], [place] | [address] | | | | | [address] | | | | | | [phone] | | | +--------+ + + + [...]
--- OUTSIDE RECORDS SUMMARY | ~2019-01-31 | XMS | Encounter Summary ---
Demographics + + + | Address | [address] | | | [place] [address] | + + + | Home Phone [...] [facility] | [...] | | | | | [place] [address] | | + + + + + | Kathi Colton | ECON | Unknown | | + + + + + Care Team Providers + +------+ + | Care Coating Machine Feeder Name | Role | Phone | + [...] + | 04/01/ | Office | [facility] | Girish Simpson MD | Sinusitis (Primary | | 2014 | Visit | CARE [address] | [address] | Dx) | | | | [place] | [place] | | | | | [address] | [address] | | | | | [phone] | | | +--------+---------+ + + + [...] antibiotics will not help a viral infection. [id number] [employer]. [address] [place] [address], [place] [address]. All righ ts reserved. This information is [...] also le ad to problems with drainage. 5802-8268 [employer]. [address] [place] [address]. All righ ts reserved. This information is [...] the result of an inj ury. [employer]. [address] [place] [address]. All righ ts reserved. This information is [...] packs effe ctive for relieving pain. [employer]. [address] [place] [address]. All righ ts reserved. This information is [...] when you clean, or consider hiring a welfare interviewer to help minimize your expo sure to [...] dries out sinus linings. Use saltwater rinses. 7943-8943 [employer]. [address] [place] [address]. All righ ts reserved. This information is [...] twice a day 10 days. Has a [place] pot and regular use of antihistamines . documented in this enc ounter Plan of Treatment Not on filedocumented as of this encounter Visit Diagnoses + + | Diagnosis | + + | Sinusitis - Primary Unspecified sinusitis (chronic) | + + documented in this encounter"
--- OUTSIDE RECORDS SUMMARY | ~2019-01-31 | XMS | Encounter Summary ---
Demographics + + + | Address | [address] | | | [place] [address] | + + + | Home Phone | | + + + | Preferred Language | Unknown | + + + | Marital Status | | + + + | Confucianist Affiliation | 1001 | + + + | Race | Unknown | + + + | Ethnic Group | Unknown | + + + Author + + + | Author | [facility] | | | and [place] | + + + | Organization | [facility] | | [...] | | | | | [place] [address] | | + + + + + | Kathi Segura | ECON | Unknown | | + + + + + Care Team Providers + +------+ + | Care Break And Load Operator Name | Role | Phone | [...] Description | +--------+--------+ + + + | 11/06/ | Refill | [facility] | Ricardo Nicholson, | Medication Refill | | 2015 | | MEDICINE [place] | [address] | | | | | [address] | [place] | | | | | [place] | [address] | | | | | [address] | | | | | | [phone] | | | +--------+--------+ + + + [...]
--- OUTSIDE RECORDS SUMMARY | ~2019-01-31 | XMS | Encounter Summary ---
Demographics + + + | Address | [address] | | | [place] [address] | + + + | Home Phone | | + + + | Preferred Language | Unknown | + + + | Marital Status | | + + + | Yazidism Affiliation | 1001 | + + + | Race | Unknown | + + + | Ethnic Group | Unknown | + + + Author + + + | Author | [facility] | | | and [place] | + + + | Organization | [facility] | | [...] | | | | | [place] [address] | | + + + + + | Kathi Segura | ECON | Unknown | | + + + + + Care Team Providers + +------+ + | Care Machine Designer Name | Role | Phone | [...] | +--------+ + + + + | 03/26/ | Telephone | [facility] | Ricardo Nicholson, | Appointment | | 2012 | | [facility] | [address] | | | | | [address] | [place] | | | | | [place] | [address] | | | | | [address] | | | | | | [phone] | | | +--------+ + + + [...]
--- OUTSIDE RECORDS SUMMARY | ~2019-01-31 | XMS | Encounter Summary ---
Demographics + + + | Address | [address] | | | [place] [address] | + + + | Home Phone [...] + | Organization | [facility] | [...] | | | | | [place] [address] | | + + + + + | Kathi Segura | ECON | Unknown | | + + + + + Care Team Providers + +------+ + | Care Freight Hustler Name | Role | Phone | + +------+ + | Ricardo Nicholson MD | PCP | | + +------+ + Encounter Details +--------+ + + + + | Date | Type | Department | Care Team | Description | +--------+ + + + + | 12/03/ | Abstract | [facility] [place] [facility] | Ricardo Nicholson, | | | 2011 | | [facility] | [address] | | | | | [address] | [place] | | | | | [place] | [address] | | | | | [address] | | | | | | [phone] | | | +--------+ + + + [...]
--- OUTSIDE RECORDS SUMMARY | ~2019-01-31 | XMS | Encounter Summary ---
Demographics + + + | Address | [address] | | | [place] [address] | + + + | Home Phone | | + + + | Preferred Language | Unknown | + + + | Marital Status | | + + + | Scientologist Affiliation | 1001 | + + + | Race | Unknown | + + + | Ethnic Group | Unknown | + + + Author + + + | Author | [facility] | | | and [place] | + + + | Organization | [facility] | | | and [...] | | | | | [place] [address] | | + + + + + | Kathi Colton | ECON | Unknown | | + + + + + Care Team Providers + +------+ + | Care Gps Field Data Collector Name | Role | Phone | + +------+ + PCP | Unavailable | + +------+ + Encounter Details +--------+ + + + + | Date | Type | Department | Care Team | Description | +--------+ + + + + | 05/09/ | Hospital | [facility] | | | | 2001 | Encounter | MED CTR EMERGENCY | | | | | | CENTER [address] | | | | | | [place] | | | | | | [address] | | | | | | [phone] | | | +--------+ + + + [...]
--- OUTSIDE RECORDS SUMMARY | ~2019-01-31 | XMS | Encounter Summary ---
Demographics + + + | Address | [address] | | | [place] [address] | + + + | Home Phone [...] | Organization | [facility] [...] | | | | | [place] [address] | | + + + + + | Kathi Segura | ECON | Unknown | | + + + + + Care Team Providers + +------+ + | Care Hard Rock Miner Blasting Name | Role | Phone | + [...] | | | | [place] | [address] | | | | | [address] | | | | | | [phone] | | | +--------+ + + + [...]
--- OUTSIDE RECORDS SUMMARY | ~2019-01-31 | XMS | Encounter Summary ---
Demographics + + + | Address | [address] | | | [place] [address] | + + + | Home Phone [...] Organization | [facility] | | | and [...] | | | | | [place] [address] | | + + + + + | Kathi Segura | ECON | Unknown | | + + + + + Care Team Providers + +------+ + | Care Life Insurance Actuary Name | Role | Phone | + [...] + | 11/11/ | Refill | [facility] [place] [facility] | Ricardo Nicholson, | Medication Refill | | 2013 | | MEDICINE [place] | [address] | | | | | [address] | [place] | | | | | [place] | [address] | | | | | [address] | | | | | | [phone] | | | +--------+--------+ + + + [...]
--- OUTSIDE RECORDS SUMMARY | ~2019-01-31 | XMS | Encounter Summary ---
Demographics + + + | Address | [address] | | | [place] [address] | + + + | Home Phone [...] Organization | [facility] [...] | | | | | [place] [address] | | + + + + + | Kathi Colton | ECON | Unknown | | + + + + + Care Team Providers + +------+ + | Care Industrial Controller Name | Role | Phone | + +------+ + PCP | Unavailable | + +------+ + Encounter Details +--------+ + + + + | Date | Type | Department | Care Team | Description | +--------+ + + + + | 03/16/ | Hospital | [facility] | [place] | | | 2009 | Encounter | MED CTR LABORATORY | MD [place]ley [address] | | | | | [address] [place] | [address] [place] | | | | | [place], [place] | [place] [address] | | | | | [address] | [phone] | | | | | [phone] | | | +--------+ + + + [...]
--- OUTSIDE RECORDS SUMMARY | ~2019-01-31 | XMS | Encounter Summary ---
Demographics + + + | Address | [address] | | | [place] [address] | + + + | Home Phone [...] | [facility] | | | and [...] | | | | | [place] [address] | | + + + + + | Kathi Segura | ECON | Unknown | | + + + + + Care Team Providers + +------+ + | Care A P Manager Name | Role | Phone | [...] Description | +--------+--------+ + + + | 08/04/ | Refill | [facility] | Ricardo Nicholson, | Medication Refill | | 2019 | | MEDICINE [place] | [address] | | | | | [address] | [place] | | | | | [place] | [address] | | | | | [address] | | | | | | [phone] | | | +--------+--------+ + + + [...]
--- OUTSIDE RECORDS SUMMARY | ~2019-01-31 | XMS | Encounter Summary ---
Demographics + + + | Address | [address] | | | [place] [address] | + + + | Home Phone [...] + + | Organization | [facility] | | | and [...] | | | | | [place] [address] | | + + + + + | Kathi Segura | ECON | Unknown | | + + + + + Care Team Providers + +------+ + | Care Four Slide Machine Setter Name | Role | Phone | [...] Refill | | 2012 | | MEDICINE [place] | [address] | | | | | [address] | [place] | | | | | [place] | [address] | | | | | [address] | | | | | | [phone] | | | +--------+--------+ + + + [...]
--- OUTSIDE RECORDS SUMMARY | ~2019-01-31 | XMS | Encounter Summary ---
Demographics + + + | Address | [address] | | | [place] [address] | + + + | Home Phone [...] + | Organization | [facility] | | [...] | | | | | [place] [address] | | + + + + + | Kathi Segura | ECON | Unknown | | + + + + + Care Team Providers + +------+ + | Care Firearms Expert Name | Role | Phone | + [...] Refill | | 2019 | | MEDICINE [place] | [address] | | | | | [address] | [place] | | | | | [place] | [address] | | | | | [address] | | | | | | [phone] | | | +--------+--------+ + + + [...]
--- OUTSIDE RECORDS SUMMARY | ~2019-01-31 | XMS | Encounter Summary ---
Demographics + + + | Address | [address] | | | [place] [address] | + + + | Home Phone | | + + + | Preferred Language | Unknown | + + + | Marital Status | | + + + | Pentecostalism Affiliation | 1001 | + + + | Race | Unknown | + + + | Ethnic Group | Unknown | + + + Author + + + | Author | [facility] | | | and [place] | + + + | Organization | [facility] | | [...] | | | | | [place] [address] | | + + + + + | Kathi Segura | ECON | Unknown | | + + + + + Care Team Providers + +------+ + | Care Flat Machine Cutter Name | Role | Phone | + +------+ + | Ricardo Nicholson MD | PCP | | + +------+ + Reason for Visit +---------+ + | Reason | Comments | +---------+ + | Results | | +---------+ + Encounter Details +--------+ + + + + | Date | Type | Department | Care Team | Description | +--------+ + + + + | 07/03/ | Telephone | [facility] | Ricardo Nicholson, | Results | | 2015 | | MEDICINE [place] | [address] | | | | | [address] | [place] | | | | | [place] | [address] | | | | | [address] | | | | | | [phone] | | | +--------+ + + + [...]
--- OUTSIDE RECORDS SUMMARY | ~2019-01-31 | XMS | Encounter Summary ---
Demographics + + + | Address | [address] | | | [place] [address] | + + + | Home Phone [...] | [facility] [...] | | | | | [place] [address] | | + + + + + | Kathi Segura | ECON | Unknown | | + + + + + Care Team Providers + +------+ + | Care Tissue Coordinator Name | Role | Phone | + [...] Refill | | 2019 | | [facility] [place] | [address] | | | | | [address] | [place] | | | | | [place] | [address] | | | | | [address] | | | | | | [phone] | | | +--------+--------+ + + + [...]
--- OUTSIDE RECORDS SUMMARY | ~2019-01-31 | XMS | Encounter Summary ---
Demographics + + + | Address | [address] | | | [place] [address] | + + + | Home Phone [...] + + + | Organization | and [facility] | | | and [...] | | | | | [place] [address] | | + + + + + | Kathi Segura | ECON | Unknown | | + + + + + Care Team Providers + +------+ + | Care Transfer Driver Name | Role | Phone | [...] + + | 01/08/ | Office | [facility] | Pranav [place], | Bronchitis (Primary | | 2013 | Visit | CARE [address] | [address] | Dx); Sinusitis | | | | [place] | [place] | | | | | [address] | [address] | | | | | [phone] | | | +--------+---------+ + + + [...] taking a narcotic, such as driving, running [employer], swimming, etc. Recheck as needed. documented in [...]
--- OUTSIDE RECORDS SUMMARY | ~2019-01-31 | XMS | Encounter Summary ---
Demographics + + + | Address | [address] | | | [place] [address] | + + + | Home Phone | | + + + | Preferred Language | Unknown | + + + | Marital Status | | + + + | Jainism Affiliation | 1001 | + + + | Race | Unknown | + + + | Ethnic Group | Unknown | + + + Author + + + | Author | [facility] | | | and [place] | + + + | Organization | [facility] | | | and [place] | + + + | Address | Unknown | + + + | Phone | Unavailable | + + + Support + + + + + | Name | Relationship | Address | Phone | + + + + + | Alexia Black | ECON | [address] | | | | | [place] [address] | | + + + + + | Kathi Segura | ECON | Unknown | | + + + + + Care Team Providers + +------+ + | Care Vehicle Maintenance Technician Name | Role | Phone [...] Refill | | 2012 | | [facility] [place] | [address] | | | | | [address] | [place] | | | | | [place] | [address] | | | | | [address] | | | | | | [phone] | | | +--------+--------+ + + + [...]
--- OUTSIDE RECORDS SUMMARY | ~2019-01-31 | XMS | Encounter Summary ---
Demographics + + + | Address | [address] | | | [place] [address] | + + + | Home Phone | | + + + | Preferred Language | Unknown | + + + | Marital Status | | + + + | Congregational Affiliation | 1001 | + + + | Race | Unknown | + + + | Ethnic Group | Unknown | + + + Author + + + | Author | [facility] | | | and [place] | + + + | Organization | [facility] | | | and [place] | + + + | Address | Unknown | + + + | Phone | Unavailable | + + + Support + + + + + | Name | Relationship | Address | Phone | + + + + + | Alexia Black | ECON | [address] | | | | | [place] [address] | | + + + + + | Kathi Segura | ECON | Unknown | | + + + + + Care Team Providers + +------+ + | Care Resident Physician Name | Role | Phone | + [...] + + | 07/03/ | Telephone | [facility] | Ricardo Nicholson, | Results | | 2015 | | [facility] [place] | [address] | | | | | [address] | [place] | | | | | [place] | [address] | | | | | [address] | | | | | | [phone] | | | +--------+ + + + [...]
--- OUTSIDE RECORDS SUMMARY | ~2019-01-31 | XMS | Encounter Summary ---
Demographics + + + | Address | [address] | | | [place] [address] | + + + | Home Phone [...] | Organization | [facility] | | | and [place] | + + + | Address | Unknown | + + + | Phone | Unavailable | + + + Support + + + + + | Name | Relationship | Address | Phone | + + + + + | Alexia Black | ECON | [address] | | | | | [place] [address] | | + + + + + | Kathi Segura | ECON | Unknown | | + + + + + Care Team Providers + +------+ + | Care Equipment Operating Engineer Name | Role | Phone | [...] + | 03/26/ | Telephone | [facility] | Ricardo Nicholson, | Appointment | | 2012 | | [facility] | [address] | | | | | [address] | [place] | | | | | [place] | [address] | | | | | [address] | | | | | | [phone] | | | +--------+ + + + [...]
--- OUTSIDE RECORDS SUMMARY | ~2019-01-31 | XMS | Encounter Summary ---
Demographics + + + | Address | [address] | | | [place] [address] | + + + | Home Phone | | + + + | Preferred Language | Unknown | + + + | Marital Status | | + + + | Hindu Affiliation | 1001 | + + + | Race | Unknown | + + + | Ethnic Group | Unknown | + + + Author + + + | Author | [facility] | | | and [place] | + + + | Organization | [facility] | | | and [place] | + + + | Address | Unknown | + + + | Phone | Unavailable | + + + Support + + + + + | Name | Relationship | Address | Phone | + + + + + | Alexia Black | ECON | [address] | | | | | [place] [address] | | + + + + + | Kathi Segura | ECON | Unknown | | + + + + + Care Team Providers + +------+ + | Care Armature Winder Repairer Name | Role | Phone | [...] + + | 09/13/ | Office | [facility] | Ricardo Nicholson, | Sinusitis, | | 2019 | Visit | [facility] [place] | [address] | unspecified | | | | [address] | [place] | chronicity, | | | | [place] | [address] | unspecified location | | | | [address] | | (Primary Dx); | | | | [phone] | | Insomnia, | | | | [...]
--- OUTSIDE RECORDS SUMMARY | ~2019-01-31 | XMS | Encounter Summary ---
Demographics + + + | Address | [address] | | | [place] [address] | + + + | Home Phone | | + + + | Preferred Language | Unknown | + + + | Marital Status | | + + + | Confucianist Affiliation | 1001 | + + + | Race | Unknown | + + + | Ethnic Group | Unknown | + + + Author + + + | Author | [facility] | | | and [place] | + + + | Organization | [facility] | | | and [place] | + + + | Address | Unknown | + + + | Phone | Unavailable | + + + Support + + + + + | Name | Relationship | Address | Phone | + + + + + | Alexia Black | ECON | [address] | | | | | [place] [address] | | + + + + + | Kathi Colton | ECON | Unknown | | + + + + + Care Team Providers + +------+ + | Care Ship Fitter Name | Role | Phone | + +------+ + | Ricardo Nicholson MD | PCP | | + +------+ + Encounter Details +--------+ + + + + | Date | Type | Department | Care Team | Description | +--------+ + + + + | 12/18/ | Hospital | [facility] | Ricardo Nicholson, | Routine general | | 2015 | Encounter | MED CTR LABORATORY | [address] | medical examination | | | | [address] [place] | [place], [place] | at health care | | | | [place], [place] | [address] | facility | | | | [address] | | | | | | [phone] | | | +--------+ + + + [...] | | PDT | at a health [facility] | results section. | | | [...] + | [facility] | [address] | [place] | [phone] | | [facility] | | [address] | | | - LABORATORY | | [...] [address] | [place] | [phone] | | [facility] | | [address] | | | - LABORATORY | | [...] [address] | [place] | [phone] | | [facility] | | [address] | | | - LABORATORY | | [...] | 0.86 | 0.60 - 1.30 | [facility] | | | | | mg/dL | [facility] | | | | | | MEDICAL | | | | | | CENTER - | | | | | | LABORATORY | | + + + + + + | eGFR if not | >60Comment: GLOMERULAR | >=60 | [facility] | | | | FILTRATION | mL/min/1.73m2 | [facility] | | | [place] | RATE,ESTIMATED | | MEDICAL | | | | mL/min/1.76h7Chja than | | CENTER - | | [...] | | Total | | | [facility] | | | | | | MEDICAL [...] [address] | [place] | [phone] | | [facility] | | [address] | | | - LABORATORY | | [...] HDL | 28 - 83 mg/dL | [facility] | | | | Reference Range [...] | | Calculated | | | [facility] | | | | | | MEDICAL [...] [address] | [place] | [phone] | | [facility] | | [address] | | | - LABORATORY | | | | + + + + + documented in this encounter Visit Diagnoses + + | Diagnosis | + + | Routine general medical examination at a health care facility | + + documented in this encounter"
--- OUTSIDE RECORDS SUMMARY | ~2019-01-31 | XMS | Clinical Summary ---
Demographics + + + | Address | [address] | | | [place] [address] | + + + | Home Phone | | + + + | Preferred Language | Unknown | + + + | Marital Status | | + + + | Scientologist Affiliation | 1001 | + + + | Race | Unknown | + + + | Ethnic Group | Unknown | + + + Author + + + | Author | [facility] | | | and [place] | + + + | Organization | [facility] | | | and [place] | + + + | Address | Unknown | + + + | Phone | Unavailable | + + + Support + + + + + | Name | Relationship | Address | Phone | + + + + + | Alxeia Black | ECON | [address] | | | | | [place] [address] | | + + + + + | Kathi Colton | ECON | Unknown | | + + + + + Care Team Providers + +------+ + | Care Chief Of Staff Name | Role | Phone | + [...] +---------+------+ | [facility] | PHP | [phone] | 02/23/19 | [phone] | | PPO | | PLAN | PEBB | | 10-Pre | 5 | | | | | STATEW | | sent | | | | | | BENY | | | | | | + +--------+ +--------+ +---------+------+ | [facility] | PHP | [phone] | 02/23/19 | [phone] | | PPO [...] rima | | | 6 (Home) | [address] | + +--------+ +--------+ + + Advance Directives + + + + + | Type | Date Recorded | Patient | Explanation | | | | Automotive Sales Representative | | + + + + + | Power of | | | | | Apple Press Operator | | | | + + + + + | Advance | 12/18/2014 | | | | Directive | 9:13 AM | | | + + + + +
--- OUTSIDE RECORDS SUMMARY | ~2019-01-31 | XMS | Encounter Summary ---
Demographics + + + | Address | [address] | | | [place] [address] | + + + | Home Phone [...] + | Organization | [facility] | | | and [place] | + + + | Address | Unknown | + + + | Phone | Unavailable | + + + Support + + + + + | Name | Relationship | Address | Phone | + + + + + | Alexia Black | ECON | [address] | | | | | [place] [address] | | + + + + + | Kathi Colton | ECON | Unknown | | + + + + + Care Team Providers + +------+ + | Care Crocheter Hand Name | Role | Phone | + +------+ + PCP | Unavailable | + +------+ + Encounter Details +--------+ + + + + | Date | Type | Department | Care Team | Description | +--------+ + + + + | 06/18/ | Hospital | [facility] | | | | 1999 | Encounter | MED CTR EMERGENCY | | | | | | CENTER [address] | | | | | | [place] | | | | | | [address] | | | | | | [phone] | | | +--------+ + + + [...]
--- OUTSIDE RECORDS SUMMARY | ~2019-01-31 | XMS | Encounter Summary ---
Demographics + + + | Address | [address] | | | [place] [address] | + + + | Home Phone | | + + + | Preferred Language | Unknown | + + + | Marital Status | | + + + | Congregation Affiliation | 1001 | + + + | Race | Unknown | + + + | Ethnic Group | Unknown | + + + Author + + + | Author | [facility] | | | and [place] | + + + | Organization | [facility] [...] | | | | | [place] [address] | | + + + + + | Kathi Segura | ECON | Unknown | | + + + + + Care Team Providers + +------+ + | Care Guitar Repair Technician Name | Role | Phone | [...] Description | +--------+--------+ + + + | 03/17/ | Refill | [facility] | Ricardo Nicholson, | Medication Refill | | 2019 | | [facility] [place] | [address] | | | | | [address] | [place] | | | | | [place] | [address] | | | | | [address] | | | | | | [phone] | | | +--------+--------+ + + + [...]
--- OUTSIDE RECORDS SUMMARY | ~2019-01-31 | XMS | Encounter Summary ---
Demographics + + + | Address | [address] | | | [place] [address] | + + + | Home Phone | | + + + | Preferred Language | Unknown | + + + | Marital Status | | + + + | Anabaptism Affiliation | 1001 | + + + | Race | Unknown | + + + | Ethnic Group | Unknown | + + + Author + + + | Author | [facility] | | | and [place] | + + + | Organization | [facility] | | | and [place] | + + + | Address | Unknown | + + + | Phone | Unavailable | + + + Support + + + + + | Name | Relationship | Address | Phone | + + + + + | Alexia Black | ECON | [address] | | | | | [place] [address] | | + + + + + | Kathi Colton | ECON | Unknown | | + + + + + Care Team Providers + +------+ + | Care Pre Owned Sales Consultant Name | Role | Phone | + +------+ + PCP | Unavailable | + +------+ + Encounter Details +--------+ + + + + | Date | Type | Department | Care Team | Description | +--------+ + + + + | 06/14/ | Hospital | [facility] | Ricardo Nicholson [place], | | | 2009 | Encounter | MED CTR XRAY [address] | [address] | | | | | [place] | [place], [place] | | | | | [place] [address] | [address] | | | | | [phone] | | | +--------+ + + + [...]
--- OUTSIDE RECORDS SUMMARY | ~2019-01-31 | XMS | Encounter Summary ---
Demographics + + + | Address | [address] | | | [place] [address] | + + + | Home Phone [...] + | Organization | [facility] | | | and [place] | + + + | Address | Unknown | + + + | Phone | Unavailable | + + + Support + + + + + | Name | Relationship | Address | Phone | + + + + + | Alexia Black | ECON | [address] | | | | | [place] [address] | | + + + + + | Kathi Colton | ECON | Unknown | | + + + + + Care Team Providers + +------+ + | Care Oxygen Tank Filler Name | Role | Phone | + +------+ + PCP | Unavailable | + +------+ + Encounter Details +--------+ + + + + | Date | Type | Department | Care Team | Description | +--------+ + + + + | 06/14/ | Hospital | [facility] | Ricardo Nicholson [place], | | | 2009 | Encounter | MED CTR LABORATORY | [address] | | | | | [address] [place] | [place], [place] | | | | | [place] | [address] | | | | | [address] | | | | | | [phone] | | | +--------+ + + + [...]
--- OUTSIDE RECORDS SUMMARY | ~2019-01-31 | XMS | Encounter Summary ---
Demographics + + + | Address | [address] | | | [place] [address] | + + + | Home Phone [...] + + | Organization | [facility] | | [...] | | | | | [place] [address] | | + + + + + | Kathi Segura | ECON | Unknown | | + + + + + Care Team Providers + +------+ + | Care Custom Shoemaker Name | Role | Phone | + [...] Refill | | 2019 | | [facility] [place] | [address] | | | | | [address] | [place] | | | | | [place] | [address] | | | | | [address] | | | | | | [phone] | | | +--------+--------+ + + + [...]
--- OUTSIDE RECORDS SUMMARY | ~2019-01-31 | XMS | Encounter Summary ---
Demographics + + + | Address | [address] | | | [place] [address] | + + + | Home Phone [...] | Organization | [facility] | [...] | | | | | [place] [address] | | + + + + + | Kathi Colton | ECON | Unknown | | + + + + + Care Team Providers + +------+ + | Care Electrician Supervisor Name | Role | Phone | + +------+ + PCP | Unavailable | + +------+ + Encounter Details +--------+ + + + + | Date | Type | Department | Care Team | Description | +--------+ + + + + | 01/01/ | Hospital | [facility] | [place] Pranav [place], | | | 2006 | Encounter | MED CTR XRAY [address] | [address] | | | | | [place] | [place], [place] | | | | | [place] [address] | [address] | | | | | [phone] | | | +--------+ + + + [...]
--- OUTSIDE RECORDS SUMMARY | ~2019-01-31 | XMS | Encounter Summary ---
Demographics + + + | Address | [address] | | | [place] [address] | + + + | Home Phone | | + + + | Preferred Language | Unknown | + + + | Marital Status | | + + + | Spiritism Affiliation | 1001 | + + + | Race | Unknown | + + + | Ethnic Group | Unknown | + + + Author + + + | Author | [facility] | | | and [place] | + + + | Organization | [facility] | | | and [place] | + + + | Address | Unknown | + + + | Phone | Unavailable | + + + Support + + + + + | Name | Relationship | Address | Phone | + + + + + | Alexia Ascencio | ECON | [address] | | | | | [place] [address] | | + + + + + | Kathi Segura | ECON | Unknown | | + + + + + Care Team Providers + +------+ + | Care Barrel Drainer Name | Role | Phone | + [...] + + | 12/04/ | Office | [facility] | Hu Nicholson, | Routine general | | 2011 | Visit | [facility] [place] | [address] | medical examination | | | | [address] | [place], [place] | at a health care | | | | [place], [place] | [address] | facility (Primary | | | | [address] | | Dx); Abdominal | | | | [phone] | | pain, other | | | [...] Performed At | + + + | [facility] | [place] | | Department [address] [place] | [facility] | | [ rep [address]] [ [facility] | [facility] | | zip] Signed | - IMAGING | | | | | Patient Name: LYLE ASCENCIO Physician: | | | : 1980 Age: 31 Sex: F Unit #: [id number] | | | Exam Date: 12/15/11 Location: [facility] | | | Report #: [id number] Page: | | | %(RAD)RES..mtdd.print.filter("pg") of %(RAD) | | | RES..mtdd.print.filter("tpg") | | | | | | Accession Number: [id number] | | | ULTRASOUND ABDOMEN COMPLETE CLINICAL HISTORY: ABDOMINAL | | | PAIN. COMPARISON: None. TECHNIQUE: | | | Thompson scale and color Doppler ultrasound images of the abdomen were | | | obtained by a medical diagnostic radiographer. FINDINGS: The liver is | | | [...] Transcribed | | | Date/Time: 12/15/2011 10:56 Bobtail Driver: | | | <<Signature on File>> | | | Vinod | | | [place] MD12/15/11 3815 <Electronically signed by Vinod Wolff | | | Pancho VELARDE> Vinod [place]le[place] MD 12/15/11 1020 | | | Bobtail Driver: [employer] Ofhnehhrcfitw84/22/12 1056 | | | Hu Nicholson MD | | + + + + + + + + | Performing | Address | City/State/Zipcode | Phone Number | | Organization | | | | + + + + + | [facility] | [address] | [place] | [phone] | | [facility] | | [address] | | | - IMAGING | | [...] + | [facility] | [address] | [place] | [phone] | | [facility] | | [address] | | | - LABORATORY | | | | + + + + + | [facility] | [address] | [place] | | | [facility] | | [address] | | | - LABORATORY | | [...] + | [facility] | [address] | [place], [place] | [phone] | | [facility] | | [address] | | | - LABORATORY | | | | + + + + + | [facility] | [address] | [place], [place] | | | [facility] | | [address] | | | - LABORATORY | | [...] + | Chol/HDL | 3.7Comment: | | [facility] | | | Ratio | | | [...] + | [facility] | [address] | [place] | [phone] | | [facility] | | [address] | | | - LABORATORY | | | | + + + + + | [facility] | [address] | [place] | | | [facility] | | [address] | | | - LABORATORY | | | | + + + + + Comprehensive metabolic panel (12/15/2011 8:44 AM PDT) + + + + + + | Component | Value | Ref Range | Performed | Pathologist | | | | | At | Signature | + + + + + + | Glucose | 100 | 70 - 109 mg/dL | [facility] | | | | | | [facility] | | | | | | MEDICAL | | | | | | CENTER - | | | | | | LABORATORY | | + + + + + + | Calcium | 8.8 | 8.3 - 10.5 | [facility] | | | | | mg/dL | [facility] | | | | | | MEDICAL [...] 11 | 7 - 18 mg/dL | [facility] [...] + | [facility] | [address] | [place] | [phone] | | [facility] | | [address] | | | - LABORATORY | | | | + + + + + | [facility] | [address] | [place], [place] | | | [facility] | | [address] | | | - LABORATORY | | [...] + | [facility] | [address] | [place], [place] | [phone] | | [facility] | | [address] | | | - LABORATORY | | | | + + + + + | [facility] | [address] | [place], [place] | | | [facility] | | [address] | | | - LABORATORY | | | | + + + + + documented in this encounter Visit Diagnoses + + | Diagnosis | + + | Routine general medical examination at a health care facility - Primary | + + | Abdominal pain, other specified site | + + documented in this encounter
--- OUTSIDE RECORDS SUMMARY | ~2019-01-31 | XMS | Encounter Summary ---
Demographics + + + | Address | [address] | | | [place] [address] | + + + | Home Phone | | + + + | Preferred Language | Unknown | + + + | Marital Status | | + + + | Synagogue Affiliation | 1001 | + + + | Race | Unknown | + + + | Ethnic Group | Unknown | + + + Author + + + | Author | [facility] | | | and [place] | + + + | Organization | [facility] | [...] | | | | | [place] [address] | | + + + + + | Kathi Colton | ECON | Unknown | | + + + + + Care Team Providers + +------+ + | Care Air Brush Decorator Name | Role | Phone | + [...] labialis | | 2018 | | [facility] [place] | [address] | without complication | | | | [address] | [place] | | | | | [place], [place] | [address] | | | | | [address] | | | | | | [phone] | | | +--------+ + + + [...]
--- OUTSIDE RECORDS SUMMARY | ~2019-01-31 | XMS | Encounter Summary ---
Demographics + + + | Address | [address] | | | [place] [address] | + + + | Home Phone [...] [facility] | [...] | | | | | [place] [address] | | + + + + + | Kathi Segura | ECON | Unknown | | + + + + + Care Team Providers + +------+ + | Care Hand Cloth Folder Name | Role | Phone | + [...] | | 2019 | | [facility]IC[facility] [place] | [address] | | | | | [address] | [place] | | | | | [place] | [address] | | | | | [address] | | | | | | [phone] | | | +--------+--------+ + + + [...]
--- OUTSIDE RECORDS SUMMARY | ~2019-01-31 | XMS | Encounter Summary ---
Demographics + + + | Address | [address] | | | [place] [address] | + + + | Home Phone [...] | Organization | [facility] | [...] | | | | | [place] [address] | | + + + + + | Kathi Colton | ECON | Unknown | | + + + + + Care Team Providers + +------+ + | Care Returned Item Clerk Name | Role | Phone | + +------+ + | Ricardo Nicholson MD | PCP | | + +------+ + Encounter Details +--------+ + + + + | Date | Type | Department | Care Team | Description | +--------+ + + + + | 05/14/ | Hospital | [facility] | Vinod Nagy, | | | 2011 | Encounter | MED CTR XRAY [address] | [address] | | | | | [place] | [place], [place] | | | | | [place] [address] | [address] | | | | | [phone] | | | +--------+ + + + [...] Performed At | + + + | [facility] Diagnostic Imaging Department | [place] | | [address] [facility] | [facility] | | RIGHT INDEX FINGER: 05/15/2011 | [...] | | 12:09 Transcribed Date/Time: 05/15/2011 12:11 City Jailer: | | | <Electronically Signed by Pepito Coffey MD> 05/15/11 | | | 1505 | | + + + + + | Procedure Note | + + | Grayson, Rad Conversion - 04/01/2013 4:58 PM [facility] | | Diagnostic Imaging Department [address] [facility] [place] | | RIGHT INDEX FINGER: 05/15/2011 CLINICAL [...] 12:09 | |Transcribed Date/Time: 05/15/2011 12:11 | |City Jailer: | |<Electronically Signed by Pepito Coffey MD> [...]
--- OUTSIDE RECORDS SUMMARY | ~2019-01-31 | XMS | Encounter Summary ---
Demographics + + + | Address | [address] | | | [place] [address] | + + + | Home Phone [...] | [facility] | | | and [...] | | | | | [place] [address] | | + + + + + | Kathi Colton | ECON | Unknown | | + + + + + Care Team Providers + +------+ + | Care Drapery Rod Assembler Name | Role | Phone | + +------+ + | Ricardo Nicholson MD | PCP | | + +------+ + Encounter Details +--------+ + + + + | Date | Type | Department | Care Team | Description | +--------+ + + + + | 07/02/ | Hospital | [facility] | Bharat Ricardo Mavis, | Left upper quadrant | | 2016 | Encounter | MED CTR LABORATORY | MD [address] | pain; Constipation, | | | | [address] [place] | [place], [place] | unspecified | | | | [place] | [address] | constipation type; | | | | [address] | | Bloated abdomen | | | | [phone] | | | +--------+ + + + [...] [address] | [place] | [phone] | | [facility] | | [address] | | | - LABORATORY | | [...]
--- OUTSIDE RECORDS SUMMARY | ~2019-01-31 | XMS | Encounter Summary ---
Demographics + + + | Address | [address] | | | [place] [address] | + + + | Home Phone [...] | Author | [facility] | | | and [place] | + + + | Organization | [facility] | | | and [place] | + + + | Address | Unknown | + + + | Phone | Unavailable | + + + Support + + + + + | Name | Relationship | Address | Phone | + + + + + | Alexia Black | ECON | [address] | | | | | [place] [address] | | + + + + + | Kathi Colton | ECON | Unknown | | + + + + + Care Team Providers + +------+ + | Care Disk Sander Name | Role | Phone | + +------+ + | Ricardo Nicholson MD | PCP | | + +------+ + Encounter Details +--------+ + + + + | Date | Type | Department | Care Team | Description | +--------+ + + + + | 08/16/ | Hospital | [facility] | Ricardo Nicholson, | | | 2009 | Encounter | MED CTR XRAY [address] | [address] | | | | | [place] | [place], [place] | | | | | [place] [address] | [address] | | | | | [phone] | | | +--------+ + + + [...]
--- OUTSIDE RECORDS SUMMARY | ~2019-01-31 | XMS | Encounter Summary ---
Demographics + + + | Address | [address] | | | [place] [address] | + + + | Home Phone | | + + + | Preferred Language | Unknown | + + + | Marital Status | | + + + | Samaritan Affiliation | 1001 | + + + | Race | Unknown | + + + | Ethnic Group | Unknown | + + + Author + + + | Author | [facility] | | | and [place] | + + + | Organization | [facility] | [...] | | | | | [place] [address] | | + + + + + | Kathi Segura | ECON | Unknown | | + + + + + Care Team Providers + +------+ + | Care Tool And Die Inspector Name | Role | Phone | [...] Refill | | 2017 | | MEDICINE [place] | [address] | | | | | [address] | [place] | | | | | [place] | [address] | | | | | [address] | | | | | | [phone] | | | +--------+--------+ + + + [...]
--- OUTSIDE RECORDS SUMMARY | ~2019-01-31 | XMS | Encounter Summary ---
Demographics + + + | Address | [address] | | | [place] [address] | + + + | Home Phone [...] | Organization | [facility] | | | and [...] | | | | | [place] [address] | | + + + + + | Kathi Segura | ECON | Unknown | | + + + + + Care Team Providers + +------+ + | Care Human Resources Advisor Name | Role | Phone | + [...] + | 07/14/ | Telephone | [facility] | Ricardo Nicholson, | Abnormal Tests | | 2018 | | MEDICINE [place] | [address] | | | | | [address] | [place] | | | | | [place] | [address] | | | | | [address] | | | | | | [phone] | | | +--------+ + + + [...]
--- OUTSIDE RECORDS SUMMARY | ~2019-01-31 | XMS | Encounter Summary ---
Demographics + + + | Address | [address] | | | [place] [address] | + + + | Home Phone [...] | Organization | [facility] | | | and [...] | | | | | [place] [address] | | + + + + + | Kathi Segura | ECON | Unknown | | + + + + + Care Team Providers + +------+ + | Care Air Intercept Controller Name | Role | Phone | [...] Refill | | 2017 | | MEDICINE [place] | [address] | | | | | [address] | [place] | | | | | [place] | [address] | | | | | [address] | | | | | | [phone] | | | +--------+--------+ + + + [...]
--- OUTSIDE RECORDS SUMMARY | ~2019-01-31 | XMS | Encounter Summary ---
Demographics + + + | Address | [address] | | | [place] [address] | + + + | Home Phone [...] | Organization | [facility] | | | and [place] | + + + | Address | Unknown | + + + | Phone | Unavailable | + + + Support + + + + + | Name | Relationship | Address | Phone | + + + + + | Alexia Black | ECON | [address] | | | | | [place] [address] | | + + + + + | Kathi Segura | ECON | Unknown | | + + + + + Care Team Providers + +------+ + | Care Manager Product Marketing Name | Role | Phone | + [...] + + | 12/18/ | Telephone | [facility] | Ricardo Nicholson, | Results; Medication | | 2014 | | MEDICINE [place] | [address] | Management | | | | [address] | [place] | | | | | [place] | [address] | | | | | [address] | | | | | | [phone] | | | +--------+ + + + [...]
--- OUTSIDE RECORDS SUMMARY | ~2019-01-31 | XMS | Encounter Summary ---
Demographics + + + | Address | [address] | | | [place] [address] | + + + | Home Phone [...] | Organization | [facility] [...] | | | | | [place] [address] | | + + + + + | Kathi Segura | ECON | Unknown | | + + + + + Care Team Providers + +------+ + | Care Head Wrestling Coach Name | Role | Phone | + [...] Refill | | 2012 | | MEDICINE [place] | [address] | | | | | [address] | [place] | | | | | [place] | [address] | | | | | [address] | | | | | | [phone] | | | +--------+--------+ + + + [...]
--- OUTSIDE RECORDS SUMMARY | ~2019-01-31 | XMS | Encounter Summary ---
Demographics + + + | Address | [address] | | | [place] [address] | + + + | Home Phone [...] + | Organization | [facility] | | [...] | | | | | [place] [address] | | + + + + + | Kathi Segura | ECON | Unknown | | + + + + + Care Team Providers + +------+ + | Care Delivery Technician Name | Role | Phone | [...] + + | 07/07/ | Office | [facility] | Ricardo Nicholson, | Exposure to herpes | | 2018 | Visit | [facility] | [address] | simplex virus (HSV) | | | | [address] | [place], [place] | (Primary Dx) | | | | [place], [place] | [address] | | | | | [address] | | | | | | [phone] | | | +--------+---------+ + + + [...] Chema Allison, | REFERENCE LAB | | [place], [place] [id number] Brand Ambassador Promotional Model: Jonathna Chu MD, Phone: | [facility] | | [phone] | | + + + + + + + + | Performing | Address | City/State/Zipcode | Phone Number | | Organization | | | | + + + + + | REFERENCE LAB | [address] | [place] [address] | [phone] | | [facility] | [address] | | | + + + + + documented in this encounter Visit Diagnoses + + | Diagnosis | + + | Exposure to herpes simplex virus (HSV) - Primary | + + documented in this encounter"
--- OUTSIDE RECORDS SUMMARY | ~2019-01-31 | XMS | Encounter Summary ---
Demographics + + + | Address | [address] | | | [place] [address] | + + + | Home Phone | | + + + | Preferred Language | Unknown | + + + | Marital Status | | + + + | Evangelical Affiliation | 1001 | + + + | Race | Unknown | + + + | Ethnic Group | Unknown | + + + Author + + + | Author | [facility] | | | and [place] | + + + | Organization | [facility] | | | and [...] | | | | | [place] [address] | | + + + + + | Kathi Segura | ECON | Unknown | | + + + + + Care Team Providers + +------+ + | Care Foil Operator Name | Role | Phone | + +------+ + | Riacrdo Nicholson MD | PCP | | + [...] Refill | | 2015 | | MEDICINE [place] | [address] | | | | | [address] | [place] | | | | | [place] | [address] | | | | | [address] | | | | | | [phone] | | | +--------+--------+ + + + [...]
--- OUTSIDE RECORDS SUMMARY | ~2019-01-31 | XMS | Encounter Summary ---
Demographics + + + | Address | [address] | | | [place] [address] | + + + | Home Phone [...] Organization | [facility] | | [...] | | | | | [place] [address] | | + + + + + | Kathi Segura | ECON | Unknown | | + + + + + Care Team Providers + +------+ + | Care Kiln Burner Helper Name | Role | Phone | [...] Refill | | 2016 | | MEDICINE [place] | [address] | | | | | [address] | [place] | | | | | [place] | [address] | | | | | [address] | | | | | | [phone] | | | +--------+--------+ + + + [...]
--- OUTSIDE RECORDS SUMMARY | ~2019-01-31 | XMS | Encounter Summary ---
Demographics + + + | Address | [address] | | | [place] [address] | + + + | Home Phone [...] + + | Organization | [facility] | | | [...] | | | | | [place] [address] | | + + + + + | Kathi Colton | ECON | Unknown | | + + + + + Care Team Providers + +------+ + | Care Police Investigator Name | Role | Phone | + +------+ + | Ricardo Nicholson MD | PCP | | + +------+ + Encounter Details +--------+ + + + + | Date | Type | Department | Care Team | Description | +--------+ + + + + | 04/15/ | Hospital | [facility] | Ricardo Nicholson, | Abdominal pain | | 2012 - | Encounter | MED CTR XRAY [address] | [address] | | | | | [place] | [place] | | | 04/17/ | | [place] [address] | [address] | | | 2012 | | [phone] | | | +--------+ + + + [...] Performed At | + + + | [facility] | [place] | | Department [address] [facility] [place] | [facility] | | [ rep ct [address]] [ rep ct [facility] | | [facility]] Signed | - IMAGING | | | | | Patient Name: LYLE ASCENCIO Physician: | | | : 1980 Age: 31 Sex: F Unit #: [id number] | | | Exam Date: 04/15/12 [place]: [facility] | | | Report #: [id number] Page: | | | %(RAD)RES..mtdd.print.filter("pg") of %(RAD) | | | RES..mtdd.print.filter("tpg") | | | | | | Accession Number: [id number] | | | ABDOMEN X-RAY CLINICAL HISTORY: [...] Transcribed Date/Time: 04/16/2012 | | | 10:02 [address]: GIANA <<Signature | | | on File>> | | | Jozef | | | MD Federico04/18/12 1035 <Electronically signed by Jozef Caballero MD> | | | Jozef Caballero MD 04/16/12 [address]: [place] | | | Wvdstbmlbfjdl76/22/13 1002 Ricardo Nicholson MD | | | | | + + + + + + + + | Performing | Address | City/State/Zipcode | Phone Number | | Organization | | | | + + + + + | [facility] | [address] | [place] | [phone] | | [facility] | | [address] | | | - IMAGING | | [...] + | [facility] | [address] | [place] | [phone] | | [facility] | | [address] | | | - LABORATORY | | | | + + + + + | [facility] | [address] | [place] | | | [facility] | | [address] | | | - LABORATORY | | [...] [address] | [place] | [phone] | | [facility] | | [address] | | | - LABORATORY | | | | + + + + + | [facility] | [address] | [place] | | | [facility] | | [address] | | | - LABORATORY | | [...] + | [facility] | [address] | [place] | [phone] | | [facility] | | [address] | | | - LABORATORY | | | | + + + + + | [facility] | [address] | [place] | | | [facility] | | [address] | | | - LABORATORY | | [...] [address] | [place] | [phone] | | [facility] | | [address] | | | - LABORATORY | | | | + + + + + | [facility] | [address] | [place] | | | [facility] | | [address] | | | - LABORATORY | | | | + + + + + documented in this encounter Visit Diagnoses + + | Diagnosis | + + | Abdominal pain Abdominal pain, unspecified site | + + documented in this encounter
--- OUTSIDE RECORDS SUMMARY | ~2019-01-31 | XMS | Encounter Summary ---
Demographics + + + | Address | [address] | | | [place] [address] | + + + | Home Phone | | + + + | Preferred Language | Unknown | + + + | Marital Status | | + + + | Jewish Affiliation | 1001 | + + + | Race | Unknown | + + + | Ethnic Group | Unknown | + + + Author + + + | Author | [facility] | | | and [place] | + + + | Organization | [facility] | | | and [...] | | | | | [place] [address] | | + + + + + | Kathi Segura | ECON | Unknown | | + + + + + Care Team Providers + +------+ + | Care Transport Medic Name | Role | Phone | + [...] | | | | [place] | [address] | | | | | [address] | | | | | | [phone] | | | +--------+ + + + [...]
--- OUTSIDE RECORDS SUMMARY | ~2019-01-31 | XMS | Encounter Summary ---
Demographics + + + | Address | [address] | | | [place] [address] | + + + | Home Phone [...] Organization | [facility] | [...] | | | | | [place] [address] | | + + + + + | Kathi Segura | ECON | Unknown | | + + + + + Care Team Providers + +------+ + | Care Job Placement Specialist Name | Role | Phone | [...] + + | 04/15/ | Office | [facility] | Ricardo Nicholson, | Abdominal pain | | 2012 | Visit | [facility] | [address] | (Primary Dx) | | | | [address] | [place] | | | | | [place] | [address] | | | | | [address] | | | | | | [phone] | | | +--------+---------+ + + + [...] Performed At | + + + | [facility] Diagnostic Imaging | [place] | | Department [address] [facility] [place] | [facility] | | [ rep ct street1[address]] [ rep ct [facility] [place] | | zip] Signed | - IMAGING | | | | | Patient Name: LYLE BLACK Physician: | | | BILLY. : 1980 Age: 31 Sex: F Unit #: [id number] | | | Exam Date: 04/15/12 [place] [facility] | | | Report #: [id number] Page: | | | %(RAD)RES..mtdd.print.filter("pg") of %(RAD) | | | RES..mtdd.print.filter("tpg") | | | | | | Accession Number: [id number] | | | ABDOMEN X-RAY CLINICAL HISTORY: [...] Transcribed Date/Time: 04/16/2012 | | | 10:02 Recycling Specialist: <<Signature | | | on File>> | | | Jozef | | | MD Federico04/18/12 1035 <Electronically signed by Jozef Caballero MD> | | | Jozef Caballero MD 04/16/12 1000 Recycling Specialist: Rob | | | Baijkppawwuvr92/22/13 1002 Ricardo Nicholson MD | | | | | + + + + + + + + | Performing | Address | City/State[facility] | Phone Number | | Organization | | | | + + + + + | [facility] | [address] | [place] | [phone] | | [facility] | | [address] | | | - IMAGING | | [...] + | [facility] | [address] | [place], [place] | [phone] | | [facility] | | [address] | | | - LABORATORY | | | | + + + + + | [facility] | [address] | [place], [place] | | | [facility] | | [address] | | | - LABORATORY | | [...] + | [facility] | [address] | [place], [place] | [phone] | | [facility] | | [address] | | | - LABORATORY | | | | + + + + + | [facility] | [address] | [place], [place] | | | [facility] | | [address] | | | - LABORATORY | | | | + + + + + documented in this encounter Visit Diagnoses + + | Diagnosis | + + | Abdominal pain - Primary Abdominal pain, unspecified site | + + documented in this encounter
--- OUTSIDE RECORDS SUMMARY | ~2019-01-31 | XMS | Encounter Summary ---
Demographics + + + | Address | [address] | | | [place] [address] | + + + | Home Phone | | + + + | Preferred Language | Unknown | + + + | Marital Status | | + + + | Christianity Affiliation | 1001 | + + + | Race | Unknown | + + + | Ethnic Group | Unknown | + + + Author + + + | Author | [facility] | | | and [place] | + + + | Organization | [facility] | | | and [place] | + + + | Address | Unknown | + + + | Phone | Unavailable | + + + Support + + + + + | Name | Relationship | Address | Phone | + + + + + | Alexia Black | ECON | [address] | | | | | [place] [address] | | + + + + + | Kathi Segura | ECON | Unknown | | + + + + + Care Team Providers + +------+ + | Care Shale Miner Name | Role | Phone | + [...] | SR | | | | | [phone] | | | +--------+ + + + [...]
--- OUTSIDE RECORDS SUMMARY | ~2019-01-31 | XMS | Encounter Summary ---
Demographics + + + | Address | [address] | | | [place] [address] | + + + | Home Phone [...] | Organization | [facility] | [...] | | | | | [place] [address] | | + + + + + | Kathi Segura | ECON | Unknown | | + + + + + Care Team Providers + +------+ + | Care Wall Mirror Department Supervisor Name | Role | Phone | [...] + + | 05/12/ | Telephone | [facility] | lCifford Macedo, | Results, Pathology | | 2012 | | GASTROENTEROLOGY | MD [address] | | | | | [address] [place] | [address] [place], | | | | | [address] [place], [place] | [place] [address] | | | | | [address] | [phone] | | | | | [phone] | | | +--------+ + + + [...]
--- OUTSIDE RECORDS SUMMARY | ~2019-01-31 | XMS | Encounter Summary ---
Demographics + + + | Address | [address] | | | [place] [address] | + + + | Home Phone | | + + + | Preferred Language | Unknown | + + + | Marital Status | | + + + | Advent Affiliation | 1001 | + + + | Race | Unknown | + + + | Ethnic Group | Unknown | + + + Author + + + | Author | [facility] | | | and [place] | + + + | Organization | [facility] [...] | | | | | [place] [address] | | + + + + + | Kathi Segura | ECON | Unknown | | + + + + + Care Team Providers + +------+ + | Care Die Casting Machine Operator Name | Role | Phone [...] Refill | | 2019 | | MEDICINE [place] | [address] | | | | | [address] | [place] | | | | | [place] | [address] | | | | | [address] | | | | | | [phone] | | | +--------+--------+ + + + [...]
--- OUTSIDE RECORDS SUMMARY | ~2019-01-31 | XMS | Encounter Summary ---
Demographics + + + | Address | [address] | | | [place] [address] | + + + | Home Phone [...] + | Organization | [facility] [...] | | | | | [place] [address] | | + + + + + | Kathi Segura | ECON | Unknown | | + + + + + Care Team Providers + +------+ + | Care Grinder Set Up Operator Surface Name | Role | Phone | + [...] + | 09/17/ | Refill | [facility] | Ricardo Nicholson, | Medication Refill | | 2012 | | MEDICINE [place] | [address] | | | | | [address] | [place] | | | | | [place] | [address] | | | | | [address] | | | | | | [phone] | | | +--------+--------+ + + + [...]
--- OUTSIDE RECORDS SUMMARY | ~2019-01-31 | XMS | Encounter Summary ---
Demographics + + + | Address | [address] | | | [place] [address] | + + + | Home Phone [...] | Organization | [facility] | [...] | | | | | [place] [address] | | + + + + + | Kathi Segura | ECON | Unknown | | + + + + + Care Team Providers + +------+ + | Care Skin Care Therapist Name | Role | Phone | + [...] + + | 08/06/ | Office | [facility] | Ricardo Nicholson, | Routine general | | 2017 | Visit | [facility] | [address] | medical examination | | | | [address] | [place] | at a health care | | | | [place] | [address] | facility (Primary | | | | [address] | | Dx) | | | | [phone] | | | +--------+---------+ + + + [...]
--- OUTSIDE RECORDS SUMMARY | ~2019-01-31 | XMS | Encounter Summary ---
Demographics + + + | Address | [address] | | | [place] [address] | + + + | Home Phone [...] Organization | [facility] | | | [...] | | | | | [place] [address] | | + + + + + | Kathi Segura | ECON | Unknown | | + + + + + Care Team Providers + +------+ + | Care [employer] Ax Consultant Name | Role | Phone | [...] | | | | | | [place] [address] | [place], [place] | | | | | | Phone: | [address] | | | | | | [phone] | Phone: | | | | | | Fax: | [phone] | | | | | | [phone] | Fax: | | | | | | | [phone] | +--------+ + + + + + [...] | [address] | [place], [place] [address] | Abnormal biliary | | | | [address] [place], [place] | [place], [place] | HIDA scan | | | | [address] | [id number] | | | | | [phone] | | | +--------+---------+ + + + [...]
--- OUTSIDE RECORDS SUMMARY | ~2019-01-31 | XMS | Encounter Summary ---
Demographics + + + | Address | [address] | | | [place] [address] | + + + | Home Phone [...] | Organization | [facility] [...] | | | | | [place] [address] | | + + + + + | Kathi Segura | ECON | Unknown | | + + + + + Care Team Providers + +------+ + | Care Threader Name | Role | Phone | + [...] + + | 12/18/ | Office | [facility] | Ricardo Nicholson, | Routine general | | 2015 | Visit | [facility] | [address] | medical examination | | | | [address] | [place], [place] | at a health care | | | | [place], [place] | [address] | facility (Primary | | | | [phone] | | Dx); Vaginal | | | | [phone] | | bleeding | +--------+---------+ + + [...] + | [facility] | [address] | [place] | [phone] | | [facility] | | [address] | | | - LABORATORY | | [...] [address] | [place] | [phone] | | [facility] | | [address] | | | - LABORATORY | | [...] [address] | [place] | [phone] | | [facility] | | [address] | | | - LABORATORY | | [...] | 0.86 | 0.60 - 1.30 | [facility] | | | | | mg/dL | [facility] | | | | | | MEDICAL | | | | | | CENTER - | | | | | | LABORATORY | | + + + + + + | eGFR if not | >60Comment: GLOMERULAR | >=60 | [facility] | | | | FILTRATION | mL/min/1.73m2 | [facility] | | | CYMRO | RATE,ESTIMATED | | MEDICAL | | | | mL/min/1.55v7Julp than | | CENTER - | | [...] [address] | [place] | [phone] | | [facility] | | [address] | | | - LABORATORY | | [...] HDL | 28 - 83 mg/dL | [facility] | | | | Reference Range [...] [address] | [place] | [phone] | | [facility] | | [address] | | | - LABORATORY | | [...]
[2019-01-31] MEDS ORDERED: PREDNISONE5 MG PO (13:42)
[2019-01-31] MEDS ORDERED: OCELLA 3 MG-0.1 EACH PO (13:42)
[2019-01-31] MEDS ORDERED: CEFDINIR300 MG PO (13:43)
[2019-01-31] MEDS ORDERED: OMEPRAZOLE20 MG PO (13:43)
[2019-01-31] MEDS ORDERED: SUDOGEST30 MG PO (13:43)
[2019-01-31] MEDS ORDERED: TRAZODONE HCL50 MG PO (13:43)
== END 2019-01-31 14:39 | disposition home or self-care (01) ==
LOC: ED 13:25
DX: S83.91XA Sprain of unspecified site of right knee, initial encounter (principal); X50.9XXA Other and unspecified overexertion or strenuous movements or postures, initial encounter; Z79.899 Other long term (current) drug therapy
CPT/HCPCS: 73560; 99283-25

== ENCOUNTER 2020-06-04 09:50 | Day surgery (SDC) | payer OTHER ==
[~2020-06-04] VITALS: Ht 172.7 cm; Wt 112.7 kg
--- NOTE | ~2020-06-04 | OR ---
[facility] [address] [place], [place] [address] Draft DATE OF OPERATION: 06/04/2020 SURGEON: Tristan Gomez MD PREOPERATIVE DIAGNOSIS: Failed ACL repair, right knee. POSTOPERATIVE DIAGNOSIS: Failed ACL repair, right knee. PROCEDURE PERFORMED: Right knee arthroscopy, diagnostic. LAND MANAGER: Jessica Medellin PA-C; Jessica was present and critical portions of procedure. ANESTHESIA: General. BLOOD LOSS: None. TOURNIQUET TIME: 30 minutes. BRIEF HISTORY: Lyle is a 39-year-old female, who had underwent an ACL repair with continued instability. Repeat MRI showed abnormalities in the ACL. Due to failed rehab, we elected to proceed with removal of the repair and reconstruction with quadriceps tendon. Risks and benefits of this were discussed with her and she elected to proceed. DESCRIPTION OF PROCEDURE: Once consent was obtained, she was taken to the operating room after adequate anesthesia was placed on the operating table. All downside pressure points were well padded. The left knee was flexed, abducted, and externally rotated on a well-padded leg rodas, right was placed in well-padded proximal, thigh tourniquet and leg rodas in the portal sites were pre-injected using 0.25% Marcaine with epinephrine under alcohol prep. The leg was then prepped and draped in a standard sterile fashion. The prior inferolateral and superolateral portals were made and the scope was introduced. PATIENT NAME: LYLE ASCENCIO LONSDALE OPERATIVE REPORT DATE OF : 82 REPORT #: [id number] PHYSICIAN: TRISTAN GOMEZ MD PCP: HU TIRADO MD REPORT IS CONFIDENTIAL AND NOT TO BE RELEASED WITHOUT AUTHORIZATION [facility] [address] [place], [place] [address] Draft Arthroscopic findings: The patella showed grade 2 chondromalacia, the trochlea was intact. Medial lateral gutters were clear. The medial and lateral compartments were clear with only a softened area in the lateral femoral condyle with no cartilage breakdown. The area was not visible on the MRI consistent with an OCD. The ACL was noted to be in its prior position, however, it was not healed to the femur and was fairly shredded. There was no significant blood supply to it. Diagnostic arthroscopy was undertaken as noted above. The standard medial portal was made and the prior sutures were removed and the ACL was removed down to the base. The lateral wall of the femur was cleaned off. Once this was accomplished, the scope was withdrawn. The leg was exsanguinated and the tourniquet was inflated to 275 mmHg. A 1.5-inch incision was made in the center portion of the superior pole of patella extended proximally; it was taken through skin and subcutaneous tissue, and directly down the quad tendon. We marked out a 10 mm strip after clearing off the soft tissue proximally about 10 cm. The 10 cm portion of the quad tendon was then detached from the patella, and a grasping stitch was placed in it. Then, using the QuadPro we attempted to harvest the graft. The only about 30 mm was harvested then the quad tendon, so it came apart. After further evaluation, the remaining quad tendon was quite thin, all being about 3 mm. I did not feel that another attempt at harvesting any quadriceps graft would be satisfactory. I was a little bit unsure as to whether her hamstring tendons will be adequate given the thinness of her quadriceps tendon. We then elected to repair the quad defect with #2 FiberWire. Closed the subcutaneous tissue with 2-0 Stratafix, and skin with 3-0 Monocryl. I then elected to stop the surgery and come back with an allograft, so that we would be prepared for pretty much any eventuality. Her wounds were dressed with Adaptic ABD and Adan wrap. She was awakened and taken to the recovery room in satisfactory condition. All sponge, needle, and instrument counts were correct. Tristan Gomez MD BA/JEANNETTEL /[id number] Copies: PATIENT NAME: LYLE ASCENCIO OPERATIVE REPORT DATE OF : 82 REPORT #: [id number] PHYSICIAN: TRISTAN GOMEZ MD PCP: HU TIRADO MD REPORT IS CONFIDENTIAL AND NOT TO BE RELEASED WITHOUT AUTHORIZATION [address] [place], [place] [address] Draft ~ PATIENT NAME: LYLE ASCENCIO OPERATIVE REPORT DATE OF : 82 REPORT #: [id number] PHYSICIAN: TRISTAN GOMEZ MD PCP: HU TIRADO MD REPORT IS CONFIDENTIAL AND NOT TO BE RELEASED WITHOUT AUTHORIZATION
[~2020-06-04 09:50] MED LIST: ALLER-TEC10 MG PO; APPLE CIDER VI500 MG PO; CEFDINIR300 MG PO; DICLOFENAC SODI75 MG PO; DIGESTIVE ADVA PO; HYDROCODON-ACE1 EA11 PO; OCELLA 3 MG-0.1 EACH PO; OMEPRAZOLE20 MG PO; PREDNISONE5 MG PO; PROBIOTIC1 EAC1 PO; SHARK FIN CART500 MG PO; SUDOGEST30 MG PO; TRAMADOL HCL50 MG PO; TRAZODONE HCL50 MG PO
[2020-06-04] MEDS ORDERED: HYDROCODON-ACE1 EA11 PO (13:33)
--- NOTE | 2020-06-04 13:46 | NUR ---
06/04/20 Earl6 Soniya Acevedo 1337- PT ARRIVES TO PACU. PT WILL SCRUNCH HER FACE WHEN STIMULATED. PT DOES NOT OPEN HER EYES OR VERBALLY RESPOND. RESP EVEN AND UNLABORED. OXYGEN SAT HIGH 90'S TO 100% ON 6L VIA MASK. 1339- CRYOCUFF PLACED TO PT'S RIGHT KNEE WITH PILLOW CASE IN BETWEEN SKIN AND CRYOCUFF.
--- NOTE | 2020-06-04 15:22 | NUR ---
[id number]: PT ARRIVES TO DS RM 2 AWAKE AND ALERT. PT STATES FEELING SOME NAUSEA WHEN ASKED, TOLERATES SIPS OF WATER. PT RATES PAIN 5/10 IN RIGHT KNEE AND POINTS VERTICALLY ALONG KNEE CAP. SPOUSE IN ROOM AT BEDSIDE ON ARRIVAL. JUAN IN TO PT ROOM TO APPLY BRACE. PT STATES INCREASED PAIN WITH MANIPULATION. PT STATES INCREASED NAUSEA WITH MOVEMENT, PROVIDED ALCOHOL SWAB. DR. THOMPSON DIRECTS THIS RN TO STRATEGIC PLANNING MANAGER FOR IV NAUSEA AND PAIN MEDS; SEE EMAR. CRACKERS PROVIDED, CALL LIGHT WITHIN REACH.
--- NOTE | 2020-06-04 15:48 | NUR ---
1540: PT RESTING IN BED AWAKE WITH SPOUSE AT BEDSIDE. PT STATES NAUSEA PERSISTING AND WOULD LIKE MEDICATION. PT RATES PAIN 5/10 ALONG KNEE CAP CONTINUOUS. PT TOLERATES CRACKERS/WATER. CALL LIGHT WITHIN REACH.
--- NOTE | 2020-06-04 17:05 | NUR ---
PT WITH URGE TO USE BR. DANGLES AT EDGE OF BED. MILLA WELL. DENIES DIZZINESS AND SOB. PIVOTS TO BEDSIDE COMMODE WITH STANDBY ASSIST FROM THIS RN. FIRST SUCCESSFUL POSTOP VOID. PIVOTS BACK TO BED. REPORTS WAVE OF NAUSEA. RX ADMINISTERED ORDERED. PT WITHOUT FURTHER NEEDS. CALL LIGHT WITHIN REACH
--- NOTE | 2020-06-04 18:16 | NUR ---
PT TO MEDSURG VIA GURNEY. OFFERED TO MOVE TO BED PT STATES SHE WOULD RATHER STAY ON THE GURNEY FOR NOW. PT DENIES PAIN OR DISCOMFORTS OTHER THAN ONGOING NAUSEA. ORIENTED TO ROOM CALL LIGHT IN REACH.
--- NOTE | 2020-06-04 18:29 | NUR ---
PT RESTING EYES CLOSED ANSWERS QUESTIONS APPROPRIATELY. CRYO IN PLACE. CALL LIGHT IN REACH AND FRESH ICED H20. PT DENIES FURTHER NEEDS AND AGREES TO CALL FOR ANY DISCOMFORTS OR NEEDED ASSIST
--- NOTE | 2020-06-04 18:30 | NUR ---
[id number]: BLANK GRIFFIN AND JUDITH MARTINEZ IN TO PERFORM RESCUE BLOCK, SEE ANESTHESIA RECORD.
--- NOTE | 2020-06-04 18:34 | NUR ---
[id number]: PT CONT TO HAVE NAUSEA BUT WOULD LIKE TO TRY TO GET UP AND USE CRUTCHES WITH DESIRE TO DC HOME. PT SITS AT SIDE OF BED WITH EMESIS BAG, COOL AIR FROM JMAAL HUGGER APPLIED. PT STANDS WHEN READY, EDUCATED TO NOT APPLY ANY WEIGHT ON RIGHT FOOT OTHER THAN TOE-TOUCH FOR BALANCE. PT USES CRUTCHES APPROX 6 FEET TO WC IN HALLWAY, RIGHT LEG COMPLETELY NUMB AND UNSTABLE. PT HAS NAUSEA ONCE IN WC, PROVIDED COOL WASH CLOTH. PT WHEELED BACK TO BED AND IS ABLE TO PIVOT TO BED. PT HAS APPROX 150 MLS GREEN COLORED EMESIS AND IV MED IS GIVEN. THIS RN NOTIFIES DR. THOMPSON OF PT STATUS WHO VERBALLY ORDERS PT TO TRANSFER TO DE UNTIL CRITERIA MET. THIS RN AND PT SPOUSE TRANSFER PT VIA STRETCHER TO MS RM 119, PT TOLERATES MOVEMENT WITH NO EMESIS. PT DOES NOT FEEL ABLE TO TRANSFER FROM STRETCHER TO BED AND REMAINS IN STRETCHER. VERBAL REPORT GIVEN TO LIZ MCKEON.
--- NOTE | 2020-06-04 19:00 | NUR ---
BEDSIDE REPORT RECEIVED FROM OFFGOING RN. PT RESTING WITH EYES CLOSED. DOES NOT WAKE WHILE REPORT AT DOORWAY. FRIEND AT BEDSIDE.
--- NOTE | 2020-06-04 19:30 | NUR ---
PT UP TO BSC WITH SECOND CUTTER ASSISTANCE. IRISH MOSS GATHERER TO ROOM TO DISCUSS SHORT STAY VS ADMISSION. PT STATES THAT SHE IS HESITANT TO GO HOME DUE TO THE FACT THAT SHE IS UNABLE TO PLACE WEIGHT ON HER LEG. PT STATES THAT SHE WOULD LIKE A LITTLE BIT MORE TIME TO DECIDE WHAT SHE WOULD LIKE TO DO.
--- NOTE | 2020-06-04 20:23 | NUR ---
PT ABLE TO SCOOT FROM STRETCHER OVER TO HOSPITAL BED, TOLERATED WELL. ADMISSION PROCESS COMPLETE. PT ORIENTED TO ROOM AND POC FOR THIS SHIFT. PT ASSESSMENT COMPLETE. PT DENIES PAIN, NAUSEA, OR SOB. R KNEE DRESSING C/D/I. GENERALIZED EDEMA TO RLE. PT REPORTS NUMBNESS TO RLE, DENIES TINGLING. UNABLE TO PUSH, PULL, OR WIGGLE TOES ON R FOOT. STATES THAT HER LEG "FEELS LIKE A TREE TRUNK." R KNEE BRACE IN PLACE. CRYOCUFF PRESENT. SCD TO LLE. CALL LIGHT IN PT'S REACH. PT AT BEDSIDE. FURTHER NEEDS DENIED AT THIS TIME.
--- NOTE | 2020-06-04 20:30 | NUR ---
ANSWERED CALL LIGHT. SBA. PATIENT ABLE TO PIVOT TO THE BEDSIDE COMMODE AND BACK TO BED. SCD'S AND CRYO ARE BACK ON. NO OTHER NEEDS AT HTIS TIME.
--- NOTE | 2020-06-04 22:10 | NUR ---
INTERIOR DECORATOR PAPERHANGING TO ROOM FOR SCHEDULED MEDICATION ADMINISTRATION. PT RESTING IN BED WITH EYES CLOSED. WAKES EASILY WHEN INTERIOR DECORATOR PAPERHANGING ENTERS THE ROOM. PT STATES THAT PAIN IS WELL CONTROLLED. DENIES NAUSEA OR SOB. KNEE DRESSING C/D/I. PT REPORTS CONTINUED NUMBNESS TO RLE. PEDAL PULSES PRESENT. CRYOCUFF PRESENT TO R KNEE. ICE WATER REFILLED. PT DENIES FURTHER NEEDS AT THIS TIME. CALL LIGHT IN REACH.
--- NOTE | 2020-06-05 00:19 | NUR ---
PT RESTING IN BED WITH EYES CLOSED. RESPIRATIONS EVEN AND UNLABORED. RR 16. DOES NOT WAKE WHILE CENTRIFUGAL STATION OPERATOR IN DOORWAY. CALL LIGHT IN REACH.
--- NOTE | 2020-06-05 02:13 | NUR ---
PT ASSESSMENT COMPLETE. PT UTILIZES CALL LIGHT, REQUESTS TO USE THE BATHROOM. PT UP TO BSC AND BACK TO BED. PIVOT TRANSFERS WITH MINIMAL ASSISTANCE. PT STATES THAT PAIN IS WELL CONTROLLED AT THIS TIME. STATES THAT LEG REMAINS NUMB. PT DENIES NAUSEA OR SOB. DRESSING TO RLE C/D/I. NO SHADOWING NOTED. PEDAL PULSES PRESENT. PT UNABLE TO WIGGLE TOES, PRESS OR PULL WITH FOOT. PT IS ABLE TO LIFT HER LEG NOW, WHICH SHE STATES IS AN IMPROVEMENT FROM EARLIER. GENERALIZED EDEMA PRESENT TO RLE. BRACE PRESENT TO R KNEE. SCD PRESENT TO LLE. ICE TO CRYOCUFF REFILLED. CYRO PRESENT TO R KNEE. ICE WATER REFILLED. PT DENIES FURTHER NEEDS AT THIS TIME. CALL LIGHT IN REACH.
--- NOTE | 2020-06-05 04:15 | NUR ---
PT RESTING IN BED AWAKE. REQUESTS WARM BLANKET, PROVIDED. PT THANKFUL FOR CARE OVERNIGHT. DENIES FURTHER NEEDS AT THIS TIME. CALL LIGHT IN REACH.
--- NOTE | 2020-06-05 07:20 | NUR ---
BEDSIDE HANDOFF REPORT RECEIVED FROM JANIE MURRAY RN. PT SLEEPING, LEFT UNDSITURBED.
[2020-06-05] MEDS ORDERED: [UNRECOGNIZED DRUG - OTHER] PO (08:27)
[2020-06-05] MEDS ORDERED: VENTOLIN HFA18 GM INH (08:27)
--- NOTE | 2020-06-05 09:15 | NUR ---
PT RESTING IN BED. PT N ROOM AIR, LUNG SOUNDS CLEAR. PT DENIES PAIN. PT DENIES NAUSEA, BOWEL TONES ACTIVE, TOLERATED BREAKFAST. PT RIGHT LEG CONTINUES TO BE NUMB, HAS SENSATION JUST TO KNEE LEVEL, PT CONCERNED OF DISCHARGING WHEN LEG IS TOO NUMB TO FEEL HOW MUCH WEIGHT IS BEING PUT ON IT. RIGHT FOOT IS MORE SWOLLEN THAN LEFT, BRISK CAP REFILL AND STRONG PEDAL PUSLE. DRESSING AND KNEE BRACE IN PLACE, CRYOCUFF. PT DENIES OTHER NEEDS AT THIS TIME. DISCUSSED TO CALL FOR PAIN MEDICATION WHEN MORE SENSATION COMES BACK IN KNEE. PLAN FOR DISCHARGE LATER TODAY.
[2020-06-05] MEDS ORDERED: FIBER THERAPY0.52 GM PO (09:26)
[2020-06-05] MEDS ORDERED: DICLOFENAC SODI75 MG PO (09:28)
[2020-06-05] MEDS ORDERED: EPIDIOLEX100 MG/1 M PO (09:30)
--- NOTE | 2020-06-05 09:31 | NUR ---
MED REC COMPLETE
--- NOTE | 2020-06-05 09:44 | NUR ---
PATIENTS VITALS DONE And CHARTED. NOTHING ELSE NEEDED FOR NOW.
--- NOTE | 2020-06-05 10:35 | NUR ---
PT REQUESTING PAIN MEDICATION, BRANDT MELGOZA 09/01 TO RIGHT KNEE, GIVEN 1 TAB NORCO, DISCUSSED PURPOSE AND SIDE EFFECTS. PT CONTINUES TO HAVE NUMBNESS AT JUST BELOW THE KNEE, UNABLE TO WIGGLE TOES. PT DENIES OTHER NEEDS AT THIS TIME.
--- NOTE | 2020-06-05 12:08 | NUR ---
PT RESTING IN BED. NUBNESS IMPROVING SLOWLY, NOW HAS SOME SENSATION JUST BELOW KNEE LEVEL, STILL UNABLE TO WIGGLES TOES. PT STATES NORCO HELPED, PAIN 05/02. LUNCH AT BEDSIDE. PT DENIES OTHER NEEDS AT THIS TIME.
--- NOTE | 2020-06-05 13:45 | NUR ---
PATIENT ATE ALL MEAL. VITALS DONE AND CHARTED. NOTHING ELSE NEEDED AT THIS TIME. PATIENT WONDERING ABOUT NUMBNESS IN LEFT WONG.
--- NOTE | 2020-06-05 14:11 | NUR ---
PT RESTING IN BED. PT CONTINUES TO BE NUMB IN RLE FROM MID SAWANT TO TOES, ABLE TO MOVE FOOT AND TOES. PT REQUESTED PAIN MEDICATION, BRANDT MELGOZA 07/02, GIVEN 1 TAB NORCO. DISCUSSED DISCHARGE PLAN, PT WILL TELL RIDE TO COME AROUND 1600. PT DENIES OTHER NEEDS AT THIS TIME.
--- NOTE | 2020-06-05 15:23 | NUR ---
PATIENTS DISCHARGE VITALS DONE AND CHARTED. PATIENT IS READY FOR DISCHARGE.
--- NOTE | 2020-06-05 15:47 | NUR ---
IV TAKEN OUT UPON RN REQUEST. CATH INTACT AND LOOKED GOOD, RN NOTIFIED.
== END 2020-06-05 16:00 | disposition home or self-care (01) ==
LOC: DS 09:50 → MS 17:40 → DS 06-05 16:00
PROVIDERS: ATTEND Specialist
PROC: 0SJC4ZZ Inspection of Right Knee Joint, Percutaneous Endoscopic Approach (ICD-10-PCS; principal; 2020-06-04 12:15)
DX: T84.490A Other mechanical complication of muscle and tendon graft, initial encounter (principal)
CPT/HCPCS: A9270; J0690; J1100; J1790; J1885; J2001; J2250; J2405; J2550; J2704; J2795; J3010; J7121

== ENCOUNTER 2020-12-12 07:52 | Day surgery (SDC) | payer OTHER ==
[~2020-12-12] VITALS: Ht 172.7 cm; Wt 110.0 kg
[~2020-12-12 07:52] MED LIST changes: +DIGEST ADV LAC PO; +DOXYCYCLINE HYC50 M2 PO; +EPIDIOLEX100 MG/1 M PO; +FIBER THERAPY0.52 GM PO; +IRON325 M1 PO; +K-MG CITRATE 91 EACH PO; +MCT OIL PO; +OSTERA TABLET1 EACH PO; +VENTOLIN HFA18 GM INH; +XARELTO20 MG PO; +[UNRECOGNIZED DRUG - OTHER] PO
[2020-12-12] MEDS ORDERED: ADVIL200 M1 PO (08:07)
[2020-12-12] MEDS ORDERED: OXYCODONE HCL5 MG PO (11:59)
--- NOTE | 2020-12-12 12:32 | NUR ---
12/12/20 1232 Saundra Boss 1203 PT ARRIVED IN PACU NON RESPONSIVE TO NOXIOUS STIMULI. LILA VERA IN PLACE. 1215 CRYO CUFF PLACED ON RIGHT KNEE. 1230 C/O R KNEE PAIN 07/02. DECLINED PAIN MED AT THIS TIME.
--- NOTE | 2020-12-12 13:05 | NUR ---
1255: PT ARRIVES BACK TO UNIT FROM PACU VIA STRETCHER. DROWSY BUT HOLDS APPROPRIATE CONVERSTATION. VSS, RESP EVEN AND UNLABORED. CRYO CUFF, MARTHA HOSE AND SCDS IN PLACE. DRESSING C/D/I. PT REPORTS IMPROVING NAUSEA AFTER ANTIEMETIC RX IN PACU. REPORTS TOLERABLE PAIN LEVEL, 5/10. DENIES NEED FOR INTERVENTION AT THIS TIME. CMS WNL. POC DISCUSSED AND PT AGREEABLE. NO NEEDS VOICED AT THIS TIME, CALL LIGHT WITHIN REACH. ATTENTIVE AT THE BEDSIDE
--- NOTE | 2020-12-12 13:21 | NUR ---
LE 1230: DC RX ORDER FOR 20MG XARELTO ONCE DAILY FOR 30 DAYS RECEIVED FROM LIZ THOMPSON. 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
--- NOTE | 2020-12-12 14:04 | NUR ---
1355: PT MORE ALERT AND AWAKE. ANSWERS QUESTIONS APPROPRIATELY. VSS, RESP EVEN AND UNLABORED. CONTS TO REPORT TOLERABLE PAIN LEVEL OF 5/10, DENIES NEED FOR INTERVENTION AT THIS TIME. NO CHANGE TO DRESSING FROM ARRIVAL, SCDS, CRYO CUFF AND MARTHA HOSE REMAIN IN PLACE. CMS WNL. IV CONVERTED TO SL. REPORTS MILD NAUSEA BUT IS MILLA PO INTAKE AT THIS TIME. HOB ELEVATED TO 45 DEGREES. NO NEEDS VOICED, CALL LIGHT WITHIN REACH
--- NOTE | 2020-12-12 15:04 | NUR ---
1450: PT AWAKE AND ALERT IN BED. HOB ELEVATED TO 90 DEGREES. VSS, RESP EVEN AND UNLABORED. CONTS TO REPORT 5/10 PAIN AND DENIES PAIN INTERVENTION. DRESSING REMAINS C/D/I, CMS WNL. DANGLES AT THE BEDSIDE. MILLA WELL, DENIES DIZZINESS AND SOB. AMBULATES USING CRUTCHES TO BR WITH STANDBY ASSISTANCE FROM THIS RN. 50% WEIGHT BEARING STATUS DISCUSSED AND PT DEMONSTRATES. SUCCESSFUL POST OP VOID, 600ML. RETURNS TO STRETCHER, TO HELP PT PREPARE FOR DC AT THIS TIME
--- NOTE | 2020-12-12 15:34 | NUR ---
1515: DC INSTRUCTIONS PROVIDED AND DISCUSSED ORDERED. PT VOICES UNDERSTANDING AND DENIES QUESTIONS AND CONCERNS AT THIS TIME. SL REMOVED WITH CATH TIP INTACT AND PRESSURE APPLIED TO SITE. 1525: PT WHEELED OFF OF UNIT IN WC BY THIS RN. TRANSFERS INTO VEHICLE INDEPENDENTLY AND APPROPRIATELY. RESP EVEN AND UNLABORED. NO PHYSICAL S/S OF DISTRESS AT THIS TIME
--- NOTE | 2020-12-13 07:27 | OR ---
[facility] [address] [place], [place] [address] Signed DATE OF OPERATION: 12/12/2020 SURGEON: Tristan Gomez MD PREOPERATIVE DIAGNOSIS: ACL tear, right knee. POSTOPERATIVE DIAGNOSIS: ACL tear, right knee. PROCEDURE PERFORMED: Right knee arthroscopy with ACL reconstruction using allograft. SPRUE CUTTING PRESS OPERATOR: Jessica Medellin PA-C. Jessica was present and critical for all portions of procedure. ANESTHESIA: General. BLOOD LOSS: Minimal. IMPLANTS: Arthrex QuadLink 9.5 x 70 allograft. BRIEF HISTORY: Lyle is a 40-year-old female who suffered a fall and injury at work. She had undergone a prior attempted repair of her ACL that failed and a subsequent surgery after that to debride the knee. She did have multiple complications including DVTs and uterine bleeding, which forestall of any further surgery. Her other issues have cleared up and she wished to proceed with ACL reconstruction using allograft tendon. The risks, benefits, and alternatives were discussed at length with her and she elected to proceed. DESCRIPTION OF PROCEDURE: Once consent was obtained, she was taken to the operating room. After adequate anesthesia, she was placed on the operating table. Her left leg was flexed, abducted, and externally rotated on a well-padded leg rodas. The right was placed in a well-padded proximal leg rodas and portal sites were pre-injected using 0.25% Marcaine with epinephrine and an alcohol prep. The leg was then prepped and draped in a standard Electronically Signed By: TRISTAN GOMEZ MD 12/13/20 0727 PATIENT NAME: LYLE ASCENCIO OPERATIVE REPORT DATE OF : 82 REPORT #: [id number] PHYSICIAN: TRISTAN GOMEZ MD PCP: HU TIRADO MD REPORT IS CONFIDENTIAL AND NOT TO BE RELEASED WITHOUT AUTHORIZATION [facility] [address] [place] [id number] Signed sterile fashion. The prior inferolateral and superolateral portals were made and the scope was introduced into the knee. ARTHROSCOPIC FINDINGS: The patellofemoral surfaces were intact. Medial and lateral compartments were intact. The ACL was noted to be . There were some scar remnants. PCL was intact. DESCRIPTION OF OPERATION: Prior inferomedial portal was established and the scar tissue removed from the notch and the drill hole for the prior repair was then cleared of soft tissue and as much suture and screw material as we can get. The metal tip for the 475 SwiveLock was stuck in the bone, we were unable to retrieve that. We elected to leave that because it was deeper than the graft that we might be using. Once this was accomplished, we then prepared the graft, placing the Graftlink over the endobuttons and preparing it per manufacture's instructions. We then placed the scope back into the knee. Over the top guide was then used to guide the Beath pin up into the prior hole in the femur. This was drilled out through the anterolateral femur and out through the skin. We were then able to over-ream this to a depth of about 25 mm. All bony debris was then evacuated and using the Beath pin, we advanced a #1 FiberWire out the anterior lateral femur with a loop left in the knee. The standard tibial guide was then used and a separate anteromedial incision was made over the tibia. The guide was advanced against the tibia and placed in the center of the ACL footprint. The Beath pin was then advanced into the tibia and drilled using a 10 mm drill. Once this was accomplished, #1 FiberWire from the femoral tunnel was brought out to the tibial tunnel after cleaning the tibial tunnel of all debris. Once this was completed, the sutures for the Graftlink were looped over the #1 and were brought out the anterolateral femur. The graft was then carefully fed into the tibial tunnel and was advanced into the knee. The button was flipped over the top of the femur and this was used to advance the graft until it was well-seated in the femoral tunnel with excellent fixation. It was then tightened several times. We then pulled distally on the allograft and cycled the knee. Once again, we tightened the proximal Graftlink and placed the large button over the Graftlink on the tibial side and tightened it until was well approximated against the tibia. We then tied the sutures over this button and cut them both. The knee was quite stable at the end of the procedure. There was no slack or laxity in it. The scope was withdrawn. Portals were closed with 3-0 nylon as was the proximal tibial incision. The wounds dressed with Allevyn dressing, ABDs and Adan wrap. She tolerated the procedure well. All sponge, needle, and instrument counts were correct. Tristan Gomez MD Electronically Signed By: TRISTAN GOMEZ MD 12/13/20 0727 PATIENT NAME: LYLE ASCENCIO OPERATIVE REPORT DATE OF : 82 REPORT #: [id number] PHYSICIAN: TRISTAN GOMEZ MD PCP: HU TIRADO MD REPORT IS CONFIDENTIAL AND NOT TO BE RELEASED WITHOUT AUTHORIZATION [facility] [address] [place] [address] Signed BA/MODL /[id number] Copies: ~ Electronically Signed By: TRISTAN GOMEZ MD 12/13/20 0727 PATIENT NAME: LYLE ASCENCIO OPERATIVE REPORT DATE OF : 82 REPORT #: [id number] PHYSICIAN: TRISTAN GOMEZ MD PCP: HU TIRADO MD REPORT IS CONFIDENTIAL AND NOT TO BE RELEASED WITHOUT AUTHORIZATION
== END 2020-12-12 15:25 | disposition home or self-care (01) ==
LOC: DS 07:52
PROVIDERS: ATTEND Specialist
PROC: 0MQN4ZZ Repair Right Knee Bursa and Ligament, Percutaneous Endoscopic Approach (ICD-10-PCS; principal; 2020-12-12 10:00)
DX: S83.511A Sprain of anterior cruciate ligament of right knee, initial encounter (principal); W19.XXXA Unspecified fall, initial encounter; G89.18 Other acute postprocedural pain; Z86.718 Personal history of other venous thrombosis and embolism
CPT/HCPCS: J0690; J1100; J1200; J1790; J1885; J2001; J2250; J2405; J2704; J2795; J3010; J7121